=== PATIENT | male | born 1940 | race Caucasian/White ===

== ENCOUNTER 2020-08-02 15:22 | Emergency (ER) | payer MEDICARE, SELFPAY ==
--- NOTE | 2020-08-02 | CT_ITS ---
EXAMINATION: CT HEAD WITHOUT CONTRAST CLINICAL INFORMATION: Lower leg weakness. COMPARISON: CT head from 06/07/2018. Brain MRI from 06/07/2018. TECHNIQUE: Contiguous axial imaging was performed from the skull base to vertex without intravenous administration of contrast. DLP: 749 mGy-cm This CT examination was performed using dose optimization techniques as appropriate, variously including the following: *Automated exposure control. *Adjustment of mA and/or kV according to patient size (this includes techniques or standardized protocols for targeted exams where dose is matched to indication/reason for exam; i.e. extremities or head). *Use of iterative reconstruction technique. FINDINGS: There is no evidence of acute intracranial hemorrhage or edematous territorial infarction. Confluent hypoattenuation in the periventricular, deep white matter, and brainstem. 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 No demonstrated new loss of nicolas-white matter differentiation. Proportional prominence of the ventricles and sulcal spaces. No evidence for obstructive hydrocephalus. No abnormal mass effect or midline shift. No extra-axial fluid collections. 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 No hyperdense vessel sign. No acute soft tissue or osseous abnormalities. The mastoid air cells and paranasal sinuses are clear. Bilateral lens extractions. IMPRESSION: 1. No evidence of acute intracranial hemorrhage or edematous territorial infarction. 2. Moderate to extensive underlying microangiopathy. Moderate generalized cerebral volume loss.
--- NOTE | 2020-08-02 | ECG_ITS ---
Test Reason : FALL Blood Pressure : / mmHG Vent. 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 rate has decreased BY 24 BPM Referred By: Bobby Sharma Electronically Signed By:WESLEY GAINES
[2020-08-02 15:44] VITALS: BP 132/80; BP 175/77; PULSE 50; RESP 17; TEMP 36.8; O2SAT 98; BMI 37.4
[2020-08-02 15:55] VITALS: BP 175/77; PULSE 50; RESP 17; TEMP 36.8; O2SAT 98
--- NOTE | 2020-08-02 16:27 | MHC.CM.ED ---
Received case management consult from Dr Sharma. Patient came to ER due to weakness. Work up is still pending. Spoke with patient's daughter/HCP, Nancy via telephone at [phone]. Patient lives with his , ambulates with a walker and had no services prior to coming to the hospital. Patient has been to [facility] in the past. T/w explained in work up was negative, physical therapy eval would be completed. Referral made to [facility] via allscripts. Continue to monitor for d/c needs.
--- NOTE | 2020-08-02 17:05 | PC.NURSE ---
iv inserted, labs drawn, ekg performed, will continue to monitor.
[2020-08-02 17:08] LABS: MANUAL DIFF FLAG NO
[2020-08-02 17:09] LABS: Basophils Percent Auto 0.3 % (0-2); Eosinophils Absolute Auto 0.2 X10*3/uL (0.0-0.4); Eosinophils Percent Auto 2.5 % (0-4); Hematocrit 48.5 % (42-52); Hemoglobin 15.8 g/dl (14.0-18.0); Imm Gran Abs Auto 0.03 X10*3/uL (0.00-0.03); Imm Gran Pct Auto 0.3 % (0.0-0.4); Lymphocytes Absolute Auto 1.8 X10*3/uL (1.2-4.9); Lymphocytes Percent Auto 18.8 % (20-40); Mean Corpuscular HGB Conc 32.6 g/dl (31.0-36.0); Mean Corpuscular Hemoglobin 31.9 pg (27.0-33.0); Mean Corpuscular Volume 97.8 fL (80-98); Monocytes Percent Auto 10.2 % (2-11); Neutrophils Absolute Auto 6.5 X10*3/uL (2.0-8.3); Neutrophils Percent Auto 67.9 % (45-73); Platelet Count 196 X10*3/uL (160-400); Red Blood Count 4.96 X10*6/uL (4.60-5.80); Red Cell Distribution Width 14.7 % (11.0-16.0); White Blood Count 9.5 X10*3/uL (4.8-10.8)
[2020-08-02 17:43] LABS: Troponin-I High Sensitivity 10.4 ng/L (<3.5-35.0)
[2020-08-02 17:50] LABS: Alanine Aminotransferase 22 U/L (0-40); Alkaline Phosphatase 206 U/L (39-117); Anion Gap 15 (12-20); Aspartate Amino Transferase 20 U/L (5-37); Bilirubin Direct 0.5 mg/dL (0.0-0.5); Bilirubin Total 0.8 mg/dL (0.0-1.0); Blood Urea Nitrogen 41 mg/dL (9-16); Carbon Dioxide 26 mmol/L (22-29); Chloride 106 mmol/L (96-108); Creatinine Clr Calc Pharmacy 38.1; Estimated Glomerular Filt Rate 40; Glucose Random 69 mg/dL (60-115); Potassium 4.3 mmol/l (3.3-5.1); Sodium 143 mmol/L (135-145); Total Protein 6.6 g/dL (6.5-8.0)
[2020-08-02 18:00] VITALS: BP 172/76; PULSE 51; RESP 18; TEMP 36.8; O2SAT 98
--- NOTE | 2020-08-02 18:18 | PC.NURSE ---
PATIENT AGITATED AND WANTING TO DISCHARGE FROM ED, WILL NOTIFY PROVIDER
--- NOTE | 2020-08-02 18:44 | ED.GENADULT ---
HPI - General Adult General Chief complaint: Extremity Injury, Lower Stated complaint: fall unable to anbulate Time Seen by Provider: 08/02/20 16:04 Source: patient and family History of Present Illness HPI narrative: 80 year old male states of increasing lower extremity weakness weeks. States normally walks with a walker however recently has been more weak and unable to walk. Patient states he did feel the past couple days ago however no injury. No head injury. Patient states did not pass out no syncope or chest pain. Patient denies focal pain. Denies fevers or chills. Onset (ago): day(s) Severity: mild Pain Consistency: constant Related Data Previous Rx's Medication Instructions Recorded cefuroxime axetil 500 mg PO BID #14 tab 08/02/20 Allergies Allergy/AdvReac Type Severity Reaction Status Date / Time No Known Allergies Allergy Verified 08/02/20 15:53 Review of Systems Review of Systems: Constitutional : No Weight loss, No Fever, No Chills, No Night Sweats, No Fatigue, No Malaise ENT/Mouth : No Hearing loss, No Ear Pain, No Nasal Congestion, No Sinus Pain, No Hoarseness, No sore throat, No Rhinorrhea, No Swallowing Difficulty Eyes: No Eye Pain, No Swelling, No Redness, No Foreign Body, No Discharge, No Vision Changes Cardiovascular : No Chest Pain, No SOB, No Dyspnea on Exertion, No Orthopnea, No Edema, No Palpitations Respiratory : No Cough, No Sputum, No Wheezing, No Smoke Exposure, No Dyspnea Gastrointestinal : No Nausea, No Vomiting, No Diarrhea, No Constipation, No abdominal Pain, No Hematochezia, No Melena Genitourinary : no irregular bleeding, No Dysuria, No Urinary Frequency, No Hematuria, No Urinary Incontinence, No Urgency, No Flank Pain, No Urinary Flow Changes, No Hesitancy Musculoskeletal : No joint pain, No Myalgias, No Joint Swelling Skin : No Skin Lesions, No rash Neuro : No Weakness, No Numbness, No Paresthesias, No Loss of Consciousness, No Dizziness, No Headache Psych : No Anxiety/Panic, No Depression, No SI/HI/AH/VH, No Social Issues, Heme/Lymph: No Bruising, No Bleeding,No Lymphadenopathy Endocrine : No Polyuria, No Polydipsia, No Temperature Intolerance Yes all other systems are reviewed and are negative [facility] Past Medical History Attestation statement: The following information was validated with the patient. 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 Oriented X3. No acute distress. Eyes: Pupils equal, round and reactive to light. ENT: Pharynx normal. Neck: Normal inspection. Neck supple. CVS: Normal heart rate and rhythm. Pulses normal. Respiratory: No respiratory distress. Breath sounds normal. Abdomen: Soft and nontender. Skin: Skin warm and dry. Normal skin color. Normal skin turgor. Extremities: No lower extremity edema. No lower extremity edema. bilateral decreased strength intact sensation bilateral intact reflexes Neuro: Oriented X 3. No motor deficit. No sensory deficit. Course Course Course Narrative: 80-year-old male diagnosed with UTI general weakness. However the patient is not septic nor dizzy meet criteria for sepsis. Family able to take her med home. Wants to go home. Patient ambulatory with assistance. Reevaluation(s) Reevaluation #1: EKG reading. Sinus bradycardia 46. Right word axis. No ST-T changes Medical Decision Making Lab Data Result diagrams: 08/02/20 17:01 08/02/20 17:01 Labs: Lab Results 08/02/20 08/02/20 08/02/20 Range/Units 17:01 17:01 17:01 WBC 9.5 (4.8-10.8) X10*3/uL RBC 4.96 (4.60-5.80) X10*6/uL Hgb 15.8 (14.0-18.0) g/dl Hct 48.5 (42-52) % MCV 97.8 (80-98) fL MCH 31.9 (27.0-33.0) pg MCHC 32.6 (31.0-36.0) g/dl RDW 14.7 (11.0-16.0) % Plt Count 196 (160-400) X10*3/uL MPV 10.0 (9.4-12.4) fL Immature Gran % (Auto) 0.3 (0.0-0.4) % Neut % (Auto) 67.9 (45-73) % Lymph % (Auto) 18.8 L (20-40) % [place] % (Auto) 10.2 (2-11) % Eos % (Auto) 2.5 (0-4) % Baso % (Auto) 0.3 (0-2) % Neut # (Auto) 6.5 (2.0-8.3) X10*3/uL Lymph # (Auto) 1.8 (1.2-4.9) X10*3/uL [place] # (Auto) 1.0 (0.1-1.2) X10*3/uL Eos # (Auto) 0.2 (0.0-0.4) X10*3/uL Baso # (Auto) 0.0 (0.0-0.2) X10*3/uL Abs Immat Gran (auto) 0.03 (0.00-0.03) X10*3/uL Absolute Nucleated RBC 0.000 (0.0-0.012) X10*3/uL Nucleated RBC % (auto) 0.0 (0.0-0.2) /100WBC Sodium 143 (135-145) mmol/L Potassium 4.3 (3.3-5.1) mmol/l Chloride 106 (96-108) mmol/L Carbon Dioxide 26 (22-29) mmol/L Anion Gap 15 (12-20) BUN 41 H (9-16) mg/dL Creatinine 1.64 H (0.5-1.4) mg/dL Estim Creat Clear Calc 38.1 Estimated GFR 40 Random Glucose 69 (60-115) mg/dL Calcium 8.0 L (8.4-10.2) mg/dL Total Bilirubin 0.8 (0.0-1.0) mg/dL Direct Bilirubin 0.5 (0.0-0.5) mg/dL AST 20 (5-37) U/L ALT 22 (0-40) U/L Alkaline Phosphatase 206 H (39-117) U/L Troponin I High Sens 10.4 (<3.5-35.0) ng/L Total Protein 6.6 (6.5-8.0) g/dL Albumin 4.0 (3.5-5.0) g/dL Discharge Plan Discharge Clinical Impression: Generalized muscle weakness, Acute UTI Patient Disposition: Home, Self-Care Instructions: Urinary Tract Infection in Men (ED), Weakness (ED) Additional Instructions: Thank you for visiting the emergency department today. If your symptoms worsen or do not resolve completely please return to the emergency department immediately or call 911. if he have any questions please call your primary care physician Prescriptions: New cefuroxime axetil 500 mg tablet 500 mg PO BID Qty: 14 RF: 0 Referrals: Corinne Breaux [Emergency Nurse] - 2 days Interventions: ED Discharge Assessment Last Done: 08/02/20 20:00 Discharge Date/Time: 08/02/20 20:02
--- NOTE | 2020-08-02 18:48 | PC.NURSE ---
This rn spoke with pt and family, plan is to dc pt homewith oral abx and follow up with pcp, pt and family are aware of plan of care.
--- NOTE | 2020-08-02 19:35 | PC.NURSE ---
PT MEDICATED PER ORDER
== END 2020-08-02 20:02 | disposition home or self-care (01) ==
PROVIDERS: Emergency Provider Emergency Medicine; PCP Internal Medicine
DX: R53.1 Weakness (principal); R26.2 Difficulty in walking, not elsewhere classified; N39.0 Urinary tract infection, site not specified; Z79.899 Other long term (current) drug therapy
CPT/HCPCS: 36415; 70450; 80048; 80076; 84484; 85025; 93005; 93010; 99284

== ENCOUNTER 2020-08-10 13:42 | Outpatient (REF) | payer MEDICARE, SELFPAY ==
[2020-08-10 14:41] LABS: MANUAL DIFF FLAG NO
[2020-08-10 14:52] LABS: Basophils Percent Auto 0.3 % (0-2); Eosinophils Absolute Auto 0.2 X10*3/uL (0.0-0.4); Eosinophils Percent Auto 2.2 % (0-4); Hematocrit 47.4 % (42-52); Hemoglobin 15.4 g/dl (14.0-18.0); Imm Gran Abs Auto 0.03 X10*3/uL (0.00-0.03); Imm Gran Pct Auto 0.4 % (0.0-0.4); Lymphocytes Absolute Auto 1.5 X10*3/uL (1.2-4.9); Lymphocytes Percent Auto 19.1 % (20-40); Mean Corpuscular HGB Conc 32.5 g/dl (31.0-36.0); Mean Corpuscular Volume 98.5 fL (80-98); Mean Platelet Volume 10.6 fL (9.4-12.4); Monocytes Absolute Auto 0.6 X10*3/uL (0.1-1.2); Monocytes Percent Auto 7.7 % (2-11); Neutrophils Absolute Auto 5.6 X10*3/uL (2.0-8.3); Neutrophils Percent Auto 70.3 % (45-73); Platelet Count 193 X10*3/uL (160-400); Red Blood Count 4.81 X10*6/uL (4.60-5.80); Red Cell Distribution Width 14.6 % (11.0-16.0); White Blood Count 7.9 X10*3/uL (4.8-10.8)
[2020-08-10 15:17] LABS: Alanine Aminotransferase 22 U/L (0-40); Albumin Level 3.8 g/dL (3.5-5.0); Alkaline Phosphatase 177 U/L (39-117); Anion Gap 12 (12-20); Aspartate Amino Transferase 18 U/L (5-37); Bilirubin Total 0.7 mg/dL (0.0-1.0); Blood Urea Nitrogen 44 mg/dL (9-16); Calcium 7.9 mg/dL (8.4-10.2); Carbon Dioxide 28 mmol/L (22-29); Chloride 106 mmol/L (96-108); Cholesterol 129 mg/dL; Estimated Glomerular Filt Rate 39; Glucose Fasting 159 mg/dL (60-99); HDL Cholesterol 24 mg/dL; LDL Cholesterol Calculated 73 mg/dl; Potassium 4.7 mmol/l (3.3-5.1); Sodium 141 mmol/L (135-145); Triglycerides 164 mg/dL
[2020-08-10 16:06] LABS: Reflex LDLD? No
[2020-08-17 15:13] LABS: Glucose Urine UA NEG (NEG); Leukocyte Esterase Urine NEG (NEG); Nitrite Urine NEG (NEG); PH 5.5 (5.0-8.0); Specific Gravity - Urine 1.015 (1.005-1.025); Urine Blood NEG (NEG); Urine Ketones NEG (NEG); Urine Protein NEG (NEG-TRACE)
[2020-08-17 15:16] LABS: Appearance Urine CLEAR; Color Urine YELLOW
== END 2020-08-10 13:43 | disposition home or self-care (01) ==
LOC: HO.LAB 13:42
PROVIDERS: PCP Internal Medicine; Visit Provider Internal Medicine
DX: I10 Essential (primary) hypertension (principal); E78.6 Lipoprotein deficiency; Z87.448 Personal history of other diseases of urinary system
CPT/HCPCS: 36415; 80053; 80061; 81003; 84153; 85025

== ENCOUNTER 2021-01-31 10:22 | Outpatient (REF) | payer MEDICARE, SELFPAY ==
[2021-01-31 13:36] LABS: SARS COV2 PCR INHOUSE POSITIVE (Negative)
== END 2021-01-31 10:23 | disposition home or self-care (01) ==
LOC: HO.LAB 10:22
PROVIDERS: Visit Provider Internal Medicine
DX: Z20.822 Contact with and (suspected) exposure to COVID-19 (principal)
CPT/HCPCS: C9803; U0003

== ENCOUNTER 2021-05-12 16:14 | Outpatient (REF) | payer MEDICARE, SELFPAY ==
[2021-05-12 16:20] LABS: MANUAL DIFF FLAG NO
[2021-05-12 16:25] LABS: Basophils Percent Auto 0.3 % (0-2); Eosinophils Absolute Auto 0.2 X10*3/uL (0.0-0.4); Eosinophils Percent Auto 1.4 % (0-4); Hematocrit 39.4 % (42-52); Hemoglobin 12.7 g/dl (14.0-18.0); Imm Gran Abs Auto 0.05 X10*3/uL (0.00-0.03); Imm Gran Pct Auto 0.4 % (0.0-0.4); Lymphocytes Absolute Auto 2.3 X10*3/uL (1.2-4.9); Lymphocytes Percent Auto 19.5 % (20-40); Mean Corpuscular HGB Conc 32.2 g/dl (31.0-36.0); Mean Corpuscular Hemoglobin 31.3 pg (27.0-33.0); Mean Platelet Volume 10.4 fL (9.4-12.4); Monocytes Absolute Auto 1.2 X10*3/uL (0.1-1.2); Monocytes Percent Auto 10.4 % (2-11); Platelet Count 230 X10*3/uL (160-400); Red Blood Count 4.06 X10*6/uL (4.60-5.80); Red Cell Distribution Width 16.4 % (11.0-16.0); White Blood Count 11.8 X10*3/uL (4.8-10.8)
[2021-05-12 17:30] LABS: Alanine Aminotransferase 13 U/L (0-40); Albumin Level 3.6 g/dL (3.5-5.0); Alkaline Phosphatase 156 U/L (39-117); Anion Gap 15 (12-20); Aspartate Amino Transferase 17 U/L (5-37); Bilirubin Total 0.8 mg/dL (0.0-1.0); Blood Urea Nitrogen 29 mg/dL (9-16); Calcium 7.1 mg/dL (8.4-10.2); Carbon Dioxide 23 mmol/L (22-29); Chloride 107 mmol/L (96-108); Cholesterol 137 mg/dL; Estimated Glomerular Filt Rate 42; Glucose Fasting 77 mg/dL (60-99); HDL Cholesterol 27 mg/dL; LDL Cholesterol Calculated 76 mg/dl; Potassium 4.2 mmol/L (3.3-5.1); Sodium 141 mmol/L (135-145); Total Protein 6.1 g/dL (6.5-8.0); Triglycerides 172 mg/dL
[2021-05-12 17:45] LABS: PSA,Total (Free>4and<10) 0.96 ng/mL (0.00-4.00)
[2021-05-12 18:11] LABS: Reflex LDLD? No
== END 2021-05-12 16:15 | disposition home or self-care (01) ==
LOC: HO.LNP 16:14
PROVIDERS: Visit Provider Internal Medicine
DX: Z12.5 Encounter for screening for malignant neoplasm of prostate (principal); N19 Unspecified kidney failure; G30.0 Alzheimer's disease with early onset; G40.909 Epilepsy, unspecified, not intractable, without status epilepticus; I10 Essential (primary) hypertension
CPT/HCPCS: 80053; 80061; 84153; 85025

== ENCOUNTER 2021-07-25 12:19 | Emergency (ER) | payer MEDICARE, SELFPAY ==
--- NOTE | ~2021-07-25 | CT_ITS ---
EXAMINATION: CT HEAD WITHOUT CONTRAST (STROKE PROTOCOL) CLINICAL INFORMATION: Stroke protocol. Acute mental status change COMPARISON: Previous head CT most recent July 2020 TECHNIQUE: Contiguous axial imaging was performed from the skull base to vertex without intravenous administration of contrast. This CT examination was performed using dose optimization techniques as appropriate, variously including the following: *Automated exposure control *Adjustment of mA and/or kV according to patient size (this includes techniques or standardized protocols for targeted exams where dose is matched to indication/reason for exam; i.e. extremities or head) *Use of iterative reconstruction technique DLP: 782 mGy-cm FINDINGS: There is no evidence of an extra-axial collection. There is no evidence of intra or extra-axial hemorrhage. The ventricles and extra-axial CSF spaces are prominent suggestive of generalized atrophy. There is nonspecific periventricular white matter disease. There may be old basal ganglia lacunar infarcts. No mass, mass effect or acute infarct is seen. Review of bone windows is normal. No skull fracture is seen. Paranasal sinuses, mastoid air cells and middle ears are clear. CT/CT head for stroke IMPRESSION: Generalized atrophy and nonspecific periventricular white matter disease. No acute findings. This critical result was discussed with Dr. Miles at 1236 hours on 07/25/2021. It was ascertained that the content and urgency of the report was understood at the time of direct communication.
--- NOTE | ~2021-07-25 | XR_ITS ---
EXAMINATION: XR CHEST CLINICAL INFORMATION: AMS COMPARISON: Chest 06/16/2018 TECHNIQUE: Frontal view of the chest was obtained. FINDINGS: The lungs are hypoexpanded with patchy opacity left lung base. Rest of lungs are clear. Heart size and pulmonary vascularity is normal. There are median sternotomy sutures from previous intervention. No gross bony abnormality seen. XR/XR chest 1V IMPRESSION: Patchy opacity left lower lobe infiltrate versus atelectasis. Similar findings were seen on previous study 06/06/2018.
--- NOTE | 2021-07-25 12:23 | ECG_ITS ---
Test Reason : SEIZURE Blood Pressure : / mmHG Vent. 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
--- NOTE | 2021-07-25 12:25 | ED_ITS ---
HPI - Neuro Symptoms/Deficit General Chief Complaint: Stroke Stated Complaint: STROKE LIKE VS POST ICTAL NONREPONSIVE Time Seen by Provider: 07/25/21 12:22 Source: patient, family and EMS Mode of arrival: EMS Limitations: altered mental status History of Present Illness HPI Narrative: sitting with , R arm shot off stared off and became unresponsive - daughter who is RN here notes that this is a typical seizure for him, unsure if he is taking his dilantin Onset (ago): minute(s) (30) Timing confirmed by: family member Location: altered History of same: Yes Severity: moderate Quality: other Relieving factors: none Exacerbating factors: none Context: sudden onset On Anticoagulants: No Associated symptoms: other (confused, was staring off) Treatments Prior to Arrival: none Related Data Home Medications Medication Instructions Recorded Confirmed amlodipine 5 mg tablet 1 tab PO DAILY 07/25/21 07/25/21 atenolol 25 mg tablet 1 tab PO BID 07/25/21 07/25/21 atorvastatin 20 mg tablet 1 tab PO DAILY 07/25/21 07/25/21 finasteride 5 mg tablet 1 tab PO DAILY 07/25/21 07/25/21 omeprazole 20 mg capsule,delayed 1 cap PO DAILY 07/25/21 07/25/21 release phenytoin sodium extended 100 mg 3 cap PO BID 07/25/21 07/25/21 capsule tamsulosin 0.4 mg capsule 1 cap PO BEDTIME 07/25/21 07/25/21 valsartan 320 1 tab PO DAILY 07/25/21 07/25/21 mg-hydrochlorothiazide 12.5 mg tablet Previous Rx's Medication Instructions Recorded phenytoin sodium extended 100 mg 300 mg PO BID 30 Days #180 cap 07/25/21 capsule (Dilantin Extended) Allergies Allergy/AdvReac Type Severity Reaction Status Date / Time No Known Allergies Allergy Verified 08/02/20 15:53 Review of Systems Review of Systems: ROS unable to be obtained due to altered mental status [facility] Past Medical History Source: old records reviewed and obtained from family Medical History High cholesterol Hypertension Seizures Surgical History History of hip surgery 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 Oriented X1. No acute distress. Eyes: Pupils equal, round and reactive to light. ENT: Pharynx normal. Neck: Normal inspection. Neck supple. CVS: Normal heart rate and rhythm. Pulses normal. Respiratory: No respiratory distress. Breath sounds normal. Abdomen: Soft and non-tender. Skin: Skin warm and dry. Normal skin color. Normal skin turgor. Extremities: No lower extremity edema. No calf ttp Neuro: Oriented X 1. No motor deficit. No sensory deficit. CN2-12 intact Course Course Course Narrative: patient is starting to come around now recognizes daughter 1237pm negative for acute findings per Radiology dilantin low will load at baseline just cannot remember events, lactic acid due to seizure activity and no infectino or severe sepsis at baseline, now notes he does not have his dilantin and this was likely the cause of his seizure MDM - Neuro Symptoms/Deficit MDM Narrative Medical decision making narrative: 81 yo male with hxof seizures, HLD, here with episode of R arm shooting up then staring off and becoming altered, RN daughter notes that this is how his seizures present - he is likely postictal at this time no focal deficits. At this time will need labs, CT head, dilantin level, observation. Given his presentation is consistent with his prior seizure activity and has a low NIH score he is not a candidate for tPa Lab Data Result diagrams: 07/25/21 12:38 07/25/21 12:38 Labs: Lab Results 07/25/21 07/25/21 07/25/21 Range/Units 12:38 12:38 12:38 WBC 9.8 (4.8-10.8) X10*3/uL RBC 4.79 (4.60-5.80) X10*6/uL Hgb 15.0 (14.0-18.0) g/dl Hct 46.3 (42-52) % MCV 96.7 (80-98) fL MCH 31.3 (27.0-33.0) pg MCHC 32.4 (31.0-36.0) g/dl RDW 14.4 (11.0-16.0) % Plt Count 185 (160-400) X10*3/uL MPV 10.1 (9.4-12.4) fL Immature Gran % (Auto) 0.5 H (0.0-0.4) % Neut % (Auto) 60.6 (45-73) % Lymph % (Auto) 28.4 (20-40) % Carter % (Auto) 8.6 (2-11) % Eos % (Auto) 1.6 (0-4) % Baso % (Auto) 0.3 (0-2) % Lymph # (Auto) 2.8 (1.2-4.9) X10*3/uL Carter # (Auto) 0.8 (0.1-1.2) X10*3/uL Eos # (Auto) 0.2 (0.0-0.4) X10*3/uL Baso # (Auto) 0.0 (0.0-0.2) X10*3/uL Abs Immat Gran (auto) 0.05 H (0.00-0.03) X10*3/uL Absolute Neuts (auto) 5.9 (2.0-8.3) X10*3/uL Absolute Nucleated RBC 0.000 (0.0-0.012) X10*3/uL Nucleated RBC % (auto) 0.0 (0.0-0.2) /100WBC PT 11.6 (9.9-13.0) SEC INR 1.0 (0.9-1.1) APTT 32.9 (24.1-38.0) SEC Sodium 141 (135-145) mmol/L Potassium 4.6 (3.3-5.1) mmol/L Chloride 108 (96-108) mmol/L Carbon Dioxide 22 (22-29) mmol/L Anion Gap 16 (12-20) BUN 25 H (9-16) mg/dL Creatinine 1.51 H (0.5-1.4) mg/dL Estim Creat Clear Calc 43.3 Estimated GFR 44 Random Glucose 84 (60-115) mg/dL Lactic Acid (0.5-2.0) mmol/L Lactic Acid Fup @ 2Hr (0.5-2.0) mmol/L Calcium 7.6 L D (8.4-10.2) mg/dL Magnesium 1.5 L (1.6-2.6) mg/dL Total Bilirubin 0.5 (0.0-1.0) mg/dL Direct Bilirubin 0.2 (0.0-0.5) mg/dL AST 20 (5-37) U/L ALT 24 (0-40) U/L Alkaline Phosphatase 167 H (39-117) U/L Troponin I High Sens (<3.5-35.0) ng/L Total Protein 6.3 L (6.5-8.0) g/dL Albumin 3.8 (3.5-5.0) g/dL Lipase 27 (8-78) U/L Urine Color Urine Appearance Urine pH (5.0-8.0) Ur Specific [place] (1.005-1.025) Urine Protein (NEG-TRACE) MG/DL Urine Glucose (UA) (NEG) MG/DL Urine Ketones (NEG) MG/DL Urine Blood (NEG) Urine Nitrite (NEG) Ur Leukocyte Esterase (NEG) Phenytoin 1.1 L* (10.0-20.0) ug/mL COVID-19 ([facility]) (Negative) COVID-19 Clin Com 07/25/21 07/25/21 07/25/21 Range/Units 12:38 12:38 12:39 WBC (4.8-10.8) X10*3/uL RBC (4.60-5.80) X10*6/uL Hgb (14.0-18.0) g/dl Hct (42-52) % MCV (80-98) fL MCH (27.0-33.0) pg MCHC (31.0-36.0) g/dl RDW (11.0-16.0) % Plt Count (160-400) X10*3/uL MPV (9.4-12.4) fL Immature Gran % (Auto) (0.0-0.4) % Neut % (Auto) (45-73) % Lymph % (Auto) (20-40) % Carter % (Auto) (2-11) % Eos % (Auto) (0-4) % Baso % (Auto) (0-2) % Lymph # (Auto) (1.2-4.9) X10*3/uL [place] # (Auto) (0.1-1.2) X10*3/uL Eos # (Auto) (0.0-0.4) X10*3/uL Baso # (Auto) (0.0-0.2) X10*3/uL Abs Immat Gran (auto) (0.00-0.03) X10*3/uL Absolute Neuts (auto) (2.0-8.3) X10*3/uL Absolute Nucleated RBC (0.0-0.012) X10*3/uL Nucleated RBC % (auto) (0.0-0.2) /100WBC PT (9.9-13.0) SEC INR (0.9-1.1) APTT (24.1-38.0) SEC Sodium (135-145) mmol/L Potassium (3.3-5.1) mmol/L Chloride (96-108) mmol/L Carbon Dioxide (22-29) mmol/L Anion Gap (12-20) BUN (9-16) mg/dL Creatinine (0.5-1.4) mg/dL Estim Creat Clear Calc Estimated GFR Random Glucose (60-115) mg/dL Lactic Acid 2.6 H* (0.5-2.0) mmol/L Lactic Acid Fup @ 2Hr (0.5-2.0) mmol/L Calcium (8.4-10.2) mg/dL Magnesium (1.6-2.6) mg/dL Total Bilirubin (0.0-1.0) mg/dL Direct Bilirubin (0.0-0.5) mg/dL AST (5-37) U/L ALT (0-40) U/L Alkaline Phosphatase (39-117) U/L Troponin I High Sens 13.7 (<3.5-35.0) ng/L Total Protein (6.5-8.0) g/dL Albumin (3.5-5.0) g/dL Lipase (8-78) U/L Urine Color Urine Appearance Urine pH (5.0-8.0) Ur Specific [place] (1.005-1.025) Urine Protein (NEG-TRACE) MG/DL Urine Glucose (UA) (NEG) MG/DL Urine Ketones (NEG) MG/DL Urine Blood (NEG) Urine Nitrite (NEG) Ur Leukocyte Esterase (NEG) Phenytoin (10.0-20.0) ug/mL COVID-19 ([facility]) Negative (Negative) COVID-19 Clin Com See Note 07/25/21 07/25/21 Range/Units 14:50 14:50 WBC (4.8-10.8) X10*3/uL RBC (4.60-5.80) X10*6/uL Hgb (14.0-18.0) g/dl Hct (42-52) % MCV (80-98) fL MCH (27.0-33.0) pg MCHC (31.0-36.0) g/dl RDW (11.0-16.0) % Plt Count (160-400) X10*3/uL MPV (9.4-12.4) fL Immature Gran % (Auto) (0.0-0.4) % Neut % (Auto) (45-73) % Lymph % (Auto) (20-40) % Carter % (Auto) (2-11) % Eos % (Auto) (0-4) % Baso % (Auto) (0-2) % Lymph # (Auto) (1.2-4.9) X10*3/uL [place] # (Auto) (0.1-1.2) X10*3/uL Eos # (Auto) (0.0-0.4) X10*3/uL Baso # (Auto) (0.0-0.2) X10*3/uL Abs Immat Gran (auto) (0.00-0.03) X10*3/uL Absolute Neuts (auto) (2.0-8.3) X10*3/uL Absolute Nucleated RBC (0.0-0.012) X10*3/uL Nucleated RBC % (auto) (0.0-0.2) /100WBC PT (9.9-13.0) SEC INR (0.9-1.1) APTT (24.1-38.0) SEC Sodium (135-145) mmol/L Potassium (3.3-5.1) mmol/L Chloride (96-108) mmol/L Carbon Dioxide (22-29) mmol/L Anion Gap (12-20) BUN (9-16) mg/dL Creatinine (0.5-1.4) mg/dL Estim Creat Clear Calc Estimated GFR Random Glucose (60-115) mg/dL Lactic Acid (0.5-2.0) mmol/L Lactic Acid Fup @ 2Hr 1.3 (0.5-2.0) mmol/L Calcium (8.4-10.2) mg/dL Magnesium (1.6-2.6) mg/dL Total Bilirubin (0.0-1.0) mg/dL Direct Bilirubin (0.0-0.5) mg/dL AST (5-37) U/L ALT (0-40) U/L Alkaline Phosphatase (39-117) U/L Troponin I High Sens (<3.5-35.0) ng/L Total Protein (6.5-8.0) g/dL Albumin (3.5-5.0) g/dL Lipase (8-78) U/L Urine Color YELLOW Urine Appearance CLEAR Urine pH 6.0 (5.0-8.0) Ur Specific [place] <= 1.005 (1.005-1.025) Urine Protein TRACE (NEG-TRACE) MG/DL Urine Glucose (UA) NEG (NEG) MG/DL Urine Ketones NEG (NEG) MG/DL Urine Blood TRACE (NEG) Urine Nitrite NEG (NEG) Ur Leukocyte Esterase NEG (NEG) Phenytoin (10.0-20.0) ug/mL COVID-19 ([facility]) (Negative) COVID-19 Clin Com ECG Data Attestation: I personally reviewed and interpreted this ECG as follows: ECG interpretation date: 07/25/21 ECG interpretation time: 13:01 Interpretation: Rate: 63 Rhythm: NSR [place]: left, LVH Normal P waves. Normal SAURAV. Normal QRS complex. ST T wave : no KEYANA< nonspecific qTC: normal prior studies: no acute ischemia The study has been interpreted contemporaneously by me. . NIH Stroke Scale Internal: Initial- Upon Arrival Level of Consciousness: Alert Level of Consciousness Questions: Answers one question correctly Level of Consciousness Commands: Performs both tasks correctly Best Gaze: Normal Visual: No visual loss Facial Palsy: Normal Motor Arm (Right): No drift Motor Arm (Left): No drift Motor Leg (Right): No drift Motor Leg (Left): No drift Limb Ataxia: Absent Sensory: Normal Best Language: No aphasia Dysarthia: Normal Extinction and Inattention: No abnormality Score: 1 Critical Care Time Critical Care Time Critical Care Time: Yes Total Critical Care Time: 35 Attestation: stroke protocol, family discussions, repeat assessments I attest to this time spent taking care of the patient Discharge Plan Discharge Clinical Impression: Seizure Patient Disposition: Home, Self-Care Instructions: Recurrent Seizures in Adults (ED) Additional Instructions: return to ED for any worsening symptoms or concerns Prescriptions: New phenytoin sodium extended [Dilantin Extended] 100 mg capsule 300 mg PO BID 30 Days Qty: 180 RF: 1 No Action atorvastatin 20 mg tablet 1 tab PO DAILY RF: 0 phenytoin sodium extended 100 mg capsule 3 cap PO BID RF: 0 amlodipine 5 mg tablet 1 tab PO DAILY RF: 0 tamsulosin 0.4 mg capsule 1 cap PO BEDTIME RF: 0 omeprazole 20 mg capsule,delayed release(DR/EC) 1 cap PO DAILY RF: 0 finasteride 5 mg tablet 1 tab PO DAILY RF: 0 valsartan-hydrochlorothiazide 320-12.5 mg tablet 1 tab PO DAILY RF: 0 atenolol 25 mg tablet 1 tab PO BID RF: 0 Referrals: Manny Joshua MD [Primary Care Provider] - 2 days
[2021-07-25 12:32] VITALS: BP 188/100; BP 200/84; PULSE 60; PULSE 70; RESP 18; TEMP 37.2; O2SAT 94; O2SAT 96; BMI 34.9
[2021-07-25 12:46] LABS: MANUAL DIFF FLAG NO
[2021-07-25 12:57] LABS: Basophils Percent Auto 0.3 % (0-2); Eosinophils Absolute Auto 0.2 X10*3/uL (0.0-0.4); Eosinophils Percent Auto 1.6 % (0-4); Hematocrit 46.3 % (42-52); Imm Gran Abs Auto 0.05 X10*3/uL (0.00-0.03); Imm Gran Pct Auto 0.5 % (0.0-0.4); Lymphocytes Absolute Auto 2.8 X10*3/uL (1.2-4.9); Lymphocytes Percent Auto 28.4 % (20-40); Mean Corpuscular HGB Conc 32.4 g/dl (31.0-36.0); Mean Corpuscular Hemoglobin 31.3 pg (27.0-33.0); Mean Corpuscular Volume 96.7 fL (80-98); Mean Platelet Volume 10.1 fL (9.4-12.4); Monocytes Absolute Auto 0.8 X10*3/uL (0.1-1.2); Monocytes Percent Auto 8.6 % (2-11); Neutrophils Absolute Auto 5.9 X10*3/uL (2.0-8.3); Neutrophils Percent Auto 60.6 % (45-73); Platelet Count 185 X10*3/uL (160-400); Red Blood Count 4.79 X10*6/uL (4.60-5.80); Red Cell Distribution Width 14.4 % (11.0-16.0); White Blood Count 9.8 X10*3/uL (4.8-10.8)
--- NOTE | 2021-07-25 13:00 | PHA.MEDREC ---
Pharmacy Consult ? Medication Reconciliation Pharmacy has completed the medication reconciliation. Pt had a list in the chart with claim history to support it.
[2021-07-25 13:04] LABS: COVID-19 Test Negative (Negative)
[2021-07-25 13:11] LABS: Alanine Aminotransferase 24 U/L (0-40); Albumin Level 3.8 g/dL (3.5-5.0); Alkaline Phosphatase 167 U/L (39-117); Anion Gap 16 (12-20); Aspartate Amino Transferase 20 U/L (5-37); Bilirubin Direct 0.2 mg/dL (0.0-0.5); Bilirubin Total 0.5 mg/dL (0.0-1.0); Blood Urea Nitrogen 25 mg/dL (9-16); Calcium 7.6 mg/dL (8.4-10.2); Carbon Dioxide 22 mmol/L (22-29); Chloride 108 mmol/L (96-108); Creatinine Clr Calc Pharmacy 43.3; Estimated Glomerular Filt Rate 44; Glucose Random 84 mg/dL (60-115); Lipase 27 U/L (8-78); Magnesium 1.5 mg/dL (1.6-2.6); Potassium 4.6 mmol/L (3.3-5.1); Sodium 141 mmol/L (135-145); Total Protein 6.3 g/dL (6.5-8.0)
[2021-07-25 13:13] LABS: Troponin-I High Sensitivity 13.7 ng/L (<3.5-35.0)
[2021-07-25 13:16] LABS: Prothrombin Time 11.6 SEC (9.9-13.0)
[2021-07-25 13:19] LABS: Lactic Acid 2.6 mmol/L (0.5-2.0); Partial Thromboplastin Time 32.9 SEC (24.1-38.0)
[2021-07-25 13:33] VITALS: BP 181/95; PULSE 56; RESP 18; O2SAT 98
[2021-07-25] MEDS: 0.9 % Sodium Chloride 500 ML IV (13:35)
[2021-07-25 13:39] LABS: Phenytoin Dilantin 1.1 ug/mL (10.0-20.0)
[2021-07-25 14:44] LABS: Reflex Lactate? Lactic Acid Added
[2021-07-25 14:48] VITALS: BP 167/79; PULSE 56; RESP 22; O2SAT 98
[2021-07-25 14:58] LABS: Appearance Urine CLEAR; Color Urine YELLOW; Glucose Urine UA NEG (NEG); Leukocyte Esterase Urine NEG (NEG); Nitrite Urine NEG (NEG); Specific Gravity - Urine <= 1.005 (1.005-1.025); UACC Culture Trigger NO; Urine Blood TRACE (NEG); Urine Ketones NEG (NEG); Urine Protein TRACE MG/DL (NEG-TRACE)
[2021-07-25 15:21] LABS: ~Lactic Acid-LAB USE ONLY 1.3 mmol/L (0.5-2.0)
[2021-07-25 15:29] LABS: Squamous Epithelial Cell Urine TRACE /LPF
[2021-07-25 15:38] VITALS: BP 144/76; PULSE 57; RESP 18; O2SAT 95
== END 2021-07-25 16:01 | disposition home or self-care (01) ==
PROVIDERS: Emergency Provider Emergency Medicine; PCP Internal Medicine
DX: R56.9 Unspecified convulsions (principal); M79.601 Pain in right arm; R07.89 Other chest pain; R51.9 Headache, unspecified; Z20.822 Contact with and (suspected) exposure to COVID-19; Z79.899 Other long term (current) drug therapy
CPT/HCPCS: 36415; 70450; 71045; 80048; 80076; 80185; 81001; 83605; 83690; 83735; 84484; 85025; 85610; 85730; 87040; 87635; 93005; 96361; 96374; 99285; 99291

== ENCOUNTER 2021-07-29 13:56 | Outpatient (REF) | payer MEDICARE, SELFPAY ==
[2021-07-29 14:39] LABS: Phenytoin Dilantin 12.5 ug/mL (10.0-20.0)
== END 2021-07-29 13:57 | disposition home or self-care (01) ==
LOC: HO.LNP 13:56
PROVIDERS: Visit Provider Internal Medicine
DX: G40.909 Epilepsy, unspecified, not intractable, without status epilepticus (principal)
CPT/HCPCS: 80185

== ENCOUNTER 2021-09-27 10:51 | Outpatient (REF) | payer MEDICARE, SELFPAY ==
[2021-09-27 11:21] LABS: MANUAL DIFF FLAG NO
[2021-09-27 11:49] LABS: Basophils Percent Auto 0.2 % (0-2); Eosinophils Absolute Auto 0.1 X10*3/uL (0.0-0.4); Eosinophils Percent Auto 1.3 % (0-4); Hematocrit 43.5 % (42.0-52.0); Hemoglobin 14.1 g/dl (14.0-18.0); Imm Gran Abs Auto 0.04 X10*3/uL (0.00-0.03); Imm Gran Pct Auto 0.5 % (0.0-0.4); Lymphocytes Absolute Auto 1.6 X10*3/uL (1.2-4.9); Lymphocytes Percent Auto 19.8 % (20-40); Mean Corpuscular HGB Conc 32.4 g/dl (31.0-36.0); Mean Corpuscular Hemoglobin 31.6 pg (27.0-33.0); Mean Corpuscular Volume 97.5 fL (80.0-98.0); Mean Platelet Volume 10.5 fL (9.4-12.4); Monocytes Absolute Auto 0.7 X10*3/uL (0.1-1.2); Monocytes Percent Auto 8.2 % (2-11); Neutrophils Absolute Auto 5.8 x10*3/uL (2.0-8.3); Platelet Count 184 X10*3/uL (160-400); Red Blood Count 4.46 X10*6/uL (4.60-5.80); Red Cell Distribution Width 14.4 % (11.0-16.0); White Blood Count 8.3 X10*3/uL (4.8-10.8)
[2021-09-27 12:41] LABS: Vitamin D 25-OH Total 13.3 ng/mL (>30)
[2021-09-27 13:16] LABS: Albumin Level 3.6 g/dL (3.5-5.0); Anion Gap 16 (12-20); Blood Urea Nitrogen 45 mg/dL (9-16); Calcium 7.8 mg/dL (8.4-10.2); Carbon Dioxide 23 mmol/L (22-29); Chloride 109 mmol/L (96-108); Estimated Glomerular Filt Rate 36; Phosphorus 3.8 mg/dL (2.7-4.5); Potassium 4.8 mmol/L (3.3-5.1); Sodium 143 mmol/L (135-145)
[2021-09-27 13:23] LABS: Magnesium 1.4 mg/dL (1.6-2.6)
[2021-09-27 13:57] LABS: Appearance Urine CLEAR; Color Urine YELLOW; Glucose Urine UA NEG (NEG); Leukocyte Esterase Urine NEG (NEG); Nitrite Urine NEG (NEG); PH 5.5 (5.0-8.0); Specific Gravity - Urine 1.015 (1.005-1.025); Urine Blood NEG (NEG); Urine Ketones NEG (NEG); Urine Protein NEG (NEG-TRACE)
[2021-09-27 14:16] LABS: Creatinine Urine 29.91 mg/dL; Microalbum/Creatinine Ratio Ur 46.8 ug/mg cr; Total Protein Urine Random < 7 mg/dL (<12)
[2021-09-28 13:41] LABS: Calcium (PTHI) 7.6 mg/dL (8.6-10.3); PTHI 206 pg/mL (14-64)
== END 2021-09-27 10:52 | disposition home or self-care (01) ==
LOC: HO.LAB 10:51
PROVIDERS: PCP Internal Medicine; Visit Provider Internal Medicine Nephrology
DX: N18.32 Chronic kidney disease, stage 3b (principal)
CPT/HCPCS: 36415; 80051; 81003; 82040; 82043; 82306; 82310; 82565; 83735; 83970; 84100; 84156; 84520; 85025; 87086

== ENCOUNTER 2022-05-23 05:13 | Inpatient (IN) | payer MEDICARE, SELFPAY ==
[2022-05-23] VITALS (10 sets, daily range): BP systolic 103–151; BP diastolic 48–76; PULSE 65–74; RESP 12–20; TEMP 36–37; O2SAT 94–98; BMI 31.8
--- NOTE | ~2022-05-23 | CT_ITS ---
EXAMINATION: CT HEAD WITHOUT CONTRAST CT CERVICAL SPINE WITHOUT CONTRAST CLINICAL INFORMATION: Fall COMPARISON: 07/25/2021 TECHNIQUE: Multidetector CT imaging of the head and cervical spine was performed without the use of intravenous contrast. Multiplanar reformats are reviewed. This CT examination was performed using dose optimization techniques as appropriate, variously including the following: *Automated exposure control *Adjustment of mA and/or kV according to patient size (this includes techniques or standardized protocols for targeted exams where dose is matched to indication/reason for exam; i.e. extremities or head) *Use of iterative reconstruction technique DLP: 1233 mGy-cm. FINDINGS: There is no evidence of acute intracranial hemorrhage or territorial infarction. No abnormal mass effect or midline shift is seen. Irby to white matter differentiation is well preserved. No extra-axial fluid collections are identified. Generalized brain parenchymal volume loss. In addition motion. Cardiomegaly. Patchy subcortical and periventricular white matter low-attenuation changes related to chronic white matter small vessel ischemic disease. The osseous structures and soft tissues are normal. The mastoid air cells and visualized portions of the paranasal sinuses are well-aerated. Atlantooccipital alignment is maintained. The vertebral bodies and posterior elements align normally. No acute fracture or subluxation. Vertebral body heights are maintained. Endplate osteophytes present throughout the cervical spine, most notably at C5-C6 and C6-C7. Facet arthropathy throughout cervical spine. The paraspinal soft tissues are unremarkable. Imaged lung apices reveal emphysema. CT/CT cervical spine wo con IMPRESSION: No acute intracranial pathology. No cervical spine fracture or malalignment.
--- NOTE | ~2022-05-23 | CT_ITS ---
EXAMINATION: CT ABDOMEN AND PELVIS WITHOUT CONTRAST CLINICAL INFORMATION: Abdominal pain. Evaluate for renal obstruction. COMPARISON: Renal ultrasound from 08/04/2019. TECHNIQUE: Multidetector volumetric imaging was performed from the superior aspect of the liver through the pubic symphysis. Sagittal and coronal reformatted images were obtained on the technologist's workstation. This CT examination was performed using dose optimization techniques as appropriate, variously including the following: *Automated exposure control *Adjustment of mA and/or kV according to patient size (this includes techniques or standardized protocols for targeted exams where dose is matched to indication/reason for exam; i.e. extremities or head) *Use of iterative reconstruction technique DLP: 1292 mGy-cm FINDINGS: LUNG BASES: There is respiratory motion on images acquired through the lung bases. The left diaphragm is mildly elevated and there are platelike opacities of atelectasis of the overlying lingula and left lower lobe. Trace left pleural effusion. Atherosclerotic calcification of the partially visualized thoracic aorta and coronary arteries. LIVER: The liver has normal size, shape, and attenuation. No evidence of liver mass. GALLBLADDER AND BILIARY TREE: Gallbladder is physiologically distended and contains a calcified stone. The evaluation of the gallbladder is partially limited by patient motion. No dilated bile ducts. PANCREAS: Normal. No edema, pancreatic ductal dilatation or mass. SPLEEN: Normal. ADRENAL GLANDS: Mild enlargement of left adrenal gland but no discrete nodule. No suspicious adrenal lesion. KIDNEYS AND URETERS: Chronic [id number] atrophy of renal cortices. No nephrolithiasis or hydronephrosis. 1.4 cm simple cyst of the lower pole of the left kidney. 1.3 cm hyperdense focus of the upper pole of the left kidney corresponds to simple cyst observed on 08/04/2019. This is compatible with proteinaceous cyst. No renal imaging follow-up is recommended. No nephrolithiasis or hydronephrosis. The ureters are grossly unremarkable. BLADDER: Normal. No calculi or wall thickening. BOWEL AND PERITONEUM: Stomach is unremarkable. No dilated bowel loops. The appendix is normal. Multiple diverticula of the descending and sigmoid colon. There is subtle haziness of fat adjacent to diverticula of the distal descending/proximal sigmoid colon. Query if patient has any left-sided pain. This could reflect presence of mild diverticulitis. No free fluid or pneumoperitoneum. ABDOMINAL WALL: Unremarkable. VASCULATURE: Atherosclerotic calcification of the abdominal aorta and iliac arteries without aneurysm. LYMPH NODES: No pathologic sized lymph nodes in the abdomen or pelvis. No inguinal lymphadenopathy. PELVIC VISCERA: Large prostate gland measures approximately 4.9 x 3.8 x 4.4 cm. No pelvic free fluid. SKELETAL: No acute findings in the degenerated spine. Prior anterior and posterior spinal fusion at L3-L4. No loosening of the posterior fusion hardware. There are vacuum disc degenerative changes at L2-L3 and L4-L5. There is extensive enthesophyte formation of the thoracic and upper lumbar spine. Moderate osteoarthritis of the left hip. The visualized components of the right total hip arthroplasty are well-positioned. CT/CT abdomen pelvis wo con IMPRESSION: * No evidence of renal stone or hydronephrosis. No acute findings along the urinary tracts. * An area of mild haziness adjacent to diverticula of the distal descending colon is suspicious for mild diverticulitis. Query if patient has any left lower quadrant pain. * Cholelithiasis without evidence of cholecystitis. * Chronic mild elevation of left diaphragm and left basilar atelectasis. Trace left pleural effusion also noted in the partially visualized lung bases. * Atherosclerotic calcification of coronary arteries and thoracoabdominal aorta. No aortic aneurysm.
--- NOTE | ~2022-05-23 | CT_ITS ---
EXAMINATION: CT HEAD WITHOUT CONTRAST CT CERVICAL SPINE WITHOUT CONTRAST CLINICAL INFORMATION: Fall COMPARISON: 07/25/2021 TECHNIQUE: Multidetector CT imaging of the head and cervical spine was performed without the use of intravenous contrast. Multiplanar reformats are reviewed. This CT examination was performed using dose optimization techniques as appropriate, variously including the following: *Automated exposure control *Adjustment of mA and/or kV according to patient size (this includes techniques or standardized protocols for targeted exams where dose is matched to indication/reason for exam; i.e. extremities or head) *Use of iterative reconstruction technique DLP: 1233 mGy-cm. FINDINGS: There is no evidence of acute intracranial hemorrhage or territorial infarction. No abnormal mass effect or midline shift is seen. [place] to white matter differentiation is well preserved. No extra-axial fluid collections are identified. Generalized brain parenchymal volume loss. In addition motion. Cardiomegaly. Patchy subcortical and periventricular white matter low-attenuation changes related to chronic white matter small vessel ischemic disease. The osseous structures and soft tissues are normal. The mastoid air cells and visualized portions of the paranasal sinuses are well-aerated. Atlantooccipital alignment is maintained. The vertebral bodies and posterior elements align normally. No acute fracture or subluxation. Vertebral body heights are maintained. Endplate osteophytes present throughout the cervical spine, most notably at C5-C6 and C6-C7. Facet arthropathy throughout cervical spine. The paraspinal soft tissues are unremarkable. Imaged lung apices reveal emphysema. CT/CT head/brain wo con IMPRESSION: No acute intracranial pathology. No cervical spine fracture or malalignment.
--- NOTE | ~2022-05-23 | XR_ITS ---
EXAMINATION: XR HIP, LEFT CLINICAL INFORMATION: Fall. Pain. COMPARISON: 08/20/2015 TECHNIQUE: Two views of the left hip. FINDINGS: No acute fracture or dislocation. Right total hip arthroplasty. Components in expected positions. No periprosthetic lucency to suggest loosening, particle disease or infection. Moderate left hip joint space narrowing associated marginal osteophytes and subchondral sclerosis. Pelvic ring intact. Soft tissues unremarkable. XR/XR hip LT w PEL1V IMPRESSION: No acute fracture or dislocation.
--- NOTE | ~2022-05-23 | XR_ITS ---
EXAMINATION: XR CHEST CLINICAL INFORMATION: Leukocytosis. COMPARISON: 07/25/2021 chest radiograph. TECHNIQUE: Frontal view of the chest was obtained. FINDINGS: There is mild elevation of the left hemidiaphragm. Mild superjacent linear markings are seen. The lungs otherwise clear. The heart is mildly enlarged. The mediastinal structures are unremarkable. Multilevel sternotomy wires are intact. XR/XR chest 1V IMPRESSION: Mild elevation of the left hemidiaphragm without other significant abnormality.
--- NOTE | 2022-05-23 05:46 | ECG_ITS ---
Test Reason : FALL Blood Pressure : / mmHG Vent. 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
--- NOTE | 2022-05-23 06:19 | ED_ITS ---
HPI - Fall General Chief Complaint: Fall Stated Complaint: fall Time Seen by Provider: 05/23/22 05:46 Source: patient and family ( Daughter (Nancy)) Mode of arrival: EMS History of Present Illness HPI Narrative: 81-year-old male who is brought in by EMS after he fell out of bed and is not on any blood thinners and initially had no complaints, but then endorses that his left hip hurts. Related Data Home Medications Medication Instructions Recorded Confirmed amlodipine 5 mg tablet 1 tab PO DAILY 07/25/21 07/25/21 atenolol 25 mg tablet 1 tab PO BID 07/25/21 07/25/21 atorvastatin 20 mg tablet 1 tab PO DAILY 07/25/21 07/25/21 finasteride 5 mg tablet 1 tab PO DAILY 07/25/21 07/25/21 omeprazole 20 mg capsule,delayed 1 cap PO DAILY 07/25/21 07/25/21 release phenytoin sodium extended 100 mg 3 cap PO BID 07/25/21 07/25/21 capsule tamsulosin 0.4 mg capsule 1 cap PO BEDTIME 07/25/21 07/25/21 valsartan 320 1 tab PO DAILY 07/25/21 07/25/21 mg-hydrochlorothiazide 12.5 mg tablet Previous Rx's Medication Instructions Recorded phenytoin sodium extended 100 mg 300 mg PO BID 30 days #180 caps 07/25/21 capsule (Dilantin Extended) Allergies Allergy/AdvReac Type Severity Reaction Status Date / Time No Known Allergies Allergy Verified 08/02/20 15:53 Review of Systems Review of Systems: Pertinent positives and negatives as stated in the HPI 10 point review of systems is otherwise negative. 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 GENERAL: Well developed, well nourished, in no acute distress. HEAD: Normocephalic/atraumatic EYES: PERRLA, EOMI EARS: Ext canals without abnormality NOSE: Nares patent bilateral OROPHARYNX: no oral lesions noted, posterior pharynx clear NECK: C-collar in place without midline cervical spine tenderness LUNGS: good inspiratory effort with bibasilar rales. SpO2<98>; CHEST WALL: No pain on palpation, no deformity, no crepitus CARDIOVASCULAR: Regular rate and rhythm without noted murmurs, no JVD but bilateral lower 1+ pitting edema ABDOMEN: Soft, non-tender, non-distended with bowel sounds. PELVIS: stable, nontender MUSCULOSKELETAL: No tenderness, deformities, or effusions noted on gross inspec tion. EXTREMITIES: No cyanosis, clubbing or edema; bilateral lower extremities noted to have small areas of ulcerations, right greater than left. SKIN: Inspection of the skin reveals no rashes NEUROLOGIC: Alert and oriented x 2. Strength and sensation to light touch were grossly intact x 4. Course Course Course Narrative: 81-year-old male with history and clinical presentation consistent with accidental fall out of bed. On further discussion with the daughter, Nancy, she states that her mother struggles to take care of her father and that he has become increasingly confused at night and also his memory has continued to decline. MDM - Fall ECG Data Attestation: I personally reviewed and interpreted this ECG as follows: Prior ECG tracings: available for review Interpretation: NSR, HR - 69, no STEMI, OK/QRS / QTC is within normal limits. Discharge Plan Discharge Clinical Impression: Fall Patient Disposition: Still a Patient Prescriptions: No Action atorvastatin 20 mg tablet 1 tab PO DAILY phenytoin sodium extended 100 mg capsule 3 cap PO BID amlodipine 5 mg tablet 1 tab PO DAILY tamsulosin 0.4 mg capsule 1 cap PO BEDTIME omeprazole 20 mg capsule,delayed release(DR/EC) 1 cap PO DAILY finasteride 5 mg tablet 1 tab PO DAILY valsartan-hydrochlorothiazide 320-12.5 mg tablet 1 tab PO DAILY atenolol 25 mg tablet 1 tab PO BID phenytoin sodium extended [Dilantin Extended] 100 mg capsule 300 mg PO BID 30 Days Qty: 180 1RF
[2022-05-23 06:30] LABS: MANUAL DIFF FLAG NO
[2022-05-23 06:31] LABS: Basophils Percent Auto 0.1 % (0-2); Eosinophils Absolute Auto 0.1 X10*3/uL (0.0-0.4); Eosinophils Percent Auto 0.5 % (0-4); Hematocrit 33.9 % (42.0-52.0); Hemoglobin 11.1 g/dl (14.0-18.0); Imm Gran Abs Auto 0.06 X10*3/uL (0.00-0.03); Imm Gran Pct Auto 0.4 % (0.0-0.4); Lymphocytes Absolute Auto 1.1 X10*3/uL (1.2-4.9); Lymphocytes Percent Auto 7.7 % (20-40); Mean Corpuscular HGB Conc 32.7 g/dl (31.0-36.0); Mean Corpuscular Volume 94.7 fL (80.0-98.0); Mean Platelet Volume 10.6 fL (9.4-12.4); Monocytes Absolute Auto 1.1 X10*3/uL (0.1-1.2); Monocytes Percent Auto 8.1 % (2-11); Neutrophils Absolute Auto 11.6 x10*3/uL (2.0-8.3); Neutrophils Percent Auto 83.2 % (45-73); Platelet Count 187 X10*3/uL (160-400); Red Blood Count 3.58 X10*6/uL (4.60-5.80); Red Cell Distribution Width 13.2 % (11.0-16.0)
--- NOTE | 2022-05-23 06:41 | PC.NURSE ---
dialysis tech at bedside for labs and EKG. Pt reporting pain to neck/back/hips after CT. MD aware.
[2022-05-23 06:59] LABS: B Type Natriuretic Peptide 95 pg/mL (<100)
[2022-05-23 07:17] LABS: Alanine Aminotransferase 22 U/L (0-40); Albumin Level 3.7 g/dL (3.5-5.0); Alkaline Phosphatase 177 U/L (39-117); Aspartate Amino Transferase 19 U/L (5-37); Bilirubin Total 0.6 mg/dL (0.0-1.0); Creatinine Clr Calc Pharmacy 19.9; Estimated Glomerular Filt Rate 19; Glucose Random 124 mg/dL (60-115); Total Protein 6.2 g/dL (6.5-8.0)
[2022-05-23 07:31] LABS: Anion Gap 17 (12-20); Calcium 6.8 mg/dL (8.4-10.2); Carbon Dioxide 22 mmol/L (22-29); Chloride 109 mmol/L (96-108); Potassium 4.2 mmol/L (3.3-5.1); Sodium 144 mmol/L (135-145)
[2022-05-23 07:44] LABS: Blood Urea Nitrogen 146 mg/dL (9-16)
[2022-05-23 07:50] LABS: Troponin-I High Sensitivity 27.6 ng/L (<3.5-35.0)
[2022-05-23] MEDS: Morphine Sulfate 4 MG/ML CARTRIDGE IVPUSH ×3 (07:50→16:55)
[2022-05-23] MEDS: 0.9 % Sodium Chloride 1,000 ML 999 ML IVCONT ×2 (07:50→11:41)
[2022-05-23 08:24] LABS: COVID-19 Test Negative (Negative)
--- NOTE | 2022-05-23 11:20 | PM.IMHP ---
History of Present Illness Date of Service: 05/23/22 Chief Complaint: Diverticulitis 81-year-old male with presents after a fall out of bed being found on the floor by his family. They denies seizure activity at this time. Given his pain in his hip he was transported by EMS to [facility]. Initial evaluation demonstrated a mild diverticulitis of the descending colon. Otherwise bony workup is unremarkable. Per daughter, patient has been gradually declining at home requiring more care. Review of Systems Review of Systems: Per ; Denies chest pain Denies shortness of breath Denies nausea vomiting diarrhea Admits to abdominal pain. 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 Social History Alcohol intake: unknown Patient Tobacco Use Status: Tobacco use Unknown Advance Directives: Yes Advance Directives on File: Yes Advance Directives Date on File: 08/02/20 Meds Allergies Allergy/AdvReac Type Severity Reaction Status Date / Time No Known Allergies Allergy Verified 08/02/20 15:53 Active Medications: Current Medications Acetaminophen (Acetaminophen 325 Mg Tablet) 650 mg PO Q6H PRN PRN Reason: Pain, Mild (Pain Scale 1-3) Acetaminophen (Acetaminophen Supp 650 Mg Supp.Rect) 650 mg PA Q6H PRN PRN Reason: Pain, Mild (Pain Scale 1-3) Heparin Sodium (Porcine) (Heparin Sodium,Porcine 5,000 Unit/Ml Vial) 5,000 unit SUBCUT Q12H MOHIT Levofloxacin (Levaquin) 500 mg in 100 mls @ 100 mls/hr IV ONCE ONE Stop: 05/23/22 11:33 Metronidazole (Flagyl) 500 mg in 100 mls @ 100 mls/hr IV ONCE ONE Stop: 05/23/22 11:33 Sodium Chloride (Ns) 1,000 mls @ 999 mls/hr IVCONT .Q1H1M ONE Stop: 05/23/22 11:38 Sodium Chloride (Ns) 1,000 mls @ 100 mls/hr IVCONT .Q10H MOHIT Piperacillin Sod/Tazobactam (Sod 2.25 gm/ Sodium Chloride) 50 mls @ 100 mls/hr IV Q6H MOHIT Morphine Sulfate (Morphine Sulfate 4 Mg/Ml Cartridge) 4 mg IVPUSH Q4H PRN; Protocol PRN Reason: Pain, Severe (Pain Scale 7-10) Nystatin (Nystatin Powder 15 Gm Bottle) 1 appl TOPICAL QID MOHIT; Protocol Pharmacy Consult (Consult Rx Perform Med Rec) 1 each MISCELLANE ONCE PRN PRN Reason: Consult order Sodium Chloride (0.9 % Sodium Chloride Flush 3 Ml Syringe) 3 ml IVFLUSH QSHIFT [facility] Home Medications Medication Instructions Recorded Confirmed Last Taken Type amlodipine 5 mg tablet 1 tab PO DAILY 07/25/21 07/25/21 Unknown History atenolol 25 mg tablet 1 tab PO BID 07/25/21 07/25/21 Unknown History atorvastatin 20 mg tablet 1 tab PO DAILY 07/25/21 07/25/21 Unknown History finasteride 5 mg tablet 1 tab PO DAILY 07/25/21 07/25/21 Unknown History omeprazole 20 mg capsule,delayed 1 cap PO DAILY 07/25/21 07/25/21 Unknown History release tamsulosin 0.4 mg capsule 1 cap PO BEDTIME 07/25/21 07/25/21 Unknown History valsartan 320 1 tab PO DAILY 07/25/21 07/25/21 Unknown History mg-hydrochlorothiazide 12.5 mg tablet hydralazine 25 mg tablet 1 tab PO BID 05/23/22 Unknown History torsemide 20 mg tablet 2 tab PO ONCE 05/23/22 Unknown History triamcinolone acetonide 0.1 % 1 appl topical DAILY 05/23/22 Unknown History topical cream Physical Exam Vital Signs and Narrative: Vital Signs: Last Vital Signs Pulse 68 05/23/22 10:36 Resp 20 05/23/22 10:36 BP 131/61 05/23/22 10:36 Pulse Ox 96 05/23/22 10:36 O2 Del Method 05/23/22 10:36 BMI result Body Mass Index 31.8 Const: Other: Awake confused no acute distress Resp: Other: Clear to auscultation bilaterally no rales rhonchi or wheezes Cardio: Other: No S4; positive S1-S2; no S3 murmurs rubs or gallops GI: Other: Soft minimal tenderness left lower quadrant without rebound; bowel sounds quiet Skin: Other: Chronic cellulitic changes bilateral anterior tibialis region Extrem: Other: No edema bilaterally Results Labs CBC and Chem 7: 05/23/22 06:26 05/23/22 06:26 Labs: Laboratory Results - last 24 hr 05/23/22 05/23/22 05/23/22 06:26 06:26 06:26 MCV 94.7 MCH 31.0 MCHC 32.7 RDW 13.2 Plt Count 187 MPV 10.6 Immature Gran % (Auto) 0.4 Neut % (Auto) 83.2 H Lymph % (Auto) 7.7 L [place] % (Auto) 8.1 Eos % (Auto) 0.5 Baso % (Auto) 0.1 Lymph # (Auto) 1.1 L [place] # (Auto) 1.1 Eos # (Auto) 0.1 Baso # (Auto) 0.0 Abs Immat Gran (auto) 0.06 H Absolute Neuts (auto) 11.6 H Absolute Nucleated RBC 0.000 Nucleated RBC % (auto) 0.0 Anion Gap 17 Estim Creat Clear Calc 19.9 Estimated GFR 19 Random Glucose 124 H D Lactic Acid Calcium 6.8 L D Total Bilirubin 0.6 AST 19 ALT 22 Alkaline Phosphatase 177 H Total Creatine Kinase 450 H Troponin I High Sens 27.6 B-Natriuretic Peptide 95 Total Protein 6.2 L Albumin 3.7 COVID-19 ([facility]) COVID-19 Clin Com 05/23/22 05/23/22 06:45 07:42 MCV MCH MCHC RDW Plt Count MPV Immature Gran % (Auto) Neut % (Auto) Lymph % (Auto) [place] % (Auto) Eos % (Auto) Baso % (Auto) Lymph # (Auto) [place] # (Auto) Eos # (Auto) Baso # (Auto) Abs Immat Gran (auto) Absolute Neuts (auto) Absolute Nucleated RBC Nucleated RBC % (auto) Anion Gap Estim Creat Clear Calc Estimated GFR Random Glucose Lactic Acid 1.0 Calcium Total Bilirubin AST ALT Alkaline Phosphatase Total Creatine Kinase Troponin I High Sens B-Natriuretic Peptide Total Protein Albumin COVID-19 ([facility]LEEN) Negative COVID-19 Clin Com See Note Imaging Radiologist's Impressions: Impressions Cervical Spine CT 05/23/22 06:00 IMPRESSION: No acute intracranial pathology. No cervical spine fracture or malalignment. Head CT 05/23/22 06:00 IMPRESSION: No acute intracranial pathology. No cervical spine fracture or malalignment. Hip/Pelvis X-Ray 05/23/22 06:03 IMPRESSION: No acute fracture or dislocation. Chest X-Ray 05/23/22 09:04 IMPRESSION: Mild elevation of the left hemidiaphragm without other significant abnormality. Abdomen/Pelvis CT 05/23/22 09:12 IMPRESSION: * No evidence of renal stone or hydronephrosis. No acute findings along the urinary tracts. * An area of mild haziness adjacent to diverticula of the distal descending colon is suspicious for mild diverticulitis. Query if patient has any left lower quadrant pain. * Cholelithiasis without evidence of cholecystitis. * Chronic mild elevation of left diaphragm and left basilar atelectasis. Trace left pleural effusion also noted in the partially visualized lung bases. * Atherosclerotic calcification of coronary arteries and thoracoabdominal aorta. No aortic aneurysm. Assessment and Plan (1) Diverticulitis: Status: Acute (2) Acute kidney injury: Status: Acute (3) Seizures: Status: Acute (4) Hypertension: Status: Acute Plan 81-year-old male presents after a fall out of bed complaining of left hip pain. ER evaluation failed to demonstrate any bony abnormalities however CT of the abdomen demonstrated mild descending diverticulitis. He was also noted to have acute on chronic renal failure and will be admitted for treatment of same 1. Diverticulitis -Zosyn renally dosed -clear liquid diet -supplemental IV fluids 2. Acute kidney injury ( backdrop of CKD 3).. Per poor oral intake over the last several weeks. -volume repletion with normal saline -follow renals/divalents -avoid renal toxins -nephrology consult with Dr. Lo 3. Seizures -no recent seizure activity per and daughter -add on Dilantin level and dose as outpatient if appropriate -seizure precautions 4. Hypertension -acceptable control -will add outpatient therapies back as clinically indicated (will hold valsartan hydrochlorothiazide) DNR/DNI Heparin Will likely require 2 midnights moving forward for volume repletion to correct acute kidney injury and IV Zosyn to treat diverticulitis. This cannot be achieved in the left severe acute setting Quality Stroke Does the patient have a stroke diagnosis?: No VTE Prior VTE?: No VTE Risk Level:: Medical - moderate - high VTE Device Contraindication: Treatment Not Indicated VTE Drug Contraindication: N/A - Med Ordered
[2022-05-23 11:24] LABS: Appearance Urine HAZY; Color Urine YELLOW; Glucose Urine UA NEG (NEG); Leukocyte Esterase Urine 3+ (NEG); Nitrite Urine NEG (NEG); PH 5.5 (5.0-8.0); Specific Gravity - Urine 1.015 (1.005-1.025); UACC Culture Trigger YES; Urine Blood NEG (NEG); Urine Ketones NEG (NEG); Urine Protein NEG (NEG-TRACE)
[2022-05-23] MEDS: Heparin Sodium,Porcine 5,000 UNIT/ML VIAL 5000 UNIT SUBCUT ×2 (11:40→22:04)
[2022-05-23] MEDS: levoFLOXacin/D5W 500 MG/100 ML PIGGYBACK 100 MG IV (11:40)
[2022-05-23 12:02] LABS: Hematocrit 30.6 % (42.0-52.0); Hemoglobin 10.2 g/dl (14.0-18.0); Mean Corpuscular HGB Conc 33.3 g/dl (31.0-36.0); Mean Corpuscular Hemoglobin 31.9 pg (27.0-33.0); Mean Corpuscular Volume 95.6 fL (80.0-98.0); Mean Platelet Volume 10.9 fL (9.4-12.4); Platelet Count 174 X10*3/uL (160-400); Red Cell Distribution Width 13.1 % (11.0-16.0); White Blood Count 17.5 X10*3/uL (4.8-10.8)
--- NOTE | 2022-05-23 12:08 | PHA.MEDREC ---
Pharmacy Consult ? Medication Reconciliation Pharmacy has completed the medication reconciliation. Patient reported medication. Patient stated that patient is still taking medications that have not been recently filled. I called pharmacy to confirm last filled; amlodipine is currently inactive last filled 08/29/2021 x 3 months, Finasteride was never picked up, and tamsulosin last filled 07/23/2021 x 3 months. confirmed [facility] in [place] was their pharmacy. Tried to contact Dr. Ray's and Wally's office to confirm what medications patient should be but they were closed for lunch. Will try around afte 1300. Removed medications from home list until they can be confirmed by prescriber. Fariba Willoughby, KarlieD
[2022-05-23 12:19] LABS: Bacteria Urine 3+ /LPF; RBC Urine 0 /HPF (0); Squamous Epithelial Cell Urine 1+ /LPF
[2022-05-23] MEDS: metroNIDAZOLE/NS 500 MG/100 ML PIGGYBACK 100 MG IV (12:59)
[2022-05-23] MEDS: 0.9 % Sodium Chloride 1,000 ML 100 ML IVCONT (12:59)
--- NOTE | 2022-05-23 13:11 | PC.NURSE ---
Called pharmacy about nystatin. Awaiting pharmacy to bring
[2022-05-23 14:10] LABS: Phenytoin Dilantin 10.6 ug/mL (10.0-20.0)
--- NOTE | 2022-05-23 15:06 | MHC.CM.PN ---
IMM 05/23/22, PT ADMITTED W/DIVERTICULITIS, CM MET W/PT AND PT'S SUSU AT BEDSIDE, PT ALERT HOWEVER ORIENTED TO NAME AND PLACE ONLY, PT UNABLE TO VERBALIZE WHERE HE LIVES, PT'S SUSU ANSWERED AL QUESTIONS, SUSU REPORTS PT'S USES A WALKER, W/C, HAS UPPER RAILING ON BED, GRAB BARS BY STAIRS AND IN BOTH BATHROOMS, SUSU PROVIDES ALL CARE FOR PT AND PT HAS NO SERVICES AT HOME, SUSU AND DTR/HCP NIRANJAN REPORT SUSU HAS BEEN HAVING MORE DIFFICULTY CARING FOR PT HE HAS BECOME MORE DEPENDENT AND WOULD LIKE STR W/POSSIBLE TRANSITION TO LTC. PCP VERIFIED [facility] X3 AND MONOCLONAL ANTIBODY INFUSION, CARDS UPLOADED TO [facility] HCP ON FILE: ANNA UREÑA (DTR) [phone], , FLOOR NURSE ON S3 ALTERNATE: GAMALIEL (GORDY/SON) [phone] ANTIC PT EVAL AND ANTIC STR W/ACTION FOR BLS TRANSPORT
--- NOTE | 2022-05-23 16:01 | MHC.CM.PN ---
CM CONTACTED PT'S SON/ALT HCP AND PONicholas RODRIGUEZ TO DERTERMINE STATUS OF [facility] APPLICATION, GAMALIEL REPORTS HE HAS AN APPLICATION AND WOULD LIKE ASSISTANCE FROM FS APPLICATION IS VERY INVOLVED.
[2022-05-23] MEDS: Piperacillin Sodium/Tazobactam 2.25 GM in 0.9 % Sodium Chloride 50 ML IV ×2 (16:56→23:53)
[2022-05-23] MEDS: Nystatin Powder 15 GM BOTTLE 1 APPL TOPICAL ×2 (17:12→20:14)
[2022-05-23 19:37] LABS: Anion Gap 16 (12-20); Calcium 6.9 mg/dL (8.4-10.2); Carbon Dioxide 22 mmol/L (22-29); Chloride 111 mmol/L (96-108); Creatinine Clr Calc Pharmacy 21.1; Estimated Glomerular Filt Rate 20; Phosphorus 5.7 mg/dL (2.7-4.5); Sodium 145 mmol/L (135-145)
[2022-05-23 19:50] LABS: Blood Urea Nitrogen 135 mg/dL (9-16)
[2022-05-23] MEDS: 0.9 % Sodium Chloride Flush 3 ML SYRINGE IVFLUSH (20:14)
[2022-05-24 01:30] LABS: Creatinine Urine 38.38 mg/dL
[2022-05-24] MEDS: Morphine Sulfate 4 MG/ML CARTRIDGE IVPUSH (03:22)
[2022-05-24 03:41] VITALS: BP 143/70; PULSE 73; RESP 18; TEMP 36.2; O2SAT 96
[2022-05-24] MEDS: 0.9 % Sodium Chloride 1,000 ML 100 ML IVCONT ×2 (04:48→15:06)
[2022-05-24] MEDS: Piperacillin Sodium/Tazobactam 2.25 GM in 0.9 % Sodium Chloride 50 ML IV ×4 (05:09→23:13)
[2022-05-24 06:10] LABS: MANUAL DIFF FLAG NO
--- NOTE | 2022-05-24 06:11 | CONS_ITS ---
DATE OF SERVICE: REASON FOR CONSULTATION: I was asked to see patient to assist in evaluation and management of patient's acute kidney injury as reflected by creatinine of 3.1 today whereas his baseline creatinine is in the 1.5 to 2.0 range. HISTORY OF PRESENT ILLNESS: In summary, the patient is an 81-year-old gentleman, who had a falling episode at home, found by his family on the floor and was concerned that he may have fractured his hip. He was brought to the hospital and imaging study showed no fracture, but he was noted to have some evidence of diverticulitis. Records indicate that daughter stated patient has been overall doing poorly at home for some time now requiring increased care at home. Patient is a poor historian, so information was obtained from electronic medical record. PAST MEDICAL HISTORY: Records state that he has history of hyperlipidemia, hypertension, seizure disorder, and chronic kidney disease with a baseline creatinine of 1.5 to 2.0 range. He has also had coronary artery disease and a stent. MEDICATIONS: On admission are listed including Norvasc, atenolol, Lipitor, Proscar, omeprazole, Flomax, valsartan/HCTZ 320/12.5, hydralazine, torsemide are all listed. His current medications are noted in the MAR. ALLERGIES: HE HAS NO KNOWN DRUG ALLERGIES. REVIEW OF SYSTEMS: Essentially unobtainable. PHYSICAL EXAMINATION: VITAL SIGNS: Blood pressure 140/60 with a heart rate in the 60s. He is afebrile. HEENT: Mucous membranes are dry. There is no JVD. LUNGS: Decreased breath sounds at the bases. CARDIAC: Regular rate. ABDOMEN: Soft. EXTREMITIES: No edema. There are some excoriated areas noted. LABORATORY DATA: Hemoglobin 10.2, hematocrit 30.6, white blood cell count 17.5, platelet count 174. Sodium 144, potassium 4.2, chloride 109, bicarb 22, BUN 146, creatinine 3.1. Previous BUN from August 2021 was 45 and creatinine was 1.8. Lactate level is 1.0, calcium is 6.8. CPK of 450, albumin 3.7. Urinalysis showed specific gravity of 1.015. White blood cells noted on the UA along with leukocyte esterase positive. CT of the abdomen and pelvis without contrast, there is mention made of chronic [id number] atrophy of the renal cortices bilaterally. No kidney stones or hydronephrosis. IMPRESSION: 81-YEAR-OLD, DOING POORLY AT HOME WITH THE FALLING EPISODE AND ACUTE KIDNEY INJURY. 1. Acute kidney injury. The patient has elevated CFC-tl-pfovsgxpnx ratio. His clinical presentation suspect he is volume depleted as he is on multiple diuretics and probably has poor p.o. intake. Focus of care will be giving him IV fluids and checking urine studies to calculate fractional excretion of sodium and fractional excretion of urea. Tracking his urine output may need a Stahl catheter placed, so we can monitor this closely. Avoid nephrotoxins. Depending on his clinical course and response to IV fluids, further serologic studies may be needed for evaluation of his acute kidney injury. 2. Elevated WWV-yl-gslygecwcz ratio. Need to rule out upper gastrointestinal bleed, guaiac stools. 3. Hypocalcemia. We will check a phosphorus level along with an intact PTH and vitamin D levels. May need to be on vitamin D supplementation. We will check his phosphorus levels to avoid high calcium phosphorus product. 4. We will check his CPK, repeat level. The previous was 450 just to make sure we did not catch it early in the event that he is having significant rhabdomyolysis from his falling episode. 5. We will follow the patient closely with the team. MD MICHELLE Bowling/EASTON / [phone]
[2022-05-24 06:17] LABS: Basophils Percent Auto 0.2 % (0-2); Eosinophils Absolute Auto 0.1 X10*3/uL (0.0-0.4); Eosinophils Percent Auto 1.2 % (0-4); Hematocrit 31.9 % (42.0-52.0); Hemoglobin 10.2 g/dl (14.0-18.0); Imm Gran Abs Auto 0.06 X10*3/uL (0.00-0.03); Imm Gran Pct Auto 0.5 % (0.0-0.4); Lymphocytes Absolute Auto 1.2 X10*3/uL (1.2-4.9); Lymphocytes Percent Auto 10.4 % (20-40); Mean Corpuscular Hemoglobin 30.8 pg (27.0-33.0); Mean Corpuscular Volume 96.4 fL (80.0-98.0); Mean Platelet Volume 11.2 fL (9.4-12.4); Monocytes Absolute Auto 0.9 X10*3/uL (0.1-1.2); Monocytes Percent Auto 7.8 % (2-11); Neutrophils Absolute Auto 9.5 x10*3/uL (2.0-8.3); Neutrophils Percent Auto 79.9 % (45-73); Platelet Count 175 X10*3/uL (160-400); Red Blood Count 3.31 X10*6/uL (4.60-5.80); Red Cell Distribution Width 13.3 % (11.0-16.0); White Blood Count 11.9 X10*3/uL (4.8-10.8)
[2022-05-24 06:49] LABS: Alanine Aminotransferase 16 U/L (0-40); Albumin Level 3.2 g/dL (3.5-5.0); Alkaline Phosphatase 157 U/L (39-117); Anion Gap 16 (12-20); Aspartate Amino Transferase 24 U/L (5-37); Bilirubin Total 1.6 mg/dL (0.0-1.0); Calcium 6.8 mg/dL (8.4-10.2); Carbon Dioxide 21 mmol/L (22-29); Chloride 114 mmol/L (96-108); Creatinine Clr Calc Pharmacy 21.2; Estimated Glomerular Filt Rate 20; Glucose Fasting 100 mg/dL (60-99); Sodium 147 mmol/L (135-145); Total Protein 5.4 g/dL (6.5-8.0)
[2022-05-24 07:17] LABS: Blood Urea Nitrogen 119 mg/dL (9-16)
[2022-05-24 07:53] VITALS: BP 145/65; PULSE 71; RESP 16; TEMP 36.2; O2SAT 96
[2022-05-24] MEDS: Nystatin Powder 15 GM BOTTLE 1 APPL TOPICAL ×4 (07:58→20:39)
--- NOTE | 2022-05-24 08:52 | MHC.CM.PN ---
EMR REVIEWED, PER UROLOGY PT W/KENJI ON MULT DIURETICS WILL NEED CONT'D IV FLUIDS, PER DISCUSSION W/PT'S DTR/HCP ON 05/23/22 SHE IS AGREEABLE TO BLANKET REFERRAL FOR STR W/TRANS TO LTC, REFERRAL PLACED, CM WILL CONT TO FOLLOW REFERRAL AND DC NEEDS.
--- NOTE | 2022-05-24 11:25 | PM.PNNEP ---
Subjective Subjective Date of Service: 05/24/22 Interval history: Seen and examined, events noted Physical Exam Vital Signs: Vital Signs: Last Vital Signs Temp 97.2 F 05/24/22 07:53 Pulse 71 05/24/22 07:53 Resp 16 05/24/22 07:53 BP 145/65 H 05/24/22 07:53 Pulse Ox 96 05/24/22 07:53 O2 Del Method 05/24/22 07:53 BMI result Body Mass Index 31.8 Const: Other: Awake confused no acute distress Resp: Other: Clear to auscultation bilaterally no rales rhonchi or wheezes Cardio: Other: No S4; positive S1-S2; no S3 murmurs rubs or gallops GI: Other: Soft minimal tenderness left lower quadrant without rebound; bowel sounds quiet Skin: Other: Chronic cellulitic changes bilateral anterior tibialis region Extrem: Other: No edema bilaterally Objective Data Labs CBC & Chem 7: 05/24/22 05:16 05/24/22 05:16 Labs: Laboratory Results - last 24 hr 05/23/22 05/23/22 05/23/22 11:14 11:51 11:53 WBC 17.5 H RBC 3.20 L Hgb 10.2 L Hct 30.6 L MCV 95.6 MCH 31.9 MCHC 33.3 RDW 13.1 Plt Count 174 MPV 10.9 Immature Gran % (Auto) Neut % (Auto) Lymph % (Auto) [place] % (Auto) Eos % (Auto) Baso % (Auto) Lymph # (Auto) [place] # (Auto) Eos # (Auto) Baso # (Auto) Abs Immat Gran (auto) Absolute Neuts (auto) Absolute Nucleated RBC 0.000 Nucleated RBC % (auto) 0.0 Sodium Potassium Chloride Carbon Dioxide Anion Gap BUN Creatinine Estim Creat Clear Calc Estimated GFR Fasting Glucose Calcium Phosphorus Total Bilirubin AST ALT Alkaline Phosphatase Total Creatine Kinase Total Protein Albumin 25-OH Vitamin D Total Urine Color YELLOW Urine Appearance HAZY Urine pH 5.5 Ur Specific [place] 1.015 Urine Protein NEG Urine Glucose (UA) NEG Urine Ketones NEG Urine Blood NEG Urine Nitrite NEG Ur Leukocyte Esterase 3+ H Urine RBC 0 Urine WBC 15-29 H Ur Squamous Epith Cells 1+ Urine Bacteria 3+ Ur Random Sodium Urine Creatinine Phenytoin 10.6 05/23/22 05/24/22 05/24/22 19:05 00:45 05:16 WBC 11.9 H RBC 3.31 L Hgb 10.2 L Hct 31.9 L MCV 96.4 MCH 30.8 MCHC 32.0 RDW 13.3 Plt Count 175 MPV 11.2 Immature Gran % (Auto) 0.5 H Neut % (Auto) 79.9 H Lymph % (Auto) 10.[address] [place] % (Auto) 7.8 Eos % (Auto) 1.2 Baso % (Auto) 0.2 Lymph # (Auto) 1.2 [place] # (Auto) 0.9 Eos # (Auto) 0.1 Baso # (Auto) 0.0 Abs Immat Gran (auto) 0.06 H Absolute Neuts (auto) 9.5 H Absolute Nucleated RBC 0.000 Nucleated RBC % (auto) 0.0 Sodium 145 Potassium 4.0 Chloride 111 H Carbon Dioxide 22 Anion Gap 16 BUN 135 H Creatinine 2.96 H Estim Creat Clear Calc 21.1 Estimated GFR 20 Fasting Glucose Calcium 6.9 L Phosphorus 5.7 H Total Bilirubin AST ALT Alkaline Phosphatase Total Creatine Kinase 1040 H D Total Protein Albumin 25-OH Vitamin D Total 13.0 Urine Color Urine Appearance Urine pH Ur Specific [place] Urine Protein Urine Glucose (UA) Urine Ketones Urine Blood Urine Nitrite Ur Leukocyte Esterase Urine RBC Urine WBC Ur Squamous Epith Cells Urine Bacteria Ur Random Sodium 67.0 Urine Creatinine 38.38 Phenytoin 05/24/22 05:16 WBC RBC Hgb Hct MCV MCH MCHC RDW Plt Count MPV Immature Gran % (Auto) Neut % (Auto) Lymph % (Auto) [place] % (Auto) Eos % (Auto) Baso % (Auto) Lymph # (Auto) [place] # (Auto) Eos # (Auto) Baso # (Auto) Abs Immat Gran (auto) Absolute Neuts (auto) Absolute Nucleated RBC Nucleated RBC % (auto) Sodium 147 H Potassium 4.0 Chloride 114 H Carbon Dioxide 21 L Anion Gap 16 BUN 119 H Creatinine 2.95 H Estim Creat Clear Calc 21.2 Estimated GFR 20 Fasting Glucose 100 H Calcium 6.8 L Phosphorus Total Bilirubin 1.6 H AST 24 ALT 16 Alkaline Phosphatase 157 H Total Creatine Kinase Total Protein 5.4 L Albumin 3.2 L 25-OH Vitamin D Total Urine Color Urine Appearance Urine pH Ur Specific [place] Urine Protein Urine Glucose (UA) Urine Ketones Urine Blood Urine Nitrite Ur Leukocyte Esterase Urine RBC Urine WBC Ur Squamous Epith Cells Urine Bacteria Ur Random Sodium Urine Creatinine Phenytoin Microbiology Microbiology Results: Microbiology 05/23/22 07:53 Blood - Venous Blood Culture - Preliminary No growth after 24 hours. 05/23/22 07:42 Blood - Venous Blood Culture - Preliminary No growth after 24 hours. Procedures Date of Service Date of Service: 05/24/22 Assessment & Plan Assessment and plan (1) Diverticulitis: Status: Acute (2) Acute kidney injury: Status: Acute (3) Seizures: Status: Acute (4) Hypertension: Status: Acute Plan 1. Non-Oliguric KENJI: peak SCr 3.1 trending down; w/u c/w rhabdo with FENa > 3% and PK > 10,000 2. CKD 4: BSL Scr 2.0 range 3. HypoCa: d/t rhabdo 4. Falling epsiodes 5. HyperNa REC: cont IVF; repeat CPK ( I addedon to am labs); may need to switch to IV NaHCO3 if CPK incr further; track SNa and encourage PO fluid intake Time Spent With Patient Time: Total time spent is greater than 50% in coordination of care (as documented) at patient's floor/unit and/or counseling patient: Progress Note: Quality Stroke Does the patient have a stroke diagnosis?: No
[2022-05-24 11:33] VITALS: BP 157/71; PULSE 69; RESP 16; TEMP 36.2; O2SAT 95
--- NOTE | 2022-05-24 11:41 | HO.PM.IMPN ---
Subjective Subjective Date of Service: 05/24/22 Interval History: More alert today. Less confused Review of Systems Denies chest pain Denies shortness of breath Denies nausea vomiting diarrhea Denies abdominal pain Physical Exam Vital Signs: Vital Signs: Last Vital Signs Temp 97.2 F 05/24/22 11:33 Pulse 69 05/24/22 11:33 Resp 16 05/24/22 11:33 BP 157/71 H 05/24/22 11:33 Pulse Ox 95 05/24/22 11:33 O2 Del Method 05/24/22 11:33 BMI result Body Mass Index 31.8 Const: Other: Awake confused no acute distress Resp: Other: Clear to auscultation bilaterally no rales rhonchi or wheezes Cardio: Other: No S4; positive S1-S2; no S3 murmurs rubs or gallops GI: Other: Soft minimal tenderness left lower quadrant without rebound; bowel sounds quiet Skin: Other: Chronic cellulitic changes bilateral anterior tibialis region Extrem: Other: No edema bilaterally Objective Data Active Medications Acetaminophen (Acetaminophen 325 Mg Tablet) 650 mg PO Q6H PRN PRN Reason: Pain, Mild (Pain Scale 1-3) Acetaminophen (Acetaminophen Supp 650 Mg Supp.Rect) 650 mg NH Q6H PRN PRN Reason: Pain, Mild (Pain Scale 1-3) Heparin Sodium (Porcine) (Heparin Sodium,Porcine 5,000 Unit/Ml Vial) 5,000 unit SUBCUT Q12H [facility] Last Admin: 05/23/22 22:04 Dose: 5,000 unit Documented By: CORNEL Sodium Chloride (Ns) 1,000 mls @ 100 mls/hr IVCONT .Q10H [facility] Last Admin: 05/24/22 08:10 Dose: Not Given Documented By: AMINA Non-Admin Reason: IV Running Piperacillin Sod/Tazobactam (Sod 2.25 gm/ Sodium Chloride) 50 mls @ 100 mls/hr IV Q6H [facility] Last Infusion: 05/24/22 05:40 Dose: 0 mls/hr Documented By: CORNEL Morphine Sulfate (Morphine Sulfate 4 Mg/Ml Cartridge) 4 mg IVPUSH Q4H PRN; Protocol PRN Reason: Pain, Severe (Pain Scale 7-10) Last Admin: 05/24/22 03:22 Dose: 4 mg Documented By: CORNEL Nystatin (Nystatin Powder 15 Gm Bottle) 1 appl TOPICAL QID MOHIT; Protocol Last Admin: 05/24/22 07:58 Dose: 1 appl Documented By: FRANCINE Pharmacy Consult (Consult Rx Perform Med Rec) 1 each MISCELLANE ONCE PRN PRN Reason: Consult order Sodium Chloride (0.9 % Sodium Chloride Flush 3 Ml Syringe) 3 ml IVFLUSH QSHIFT [facility] Last Admin: 05/24/22 07:58 Dose: Not Given Documented By: FRANCINE Non-Admin Reason: IV Running Labs CBC & Chem 7: 05/24/22 05:16 05/24/22 05:16 Labs: Laboratory Results - last 24 hr 05/23/22 05/23/22 05/23/22 11:14 11:51 11:53 MCV 95.6 MCH 31.9 MCHC 33.3 RDW 13.1 Plt Count 174 MPV 10.9 Immature Gran % (Auto) Neut % (Auto) Lymph % (Auto) [place] % (Auto) Eos % (Auto) Baso % (Auto) Lymph # (Auto) [place] # (Auto) Eos # (Auto) Baso # (Auto) Abs Immat Gran (auto) Absolute Neuts (auto) Absolute Nucleated RBC 0.000 Nucleated RBC % (auto) 0.0 Anion Gap Estim Creat Clear Calc Estimated GFR Fasting Glucose Calcium Phosphorus Total Bilirubin AST ALT Alkaline Phosphatase Total Creatine Kinase Total Protein Albumin 25-OH Vitamin D Total Urine RBC 0 Urine WBC 15-29 H Ur Squamous Epith Cells 1+ Urine Bacteria 3+ Ur Random Sodium Urine Creatinine Phenytoin 10.6 05/23/22 05/24/22 05/24/22 19:05 00:45 05:16 MCV 96.4 MCH 30.8 MCHC 32.0 RDW 13.3 Plt Count 175 MPV 11.2 Immature Gran % (Auto) 0.5 H Neut % (Auto) 79.9 H Lymph % (Auto) 10.4 L [place] % (Auto) 7.8 Eos % (Auto) 1.2 Baso % (Auto) 0.2 Lymph # (Auto) 1.2 [place] # (Auto) 0.9 Eos # (Auto) 0.1 Baso # (Auto) 0.0 Abs Immat Gran (auto) 0.06 H Absolute Neuts (auto) 9.5 H Absolute Nucleated RBC 0.000 Nucleated RBC % (auto) 0.0 Anion Gap 16 Estim Creat Clear Calc 21.1 Estimated GFR 20 Fasting Glucose Calcium 6.9 L Phosphorus 5.7 H Total Bilirubin AST ALT Alkaline Phosphatase Total Creatine Kinase 1040 H D Total Protein Albumin 25-OH Vitamin D Total 13.0 Urine RBC Urine WBC Ur Squamous Epith Cells Urine Bacteria Ur Random Sodium 67.0 Urine Creatinine 38.38 Phenytoin 05/24/22 05:16 MCV MCH MCHC RDW Plt Count MPV Immature Gran % (Auto) Neut % (Auto) Lymph % (Auto) [place] % (Auto) Eos % (Auto) Baso % (Auto) Lymph # (Auto) [place] # (Auto) Eos # (Auto) Baso # (Auto) Abs Immat Gran (auto) Absolute Neuts (auto) Absolute Nucleated RBC Nucleated RBC % (auto) Anion Gap 16 Estim Creat Clear Calc 21.2 Estimated GFR 20 Fasting Glucose 100 H Calcium 6.8 L Phosphorus Total Bilirubin 1.6 H AST 24 ALT 16 Alkaline Phosphatase 157 H Total Creatine Kinase Total Protein 5.4 L Albumin 3.2 L 25-OH Vitamin D Total Urine RBC Urine WBC Ur Squamous Epith Cells Urine Bacteria Ur Random Sodium Urine Creatinine Phenytoin Microbiology Microbiology Results: Microbiology 05/23/22 07:53 Blood Culture - Preliminary Blood - Venous No growth after 24 hours. 05/23/22 07:42 Blood Culture - Preliminary Blood - Venous No growth after 24 hours. Assessment and Plan (1) Diverticulitis: Status: Acute (2) Acute kidney injury: Status: Acute (3) Hypertension: Status: Acute (4) Seizures: Status: Acute Plan 81-year-old male presents after a fall out of bed complaining of left hip pain. ER evaluation failed to demonstrate any bony abnormalities however CT of the abdomen demonstrated mild descending diverticulitis. He was also noted to have acute on chronic renal failure and will be admitted for treatment of same 1. Diverticulitis -Zosyn renally dosed (2) -advance diet as tolerated -supplemental IV fluids 2. Acute kidney injury ( backdrop of CKD 3).. Per poor oral intake over the last several weeks. -volume repletion with normal saline -follow renals/divalents -avoid renal toxins -as per Renal; will follow-up CKs this a.m. utilize bicarb drip as indicated 3. Seizures -no recent seizure activity per and daughter -add on Dilantin level and dose as outpatient if appropriate -seizure precautions 4. Hypertension -acceptable control -will add outpatient therapies back as clinically indicated (will hold valsartan hydrochlorothiazide) DNR/DNI Heparin Patient will require ongoing hospitalization for IV antibiotics to treat acute diverticulitis and volume repletion. Quality Stroke Does the patient have a stroke diagnosis?: No VTE Prior VTE?: No VTE Risk Level:: Medical - moderate - high VTE Device Contraindication: Treatment Not Indicated VTE Drug Contraindication: N/A - Med Ordered
[2022-05-24] MEDS: Heparin Sodium,Porcine 5,000 UNIT/ML VIAL 5000 UNIT SUBCUT ×2 (12:21→23:13)
[2022-05-24 14:22] LABS: Calcium (PTHI) 6.8 mg/dL (8.6-10.3); PTHI 345 pg/mL (16-77)
[2022-05-24 15:14] VITALS: BP 140/62; PULSE 72; RESP 17; TEMP 36.6; O2SAT 97
--- NOTE | 2022-05-24 15:43 | MHC.CM.PN ---
[facility] FROM [facility] WILL BE IN FOR BEDSIDE VISIT 05/25 AT 10:30AM, DTR/HCP NIRANJAN VERMA. TREY HCP WILL NEED TO BE INVOKED PRIOR TO D/C TO LTC.
[2022-05-24 19:20] VITALS: BP 150/68; PULSE 71; RESP 16; TEMP 36.4; O2SAT 94
[2022-05-24] MEDS: Acetaminophen 325 MG TABLET 650 MG PO (20:38)
[2022-05-24 23:29] VITALS: BP 139/64; PULSE 73; RESP 16; TEMP 36.5; O2SAT 95
[2022-05-25] MEDS: 0.9 % Sodium Chloride 1,000 ML 100 ML IVCONT (01:00)
[2022-05-25 03:34] VITALS: BP 167/74; PULSE 84; RESP 18; TEMP 36; O2SAT 96
[2022-05-25] MEDS: Acetaminophen 325 MG TABLET 650 MG PO (05:16)
[2022-05-25] MEDS: Piperacillin Sodium/Tazobactam 2.25 GM in 0.9 % Sodium Chloride 50 ML IV ×2 (05:17→12:56)
[2022-05-25 06:48] LABS: MANUAL DIFF FLAG NO
[2022-05-25 06:52] LABS: Basophils Percent Auto 0.1 % (0-2); Eosinophils Absolute Auto 0.3 X10*3/uL (0.0-0.4); Eosinophils Percent Auto 2.7 % (0-4); Hematocrit 29.4 % (42.0-52.0); Hemoglobin 9.6 g/dl (14.0-18.0); Imm Gran Abs Auto 0.06 X10*3/uL (0.00-0.03); Imm Gran Pct Auto 0.6 % (0.0-0.4); Lymphocytes Percent Auto 10.7 % (20-40); Mean Corpuscular HGB Conc 32.7 g/dl (31.0-36.0); Mean Corpuscular Hemoglobin 31.6 pg (27.0-33.0); Mean Corpuscular Volume 96.7 fL (80.0-98.0); Mean Platelet Volume 11.1 fL (9.4-12.4); Monocytes Absolute Auto 0.9 X10*3/uL (0.1-1.2); Monocytes Percent Auto 9.3 % (2-11); Neutrophils Absolute Auto 7.2 x10*3/uL (2.0-8.3); Neutrophils Percent Auto 76.6 % (45-73); Platelet Count 164 X10*3/uL (160-400); Red Blood Count 3.04 X10*6/uL (4.60-5.80); Red Cell Distribution Width 13.4 % (11.0-16.0); White Blood Count 9.4 X10*3/uL (4.8-10.8)
[2022-05-25] MEDS: 0.9 % Sodium Chloride Flush 3 ML SYRINGE IVFLUSH (07:31)
[2022-05-25] MEDS: Nystatin Powder 15 GM BOTTLE 1 APPL TOPICAL ×2 (07:31→12:57)
[2022-05-25 07:35] LABS: Alanine Aminotransferase 13 U/L (0-40); Albumin Level 2.9 g/dL (3.5-5.0); Alkaline Phosphatase 131 U/L (39-117); Anion Gap 16 (12-20); Aspartate Amino Transferase 20 U/L (5-37); Bilirubin Total 1.4 mg/dL (0.0-1.0); Blood Urea Nitrogen 103 mg/dL (9-16); Calcium 6.9 mg/dL (8.4-10.2); Carbon Dioxide 17 mmol/L (22-29); Chloride 119 mmol/L (96-108); Creatinine Clr Calc Pharmacy 23.3; Estimated Glomerular Filt Rate 23; Glucose Fasting 102 mg/dL (60-99); Potassium 4.1 mmol/L (3.3-5.1); Sodium 148 mmol/L (135-145); Total Protein 5.1 g/dL (6.5-8.0)
[2022-05-25 07:40] VITALS: BP 129/71; PULSE 74; RESP 16; TEMP 36.3; O2SAT 97
[2022-05-25] MEDS: QUEtiapine Fumarate 25 MG TABLET PO (09:27)
[2022-05-25 11:26] VITALS: BP 161/73; PULSE 84; RESP 15; TEMP 36.2; O2SAT 97
[2022-05-25] MEDS: Heparin Sodium,Porcine 5,000 UNIT/ML VIAL 5000 UNIT SUBCUT (12:56)
--- NOTE | 2022-05-25 13:21 | PC.NURSE ---
Pt henry removed at 1300. Pt due to 1900.
[2022-05-25 14:24] LABS: Influenza A PCR NEGATIVE (Negative); Influenza B PCR NEGATIVE (Negative); Resp Syncy Virus RNA Qual PCR NEGATIVE (Negative); SARS COV2 PCR INHOUSE NEGATIVE (Negative)
--- NOTE | 2022-05-25 15:02 | P.DS_ITS ---
DS: Providers Provider Date of Service: 05/25/22 Date of admission: 05/23/22 11:03 Date of discharge: 05/25/22 Primary care physician: Manny Joshua MD Consults: 05/23/22 11:18 Consult to Nephrology Routine Consulting Provider: Alfa Lo Reason for consultation: KENJI Has provider been notified: No DS: Diagnosis Discharge Diagnosis (1) Diverticulitis: Status: Acute (2) Acute kidney injury: Status: Acute (3) Hypertension: Status: Acute (4) Seizures: Status: Acute DS: Summary Hospital Course Hospital Course: 81-year-old male with presents after a fall out of bed being found on the floor by his family.? They denies seizure activity at this time.? Given his pain in his hip he was transported by EMS to [facility].? Initial evaluation demonstrated a mild diverticulitis of the descending colon.? Otherwise bony workup is unremarkable.? Per daughter, patient has been gradually declining at home requiring more care. Hospital Course Admitted to hospital and started on IV Zosyn for diverticulitis. Also was found to be in non oliguric KENJI I with peak serum creatinine of 3.1 which trended down over the hospital course. On the day of discharge he was still hypernatremic however this was discussed with Renal who felt comfortable with him being discharged with oral free water repletion. He will be discharged to receiving facility and further plans based on their assessment Time Spent with Patient Time attestation: Total time spent providing and/or coordinating discharge services: Discharge coordination time: Greater than 30 minutes Quality: Safe Use of Opioids Does Pt have an Active Cancer Diagnosis on the Problem List?: No Quality: Stroke Does the patient have a stroke diagnosis?: No Physical Exam Vital Signs: Vital Signs: Last Vital Signs Temp 97.1 F 05/25/22 11:26 Pulse 84 05/25/22 11:26 Resp 15 05/25/22 11:26 BP 161/73 H 05/25/22 11:26 Pulse Ox 97 05/25/22 11:26 O2 Del Method 05/25/22 11:26 BMI result Body Mass Index 31.8 Const: Other: Awake confused no acute distress Resp: Other: Clear to auscultation bilaterally no rales rhonchi or wheezes Cardio: Other: No S4; positive S1-S2; no S3 murmurs rubs or gallops GI: Other: Soft minimal tenderness left lower quadrant without rebound; bowel sounds quiet Skin: Other: Chronic cellulitic changes bilateral anterior tibialis region Extrem: Other: No edema bilaterally DS: Data Data Completed and Pending Labs on day of discharge: Laboratory Results - last 24 hr 05/25/22 05/25/22 05/25/22 05:52 05:52 13:40 WBC 9.4 RBC 3.04 L Hgb 9.6 L Hct 29.4 L MCV 96.7 MCH 31.6 MCHC 32.7 RDW 13.4 Plt Count 164 MPV 11.1 Immature Gran % (Auto) 0.6 H Neut % (Auto) 76.6 H Lymph % (Auto) 10.7 L [place] % (Auto) 9.3 Eos % (Auto) 2.7 Baso % (Auto) 0.1 Lymph # (Auto) 1.0 L [place] # (Auto) 0.9 Eos # (Auto) 0.3 Baso # (Auto) 0.0 Abs Immat Gran (auto) 0.06 H Absolute Neuts (auto) 7.2 Absolute Nucleated RBC 0.000 Nucleated RBC % (auto) 0.0 Sodium 148 H Potassium 4.1 Chloride 119 H Carbon Dioxide 17 L Anion Gap 16 BUN 103 H Creatinine 2.68 H Estim Creat Clear Calc 23.3 Estimated GFR 23 Fasting Glucose 102 H Calcium 6.9 L Total Bilirubin 1.4 H AST 20 ALT 13 Alkaline Phosphatase 131 H Total Protein 5.1 L Albumin 2.9 L Influenza Type A (PCR) NEGATIVE Influenza Type B (PCR) NEGATIVE RSV RNA Qual (PCR) NEGATIVE SARS-CoV-2 RNA (RT-PCR) NEGATIVE Preliminary micro results at discharge 05/23/22 Unknown Urine Culture - Preliminary Urine clean catch - Urine nicolas top Gram negative jaron 05/23/22 07:53 Blood Culture - Preliminary Blood - Venous No growth after 48 hours. 05/23/22 07:42 Blood Culture - Preliminary Blood - Venous No growth after 48 hours. Discharge Plan Discharge Patient Disposition: Xfer Inpatient Rehab Fac Discharge Diagnosis: Acute diverticulitis Referrals: [facility] [Outside] - 1 Week Manny Joshua MD [Primary Care Provider] - 1 Week Discharge Medications: New amoxicillin-pot clavulanate [Augmentin] 500-125 mg tablet 1 tab PO BID Qty: 10 0RF Continued torsemide 20 mg tablet 2 tab PO ONCE hydralazine 25 mg tablet 1 tab PO BID triamcinolone acetonide 0.1 % cream 1 appl topical DAILY magnesium 250 mg Tablet 250 mg PO DAILY melatonin 10 mg Tablet 10 mg PO BEDTIME atorvastatin 20 mg tablet 1 tab PO DAILY omeprazole 20 mg capsule,delayed release(DR/EC) 1 cap PO DAILY valsartan-hydrochlorothiazide 320-12.5 mg tablet 1 tab PO DAILY atenolol 25 mg tablet 1 tab PO BID phenytoin sodium extended [Dilantin Extended] 100 mg capsule 300 mg PO BID 30 Days Qty: 180 1RF Discharge Orders: Discharge Order (Routine); Ordered 05/25/22 Ordered By: Hamlet Lam Diet: Advance to usual diet Activity on Discharge: As tolerated Stand Alone Forms: Patient Portal Discharge page Care Plan Goals: Complete course of Augmentin as ordered Health Concerns: Plan of care as per receiving facility Plan of Treatment: Maintain highest level of care Assessment: See discharge summary
--- NOTE | 2022-05-25 15:13 | MHC.CM.PN ---
Addendum entered by Mayra Rouse 05/25/22 15:39: FOLLOW UP IMM REVIEWED WITH PTS DAUGHTER AT BEDSIDE. COPY PROVIDED Original Note: [facility] WAS AT BEDSIDE TO MEET PT AFTER MEETING, SHE WAS ABLE TO OFFER A BED FAMILY WENT TO [facility] AFTER TOURS, THEY REPORT WILLI IS PREFERENCE PT WILL DC TO [facility] TODAY VIA BLS HIS SON/HCP WILL MEET HIM AT SNF
[2022-05-27 13:11] LABS: Calcium, Ionized 3.9 mg/dL (4.8-5.6)
== END 2022-05-25 17:59 | DRG 392 ==
LOC: HO.ED 10:44 → HO.EDOVER 11:26 → HO.S3 13:27
PROVIDERS: Internal Medicine Nephrology; Student in an Organized Health Care Education/Training Program; Admitting Provider Hospitalist; Emergency Provider Emergency Medicine; PCP Internal Medicine; Visit Provider Hospitalist
DX: K57.32 Diverticulitis of large intestine without perforation or abscess without bleeding (principal); N18.4 Chronic kidney disease, stage 4 (severe); M62.82 Rhabdomyolysis; N17.9 Acute kidney failure, unspecified; Z66 Do not resuscitate; E83.51 Hypocalcemia; R29.6 Repeated falls; I10 Essential (primary) hypertension; B37.2 Candidiasis of skin and nail; I12.9 Hypertensive chronic kidney disease with stage 1 through stage 4 chronic kidney disease, or unspecified chronic kidney disease; Z87.898 Personal history of other specified conditions; Z79.899 Other long term (current) drug therapy
CPT/HCPCS: 0241U; 36415; 70450; 71045; 72125; 73502; 74176; 80051; 80053; 80185; 81001; 82306; 82310; 82330; 82550; 82565; 83605; 83880; 83970; 84100; 84300; 84484; 84520; 85025; 85027; 87040; 87086; 87088; 87186; 87635; 93005; 96361; 96365; 96375; 96376; 97162; 99285; C1758; J1956; J2270; J2543

== ENCOUNTER 2022-06-07 12:28 | Inpatient (IN) | payer MEDICARE, SELFPAY ==
--- NOTE | ~2022-06-07 | XR_ITS ---
EXAMINATION: XR CHEST CLINICAL INFORMATION: Difficulty breathing. Chest pain. COMPARISON: 05/23/2022 TECHNIQUE: Frontal view of the chest was obtained. FINDINGS: Cardiac leads overlie the chest. Median sternotomy wires appear intact. Lung volumes are low with elevated left hemidiaphragm. Central vascular prominence without overt edema. Likely small left pleural effusion. The cardiomediastinal silhouette is unchanged. XR/XR chest 1V IMPRESSION: Central vascular prominence without overt edema. Small left pleural effusion.
[2022-06-07 12:52] VITALS: BP 156/69; PULSE 50; RESP 16; TEMP 36.6; O2SAT 98
[2022-06-07 12:58] VITALS: BP 135/52; PULSE 58; O2SAT 96; BMI 34.9
--- NOTE | 2022-06-07 13:05 | ED.GENADULT ---
HPI - General Adult General Chief complaint: General Medical Stated complaint: INCREASED AGITATION Time Seen by Provider: 06/07/22 13:05 Source: family (Son-Eriberto, granddaughter - Benita) Mode of arrival: EMS Limitations: other (Dementia) History of Present Illness HPI narrative: 82-year-old male sent in from his short-term senior living facility for aggressive behavior. The patient was recently hospitalized from 05/23/2022 until 05/25/2022 for diverticulitis, acute kidney injury. Patient's workup was consistent with mild diverticulitis of the descending colon. Patient was hospitalized and received IV Zosyn. He was found to have acute kidney injury with a peak serum creatinine of 3.1. He was discharged on Augmentin 500/125 mg twice a day for 5 days and he should have completed his course of antibiotics on 05/30/2022 (8 days prior). According to his family, the patient does have memory deficits/dementia and is often unaware of his behavior. They believe that the patient became upset because he found out that his was hospitalized for bowel obstruction any wanted to leave the nursing facility. The family reports that the patient did become aggressive at the nursing facility and that the nursing facility does not want him to come back. They also state that the patient has skin lesions on his lower extremities and is supposed to be applying a cream. The family states that the patient picks at these lesions and they are concerned that the right lower extremity may be infected. Related Data Home Medications Medication Instructions Recorded Confirmed atenolol 25 mg tablet 1 tab PO BID 07/25/21 06/07/22 atorvastatin 20 mg tablet 1 tab PO BEDTIME 07/25/21 06/07/22 omeprazole 20 mg capsule,delayed 1 cap PO DAILY@0630 07/25/21 06/07/22 release valsartan 320 1 tab PO DAILY 07/25/21 06/07/22 mg-hydrochlorothiazide 12.5 mg tablet hydralazine 25 mg tablet 1 tab PO BID 05/23/22 06/07/22 magnesium 250 mg tablet 250 mg PO DAILY 05/23/22 06/07/22 triamcinolone acetonide 0.1 % 1 appl topical DAILY 05/23/22 06/07/22 topical cream acetaminophen 325 mg tablet 650 mg PO Q6H PRN Fever 06/07/22 06/07/22 (Tylenol) bisacodyl 10 mg rectal suppository 10 mg CA DAILY PRN Constipation 06/07/22 06/07/22 melatonin 3 mg capsule 9 mg PO BEDTIME 06/07/22 06/07/22 quetiapine 25 mg tablet (Seroquel) 25 mg PO BID PRN Agitation 06/07/22 06/07/22 triamcinolone acetonide 0.1 % 1 appl topical DAILY 06/07/22 06/07/22 topical cream Previous Rx's Medication Instructions Recorded phenytoin sodium extended 100 mg 300 mg PO BID 30 days #180 caps 07/25/21 capsule (Dilantin Extended) quetiapine 25 mg tablet (Seroquel) 25 mg PO BID #60 tabs 05/25/22 Allergies Allergy/AdvReac Type Severity Reaction Status Date / Time No Known Allergies Allergy Verified 08/02/20 15:53 Review of Systems Review of Systems: Yes Unobtainable due to mental status (Patient has dementia and memory deficits and lacks insight as to why he is ) [facility] Past Medical History Medical History (Updated 06/07/22 @ 15:48 by Matt Gomez MD) High cholesterol Hypertension Seizures Surgical History History of hip surgery 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 Social History Social History Household Members: Spouse Housing: [facility] Do you presently have visiting nurse or other home services: No Alcohol intake: never Patient Tobacco Use Status: Tobacco use Unknown Use of substances other than those prescribed or required for medical reasons: No Advance Directives: Yes Advance Directives on File: Yes Advance Directives Date on File: 08/02/20 service: No Current occupational status: retired Physical Exam ED Vital Signs: Vital Signs - 24 hr 06/07/22 12:52 06/07/22 14:59 06/07/22 15:29 Temperature 97.8 F 97.9 F 97.8 F Pulse Rate 50 51 58 Respiratory Rate 16 16 Blood Pressure 156/69 H 151/63 H 159/61 H Pulse Oximetry 98 97 Oxygen Delivery Method Room Air Room Air BMI result Body Mass Index 34.9 Const Other: Awake, alert, male patient, oriented to person and place, he lacks insight as to why he is here in the emergency department. His granddaughter was here at the bedside and the patient did not recognize her and was not aware that she was his granddaughter. HENMT Head: Yes normal to inspection, Yes normocephalic and Yes atraumatic Ears: external ears normal General nose exam: Normal external nose present Face and sinus: Yes normal facial exam Mouth: Normal oral and palatal mucosa present Throat: Yes posterior oropharynx normal Eyes General: appearance normal, both eyes and all related structures Pupils: Equal, round and reactive pupils present Neck Neck: Yes normal visual inspection, Yes no lymphadenopathy, Yes trachea midline and Yes supple Chest Chest palpation & inspection: normal inspection of the chest and normal palpation of entire chest wall Resp Effort & Inspection: normal respiratory effort and able to speak in complete sentences Auscultation: clear to auscultation bilaterally Cardio Rate: regular rate Rhythm: regular rhythm Heart sounds: S1 normal heart sound present, S2 normal heart sound present and no murmurs GI Inspection: Yes normal to inspection Palpation (GI): Soft to palpation, nontender and no guarding Auscultation: normal bowel sounds General: Yes no CVA tenderness Back/Spine/Pelvis Back: no CVA tenderness Skin General skin exam: no rashes or lesions noted Neuro Cranial nerves: Yes CN's II-XII intact bilaterally and Yes Equal, round and reactive pupils present Cognition (Neuro): normal cognition Motor exam (neuro): 5/5 motor strength present throughout Extrem Other: Patient does have chronic lesions on both his left and right lower extremity, the right lower extremity lesions are excoriated and there is surrounding erythema consistent with cellulitis. Psych Appearance: grossly normal Speech and movement: Normal speech and movement present Affect: normal affect Attitude: cooperative Thought process: Normal thought process present Thought content: Normal thought content present Course Course Course Narrative: 82-year-old male who was sent to the emergency department from [facility] senior living [facility] for evaluation of aggressive behavior toward staff. The patient was recently hospitalized here from 05/23/2022 until 05/25/2022 for diverticulitis, acute kidney injury his outpatient course of Augmentin approximately 8 days prior. Patient's vital signs did reveal an elevated blood pressure of 156/69 otherwise were unremarkable. Patient's examination is concerning for mild cellulitis of the right lower extremity related to chronic lesions. I did order a laboratory evaluation includes CBC, CMP, lipase, lactate, COVID-19, blood cultures x2. I will start the patient on Keflex 500 mg 4 times a day for 7 days for cellulitis. I will also discuss the patient's presentation with case management. 1545: Laboratory evaluation: Anemia with an H&H of 10 and 32.5-improved, elevated BUN creatinine 47 and 1.9-improved. Urinalysis negative. COVID-19 negative. At this time I believe that the patient is medically cleared for crisis evaluation. I did consult [facility] to evaluate the patient for his aggressive behavior. Case management is also aware of this patient will help determine if he can go back to his senior living. I will obtain a N in consult as well as a psychiatric consult to to see if medications may be appropriate to help with his aggressive behavior and also to determine the patient has capacity to see if we can not invoke the healthcare proxy to make decisions for the patient. 1936: Start physician observation. I did have a discussion with Case Management, the patient will be kept in the emergency department until he can have a psychiatric evaluation and an appropriate disposition to a senior living facility. Therefore, the patient will be placed in physician observation. I did order the patient's outpatient medications. Patient is awake, alert, in no distress, lungs were clear, heart regular rate rhythm, abdomen soft nontender, extremities unchanged (erythema and cellulitis the left lower extremity), neurologic exam nonfocal Medical Decision Making Lab Data Result diagrams: 06/07/22 14:35 06/07/22 14:34 Labs: Lab Results 06/07/22 06/07/22 06/07/22 Range/Units 14:09 14:09 14:34 WBC (4.8-10.8) X10*3/uL RBC (4.60-5.80) X10*6/uL Hgb (14.0-18.0) g/dl Hct (42.0-52.0) % MCV (80.0-98.0) fL MCH (27.0-33.0) pg MCHC (31.0-36.0) g/dl RDW (11.0-16.0) % Plt Count (160-400) X10*3/uL MPV (9.4-12.4) fL Immature Gran % (Auto) (0.0-0.4) % Neut % (Auto) (45-73) % Lymph % (Auto) (20-40) % Eaton % (Auto) (2-11) % Eos % (Auto) (0-4) % Baso % (Auto) (0-2) % Lymph # (Auto) (1.2-4.9) X10*3/uL Eaton # (Auto) (0.1-1.2) X10*3/uL Eos # (Auto) (0.0-0.4) X10*3/uL Baso # (Auto) (0.0-0.2) X10*3/uL Abs Immat Gran (auto) (0.00-0.03) X10*3/uL Absolute Neuts (auto) (2.0-8.3) x10*3/uL Absolute Nucleated RBC (0.0-0.012) X10*3/uL Nucleated RBC % (auto) (0.0-0.2) /100WBC Sodium 142 (135-145) mmol/L Potassium 5.3 H D (3.3-5.1) mmol/L Chloride 110 H (96-108) mmol/L Carbon Dioxide 22 (22-29) mmol/L Anion Gap 15 (12-20) BUN 47 H D (9-16) mg/dL Creatinine 1.91 H (0.5-1.4) mg/dL Estim Creat Clear Calc 30.5 Estimated GFR 34 Random Glucose 101 (60-115) mg/dL Lactic Acid (0.5-2.0) mmol/L Calcium 7.4 L D (8.4-10.2) mg/dL Total Bilirubin 0.4 (0.0-1.0) mg/dL AST 15 (5-37) U/L ALT 14 (0-40) U/L Alkaline Phosphatase 207 H D (39-117) U/L Total Protein 6.1 L (6.5-8.0) g/dL Albumin 3.6 D (3.5-5.0) g/dL Lipase 29 (8-78) U/L Urine Color YELLOW Urine Appearance CLEAR Urine pH 6.0 (5.0-8.0) Ur Specific Mansfield 1.010 (1.005-1.025) Urine Protein NEG (NEG-TRACE) MG/DL Urine Glucose (UA) NEG (NEG) MG/DL Urine Ketones NEG (NEG) MG/DL Urine Blood NEG (NEG) Urine Nitrite NEG (NEG) Ur Leukocyte Esterase TRACE H (NEG) Urine RBC 0 (0) /HPF Urine WBC 1-4 (0-4) /HPF Ur Squamous Epith Cells 1+ /LPF Urine Bacteria NONE /LPF COVID-19 ([facility]LEEN) Negative (Negative) COVID-19 Clin Com See Note 06/07/22 06/07/22 Range/Units 14:34 14:35 WBC 10.2 (4.8-10.8) X10*3/uL RBC 3.27 L (4.60-5.80) X10*6/uL Hgb 10.3 L (14.0-18.0) g/dl Hct 32.5 L (42.0-52.0) % MCV 99.4 H (80.0-98.0) fL MCH 31.5 (27.0-33.0) pg MCHC 31.7 (31.0-36.0) g/dl RDW 15.7 (11.0-16.0) % Plt Count 257 D (160-400) X10*3/uL MPV 10.6 (9.4-12.4) fL Immature Gran % (Auto) 0.4 (0.0-0.4) % Neut % (Auto) 74.0 H (45-73) % Lymph % (Auto) 13.9 L (20-40) % Eaton % (Auto) 9.7 (2-11) % Eos % (Auto) 1.8 (0-4) % Baso % (Auto) 0.2 (0-2) % Lymph # (Auto) 1.4 (1.2-4.9) X10*3/uL Eaton # (Auto) 1.0 (0.1-1.2) X10*3/uL Eos # (Auto) 0.2 (0.0-0.4) X10*3/uL Baso # (Auto) 0.0 (0.0-0.2) X10*3/uL Abs Immat Gran (auto) 0.04 H (0.00-0.03) X10*3/uL Absolute Neuts (auto) 7.5 (2.0-8.3) x10*3/uL Absolute Nucleated RBC 0.000 (0.0-0.012) X10*3/uL Nucleated RBC % (auto) 0.0 (0.0-0.2) /100WBC Sodium (135-145) mmol/L Potassium (3.3-5.1) mmol/L Chloride (96-108) mmol/L Carbon Dioxide (22-29) mmol/L Anion Gap (12-20) BUN (9-16) mg/dL Creatinine (0.5-1.4) mg/dL Estim Creat Clear Calc Estimated GFR Random Glucose (60-115) mg/dL Lactic Acid 0.8 (0.5-2.0) mmol/L Calcium (8.4-10.2) mg/dL Total Bilirubin (0.0-1.0) mg/dL AST (5-37) U/L ALT (0-40) U/L Alkaline Phosphatase (39-117) U/L Total Protein (6.5-8.0) g/dL Albumin (3.5-5.0) g/dL Lipase (8-78) U/L Urine Color Urine Appearance Urine pH (5.0-8.0) Ur Specific Mansfield (1.005-1.025) Urine Protein (NEG-TRACE) MG/DL Urine Glucose (UA) (NEG) MG/DL Urine Ketones (NEG) MG/DL Urine Blood (NEG) Urine Nitrite (NEG) Ur Leukocyte Esterase (NEG) Urine RBC (0) /HPF Urine WBC (0-4) /HPF Ur Squamous Epith Cells /LPF Urine Bacteria /LPF COVID-19 ([facility]ARLEEN) (Negative) COVID-19 Clin Com Discharge Plan Discharge Clinical Impression: Aggressive behavior, Cellulitis and abscess of right leg Patient Disposition: Still a Patient Additional Instructions: Cellulitis Discharge Instructions You have an infection of your skin of your right lower leg. This is called cellulitis. This is usually caused by bacteria on your skin that gets under your skin and then causes the infection Take Keflex 500 mg pills, 1 pill 4 times a day for 1 week. This is an antibiotic that should help your body fight off the infection. Keep the area of cellulitis elevated to help reduce swelling in the infected area and this helps with the healing process Also apply a heating pad on low or a warm compress for 15 minutes, 4-6 times a day. This will increase the blood flow to the area and will bring white blood cells to the area which will help your body fight off the infection. Take Tylenol( acetaminophen) 325 mg pills, 2 pills every 4 hours as needed for pain. Signs of worsening infection include fever, chills, weakness, increased pain, increased redness, increased swelling or red streaks going away from the area of infection. If you develop any of these symptoms or any other symptoms that are concerning to you, see your doctor immediately or return to the Emergency Department. Follow up with your doctor in 3 days for a recheck Please read the other printed instructions that we printed for you. Prescriptions: No Action hydralazine 25 mg tablet 1 tab PO BID triamcinolone acetonide 0.1 % cream 1 appl topical DAILY Rx Instructions: apply to all extremities every day shift for rash until healed magnesium 250 mg Tablet 250 mg PO DAILY quetiapine [Seroquel] 25 mg tablet 25 mg PO BID Qty: 60 0RF atorvastatin 20 mg tablet 1 tab PO BEDTIME omeprazole 20 mg capsule,delayed release(DR/EC) 1 cap PO DAILY@0630 valsartan-hydrochlorothiazide 320-12.5 mg tablet 1 tab PO DAILY atenolol 25 mg tablet 1 tab PO BID phenytoin sodium extended [Dilantin Extended] 100 mg capsule 300 mg PO BID 30 Days Qty: 180 1RF quetiapine [Seroquel] 25 mg Tablet 25 mg PO BID PRN (Reason: Agitation) acetaminophen [Tylenol] 325 mg Tablet 650 mg PO Q6H PRN (Reason: Fever) triamcinolone acetonide 0.1 % Cream 1 appl TOPICAL DAILY Rx Instructions: apply to groin topically daily for redness bisacodyl 10 mg Suppository 10 mg CA DAILY PRN (Reason: Constipation) melatonin 3 mg Capsule 9 mg PO BEDTIME
--- NOTE | 2022-06-07 14:11 | PHA.MEDREC ---
Pharmacy Consult ? Medication Reconciliation Pharmacy has completed the medication reconciliation. Patient's medications reviewed via SNF records.
[2022-06-07 14:20] LABS: Appearance Urine CLEAR; Color Urine YELLOW; Glucose Urine UA NEG (NEG); Leukocyte Esterase Urine TRACE (NEG); Nitrite Urine NEG (NEG); Urine Blood NEG (NEG); Urine Ketones NEG (NEG); Urine Protein NEG (NEG-TRACE)
[2022-06-07 14:29] LABS: Squamous Epithelial Cell Urine 1+ /LPF
[2022-06-07 14:30] LABS: RBC Urine 0 /HPF (0)
[2022-06-07 14:33] LABS: IDNOW Serial# 9DB6401D
[2022-06-07 14:34] LABS: COVID-19 Test Negative (Negative)
[2022-06-07 14:41] LABS: MANUAL DIFF FLAG NO
[2022-06-07 14:46] LABS: Basophils Percent Auto 0.2 % (0-2); Eosinophils Absolute Auto 0.2 X10*3/uL (0.0-0.4); Eosinophils Percent Auto 1.8 % (0-4); Hematocrit 32.5 % (42.0-52.0); Hemoglobin 10.3 g/dl (14.0-18.0); Imm Gran Abs Auto 0.04 X10*3/uL (0.00-0.03); Imm Gran Pct Auto 0.4 % (0.0-0.4); Lymphocytes Absolute Auto 1.4 X10*3/uL (1.2-4.9); Lymphocytes Percent Auto 13.9 % (20-40); Mean Corpuscular HGB Conc 31.7 g/dl (31.0-36.0); Mean Corpuscular Hemoglobin 31.5 pg (27.0-33.0); Mean Corpuscular Volume 99.4 fL (80.0-98.0); Mean Platelet Volume 10.6 fL (9.4-12.4); Monocytes Percent Auto 9.7 % (2-11); Neutrophils Absolute Auto 7.5 x10*3/uL (2.0-8.3); Platelet Count 257 X10*3/uL (160-400); Red Blood Count 3.27 X10*6/uL (4.60-5.80); Red Cell Distribution Width 15.7 % (11.0-16.0); White Blood Count 10.2 X10*3/uL (4.8-10.8)
[2022-06-07] MEDS: cephALEXin 500 MG CAPSULE PO ×2 (14:48→21:35)
[2022-06-07 14:55] LABS: Lactic Acid 0.8 mmol/L (0.5-2.0)
[2022-06-07 14:59] VITALS: BP 151/63; PULSE 51; RESP 16; TEMP 36.6
[2022-06-07 15:01] LABS: Alanine Aminotransferase 14 U/L (0-40); Albumin Level 3.6 g/dL (3.5-5.0); Alkaline Phosphatase 207 U/L (39-117); Anion Gap 15 (12-20); Aspartate Amino Transferase 15 U/L (5-37); Bilirubin Total 0.4 mg/dL (0.0-1.0); Blood Urea Nitrogen 47 mg/dL (9-16); Calcium 7.4 mg/dL (8.4-10.2); Carbon Dioxide 22 mmol/L (22-29); Chloride 110 mmol/L (96-108); Creatinine Clr Calc Pharmacy 30.5; Estimated Glomerular Filt Rate 34; Glucose Random 101 mg/dL (60-115); Lipase 29 U/L (8-78); Potassium 5.3 mmol/L (3.3-5.1); Sodium 142 mmol/L (135-145); Total Protein 6.1 g/dL (6.5-8.0)
[2022-06-07 15:29] VITALS: BP 159/61; PULSE 58; TEMP 36.6; O2SAT 97
--- NOTE | 2022-06-07 18:54 | PC.NURSE ---
CONCHA smart sheet complete [id number]
--- NOTE | 2022-06-07 18:54 | PC.NURSE ---
SARATH camera system in place
--- NOTE | 2022-06-07 19:29 | MHC.CM.ED ---
Addendum entered by Cher Manrique 06/07/22 21:42: Pt wants to see his . Spoke with , Sejal, who is an admitted patient with bed assignment pending. Sejal does not want to see her , as she feels he will only get upset and will not want to leave her. She does not want her to know that she does not want to see him. CM will honor her wishes. Family is in agreement. Pt has Tele-sitter. Sitting in chair at bedside. Pt does not know why he is here in the ED. Keeps telling he wants to see his . Explained to pt that his has been admitted and that she cannot have any visitors tonight. Explained that he is a patient in the ED. Again pt tells CM there is nothing wrong with him. Wants to know if he can see her tomorrow. Explained that CM is unsure if she will have any visitors tomorrow, but assured him that I did see her and she is doing okay, resting. CM asked patient what they were doing for him in the custodial, and pt said nothing! States he can walk and run. Explained that pt would have a PT assessment in the morning. Again, patient stressed that there was nothing wrong with him. Admits to falling out of bed in the past, but is fine now. Again asked about his . Pt can tell CM that his daughter is a nurse here and his son is a good pippa. CM will follow for d/c needs. Original Note: CM met with patient at the request of Dr. Gomez. Pt was recently at [facility] 05/23- 05/25 and discharged to [facility] for STR with hopeful transition to LTC. Pt has worsening dementia and of 64 years can no longer safely care for him. Pt was upset at SNF because he learned that his was admitted to the hospital and he wanted to leave and come to [facility]. Became aggressive. Return referral placed to [facility]. Pt medically cleared. Will have BHN consult, Psych consult for med management and capacity (need to invoke HCP). Family believes that the HCP was invoked on last admission, however CM cannot find any evidence of that in MD notes or Nurses/CM notes. Will also have PT consult. Willi aware of consults and asked to consider return after consults and possible medication management for behaviors. Pt was living with his . Had no home services and used a walker and wheel chair. was providing care with ADL's. Vax/boosted Moderna x3. HCP#1 Nancy Madden (RN on S3) [phone]) and HCP#2/POA/son Eriberto Quiñones ([phone]). Eriberto is in processing of working on the MH application. Had some assistance with [facility] financial services and was working with knockdown worker at facility. Encouraged Eriberto to complete that and submit ARI. Offered supports from financial services. Eriberto declines at this time. CM will follow for d/c planning.
--- NOTE | 2022-06-07 21:20 | PC.NURSE ---
pt resting in bed, with no complaints. Tele sitter on continual watch
[2022-06-07] MEDS: Phenytoin Sodium Extended 100 MG CAPSULE 300 MG PO (21:34)
[2022-06-07] MEDS: atenoloL 25 MG TABLET PO (21:35)
[2022-06-07] MEDS: QUEtiapine Fumarate 25 MG TABLET PO (21:35)
[2022-06-07] MEDS: Atorvastatin Calcium 20 MG TABLET PO (21:35)
[2022-06-07] MEDS: Melatonin 3 MG TABLET 9 MG PO (21:36)
[2022-06-07] MEDS: hydrALAZINE HCl 25 MG TABLET PO (21:37)
[2022-06-07 23:22] VITALS: BP 144/55; PULSE 58; RESP 18; TEMP 36.6; O2SAT 98
--- NOTE | 2022-06-07 23:30 | PC.NURSE ---
pt has been stating he has to go the BR, assisted to stand with urinal, unable to void. Assisted back to bed.
[2022-06-08] VITALS (8 sets, daily range): BP systolic 123–147; BP diastolic 45–61; PULSE 54–60; RESP 16–22; TEMP 36.5–36.6; O2SAT 94–139
--- NOTE | 2022-06-08 00:45 | PC.NURSE ---
pt asking for assistance to void, pt unable to void in urinal, pt getting aggressive toward staff. pt redirected/reassured with some effect. pt refusing to allow this RN to bladder scan him raising a fist. pt explained why this RN is trying to scan bladder with minimal effect.
--- NOTE | 2022-06-08 00:53 | PC.NURSE ---
PATIENT VERY RESTLESS,KEPT ON CLIMBING OUT OF BED .
[2022-06-08] MEDS: QUEtiapine Fumarate 25 MG TABLET PO ×3 (01:30→20:50)
--- NOTE | 2022-06-08 01:51 | PC.NURSE ---
BLADDER SCAN DONE BY THIS PCT ,AMOUNT OF BLADDER SCAN RESULT WAS 749 ML ,PROVIDER AND RN AWARE .
--- NOTE | 2022-06-08 02:23 | PC.NURSE ---
pt calling for help to go to the BR. states he has to void. bladder scan showed 749cc in bladder. straight cath order per MD baltazar, output 700 cc.
--- NOTE | 2022-06-08 02:59 | PC.NURSE ---
pt attempting to move down in the bed, pt repositioned with 2 assist. pt given water
--- NOTE | 2022-06-08 04:34 | PC.NURSE ---
pt asking to go the BR but needs to stand, pt assisted to commode, unable to void. pt more receptive and cooperative, slow unsteady gait requiring 2 assist, resting in bed. 1:1 at bedside
[2022-06-08] MEDS: Omeprazole 20 MG CAPSULE.DR PO (06:35)
--- NOTE | 2022-06-08 06:47 | PC.NURSE ---
pt assisted to commode to void, pt able to void, assisted back to bed, 1:1 sitter continues
--- NOTE | 2022-06-08 08:39 | PC.NURSE ---
Pt was assisted to recliner for breakfast. aSking repeatedly to see his . According to Stacy ATKINSON, does not want him to visit at this time. pt stool to urinate and couldn't. plan for bladder scan soon. has superficial lac to scrotum which is now cleansed. no bleeding from penis.
[2022-06-08] MEDS: hydrALAZINE HCl 25 MG TABLET PO ×2 (09:19→20:51)
[2022-06-08] MEDS: Magnesium Oxide 400 MG TABLET 200 MG PO (09:19)
[2022-06-08] MEDS: Phenytoin Sodium Extended 100 MG CAPSULE 300 MG PO ×2 (09:20→20:47)
[2022-06-08] MEDS: cephALEXin 500 MG CAPSULE PO ×3 (09:20→20:51)
[2022-06-08] MEDS: atenoloL 25 MG TABLET PO (09:21)
--- NOTE | 2022-06-08 11:14 | MHC.CM.PN ---
[facility] HAS RESPONDED AND THEY ARE NOT ABLE/WILLING TO TAKE PT BACK DUE TO WANDERING/AGGRESSIVE BEHAVIORS AND NO PAYER SOURCE. PER [facility], PTS MEDICARE STOPPED COVERING ON 06/05/22 AND FAMILY HAS NOT YET SUBMITTED A [facility]PLICATION REF[facility]AL SENT [place] [facility] REQUESTING THEY CHECK WITH FAMILY AND OFFER ASSISTANCE WITH [facility] PT WILL NOT BE ABLE TO DC TO A FACILITY UNTIL IT IS SUBMITTED AND AT IS CONSIDERED PENDING
[2022-06-08] MEDS: Lidocaine HCl 2 % Urojet 10 ML JEL.PF.APP TOPICAL (11:30)
--- NOTE | 2022-06-08 12:04 | PC.NURSE ---
patient repeatedly yelling out NURSE! Requested and given ice water.
--- NOTE | 2022-06-08 13:29 | PM.PSYCN ---
History of Present Illness Date of Service: 06/08/12 Chief Complaint: Elevated BNP chest tightness Reason for Consult: capacity evaluation Sources of Information: patient interviewed, chart reviewed and crisis/core team assessment reviewed HPI Narrative: Library Acquisitions Technician asked to assess patient's capacity for making medical decisions whether healthcare proxy needs to be invoked. Patient is an 82-year-old male with history of seizure disorder, CHF, HTN, CABG who presents to the emergency room from SNF for aggressive behavior, elopement and medication noncompliance at [facility]. Patient is a poor historian. Apparently patient had a fall and was admitted to rehab; there, he threatened to hit staff, refused to take medication and tried to elope, falling again, this time in the stairwell. Patient knows his name and date of ; he knows He is at [facility]. However he says he is here at the emergency room because of a fall and is not aware that he was being aggressive and not taking medications. He also does not seem aware that he is coming directly from the SNF saying that he lives at home with his and their house. He does not know that he has a seizure disorder; he does not know that he is prescribed medication for this disorder. When told that he does have a hx of a seizure disorder and is prescribed medications for it, he just shrugged His shoulders. He also does not know that he has been refusing medications; when told that he was refusing he also just shrugged his shoulders. Patient is irritable and does not like the questions and became difficult to engage further. At this time patient mortgage or loan underwriter concludes the patient does not have capacity to make medical decisions for himself. He does not have a factual understanding of his medical illness and does not understand the need for medication; attempts to clarify this for him did not produce understanding. Patient does not appreciate the risks of refusing medication. At this time is unable to make a factual, informed decision about taking or not taking medications. Past Psychiatric History: deferred at this time as pt is poor historian Medical Evaluation Reviewed: Yes [facility] Medical History (Updated 06/09/22 @ 17:03 by Romero Oliver MD) CAD (coronary artery disease) CKD (chronic kidney disease) Cognitive changes High cholesterol Hypertension Seizures Surgical History (Updated 06/09/22 @ 09:39 by Luis Oscar MD) History of hip surgery 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 Hx of CABG S/P total right hip arthroplasty Diagnostics Vital Signs (24Hr): Vital Signs - 24 hr 06/07/22 14:59 06/07/22 15:29 06/07/22 23:22 Temperature 97.9 F 97.8 F 97.9 F Pulse Rate 51 58 58 Respiratory Rate 16 18 Blood Pressure 151/63 H 159/61 H 144/55 H Pulse Oximetry 97 98 Oxygen Delivery Method Room Air Room Air 06/08/22 03:00 06/08/22 06:00 06/08/22 07:20 Temperature 97.9 F Pulse Rate 54 55 60 Respiratory Rate 22 H 16 16 Blood Pressure 144/55 H 123/45 L Pulse Oximetry 95 96 95 Oxygen Delivery Method Room Air Room Air Room Air BMI result Body Mass Index 34.9 Labs Results: 06/09/22 00:09 06/09/22 00:09 Labs: Laboratory Results - last 48 hr 06/07/22 06/07/22 06/07/22 14:09 14:09 14:34 WBC RBC Hgb Hct MCV MCH MCHC RDW Plt Count MPV Immature Gran % (Auto) Neut % (Auto) Lymph % (Auto) Delta % (Auto) Eos % (Auto) Baso % (Auto) Lymph # (Auto) Delta # (Auto) Eos # (Auto) Baso # (Auto) Abs Immat Gran (auto) Absolute Neuts (auto) Absolute Nucleated RBC Nucleated RBC % (auto) Sodium 142 Potassium 5.3 H D Chloride 110 H Carbon Dioxide 22 Anion Gap 15 BUN 47 H D Creatinine 1.91 H Estim Creat Clear Calc 30.5 Estimated GFR 34 Random Glucose 101 Lactic Acid Calcium 7.4 L D Total Bilirubin 0.4 AST 15 ALT 14 Alkaline Phosphatase 207 H D Total Protein 6.1 L Albumin 3.6 D Lipase 29 Urine Color YELLOW Urine Appearance CLEAR Urine pH 6.0 Ur Specific [place] 1.010 Urine Protein NEG Urine Glucose (UA) NEG Urine Ketones NEG Urine Blood NEG Urine Nitrite NEG Ur Leukocyte Esterase TRACE H Urine RBC 0 Urine WBC 1-4 Ur Squamous Epith Cells 1+ Urine Bacteria NONE COVID-19 ([facility]) Negative COVID-19 Clin Com See Note 06/07/22 06/07/22 14:34 14:35 WBC 10.2 RBC 3.27 L Hgb 10.3 L Hct 32.5 L MCV 99.4 H MCH 31.5 MCHC 31.7 RDW 15.7 Plt Count 257 D MPV 10.6 Immature Gran % (Auto) 0.4 Neut % (Auto) 74.0 H Lymph % (Auto) 13.9 L Delta % (Auto) 9.7 Eos % (Auto) 1.8 Baso % (Auto) 0.2 Lymph # (Auto) 1.4 Delta # (Auto) 1.0 Eos # (Auto) 0.2 Baso # (Auto) 0.0 Abs Immat Gran (auto) 0.04 H Absolute Neuts (auto) 7.5 Absolute Nucleated RBC 0.000 Nucleated RBC % (auto) 0.0 Sodium Potassium Chloride Carbon Dioxide Anion Gap BUN Creatinine Estim Creat Clear Calc Estimated GFR Random Glucose Lactic Acid 0.8 Calcium Total Bilirubin AST ALT Alkaline Phosphatase Total Protein Albumin Lipase Urine Color Urine Appearance Urine pH Ur Specific [place] Urine Protein Urine Glucose (UA) Urine Ketones Urine Blood Urine Nitrite Ur Leukocyte Esterase Urine RBC Urine WBC Ur Squamous Epith Cells Urine Bacteria COVID-19 ([facility]) COVID-19 Clin Com Medications Medications Current Medications Acetaminophen (Acetaminophen 325 Mg Tablet) 650 mg PO Q6H PRN PRN Reason: Fever Atenolol (Atenolol 25 Mg Tablet) 25 mg PO BID [facility]; Protocol Last Admin: 06/08/22 09:21 Dose: 25 mg Atorvastatin Calcium (Atorvastatin Calcium 20 Mg Tablet) 20 mg PO BEDTIME [facility] Last Admin: 06/07/22 21:35 Dose: 20 mg Bisacodyl (Bisacodyl 10 Mg Supp.Rect) 10 mg [place] DAILY PRN PRN Reason: Constipation Cephalexin HCl (Cephalexin 500 Mg Capsule) 500 mg PO TID [facility] Stop: 06/14/22 19:28 Last Admin: 06/08/22 09:20 Dose: 500 mg Valsartan 320 mg/ (Hydrochlorothiazide 12.5 mg) 0 mg PO DAILY [facility] Hydralazine HCl (Hydralazine Hcl 25 Mg Tablet) 25 mg PO BID [facility]; Protocol Last Admin: 06/08/22 09:19 Dose: 25 mg Magnesium Oxide (Magnesium Oxide 400 Mg Tablet) 200 mg PO DAILY [facility] Last Admin: 06/08/22 09:19 Dose: 200 mg Melatonin (Melatonin 3 Mg Tablet) 9 mg PO BEDTIME [facility] Last Admin: 06/07/22 21:36 Dose: 9 mg Omeprazole (Omeprazole 20 Mg Capsule.) 20 mg PO DAILY@0630 [facility] Last Admin: 06/08/22 06:35 Dose: 20 mg Pharmacy Consult (Consult Rx Perform Med Rec) 1 each MISCELLANE ONCE PRN PRN Reason: Consult order Phenytoin Sodium (Phenytoin Sodium Extended 100 Mg Capsule) 300 mg PO BID [facility] Last Admin: 06/08/22 09:20 Dose: 300 mg Quetiapine Fumarate (Quetiapine Fumarate 25 Mg Tablet) 25 mg PO BID PRN PRN Reason: Agitation Last Admin: 06/08/22 01:30 Dose: 25 mg Quetiapine Fumarate (Quetiapine Fumarate 25 Mg Tablet) 25 mg PO BID [facility] Last Admin: 06/08/22 09:20 Dose: 25 mg Tamsulosin HCl (Tamsulosin Hcl 0.4 Mg Capsule) 0.4 mg PO DAILY [facility] Triamcinolone Acetonide (Triamcinolone Acet 0.1 % Cream 15 Gm Tube) 1 appl TOPICAL DAILY [facility]; Protocol Allergies Allergies Allergy/AdvReac Type Severity Reaction Status Date / Time No Known Allergies Allergy Verified 08/02/20 15:53 Assessment & Plan Assessment & Plan (1) Cognitive changes: Status: Acute Code(s): R41.89 - Other symptoms and signs involving cognitive functions and awareness (2) Seizures: Status: Acute Code(s): R56.9 - Unspecified convulsions (3) Congestive heart failure: Status: Acute Code(s): I50.9 - Heart failure, unspecified (4) Hypertension: Status: Acute Code(s): I10 - Essential (primary) hypertension (5) Aggressive behavior: Status: Acute Code(s): R46.89 - Other symptoms and signs involving appearance and behavior Plan Library Acquisitions Technician asked to assess patient's capacity for making medical decisions whether healthcare proxy needs to be invoked. A/P At this time patient mortgage or loan underwriter concludes the patient does not have capacity to make medical decisions for himself. He does not have a factual understanding of his medical illness and does not understand the need for medication; attempts to clarify this for him did not produce understanding. Patient does not appreciate the risks of refusing medication. At this time is unable to make a factual, informed decision about taking or not taking medications. -Healthcare proxy is invoked Collateral will be helpful I spent minutes with the patient and/or on the patient floor today, greater than?50% of which was spent counseling/coordinating care. Patient educated on: diagnosis and medical condition Informed Consent: does not understand
--- NOTE | 2022-06-08 13:48 | PC.NURSE ---
late entry aprox 1130. bladder scanned for 999+, foleyinsterted (with diffictuly) and 800ml yellow urine out.
--- NOTE | 2022-06-08 13:49 | PC.NURSE ---
pt has been moved to recliner/bed mult times today. isatu for staff, is diffucult to redirect at times but eventually cooperates. c ontinues to ask to see his .
[2022-06-08] MEDS: HYDROCHLOROTHIAZIDE 12.5 MG PO (14:39)
[2022-06-08] MEDS: VALSARTAN 320 MG PO (14:39)
[2022-06-08] MEDS: Triamcinolone Acet 0.1 % Cream 15 GM TUBE 1 APPL TOPICAL (14:40)
--- NOTE | 2022-06-08 16:33 | PC.NURSE ---
update to kashmir at bedside. pt hsa been resting quietly in last hour or so (with visitor nearby). Stahl continues to drain.
--- NOTE | 2022-06-08 18:02 | PC.NURSE ---
update to songonzalo, at bedside.
[2022-06-08] MEDS: Tamsulosin HCL 0.4 MG CAPSULE PO (20:47)
[2022-06-08] MEDS: Melatonin 3 MG TABLET 9 MG PO (20:49)
[2022-06-08] MEDS: Atorvastatin Calcium 20 MG TABLET PO (20:50)
--- NOTE | 2022-06-08 20:59 | PC.NURSE ---
2100 Medications administered. 2100 dose Atenolol held d/t hold parameters if HR < 60 BPM. Pt.'s HR was 56
--- NOTE | 2022-06-08 21:42 | MHC.CM.ED ---
HCP is invoked by Dr. Oliver 06/08/2022. CM spoke with Eriberto (son, alternate HCP/POA). Eriberto is aware that [facility] will not take patient back to their facility after much discussion today. Eriberto is aware that it is imperative that he complete the MH application and submit it. He is being assisted by Cyndee from Financial Services. JORGE ALBERTO explained that we have no facilities offering a bed, as there is no payer. Explained that pt will remain in the ED until we can find LTC and that he needs to complete MH application ARI. Eriberto will keep CM informed of his progress and will meet with Cyndee in Finance soon. Referrals increased to 40 miles. CM to follow for d/c planning.
--- NOTE | 2022-06-08 23:42 | ECG_ITS ---
Test Reason : CHEST PAIN Blood Pressure : / mmHG Vent. Rate : 056 BPM Atrial Rate : 056 BPM P-R Int : 164 ms QRS Dur : 092 ms QT Int : 446 ms P-R-T Axes : 055 -10 004 degrees QTc Int : 430 ms Sinus bradycardia cannot exclude old Inferior infarct (cited on or before 07-AUG-2006) Abnormal ECG When compared with ECG of 23-MAY-2022 06:01, No significant change was found Referred By: Letty Oviedo Electronically Signed By:FAY [place]
--- NOTE | 2022-06-08 23:46 | PC.NURSE ---
At appx. 23:40, pt. woke up stating that he didn't feel well and reported seeing double to RN Marely. EVELIN Valdez to bedside to assess. Pt. on monitor and EKG being done. VSS. Labs being ordered at this time
[2022-06-08] MEDS: Aspirin 81 MG TAB.CHEW 324 MG PO (23:57)
--- NOTE | 2022-06-09 00:10 | PC.NURSE ---
IV access inserted, labs drawn and sent as ordered
[2022-06-09 00:14] LABS: MANUAL DIFF FLAG NO
[2022-06-09 00:16] LABS: Basophils Percent Auto 0.3 % (0-2); Eosinophils Absolute Auto 0.2 X10*3/uL (0.0-0.4); Eosinophils Percent Auto 1.9 % (0-4); Hematocrit 32.5 % (42.0-52.0); Hemoglobin 10.2 g/dl (14.0-18.0); Imm Gran Abs Auto 0.03 X10*3/uL (0.00-0.03); Imm Gran Pct Auto 0.3 % (0.0-0.4); Lymphocytes Absolute Auto 1.3 X10*3/uL (1.2-4.9); Lymphocytes Percent Auto 14.8 % (20-40); Mean Corpuscular HGB Conc 31.4 g/dl (31.0-36.0); Mean Corpuscular Hemoglobin 31.2 pg (27.0-33.0); Mean Corpuscular Volume 99.4 fL (80.0-98.0); Mean Platelet Volume 10.6 fL (9.4-12.4); Monocytes Percent Auto 10.8 % (2-11); Neutrophils Absolute Auto 6.3 x10*3/uL (2.0-8.3); Neutrophils Percent Auto 71.9 % (45-73); Platelet Count 247 X10*3/uL (160-400); Red Blood Count 3.27 X10*6/uL (4.60-5.80); Red Cell Distribution Width 15.9 % (11.0-16.0); White Blood Count 8.8 X10*3/uL (4.8-10.8)
[2022-06-09 00:43] LABS: Troponin-I High Sensitivity 14.9 ng/L (<3.5-35.0)
[2022-06-09 00:47] LABS: Alanine Aminotransferase 10 U/L (0-40); Albumin Level 3.4 g/dL (3.5-5.0); Alkaline Phosphatase 197 U/L (39-117); Anion Gap 17 (12-20); Aspartate Amino Transferase 14 U/L (5-37); Bilirubin Direct 0.2 mg/dL (0.0-0.5); Bilirubin Total 0.4 mg/dL (0.0-1.0); Blood Urea Nitrogen 44 mg/dL (9-16); Calcium 7.6 mg/dL (8.4-10.2); Carbon Dioxide 20 mmol/L (22-29); Chloride 112 mmol/L (96-108); Creatinine Clr Calc Pharmacy 31.7; Estimated Glomerular Filt Rate 35; Glucose Random 105 mg/dL (60-115); Magnesium 1.8 mg/dL (1.6-2.6); Potassium 5.5 mmol/L (3.3-5.1); Sodium 143 mmol/L (135-145); Total Protein 5.9 g/dL (6.5-8.0)
[2022-06-09 01:18] LABS: B Type Natriuretic Peptide 1353 pg/mL (<100)
--- NOTE | 2022-06-09 01:35 | PC.NURSE ---
PT complaining of testicle pain. Moved to chair and pt said it was much better. Pt currently sleeping in chair.
[2022-06-09 03:04] VITALS: BP 135/55; PULSE 51; RESP 26; O2SAT 95
[2022-06-09 03:30] LABS: Troponin-I High Sensitivity 14.5 ng/L (<3.5-35.0)
[2022-06-09 06:25] VITALS: BP 134/65; PULSE 57; RESP 23; O2SAT 95
--- NOTE | 2022-06-09 08:29 | PC.NURSE ---
Dr. Oscar at bedside with patient.
--- NOTE | 2022-06-09 09:13 | PM.IMHP ---
History of Present Illness Date of Service: 06/09/22 Chief Complaint: Shortness of breath This is an 82 yo M with a PMH as outlined below who presented to the ED on 06/07 after he was sent in from local SNF for aggressive behavior. The patient had been hospitalized at [facility] from 05/23/22 to 05/25/22 where he was treated for diverticulitis and KENJI with IV antibiotics and IVF. He was discharged to halfway facility. Upon arrival to the the ED, he was medically evaluated and cleared. However, the local SNF did not accept him back and hence, he has been awaiting placement in the ED. In the [employer] of 06/09, the patient complained of chest tightness and he was re-evaluated medically. A repeat CXR showed some ventral vascular congestion. BNP was elevated > 1300. He has no prior documented history of CHF, but per his daughter, he does have a history of CABG in his 70s. Given the CXR findings and elevated BNP, a diagnosis of possible CHF has been made and admission was requested. I saw the patient on 06/09, around 830-9AM. The patient is pleasantly confused. He knows his name but otherwise no oriented to place or time. He denies any respiratory symptoms and does not recall that he complained of respiratory distress overnight. He denies current sob, chest pain, cough. He denies any pain. Review of Systems Review of Systems: unreliable to patient's history of dementia [facility] Medical History (Updated 06/09/22 @ 09:39 by Luis Oscar MD) CAD (coronary artery disease) CKD (chronic kidney disease) High cholesterol Hypertension Seizures Pertinent family history: CVA in younger brother HTN/HLD in family Surgical History (Updated 06/09/22 @ 09:39 by Luis Oscar MD) History of hip surgery 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 Hx of CABG S/P total right hip arthroplasty Social History (Updated 06/09/22 @ 09:40 by Luis Oscar MD) Household Members: Spouse Housing: Condominium Do you presently have visiting nurse or other home services: No Unable to assess alcohol history related to: Unable to respond Patient Tobacco Use Status: Tobacco use Unknown Use of substances other than those prescribed or required for medical reasons: No Advance Directives: Yes Advance Directives on File: Yes Advance Directives Date on File: 08/02/20 service: No Current occupational status: retired Meds Allergies Allergy/AdvReac Type Severity Reaction Status Date / Time No Known Allergies Allergy Verified 08/02/20 15:53 Active Medications: Current Medications Acetaminophen (Acetaminophen 325 Mg Tablet) 650 mg PO Q6H PRN PRN Reason: Fever Atenolol (Atenolol 25 Mg Tablet) 25 mg PO BID [facility]; Protocol Last Admin: 06/08/22 20:52 Dose: Not Given Atorvastatin Calcium (Atorvastatin Calcium 20 Mg Tablet) 20 mg PO BEDTIME [facility] Last Admin: 06/08/22 20:50 Dose: 20 mg Bisacodyl (Bisacodyl 10 Mg Supp.Rect) 10 mg [place] DAILY PRN PRN Reason: Constipation Cephalexin HCl (Cephalexin 500 Mg Capsule) 500 mg PO TID [facility] Stop: 06/14/22 19:28 Last Admin: 06/08/22 20:51 Dose: 500 mg Valsartan 320 mg/ (Hydrochlorothiazide 12.5 mg) 0 mg PO DAILY [facility] Last Admin: 06/08/22 14:39 Dose: 320 tablet Hydralazine HCl (Hydralazine Hcl 25 Mg Tablet) 25 mg PO BID [facility]; Protocol Last Admin: 06/08/22 20:51 Dose: 25 mg Magnesium Oxide (Magnesium Oxide 400 Mg Tablet) 200 mg PO DAILY [facility] Last Admin: 06/08/22 09:19 Dose: 200 mg Melatonin (Melatonin 3 Mg Tablet) 9 mg PO BEDTIME [facility] Last Admin: 06/08/22 20:49 Dose: 9 mg Omeprazole (Omeprazole 20 Mg Capsule.Dr) 20 mg PO DAILY@0630 [facility] Last Admin: 06/09/22 06:35 Dose: Not Given Pharmacy Consult (Consult Rx Perform Med Rec) 1 each MISCELLANE ONCE PRN PRN Reason: Consult order Phenytoin Sodium (Phenytoin Sodium Extended 100 Mg Capsule) 300 mg PO BID [facility] Last Admin: 06/08/22 20:47 Dose: 300 mg Quetiapine Fumarate (Quetiapine Fumarate 25 Mg Tablet) 25 mg PO BID PRN PRN Reason: Agitation Last Admin: 06/08/22 01:30 Dose: 25 mg Quetiapine Fumarate (Quetiapine Fumarate 25 Mg Tablet) 25 mg PO BID [facility] Last Admin: 06/08/22 20:50 Dose: 25 mg Tamsulosin HCl (Tamsulosin Hcl 0.4 Mg Capsule) 0.4 mg PO DAILY [facility] Last Admin: 06/08/22 20:47 Dose: 0.4 mg Triamcinolone Acetonide (Triamcinolone Acet 0.1 % Cream 15 Gm Tube) 1 appl TOPICAL DAILY [facility]; Protocol Last Admin: 06/08/22 14:40 Dose: 1 appl Home Medications Medication Instructions Recorded Confirmed Last Taken Type atenolol 25 mg tablet 1 tab PO BID 07/25/21 06/07/22 Unknown History atorvastatin 20 mg tablet 1 tab PO BEDTIME 07/25/21 06/07/22 Unknown History omeprazole 20 mg capsule,delayed 1 cap PO DAILY@0630 07/25/21 06/07/22 Unknown History release valsartan 320 1 tab PO DAILY 07/25/21 06/07/22 Unknown History mg-hydrochlorothiazide 12.5 mg tablet hydralazine 25 mg tablet 1 tab PO BID 05/23/22 06/07/22 Unknown History magnesium 250 mg tablet 250 mg PO DAILY 05/23/22 06/07/22 Unknown History triamcinolone acetonide 0.1 % 1 appl topical DAILY 05/23/22 06/07/22 Unknown History topical cream acetaminophen 325 mg tablet 650 mg PO Q6H PRN Fever 06/07/22 06/07/22 Unknown History (Tylenol) bisacodyl 10 mg rectal suppository 10 mg [place] DAILY PRN Constipation 06/07/22 06/07/22 Unknown History melatonin 3 mg capsule 9 mg PO BEDTIME 06/07/22 06/07/22 Unknown History quetiapine 25 mg tablet (Seroquel) 25 mg PO BID PRN Agitation 06/07/22 06/07/22 Unknown History triamcinolone acetonide 0.1 % 1 appl topical DAILY 06/07/22 06/07/22 Unknown History topical cream Physical Exam Vital Signs and Narrative: Vital Signs: Last Vital Signs Temp 97.7 F 06/08/22 23:44 Pulse 57 06/09/22 06:25 Resp 23 H 06/09/22 06:25 BP 134/65 06/09/22 06:25 Pulse Ox 95 06/09/22 06:25 O2 Del Method 06/09/22 06:25 BMI result Body Mass Index 34.9 Const: Other: Constitutional - Awake and Alert, No apparent distress, calm and cooperative Eyes - PERRLA, EOMI Cardiovascular - S1S2, RRR, No major LE edema Respiratory - mild scattered rales; no respiratory distress; sats mid 90s on RA Gastrointestinal - NT / ND; +BS; No rebound or guarding - No CVA tenderness Extremities - no calf tenderness bilaterally, no edema Musculoskeletal - Normal inspection, normal ROM Skin - Warm/Dry Neurological - Oriented to self, otherwise disoriented Psychological - Appropriate affect, calm and cooperative Results Labs CBC and Chem 7: 06/09/22 00:09 06/09/22 00:09 Labs: Laboratory Results - last 24 hr 06/09/22 06/09/22 06/09/22 00:09 00:09 00:09 MCV 99.4 H MCH 31.2 MCHC 31.4 RDW 15.9 Plt Count 247 MPV 10.6 Immature Gran % (Auto) 0.3 Neut % (Auto) 71.9 Lymph % (Auto) 14.8 L [place] % (Auto) 10.8 Eos % (Auto) 1.9 Baso % (Auto) 0.3 Lymph # (Auto) 1.3 [place] # (Auto) 1.0 Eos # (Auto) 0.2 Baso # (Auto) 0.0 Abs Immat Gran (auto) 0.03 Absolute Neuts (auto) 6.3 Absolute Nucleated RBC 0.000 Nucleated RBC % (auto) 0.0 Anion Gap 17 Estim Creat Clear Calc 31.7 Estimated GFR 35 Random Glucose 105 Calcium 7.6 L Magnesium 1.8 Total Bilirubin 0.4 Direct Bilirubin 0.2 AST 14 ALT 10 Alkaline Phosphatase 197 H B-Natriuretic Peptide 1353 H Total Protein 5.9 L Albumin 3.4 L Imaging Radiologist's Impressions: Impressions Chest X-Ray 06/09/22 00:25 IMPRESSION: Central vascular prominence without overt edema. Small left pleural effusion. Assessment and Plan (1) Congestive heart failure: Status: Acute Plan This is an 82 year old male who was recently hospitalized for KENJI + diverticulitis from 05/23-05/25. He was discharged to [facility] and arrived back to [facility] ED on 06/07 after reported aggressive behavior at the SNF. Per ED notes -- he was not accepted back to facility and hence was awaiting placement in the ED. During the [employer] of 06/09 had respiratory distress and further testing revealed a CXR with congestion and an elevated BNP. Hence, he will be admitted for further work up. 1. Suspected acute/new onset CHF appears to be mild in nature No echo seen on EMR, will order Clinically does not seem to be in significant fluid overload. Previously on torsemide 20mg daily -- will recommence I/O 2. Urinary retention henry placed while awaiting placement in the ED continue henry for now, voiding trial in 1-2 days; UA without suggestion of UTI continue flomax 3. Dementia, unspecified aggressive behavior reported at the SNF -- but since ED arrival, has not required any PRN. He remains calm continue with non-pharmacological modifications as best we can psychiatric was following the patient in the ED, will re-consult 4. CKD stage 4 SCr improved from last admission monitor while in diuretics 5. History of seizures continue baseline meds DNR/DNI (confirmed with daughter, Nancy (HCP)) over the phone. DVT pptx -- high risk, will use subcut. heparin HCP is daughter Nancy and son Eriberto Bonilla Stroke Does the patient have a stroke diagnosis?: No VTE Prior VTE?: No VTE Risk Level:: Medical - moderate - high VTE Device Contraindication: Treatment Not Indicated VTE Drug Contraindication: N/A - Med Ordered
[2022-06-09 09:40] VITALS: BP 136/66; PULSE 55; RESP 21; O2SAT 94
--- NOTE | 2022-06-09 10:00 | CA_ITS ---
Transthoracic Echocardiogram Patient (Last, First, Middle): Gentry Quiñones J Gender: Male Date of : 1940 Age: 82 Procedure Date: 06/09/2022 Procedure Type: Transthoracic Echocardiogram Location: ER Height: 165.1 cm Weight: 95.26 kg BSA: 2.02 m2 Heart Rate: 54 bpm BP: 126 / 66 mmHg Deputy Head: SB Referring MD: Luis Oscar MD Symptoms: SOB + elevated BNP - eval for newonset CHF Study Quality: Adequate w Contrast ECG Rhythm: Bradycardia Conclusions: - The left ventricular systolic function is normal. The visually estimated ejection fraction is between 65-70%. - Evidence suggests grade II (moderate) diastolic dysfunction. - Moderate biatrial enlargement. - There is mild tricuspid valve regurgitation. - Mild pulmonary hypertension is present. Findings Procedure Information Contrast agent, definity, is being given per protocol without apparent complications. Left Ventricle Normal left ventricular cavity size. There is normal left ventricular wall thickness. The left ventricular systolic function is normal. The visually estimated ejection fraction is between 65-70%. E/E prime ratio is between 8 and 15 consistent with indeterminate filling pressures. Evidence suggests grade II (moderate) diastolic dysfunction. Right Ventricle Normal right ventricular cavity size and systolic function. Atria Moderate biatrial enlargement. Aortic Valve There is a normal trileaflet aortic valve. There is mild calcification of the aortic valve. There is no aortic valve stenosis. There is trace (trivial) aortic valve regurgitation. Mitral Valve The mitral valve appears normal. There is trace mitral valve regurgitation. There is no mitral valve stenosis. Pulmonic Valve The pulmonic valve is likely normal. Tricuspid Valve Normal tricuspid valve structure. There is mild tricuspid valve regurgitation. The right ventricular systolic pressure is 45 mmHg. Mild pulmonary hypertension is present. Great Vessels There is mild dilatation of the ascending aorta measuring 4.00 cm. Venous The inferior vena cava is normal in size and collapses greater than 50% with inspiration. Pericardium/Pleural There is no evidence of pericardial effusion. Prior Study Comparison No prior study available for comparison. Measurements 2D Linear Measurements IVSd: 1.01 0.6-0.9/0.6-1.0 cm LVIDd: 5.27 3.9-5.3/4.2-5.9 cm LVIDd Index: 2.61 2.4-3.2/2.2-3.1 cm/m2 LVIDs: 3.66 2.0-3.6 cm LVPWd: 0.82 0.7-1.1 cm LA Diam: 4.40 2.7-3.8/3.0-4.0 cm LAIDs Index: 2.18 1.5-2.3 cm/m2 LV Mass: 219.54 67-162/88-224 g LV Mass Index: 108.68 43-95/49-115 g/m2 LVOT Diam: 2.50 3.0+(-)1.3 cm 2D Systolic Function EF 4C: 70.40 >55% EF 2C: 77.50 >55% EF BiP: 72.80 >55% Mitral Valve MV Pk E: 0.94 MV PK A: 1.04 MV Decel Time: 234.00 E/A: 0.90 E'Lateral: 7.78 E'Medial: 6.97 E/E' Med: 13.50 E/E' Lat: 12.10 PHT: 69.00 MVA PHT: 3.19 Decel [place]: 4.02 Aortic Valve AoV Pk Gunner: 1.74 AoV Mn Gunner: 1.17 AoV VTI: 0.39 AoV Pk Grad: 12.00 Aov Mn Grad: 6.00 SARATH Cont.VTI: 3.19 LVOT LVOT Pk Gunner: 1.06 LVOT Mn Gunner: 0.66 LVOT VTI: 0.25 LVOT Pk Grad: 4.00 LVOT Mn Grad: 2.00 LVOT Diam: 2.50 LVOT Area: 4.91 Diastolic Function MV Pk E: 0.94 MV Pk A: 1.04 E/A: 0.90 E'Medial: 6.97 E/E' Med: 13.50 E' Laterial: 7.78 E/E' Lat: 12.10 Right Ventricle TAPSE (mm): 16.90 TVS' Gunner: 9.40 Tricuspid Valve TR Pk Gunner: 3.05 TR Pk Grad: 37.00 RA Press: 8.00 RVSP: 45.00 Great Vessels Aorta Sinus of Valsalva: 3.70 2.0-3.[address] [place]: 3.41 1.7-3.4 cm Ao Asc: 4.00 2.1-3.4 cm Pulmonary Veins Pulm Vein S/D 1.70 Pulmonary Valve PV Pk Gunner: 1.03 Peak PV Grad: 4.00 Updated in Other Vendor System with Status of Final Candelario Denise MD electronically signed on 06/09/2022 2:05:54 PM with status of Final
--- NOTE | 2022-06-09 10:33 | MHC.CARE ---
CARE Team [facility] that Pt is now a pending medical admission.
--- NOTE | 2022-06-09 10:34 | MHC.CARE ---
Please consult CARE Team when Pt is medically cleared for discharge
--- NOTE | 2022-06-09 10:50 | MHC.SL.SWA ---
Speech Pathologist Impression: Oral phase dysphagia Risk of Aspiration Due to: Neurological Condition Dysphasia Diet Status: No change Liquid Consistency and Strategies for Safe Swallow: Liquid Intake Recommendation: Thin Liquid Intake Strategies: Small Sips Solid Food Consistency: Dietary Recommendations: Grnd/Mech Altered (NDD2) Additional Modifications to Solid Foods: Bedside swallow evaluation was ordered after pt's family reported to MD pt having intermittent problems during meals d/t state of dentition. Pt presents with mild oral phase dysphagia, characterized by slow, prolonged mastication, delayed AP transport, mild oral residue. Strategies were effective in clearing residue- taking small bites, moistening food, follow bite of food with sip of liquid. Recommend continue w/ GROUND/MECH ALTERED (NDD2) solids as ordered by MD and THIN liquids, with pills WHOLE with LIQUID. Ensure aspiration precautions & total supervision during PO intake. No changes made to diet order at this time. Sent Lane Message to MD, RN, and RD w/ recommendations. MINERAL TECHNOLOGIST to f/u 1-2 times to ensure tolerance. Oral Medication Intake: Whole with Liquid Please contact the pharmacy regarding appropriate crushable or liquid drug formulations that are available whenever modified delivery is recommended. Compensatory Strategies and Precautions to be Taken for Safe Swallow: Sitting Upright (90 deg) Small Bites and Sips Alternate Liquids/Solids Rate of Ingestion Change Avoid Specific Foods Supervision While Eating and Drinking for Safe Swallow: Total Supervision (1:1) Foods to Avoid: Tough, difficult to chew solids Swallowing Recommended Treatments: Recommendation for Speech: Inpatient Speech Therapy Comment: 1-2 f/u visits Elementary Teacher Clinican/Clinical Fellow: Yes: Sulema Fleming MA [employer]-MINERAL TECHNOLOGIST Supervisory Statement: I have reviewed and agree with the student/clinical fellow's documentation: N/A Speech Language Pathologist: Bebe Ervin M.A., [facility]-MINERAL TECHNOLOGIST
[2022-06-09] MEDS: cephALEXin 500 MG CAPSULE PO ×3 (11:05→22:10)
[2022-06-09] MEDS: atenoloL 25 MG TABLET PO ×2 (11:05→22:11)
[2022-06-09] MEDS: Tamsulosin HCL 0.4 MG CAPSULE PO (11:05)
[2022-06-09] MEDS: hydrALAZINE HCl 25 MG TABLET PO ×2 (11:05→22:09)
[2022-06-09] MEDS: Torsemide 20 MG TABLET PO (11:05)
[2022-06-09] MEDS: Magnesium Oxide 400 MG TABLET 200 MG PO (11:05)
[2022-06-09] MEDS: Triamcinolone Acet 0.1 % Cream 15 GM TUBE 1 APPL TOPICAL (11:06)
[2022-06-09] MEDS: QUEtiapine Fumarate 25 MG TABLET PO ×2 (11:06→22:11)
[2022-06-09] MEDS: Heparin Sodium,Porcine 5,000 UNIT/ML VIAL 5000 UNIT SUBCUT ×2 (11:06→22:11)
[2022-06-09] MEDS: Phenytoin Sodium Extended 100 MG CAPSULE 300 MG PO ×2 (11:06→22:10)
--- NOTE | 2022-06-09 11:37 | PC.NURSE ---
Called pharmacy regarding compound Valsartan/Hydrochlorothiazide med that is not available in ED pyxis. Pharmacy to bring to ED and will administer upon arrival. Provider (Bebe Ervin) messaged this RN stating: ED8 Gentry Quiñones- Pt presents with mild oral phase dysphagia, characterized by slow, prolonged mastication, delayed AP transport, mild oral residue. Strategies were effective in clearing residue- taking small bites, moistening food, follow bite of food with sip of liquid. Recommend continue w/ GROUND/MECH ALTERED (NDD2) solids and THIN liquids, with pills WHOLE with LIQUID. Ensure aspiration precautions & total supervision. No changes made to diet order at this time.
--- NOTE | 2022-06-09 14:59 | MHC.CM.PN ---
CM CALLED PTS DAUGHTER/HCP, NIRANJAN STEIN [phone] TO DELIVER PTS OBSERVATION NOTICE NIRANJAN CONFIRMS HER BROTHER IS WORKING ON THE MH [employer] FOR LTC PLACEMENT POLI IS AWARE PT CANNOT BE PLACED UNTIL THE LENNOX IS COMPLETE NIRANJAN REITERATES THE IMPORTANCE OF KEEPING PT AND HIS (WHO IS ALSO ADMITTED) HE WILL BECOME AGITATED DCP: CM SEEKING LTC BED FOR PT ONCE PAY[facility] [employer] BLS TRANSPORT
[2022-06-09] MEDS: 0.9 % Sodium Chloride Flush 3 ML SYRINGE IVFLUSH (17:33)
[2022-06-09] MEDS: Melatonin 3 MG TABLET 9 MG PO (22:10)
[2022-06-09] MEDS: Atorvastatin Calcium 20 MG TABLET PO (22:10)
[2022-06-10] MEDS: 0.9 % Sodium Chloride Flush 3 ML SYRINGE IVFLUSH ×3 (01:14→18:54)
[2022-06-10] MEDS: Torsemide 20 MG TABLET PO (09:14)
[2022-06-10] MEDS: Magnesium Oxide 400 MG TABLET 200 MG PO (09:14)
[2022-06-10] MEDS: Phenytoin Sodium Extended 100 MG CAPSULE 300 MG PO ×2 (09:14→22:23)
[2022-06-10] MEDS: Omeprazole 20 MG CAPSULE.DR PO (09:15)
[2022-06-10] MEDS: QUEtiapine Fumarate 25 MG TABLET PO ×2 (09:16→22:23)
[2022-06-10] MEDS: Tamsulosin HCL 0.4 MG CAPSULE PO (09:16)
[2022-06-10] MEDS: atenoloL 25 MG TABLET PO ×2 (09:17→22:20)
[2022-06-10] MEDS: cephALEXin 500 MG CAPSULE PO ×3 (09:17→22:21)
[2022-06-10] MEDS: Heparin Sodium,Porcine 5,000 UNIT/ML VIAL 5000 UNIT SUBCUT ×2 (09:17→22:24)
[2022-06-10] MEDS: hydrALAZINE HCl 25 MG TABLET PO ×2 (09:17→22:21)
[2022-06-10 09:22] LABS: Anion Gap 15 (12-20); Blood Urea Nitrogen 38 mg/dL (9-16); Calcium 7.6 mg/dL (8.4-10.2); Carbon Dioxide 24 mmol/L (22-29); Chloride 109 mmol/L (96-108); Creatinine Clr Calc Pharmacy 31.5; Estimated Glomerular Filt Rate 35; Glucose Random 122 mg/dL (60-115); Potassium 4.9 mmol/L (3.3-5.1); Sodium 143 mmol/L (135-145)
[2022-06-10] MEDS: hydroCHLOROthiazide 12.5 MG TABLET PO (10:41)
[2022-06-10] MEDS: Valsartan 320 MG TABLET PO (10:41)
[2022-06-10] MEDS: Triamcinolone Acet 0.1 % Cream 15 GM TUBE 1 APPL TOPICAL (10:42)
--- NOTE | 2022-06-10 10:44 | PC.NURSE ---
pt medicated per order float nurse
--- NOTE | 2022-06-10 11:19 | P.PNIM_ITS ---
Subjective Subjective Date of Service: 06/10/22 Interval History: seen and examined this morning Follow-up for CHF the patient awake, alert, sitting in chair Denies shortness of breath, chest pain, palpitations. Review of Systems Review of Systems: Yes all other systems are reviewed and are negative Constitutional Constitutional: Denies chills and Denies fever(s) Cardiovascular Cardiovascular: Denies chest pain, Denies palpitations and Denies dyspnea Respiratory Respiratory: Denies cough and Denies dyspnea Gastrointestinal Gastrointestinal: Denies abdominal pain Endocrine Endocrine: Denies palpitations Physical Exam Vital Signs: Vital Signs: Last Vital Signs Temp 97.7 F 06/08/22 23:44 Pulse 55 06/09/22 09:40 Resp 21 H 06/09/22 09:40 BP 136/66 06/09/22 09:40 Pulse Ox 94 06/09/22 09:40 O2 Del Method 06/09/22 09:40 BMI result Body Mass Index 34.9 Const: General: cooperative, comfortable, no acute distress, alert and awake Nutritional Appearance: overweight Orientation/consciousness: oriented to person and oriented to place Resp: Effort & Inspection: normal respiratory effort and able to speak in complete sentences Auscultation: clear to auscultation bilaterally Cardio: Rate: regular rate Heart sounds: S1 normal heart sound present and S2 normal heart sound present GI: Inspection: No distended Palpation (GI): Soft to palpation and nontender Skin: Other: multiple scabs b/l lower legs; some chronic appearing skin changes especially right lower extremity; no warmth, no drainage Neuro: General: oriented to person, oriented to place and CN's II-XI intact bilaterally Extrem: General: Yes no pedal edema Objective Data Active Medications Acetaminophen (Acetaminophen 325 Mg Tablet) 650 mg PO Q6H PRN PRN Reason: Fever Atenolol (Atenolol 25 Mg Tablet) 25 mg PO BID [facility]; Protocol Last Admin: 06/10/22 09:17 Dose: 25 mg Documented By: ANTONIO Atorvastatin Calcium (Atorvastatin Calcium 20 Mg Tablet) 20 mg PO BEDTIME [facility] Last Admin: 06/09/22 22:10 Dose: 20 mg Documented By: MARION Bisacodyl (Bisacodyl 10 Mg Supp.Rect) 10 mg [place] DAILY PRN PRN Reason: Constipation Cephalexin HCl (Cephalexin 500 Mg Capsule) 500 mg PO TID [facility] Stop: 06/14/22 19:28 Last Admin: 06/10/22 09:17 Dose: 500 mg Documented By: ANTONIO Heparin Sodium (Porcine) (Heparin Sodium,Porcine 5,000 Unit/Ml Vial) 5,000 unit SUBCUT Q12H [facility] Last Admin: 06/10/22 09:17 Dose: 5,000 unit Documented By: ANTONIO Hydralazine HCl (Hydralazine Hcl 25 Mg Tablet) 25 mg PO BID [facility]; Protocol Last Admin: 06/10/22 09:17 Dose: 25 mg Documented By: ANTONIO Hydrochlorothiazide (Hydrochlorothiazide 12.5 Mg Tablet) 12.5 mg PO DAILY [facility]; Protocol Last Admin: 06/10/22 10:41 Dose: 12.5 mg Documented By: ROLANDO Magnesium Oxide (Magnesium Oxide 400 Mg Tablet) 200 mg PO DAILY [facility] Last Admin: 06/10/22 09:14 Dose: 200 mg Documented By: ANTONIO Melatonin (Melatonin 3 Mg Tablet) 9 mg PO BEDTIME [facility] Last Admin: 06/09/22 22:10 Dose: 9 mg Documented By: MARION Omeprazole (Omeprazole 20 Mg Capsule.) 20 mg PO DAILY@0630 [facility] Last Admin: 06/10/22 09:15 Dose: 20 mg Documented By: ANTONIO Pharmacy Consult (Consult Rx Perform Med Rec) 1 each MISCELLANE ONCE PRN PRN Reason: Consult order Phenytoin Sodium (Phenytoin Sodium Extended 100 Mg Capsule) 300 mg PO BID [facility] Last Admin: 06/10/22 09:14 Dose: 300 mg Documented By: ANTONIO Quetiapine Fumarate (Quetiapine Fumarate 25 Mg Tablet) 25 mg PO BID PRN PRN Reason: Agitation Last Admin: 06/08/22 01:30 Dose: 25 mg Documented By: DAVID Quetiapine Fumarate (Quetiapine Fumarate 25 Mg Tablet) 25 mg PO BID [facility] Last Admin: 06/10/22 09:16 Dose: 25 mg Documented By: ANTONIO Sodium Chloride (0.9 % Sodium Chloride Flush 3 Ml Syringe) 3 ml IVFLUSH QSHIFT [facility] Last Admin: 06/10/22 10:42 Dose: 3 ml Documented By: ROLANDO Tamsulosin HCl (Tamsulosin Hcl 0.4 Mg Capsule) 0.4 mg PO DAILY [facility] Last Admin: 06/10/22 09:16 Dose: 0.4 mg Documented By: ANTONIO Torsemide (Torsemide 20 Mg Tablet) 20 mg PO DAILY [facility]; Protocol Last Admin: 06/10/22 09:14 Dose: 20 mg Documented By: ANTONIO Triamcinolone Acetonide (Triamcinolone Acet 0.1 % Cream 15 Gm Tube) 1 appl TOPICAL DAILY [facility]; Protocol Last Admin: 06/10/22 10:42 Dose: 1 appl Documented By: ROLANDO Valsartan (Valsartan 320 Mg Tablet) 320 mg PO DAILY [facility]; Protocol Last Admin: 06/10/22 10:41 Dose: 320 mg Documented By: ROLANDO Labs CBC & Chem 7: 06/09/22 00:09 06/10/22 09:00 Labs: Laboratory Results - last 24 hr 06/10/22 09:00 Anion Gap 15 Estim Creat Clear Calc 31.5 Estimated GFR 35 Random Glucose 122 H Calcium 7.6 L Microbiology Microbiology Results: Microbiology 06/07/22 14:34 Blood Culture - Preliminary Blood - Venous No growth after 48 hours. 06/07/22 14:34 Blood Culture - Preliminary Blood - Venous No growth after 48 hours. Assessment and Plan (1) Congestive heart failure: Status: Acute Plan This is an 82 year old male who was recently hospitalized for KENJI + diverticulitis from 05/23-05/25. He was discharged to SNF and arrived back to [facility] ED on 06/07 after reported aggressive behavior at the SNF. Per ED notes -- he was not accepted back to facility and hence was awaiting placement in the ED. 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 Hence, he will be admitted for further work up. acute HFpEF echo shows grade 2 diastolic dysfunction, preserved ejection fraction Clinically does not seem to be in significant fluid overload. Previously on torsemide 20mg daily - continue no I/O documented Urinary retention henry placed while awaiting placement in the ED continue henry for now, voiding trial in 1-2 days; UA without suggestion of UTI continue flomax right lower extremity cellulitis started on Keflex in the ED hyperkalemia resolved Dementia, unspecified aggressive behavior reported at the SNF -- but since ED arrival, has not required any PRN. He remains calm continue with non-pharmacological modifications as best we can psychiatric was following the patient in the ED, will re-consult CKD stage 4 SCr improved from last admission monitor while on diuretics History of seizures continue baseline meds DNR/DNI (confirmed with daughter, Nancy (HCP)) over the phone. DVT pptx -- high risk, will use subcut. heparin HCP is daughter Nancy and son Eriberto seen by psych, deemed not to have capacity to make medical decisions seen by Physical therapy-recommended long-term care attending -Dr. Mady Bonilla Stroke Does the patient have a stroke diagnosis?: No VTE Prior VTE?: No VTE Risk Level:: Medical - moderate - high VTE Device Contraindication: Treatment Not Indicated VTE Drug Contraindication: N/A - Med Ordered
--- NOTE | 2022-06-10 11:36 | PC.NURSE ---
sb on monitor, skin wpd, denies pain or sob, pleasantly confused and needs reorientation frequently as he forgets why he's here, spoke w both son and dtr and they are aware of care plan
[2022-06-10 18:59] VITALS: BP 109/49; PULSE 62; RESP 16; O2SAT 95
[2022-06-10 20:00] VITALS: BP 133/61; PULSE 59; RESP 16; TEMP 36.7; O2SAT 97
[2022-06-10] MEDS: Atorvastatin Calcium 20 MG TABLET PO (22:20)
[2022-06-10] MEDS: Melatonin 3 MG TABLET 9 MG PO (22:22)
--- NOTE | 2022-06-10 22:24 | PC.NURSE ---
pt a&ox3, some slight baseline dementia/confusion, requiring redirection, vss, medicated per provider order. pt 2 assist to commode, henry cath patent and draining.
[2022-06-10 23:48] VITALS: BP 127/48; PULSE 56; RESP 18; TEMP 36.7; O2SAT 92
[2022-06-11 04:00] VITALS: BP 146/64; PULSE 56; RESP 16; TEMP 36.6; O2SAT 98
[2022-06-11] MEDS: Omeprazole 20 MG CAPSULE.DR PO (06:04)
[2022-06-11 08:14] VITALS: BP 132/55; PULSE 55; RESP 18; O2SAT 96
[2022-06-11] MEDS: Magnesium Oxide 400 MG TABLET 200 MG PO (09:27)
[2022-06-11] MEDS: cephALEXin 500 MG CAPSULE PO ×3 (09:27→21:01)
[2022-06-11] MEDS: Valsartan 320 MG TABLET PO (09:27)
[2022-06-11] MEDS: atenoloL 25 MG TABLET PO ×2 (09:28→21:01)
[2022-06-11] MEDS: Torsemide 20 MG TABLET PO (09:28)
[2022-06-11] MEDS: hydrALAZINE HCl 25 MG TABLET PO ×2 (09:28→21:01)
[2022-06-11] MEDS: Tamsulosin HCL 0.4 MG CAPSULE PO (09:28)
[2022-06-11] MEDS: hydroCHLOROthiazide 12.5 MG TABLET PO (09:29)
[2022-06-11] MEDS: Phenytoin Sodium Extended 100 MG CAPSULE 300 MG PO ×2 (09:29→21:00)
[2022-06-11] MEDS: QUEtiapine Fumarate 25 MG TABLET PO ×2 (09:30→21:00)
[2022-06-11] MEDS: Triamcinolone Acet 0.1 % Cream 15 GM TUBE 1 APPL TOPICAL (09:30)
[2022-06-11] MEDS: Heparin Sodium,Porcine 5,000 UNIT/ML VIAL 5000 UNIT SUBCUT ×2 (09:30→21:05)
--- NOTE | 2022-06-11 11:23 | P.PNIM_ITS ---
Subjective Subjective Date of Service: 06/11/22 Interval History: seen and examined this morning Follow-up for CHF Denies shortness of breath, chest pain, palpitations Has not been sleeping well lately otherwise no other specific complaints this morning Review of Systems Review of Systems: Yes all other systems are reviewed and are negative Constitutional Constitutional: Denies chills and Denies fever(s) Cardiovascular Cardiovascular: Denies chest pain, Denies palpitations and Denies dyspnea Respiratory Respiratory: Denies cough and Denies dyspnea Gastrointestinal Gastrointestinal: Denies abdominal pain, Denies nausea and Denies vomiting Endocrine Endocrine: Denies palpitations Physical Exam Vital Signs: Vital Signs: Last Vital Signs Temp 97.9 F 06/11/22 04:00 Pulse 55 06/11/22 08:14 Resp 18 06/11/22 08:14 BP 132/55 L 06/11/22 08:14 Pulse Ox 96 06/11/22 08:14 O2 Del Method 06/11/22 08:14 BMI result Body Mass Index 34.9 Const: General: cooperative, comfortable, no acute distress, alert and awake Nutritional Appearance: overweight Orientation/consciousness: oriented to person and oriented to place Resp: Effort & Inspection: normal respiratory effort and able to speak in complete sentences Auscultation: clear to auscultation bilaterally Cardio: Rate: regular rate Heart sounds: S1 normal heart sound present and S2 normal heart sound present GI: Inspection: No distended Palpation (GI): Soft to palpation and nontender Skin: Other: multiple scabs b/l lower legs; some chronic appearing skin changes especially right lower extremity; no warmth, no drainage Neuro: General: oriented to person, oriented to place and CN's II-XI intact bilaterally Extrem: Other: trace edema b/l legs Objective Data Active Medications Acetaminophen (Acetaminophen 325 Mg Tablet) 650 mg PO Q6H PRN PRN Reason: Fever Atenolol (Atenolol 25 Mg Tablet) 25 mg PO BID [facility]; Protocol Last Admin: 06/11/22 09:28 Dose: 25 mg Documented By: DORM Atorvastatin Calcium (Atorvastatin Calcium 20 Mg Tablet) 20 mg PO BEDTIME [facility] Last Admin: 06/10/22 22:20 Dose: 20 mg Documented By: MADDENL Bisacodyl (Bisacodyl 10 Mg Supp.Rect) 10 mg [place] DAILY PRN PRN Reason: Constipation Cephalexin HCl (Cephalexin 500 Mg Capsule) 500 mg PO TID [facility] Stop: 06/14/22 19:28 Last Admin: 06/11/22 09:27 Dose: 500 mg Documented By: STACIE Heparin Sodium (Porcine) (Heparin Sodium,Porcine 5,000 Unit/Ml Vial) 5,000 unit SUBCUT Q12H [facility] Last Admin: 06/11/22 09:30 Dose: 5,000 unit Documented By: STACIE Hydralazine HCl (Hydralazine Hcl 25 Mg Tablet) 25 mg PO BID [facility]; Protocol Last Admin: 06/11/22 09:28 Dose: 25 mg Documented By: STACIE Hydrochlorothiazide (Hydrochlorothiazide 12.5 Mg Tablet) 12.5 mg PO DAILY [facility]; Protocol Last Admin: 06/11/22 09:29 Dose: 12.5 mg Documented By: STACIE Magnesium Oxide (Magnesium Oxide 400 Mg Tablet) 200 mg PO DAILY [facility] Last Admin: 06/11/22 09:27 Dose: 200 mg Documented By: STACIE Melatonin (Melatonin 3 Mg Tablet) 9 mg PO BEDTIME [facility] Last Admin: 06/10/22 22:22 Dose: 9 mg Documented By: LALA Omeprazole (Omeprazole 20 Mg Capsule.Dr) 20 mg PO DAILY@0630 [facility] Last Admin: 06/11/22 06:04 Dose: 20 mg Documented By: SOPHIE Pharmacy Consult (Consult Rx Perform Med Rec) 1 each MISCELLANE ONCE PRN PRN Reason: Consult order Phenytoin Sodium (Phenytoin Sodium Extended 100 Mg Capsule) 300 mg PO BID [facility] Last Admin: 06/11/22 09:29 Dose: 300 mg Documented By: STACIE Quetiapine Fumarate (Quetiapine Fumarate 25 Mg Tablet) 25 mg PO BID PRN PRN Reason: Agitation Last Admin: 06/08/22 01:30 Dose: 25 mg Documented By: ADDISON-BHUPENDRA Quetiapine Fumarate (Quetiapine Fumarate 25 Mg Tablet) 25 mg PO BID [facility] Last Admin: 06/11/22 09:30 Dose: 25 mg Documented By: STACIE Sodium Chloride (0.9 % Sodium Chloride Flush 3 Ml Syringe) 3 ml IVFLUSH QSHIFT [facility] Last Admin: 06/11/22 09:45 Dose: Not Given Documented By: STACIE Non-Admin Reason: Med Not Available Tamsulosin HCl (Tamsulosin Hcl 0.4 Mg Capsule) 0.4 mg PO DAILY [facility] Last Admin: 06/11/22 09:28 Dose: 0.4 mg Documented By: STACIE Torsemide (Torsemide 20 Mg Tablet) 20 mg PO DAILY [facility]; Protocol Last Admin: 06/11/22 09:28 Dose: 20 mg Documented By: STACIE Triamcinolone Acetonide (Triamcinolone Acet 0.1 % Cream 15 Gm Tube) 1 appl TOPICAL DAILY [facility]; Protocol Last Admin: 06/11/22 09:30 Dose: 1 appl Documented By: STACIE Valsartan (Valsartan 320 Mg Tablet) 320 mg PO DAILY [facility]; Protocol Last Admin: 06/11/22 09:27 Dose: 320 mg Documented By: STACIE Labs CBC & Chem 7: 06/09/22 00:09 06/10/22 09:00 Assessment and Plan (1) Congestive heart failure: Status: Acute Plan This is an 82 year old male who was recently hospitalized for KENJI + diverticulitis from 05/23-05/25. He was discharged to SNF and arrived back to [facility] ED on 06/07 after reported aggressive behavior at the SNF. Per ED notes -- he was not accepted back to facility and hence was awaiting placement in the ED. 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 Hence, he will be admitted for further work up. acute HFpEF echo shows grade 2 diastolic dysfunction, preserved ejection fraction Clinically does not seem to be in significant fluid overload Previously on torsemide 20mg daily - resumed on admission low sodium diet Urinary retention henry placed while awaiting placement in the ED continue henry for now, voiding trial in am UA without suggestion of UTI continue flomax right lower extremity cellulitis started on Keflex in the ED hyperkalemia resolved Dementia, unspecified aggressive behavior reported at the SNF -- but since ED arrival, has not r equired any PRN. He remains calm continue with non-pharmacological modifications as best we can psychiatric was following the patient in the ED, will re-consult CKD stage 4 SCr improved from last admission monitor while on diuretics History of seizures continue baseline meds DNR/DNI (confirmed with daughter, Nancy (HCP) over the phone. DVT pptx -- high risk, will use subcut. heparin HCP is daughter Nancy and son Eriberto seen by psych, deemed not to have capacity to make medical decisions seen by Physical therapy-recommended long-term care attending -Dr. Mady Bonilla Stroke Does the patient have a stroke diagnosis?: No VTE Prior VTE?: No VTE Risk Level:: Medical - moderate - high VTE Device Contraindication: Treatment Not Indicated VTE Drug Contraindication: N/A - Med Ordered
--- NOTE | 2022-06-11 11:52 | PC.NURSE ---
Camera room called to say that patient keeps leaning forward. Pt is very difficult to redirect, doesn't want to recline in reclinder. Is confused and thinks he's not in a room, also asks to sit in chair when he's already in one. this rn to seek chair alarm in addition to camera.
--- NOTE | 2022-06-11 16:21 | PC.NURSE ---
Late entry. Pt was couging and trying to clear throat following lunch. sister had been present for meal. pt has ground diet and thin liquids as recommended by speech therapy. needs reminders to eat slowly.
[2022-06-11 16:37] VITALS: BP 117/57; PULSE 51; RESP 18; TEMP 36.6; O2SAT 95
[2022-06-11 20:59] VITALS: BP 136/60; PULSE 57; RESP 16; O2SAT 94
[2022-06-11] MEDS: Melatonin 3 MG TABLET 9 MG PO (21:00)
[2022-06-11] MEDS: Atorvastatin Calcium 20 MG TABLET PO (21:01)
[2022-06-12 04:47] LABS: B Type Natriuretic Peptide 428 pg/mL (<100)
[2022-06-12 04:50] LABS: Anion Gap 15 (12-20); Blood Urea Nitrogen 39 mg/dL (9-16); Calcium 7.1 mg/dL (8.4-10.2); Carbon Dioxide 24 mmol/L (22-29); Chloride 110 mmol/L (96-108); Creatinine Clr Calc Pharmacy 28.8; Estimated Glomerular Filt Rate 32; Glucose Random 95 mg/dL (60-115); Potassium 4.7 mmol/L (3.3-5.1); Sodium 144 mmol/L (135-145)
[2022-06-12 04:52] VITALS: BP 142/90; PULSE 56; RESP 16; TEMP 36.8; O2SAT 95
--- NOTE | 2022-06-12 07:20 | PC.NURSE ---
Pt needed assistance (3 persons) inorder to use the commode. Scant blood noted from straining while trying to move his bowels. Stool is hard in appearance and pt reports that when he moves his bowels it feels like he is pushing out bricks .
[2022-06-12 07:34] VITALS: BP 145/65; PULSE 52; RESP 16; O2SAT 95
--- NOTE | 2022-06-12 10:26 | P.PNIM_ITS ---
Subjective Subjective Date of Service: 06/12/22 Interval History: seen and examined this morning Follow-up for CHF Denies shortness of breath, chest pain, palpitations No other complaint, was not agresive Review of Systems no new issues, no sob Physical Exam Vital Signs: Vital Signs: Last Vital Signs Temp 98.2 F 06/12/22 04:52 Pulse 52 06/12/22 07:34 Resp 16 06/12/22 07:34 BP 145/65 H 06/12/22 07:34 Pulse Ox 95 06/12/22 07:34 O2 Del Method 06/12/22 07:34 BMI result Body Mass Index 34.9 Const: Other: Constitutional - Awake and Alert, No apparent distress, calm and cooperative Eyes - PERRLA, EOMI Cardiovascular - S1S2, RRR, No major LE edema Respiratory - mild scattered rales; no respiratory distress; sats mid 90s on RA Gastrointestinal - NT / ND; +BS; No rebound or guarding - No CVA tenderness Extremities - no calf tenderness bilaterally, no edema Musculoskeletal - Normal inspection, normal ROM Skin - Warm/Dry Neurological - Oriented to self, otherwise disoriented Psychological - Appropriate affect, calm and cooperative Objective Data Active Medications Acetaminophen (Acetaminophen 325 Mg Tablet) 650 mg PO Q6H PRN PRN Reason: Fever Atenolol (Atenolol 25 Mg Tablet) 25 mg PO BID [facility]; Protocol Last Admin: 06/11/22 21:01 Dose: 25 mg Documented By: ALBINA Atorvastatin Calcium (Atorvastatin Calcium 20 Mg Tablet) 20 mg PO BEDTIME [facility] Last Admin: 06/11/22 21:01 Dose: 20 mg Documented By: ALBINA Bisacodyl (Bisacodyl 10 Mg Supp.Rect) 10 mg [place] DAILY PRN PRN Reason: Constipation Cephalexin HCl (Cephalexin 500 Mg Capsule) 500 mg PO TID [facility] Stop: 06/14/22 19:28 Last Admin: 06/11/22 21:01 Dose: 500 mg Documented By: ALBINA Heparin Sodium (Porcine) (Heparin Sodium,Porcine 5,000 Unit/Ml Vial) 5,000 unit SUBCUT Q12H [facility] Last Admin: 06/11/22 21:05 Dose: 5,000 unit Documented By: ALBINA Hydralazine HCl (Hydralazine Hcl 25 Mg Tablet) 25 mg PO BID [facility]; Protocol Last Admin: 06/11/22 21:01 Dose: 25 mg Documented By: ALBINA Comments: bp 136/60 Hydrochlorothiazide (Hydrochlorothiazide 12.5 Mg Tablet) 12.5 mg PO DAILY [facility]; Protocol Last Admin: 06/11/22 09:29 Dose: 12.5 mg Documented By: STACIE Magnesium Oxide (Magnesium Oxide 400 Mg Tablet) 200 mg PO DAILY [facility] Last Admin: 06/11/22 09:27 Dose: 200 mg Documented By: STACIE Melatonin (Melatonin 3 Mg Tablet) 9 mg PO BEDTIME [facility] Last Admin: 06/11/22 21:00 Dose: 9 mg Documented By: ALBINA Omeprazole (Omeprazole 20 Mg Capsule.Dr) 20 mg PO DAILY@0630 [facility] Last Admin: 06/12/22 06:58 Dose: Not Given Documented By: ALBINA Non-Admin Reason: Patient Refused Pharmacy Consult (Consult Rx Perform Med Rec) 1 each MISCELLANE ONCE PRN PRN Reason: Consult order Phenytoin Sodium (Phenytoin Sodium Extended 100 Mg Capsule) 300 mg PO BID [facility] Last Admin: 06/11/22 21:00 Dose: 300 mg Documented By: ALBINA Quetiapine Fumarate (Quetiapine Fumarate 25 Mg Tablet) 25 mg PO BID PRN PRN Reason: Agitation Last Admin: 06/08/22 01:30 Dose: 25 mg Documented By: DAVID Quetiapine Fumarate (Quetiapine Fumarate 25 Mg Tablet) 25 mg PO BID [facility] Last Admin: 06/11/22 21:00 Dose: 25 mg Documented By: ALBINA Sodium Chloride (0.9 % Sodium Chloride Flush 3 Ml Syringe) 3 ml IVFLUSH QSHIFT [facility] Last Admin: 06/12/22 00:09 Dose: Not Given Documented By: ALBINA Non-Admin Reason: Patient Asleep Tamsulosin HCl (Tamsulosin Hcl 0.4 Mg Capsule) 0.4 mg PO DAILY [facility] Last Admin: 06/11/22 09:28 Dose: 0.4 mg Documented By: STACIE Torsemide (Torsemide 20 Mg Tablet) 20 mg PO DAILY [facility]; Protocol Last Admin: 06/11/22 09:28 Dose: 20 mg Documented By: STACIE Triamcinolone Acetonide (Triamcinolone Acet 0.1 % Cream 15 Gm Tube) 1 appl TOPICAL DAILY [facility]; Protocol Last Admin: 06/11/22 09:30 Dose: 1 appl Documented By: STACIE Valsartan (Valsartan 320 Mg Tablet) 320 mg PO DAILY [facility]; Protocol Last Admin: 06/11/22 09:27 Dose: 320 mg Documented By: STACIE Labs CBC & Chem 7: 06/09/22 00:09 06/12/22 04:23 Labs: Laboratory Results - last 24 hr 06/12/22 06/12/22 04:23 04:23 Anion Gap 15 Estim Creat Clear Calc 28.8 Estimated GFR 32 Random Glucose 95 Calcium 7.1 L D B-Natriuretic Peptide 428 H Assessment and Plan (1) Congestive heart failure: Status: Acute (2) Aggressive behavior: Status: Acute Plan 82 year old male who was recently hospitalized for KENJI + diverticulitis from 05/23-05/25. He was discharged to SNF and arrived back to [facility] on 06/07 after rep orted aggressive behavior at the SNF. Per ED notes -- he was not accepted back to facility and hence was awaiting placement in the ED. During the second time worker of 06/09 had respiratory distress and further testing revealed a CXR with congestion and an elevated BNP. Hence, he will be admitted for further work up. acute HFpEF echo shows grade 2 diastolic dysfunction, preserved ejection fraction Clinically does not seem to be in significant fluid overload Previously on torsemide 20mg daily - continue Urinary retention henry placed while awaiting placement in the ED continue henry for now, voiding trial in am UA without suggestion of UTI continue flomax right lower extremity cellulitis started on Keflex in the ED--> change to PO Doxy hyperkalemia resolved Dementia, unspecified aggressive behavior reported at the SNF -- but since ED arrival, has not required any PRN. He remains calm continue with non-pharmacological modifications as best we can psychiatric was following the patient in the ED, will re-consult CKD stage 4 SCr improved from last admission monitor while on diuretics History of seizures continue baseline meds DNR/DNI (confirmed with daughterNancy (HCP) over the phone. DVT pptx -- high risk, will use subcut. heparin HCP is daughter Nancy and son Eriberto seen by psych, deemed not to have capacity to make medical decisions seen by Physical therapy-recommended long-term care Not aggresive today Need for inpatient: awaiting placement Quality Stroke Does the patient have a stroke diagnosis?: No VTE Prior VTE?: No VTE Risk Level:: Medical - moderate - high VTE Device Contraindication: Treatment Not Indicated VTE Drug Contraindication: N/A - Med Ordered
[2022-06-12] MEDS: Valsartan 320 MG TABLET PO (11:43)
[2022-06-12] MEDS: hydroCHLOROthiazide 12.5 MG TABLET PO (11:43)
[2022-06-12] MEDS: cephALEXin 500 MG CAPSULE PO ×3 (11:44→20:28)
[2022-06-12] MEDS: QUEtiapine Fumarate 25 MG TABLET PO ×2 (11:44→20:28)
[2022-06-12] MEDS: Phenytoin Sodium Extended 100 MG CAPSULE 300 MG PO ×2 (11:44→20:28)
[2022-06-12] MEDS: Torsemide 20 MG TABLET PO (11:44)
[2022-06-12] MEDS: Tamsulosin HCL 0.4 MG CAPSULE PO (11:44)
[2022-06-12] MEDS: hydrALAZINE HCl 25 MG TABLET PO ×2 (11:46→20:28)
[2022-06-12] MEDS: Magnesium Oxide 400 MG TABLET 200 MG PO (11:49)
[2022-06-12] MEDS: Heparin Sodium,Porcine 5,000 UNIT/ML VIAL 5000 UNIT SUBCUT ×2 (11:50→20:28)
[2022-06-12] MEDS: atenoloL 25 MG TABLET PO (12:02)
[2022-06-12] MEDS: 0.9 % Sodium Chloride Flush 3 ML SYRINGE IVFLUSH ×2 (12:02→16:00)
[2022-06-12] MEDS: Triamcinolone Acet 0.1 % Cream 15 GM TUBE 1 APPL TOPICAL (12:03)
--- NOTE | 2022-06-12 12:07 | PC.NURSE ---
administered meds per DEC; bp assessed prior to bp meds administered 134/44; while applying topical cream to groin area noticed small (about 1 mm in diameter) stage 1 breakdown and redness underneath penis on L side
--- NOTE | 2022-06-12 12:27 | P.CDIC_ITS ---
CDI Concurrent Query Documentation Clarification: PHYSICIAN'S DOCUMENTATION REQUEST Date of Query: 06/12/22 1228 Patient Name: Gentry Quiñones Admit Date: 06/10/22 Dear Doctor, A review of the medical record indicates additional documentation may be needed. Please review below and update the documentation accordingly. Risk Factors/Clinical Indicators/Treatments Dx. Dementia Psych deemed patient not capable of making decisions. Has not required any PRN since arrival, remains calm. Unaware of his own behavior, aggressive at SNF. If possible, please further clarify type of Dementia and any associated manifestations: Specifics:: * Dementia, Vascular, Alzheimer's, Senile or other * Other ? please specify * Unable to determine Use of terms such as suspected, likely, concern for, or probable (associated with a specific diagnosis that is being evaluated, monitored, or treated as if it exists) are acceptable and can be coded in the inpatient setting, when documented at the time of discharge. Thank you, Raquel Jimenez [facility], CDIS Extension: [phone] Please use your independent medical judgment in providing your response. THIS QUERY IS PART OF THE PERMANENT MEDICAL RECORD Provider Response: Other Other Diagnosis: senile dementia
--- NOTE | 2022-06-12 14:36 | MHC.SL.SWA ---
Speech Pathologist Impression: Risk of Aspiration Due to: Neurological Condition Dysphasia Diet Status: Bedside swallow evaluation was ordered after pt's family reported to MD pt having intermittent problems during meals d/t state of dentition. Pt presents with mild oral phase dysphagia, characterized by slow, prolonged mastication, delayed AP transport, mild oral residue. Strategies were effective in clearing residue- taking small bites, moistening food, follow bite of food with sip of liquid. Ensure aspiration precautions & total supervision during PO intake. Liquid Consistency and Strategies for Safe Swallow: Liquid Intake Recommendation: Thin Liquid Intake Strategies: Small Sips Solid Food Consistency: Dietary Recommendations: Grnd/Mech Altered (NDD2) Additional Modifications to Solid Foods: Pt needs reminders to slow rate during meal, may be impulsive. Oral Medication Intake: Whole with Liquid Please contact the pharmacy regarding appropriate crushable or liquid drug formulations that are available whenever modified delivery is recommended. Compensatory Strategies and Precautions to be Taken for Safe Swallow: Sitting Upright (90 deg) Small Bites and Sips Alternate Liquids/Solids Rate of Ingestion Change Oral Check Avoid Specific Foods Supervision While Eating and Drinking for Safe Swallow: Total Supervision (1:1) Foods to Avoid: Tough, difficult to chew solids Swallowing Recommended Treatments: Compens. Strategy Educat. Recommendation for Speech: FUR BLOWING MACHINE ATTENDANT checked in with lead tech present at bedside who reported no concerns with breakfast. She reported pt drank with straw and ate nearly full breakfast with coffee cake. Pt reported no challenges with solids or liquids during breakfast. No PO trials were given. Recommend to continue with GROUND/MECH ALTERED (NDD2) solids and THIN liquids, pills whole with liquid. Full supervision recommended due to prolonged mastication, delayed AP transport, and mild oral residue. FUR BLOWING MACHINE ATTENDANT to continue to follow. Inpatient Speech Therapy Comment: 1-2 f/u visits Frequency/Duration: Date Range for Service Req: Timeline to reassess: Wastewater Superintendent Clinican/Clinical Fellow: Yes: Sulema Fleming MA CF-FUR BLOWING MACHINE ATTENDANT Supervisory Statement: I have reviewed and agree with the student/clinical fellow's documentation: Yes Speech Language Pathologist: Suzanne Bryan M.A., CCC-FUR BLOWING MACHINE ATTENDANT
--- NOTE | 2022-06-12 16:03 | PC.NURSE ---
assumed care of pt, pt oriented to person/place, vss, medicated per provider order, family at bedside.
[2022-06-12 16:04] VITALS: BP 136/54; PULSE 55; RESP 26; O2SAT 97
[2022-06-12 18:26] VITALS: BP 106/34; PULSE 54; RESP 20; TEMP 36.6; O2SAT 96
--- NOTE | 2022-06-12 18:32 | MHC.CM.ED ---
CM spoke with son PRAMOD Wei regarding status of MH application completion. Eriberto tells CM he met with Cyndee from [employer] on Sunday and obtained additional paperwork. He spoke with Cyndee today, as he completed more paperwork, but still does not have 5 years of bank statements from his bank. Eriberto tells CM that he requested the information on the accounts at the bank a week ago, but they told him it could take up to 2 weeks to get the band statements. He will reach out to his bank tomorrow. Eriberto informed CM that he did pick up driver his father's belongings at [facility] and they told him they could not provide the care his father needs secondary to staffing and his continued attempts to elope. Eriberto did share with CM that since his father's medicare benefits were completed, he did receive a bill from the facility for 1 day. Requested Eriberto let CM know when MH application is completed and submitted. Eriberto tells CM that his mother was released from [facility] on Sunday and is doing well. Eriberto aware that his father has been moved to ED over 3. CM will continue to reach out to family to determine status of [facility] application so bed requests for LTC can be updated.
[2022-06-12 20:26] VITALS: BP 115/58; PULSE 55; RESP 22; O2SAT 95
[2022-06-12] MEDS: Atorvastatin Calcium 20 MG TABLET PO (20:28)
[2022-06-12] MEDS: Melatonin 3 MG TABLET 9 MG PO (20:28)
[2022-06-13] VITALS: BP 115/58; PULSE 54; RESP 18; TEMP 35.8; O2SAT 96
[2022-06-13] MEDS: 0.9 % Sodium Chloride Flush 3 ML SYRINGE IVFLUSH ×3 (00:48→16:34)
[2022-06-13 04:10] VITALS: BP 124/61; PULSE 59; RESP 17; TEMP 36.1; O2SAT 93
[2022-06-13] MEDS: Omeprazole 20 MG CAPSULE.DR PO (06:18)
[2022-06-13 08:43] VITALS: BP 128/59; PULSE 54; RESP 21; TEMP 36.2; O2SAT 98
[2022-06-13] MEDS: Magnesium Oxide 400 MG TABLET 200 MG PO (10:41)
[2022-06-13] MEDS: Heparin Sodium,Porcine 5,000 UNIT/ML VIAL 5000 UNIT SUBCUT ×2 (10:41→21:18)
[2022-06-13] MEDS: hydroCHLOROthiazide 12.5 MG TABLET PO (10:41)
[2022-06-13] MEDS: cephALEXin 500 MG CAPSULE PO ×3 (10:41→21:21)
[2022-06-13] MEDS: Valsartan 320 MG TABLET PO (10:42)
[2022-06-13] MEDS: Torsemide 20 MG TABLET PO (10:42)
[2022-06-13] MEDS: Tamsulosin HCL 0.4 MG CAPSULE PO (10:42)
[2022-06-13] MEDS: hydrALAZINE HCl 25 MG TABLET PO ×2 (10:42→21:19)
[2022-06-13] MEDS: atenoloL 25 MG TABLET PO ×2 (10:42→21:20)
[2022-06-13] MEDS: Phenytoin Sodium Extended 100 MG CAPSULE 300 MG PO ×2 (10:42→21:20)
[2022-06-13] MEDS: QUEtiapine Fumarate 25 MG TABLET PO ×2 (10:43→21:20)
--- NOTE | 2022-06-13 11:04 | P.PNIM_ITS ---
Subjective Subjective Date of Service: 06/13/22 Interval History: seen and examined this morning Follow-up for CHF Denies shortness of breath, chest pain, palpitations periods of agitation, now with sitter but seemed calm Review of Systems no new issues, no sob Physical Exam Vital Signs: Vital Signs: Last Vital Signs Temp 97.1 F 06/13/22 08:43 Pulse 54 06/13/22 08:43 Resp 21 H 06/13/22 08:43 BP 128/59 L 06/13/22 08:43 Pulse Ox 98 06/13/22 08:43 O2 Del Method 06/13/22 08:43 BMI result Body Mass Index 34.9 Const: Other: Constitutional - Awake and Alert, No apparent distress, calm and cooperative Eyes - PERRLA, EOMI Cardiovascular - S1S2, RRR, No major LE edema Respiratory - mild scattered rales; no respiratory distress; sats mid 90s on RA Gastrointestinal - NT / ND; +BS; No rebound or guarding - No CVA tenderness Extremities - no calf tenderness bilaterally, no edema Musculoskeletal - Normal inspection, normal ROM Skin - Warm/Dry Neurological - Oriented to self, otherwise disoriented Psychological - Appropriate affect, calm and cooperative Objective Data Active Medications Acetaminophen (Acetaminophen 325 Mg Tablet) 650 mg PO Q6H PRN PRN Reason: Fever Atenolol (Atenolol 25 Mg Tablet) 25 mg PO BID [facility]; Protocol Last Admin: 06/13/22 10:42 Dose: 25 mg Documented By: ANGEL Atorvastatin Calcium (Atorvastatin Calcium 20 Mg Tablet) 20 mg PO BEDTIME [facility] Last Admin: 06/12/22 20:28 Dose: 20 mg Documented By: ALBINA Bisacodyl (Bisacodyl 10 Mg Supp.Rect) 10 mg [place] DAILY PRN PRN Reason: Constipation Cephalexin HCl (Cephalexin 500 Mg Capsule) 500 mg PO TID [facility] Stop: 06/14/22 19:28 Last Admin: 06/13/22 10:41 Dose: 500 mg Documented By: ANGEL Heparin Sodium (Porcine) (Heparin Sodium,Porcine 5,000 Unit/Ml Vial) 5,000 unit SUBCUT Q12H [facility] Last Admin: 06/13/22 10:41 Dose: 5,000 unit Documented By: ANGEL Hydralazine HCl (Hydralazine Hcl 25 Mg Tablet) 25 mg PO BID [facility]; Protocol Last Admin: 06/13/22 10:42 Dose: 25 mg Documented By: ANGEL Hydrochlorothiazide (Hydrochlorothiazide 12.5 Mg Tablet) 12.5 mg PO DAILY [facility]; Protocol Last Admin: 06/13/22 10:41 Dose: 12.5 mg Documented By: ANGEL Magnesium Oxide (Magnesium Oxide 400 Mg Tablet) 200 mg PO DAILY [facility] Last Admin: 06/13/22 10:41 Dose: 200 mg Documented By: ANGEL Melatonin (Melatonin 3 Mg Tablet) 9 mg PO BEDTIME [facility] Last Admin: 06/12/22 20:28 Dose: 9 mg Documented By: ALBINA Omeprazole (Omeprazole 20 Mg Capsule.) 20 mg PO DAILY@0630 [facility] Last Admin: 06/13/22 06:18 Dose: 20 mg Documented By: MARION Pharmacy Consult (Consult Rx Perform Med Rec) 1 each MISCELLANE ONCE PRN PRN Reason: Consult order Phenytoin Sodium (Phenytoin Sodium Extended 100 Mg Capsule) 300 mg PO BID [facility] Last Admin: 06/13/22 10:42 Dose: 300 mg Documented By: ANGEL Quetiapine Fumarate (Quetiapine Fumarate 25 Mg Tablet) 25 mg PO BID PRN PRN Reason: Agitation Last Admin: 06/08/22 01:30 Dose: 25 mg Documented By: DAVID Quetiapine Fumarate (Quetiapine Fumarate 25 Mg Tablet) 25 mg PO BID [facility] Last Admin: 06/13/22 10:43 Dose: 25 mg Documented By: ANGEL Sodium Chloride (0.9 % Sodium Chloride Flush 3 Ml Syringe) 3 ml IVFLUSH QSHIFT [facility] Last Admin: 06/13/22 10:43 Dose: 3 ml Documented By: ANGEL Tamsulosin HCl (Tamsulosin Hcl 0.4 Mg Capsule) 0.4 mg PO DAILY [facility] Last Admin: 06/13/22 10:42 Dose: 0.4 mg Documented By: ANGEL Torsemide (Torsemide 20 Mg Tablet) 20 mg PO DAILY [facility]; Protocol Last Admin: 06/13/22 10:42 Dose: 20 mg Documented By: ANGEL Triamcinolone Acetonide (Triamcinolone Acet 0.1 % Cream 15 Gm Tube) 1 appl TOPICAL DAILY [facility]; Protocol Last Admin: 06/13/22 10:53 Dose: Not Given Documented By: ANGEL Non-Admin Reason: Patient Refused Valsartan (Valsartan 320 Mg Tablet) 320 mg PO DAILY [facility]; Protocol Last Admin: 06/13/22 10:42 Dose: 320 mg Documented By: ANGEL Labs CBC & Chem 7: 06/09/22 00:09 06/12/22 04:23 Microbiology Microbiology Results: Microbiology 06/07/22 14:34 Blood Culture - Final Blood - Venous No growth after 5 days. 06/07/22 14:34 Blood Culture - Final Blood - Venous No growth after 5 days. Assessment and Plan (1) Aggressive behavior: Status: Acute (2) Cognitive changes: Status: Acute Plan 82 year old male who was recently hospitalized for KENJI + diverticulitis from 05/23-05/25. He was discharged to SNF and arrived back to [facility] on 06/07 after reported aggressive behavior at the SNF. Per ED notes -- he was not accepted back to facility and hence was awaiting placement in the ED. During the extracorporeal technician of 06/09 had respiratory distress and further testing revealed a CXR with congestion and an elevated BNP. Hence, he will be admitted for further work up. acute HFpEF echo shows grade 2 diastolic dysfunction, preserved ejection fraction Clinically does not seem to be in significant fluid overload anymore continue torsemide Urinary retention henry placed while awaiting placement in the ED continue henry for now, voiding trial in am UA without suggestion of UTI continue flomax right lower extremity cellulitis started on Keflex in the ED--> change to PO Doxy hyperkalemia resolved Dementia, unspecified aggressive behavior reported at the SNF -- but since ED arrival, has not required any PRN. He remains calm continue with non-pharmacological modifications as best we can psychiatric was following the patient in the ED, will re-consult CKD stage 4 SCr improved from last admission monitor while on diuretics History of seizures continue baseline meds DNR/DNI (confirmed with daughter, Nancy (HCP) over the phone. DVT pptx -- high risk, will use subcut. heparin HCP is daughter Nancy and son Eriberto seen by psych, deemed not to have capacity to make medical decisions seen by Physical therapy-recommended long-term care Not aggresive today Need for inpatient: awaiting placement Quality Stroke Does the patient have a stroke diagnosis?: No VTE Prior VTE?: No VTE Risk Level:: Medical - moderate - high VTE Device Contraindication: Treatment Not Indicated VTE Drug Contraindication: N/A - Med Ordered
[2022-06-13 15:35] VITALS: BP 118/47; PULSE 52; RESP 24; TEMP 37.1; O2SAT 94
[2022-06-13 16:00] VITALS: TEMP 36.3
--- NOTE | 2022-06-13 16:06 | P.CNPS_ITS ---
History of Present Illness Date of Service: 06/13/2022 Chief Complaint: Elevated BNP chest tightness Reason for Consult: intermittent agitation/combativeness in setting of dementia Requesting physician: Ryan James Discussed with referring provider: Yes Sources of Information: patient interviewed, chart reviewed and crisis/core team assessment reviewed HPI Narrative: HPI: Mr. Quiñones 82 yo M with hc of dementia, HTN, presented to the ED on 06/07 after he was sent in from local SNF for aggressive behavior. The patient had been hospitalized at [facility] from 05/23/22 to 05/25/22 where he was treated for diverticulitis and KENJI with IV antibiotics and IVF. [facility] facility. Upon arrival to the the ED, he was medically evaluated and cleared. However, the local SNF did not accept him back and hence, he has been awaiting placement in the ED. In the radiological technologist of 06/09, the patient complained of chest tightness and he was re-evaluated medically. A repeat CXR showed some ventral vascular congestion. BNP was elevated > 1300. He has no prior documented history of CHF, but per his daughter, he does have a history of CABG in his 70s. Given the CXR findings and elevated BNP, a diagnosis of possible CHF has been made and admission was requested. Per attending, Dr. Otero pt has had episodes of increase combativeness, in evening. He was started on seroquel 25mg po BID while in the ED with good effect. Per RN pt yelling most morning today, agitation secondary to confusion. Pt seen. He presents as pleasant. He is oriented only to place, person, not to situation, not to year or date. He denies any physical concerns. Unaware of any placement dispo. Pt reports feeling saddened by fact that he can't do things he used to do such as hunting or fishing. Pt expressed passive wish in setting of his medical conditions affecting his ability to do things that he used to enjoy, but denied any plan or intent to harm himself. Past Psychiatric History: None Medical Evaluation Reviewed: Yes [facility] Medical History (Updated 06/13/22 @ 16:18 by Hayley Mckeon) CAD (coronary artery disease) CKD (chronic kidney disease) Cognitive changes High cholesterol Hypertension Seizures Surgical History (Updated 06/09/22 @ 09:39 by Luis Oscar MD) History of hip surgery 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 Hx of CABG S/P total right hip arthroplasty Diagnostics Vital Signs (24Hr): Vital Signs - 24 hr 06/12/22 18:26 06/12/22 20:26 06/13/22 00:00 Temperature 97.8 F 96.5 F L Pulse Rate 54 55 54 Respiratory Rate 20 22 H 18 Blood Pressure 106/34 L 115/58 L 115/58 L Pulse Oximetry 96 95 96 Oxygen Delivery Method Room Air Room Air Room Air 06/13/22 04:10 06/13/22 08:43 06/13/22 15:35 Temperature 96.9 F 97.1 F 98.7 F Pulse Rate 59 54 52 Respiratory Rate 17 21 H 24 H Blood Pressure 124/61 128/59 L 118/47 L Pulse Oximetry 93 98 94 Oxygen Delivery Method Room Air Room Air Room Air BMI result Body Mass Index 34.9 Labs Results: 06/09/22 00:09 06/12/22 04:23 Labs: Laboratory Results - last 48 hr 06/12/22 06/12/22 04:23 04:23 Sodium 144 Potassium 4.7 Chloride 110 H Carbon Dioxide 24 Anion Gap 15 BUN 39 H Creatinine 2.02 H Estim Creat Clear Calc 28.8 Estimated GFR 32 Random Glucose 95 Calcium 7.1 L D B-Natriuretic Peptide 428 H Imaging Radiology Impressions: ITS Impressions Chest X-Ray 06/09/22 00:25 IMPRESSION: Central vascular prominence without overt edema. Small left pleural effusion. Mental Status Exam Mental Status Exam Narrative: Appearance: wearing hospital gown, appears stated age, in NAD Behavior: cooperative, pleasant Psychomotor: no agitation or retardation noted Speech: clear, no delayed responses, spontaneous Thought process: mostly linear, single word answers but appropriate- no derailment, or significant expressive aphasia noted Thought content: feeling rested, no physical concerns, no signs of psychosis Mood: okay' Affect: congruent, bright, non labile SI: none HI: none AH/VH: none delusions: none Insight/judgment: impaired x 2. Memory/cog: alert, oriented only person, place but not situation, date/month/year. Underlying neurocognitive disorder Medications Medications Current Medications Acetaminophen (Acetaminophen 325 Mg Tablet) 650 mg PO Q6H PRN PRN Reason: Fever Atenolol (Atenolol 25 Mg Tablet) 25 mg PO BID [facility]; Protocol Last Admin: 06/13/22 10:42 Dose: 25 mg Atorvastatin Calcium (Atorvastatin Calcium 20 Mg Tablet) 20 mg PO BEDTIME [facility] Last Admin: 06/12/22 20:28 Dose: 20 mg Bisacodyl (Bisacodyl 10 Mg Supp.Rect) 10 mg CA DAILY PRN PRN Reason: Constipation Cephalexin HCl (Cephalexin 500 Mg Capsule) 500 mg PO TID [facility]1983 Stop: 06/14/22 19:28 Last Admin: 06/13/22 10:41 Dose: 500 mg Heparin Sodium (Porcine) (Heparin Sodium,Porcine 5,000 Unit/Ml Vial) 5,000 unit SUBCUT Q12H [facility], [facility] Last Admin: 06/13/22 10:41 Dose: 5,000 unit Hydralazine HCl (Hydralazine Hcl 25 Mg Tablet) 25 mg PO BID [facility], [facility]; Protocol Last Admin: 06/13/22 10:42 Dose: 25 mg Hydrochlorothiazide (Hydrochlorothiazide 12.5 Mg Tablet) 12.5 mg PO DAILY [facility]; Protocol Last Admin: 06/13/22 10:41 Dose: 12.5 mg Magnesium Oxide (Magnesium Oxide 400 Mg Tablet) 200 mg PO DAILY [facility] Last Admin: 06/13/22 10:41 Dose: 200 mg Melatonin (Melatonin 3 Mg Tablet) 9 mg PO BEDTIME [facility] Last Admin: 06/12/22 20:28 Dose: 9 mg Omeprazole (Omeprazole 20 Mg Capsule.Dr) 20 mg PO DAILY@0630 [facility] Last Admin: 06/13/22 06:18 Dose: 20 mg Pharmacy Consult (Consult Rx Perform Med Rec) 1 each MISCELLANE ONCE PRN PRN Reason: Consult order Phenytoin Sodium (Phenytoin Sodium Extended 100 Mg Capsule) 300 mg PO BID [facility] Last Admin: 06/13/22 10:42 Dose: 300 mg Quetiapine Fumarate (Quetiapine Fumarate 25 Mg Tablet) 25 mg PO BID PRN PRN Reason: Agitation Last Admin: 06/08/22 01:30 Dose: 25 mg Quetiapine Fumarate (Quetiapine Fumarate 25 Mg Tablet) 25 mg PO BID [facility] Last Admin: 06/13/22 10:43 Dose: 25 mg Sodium Chloride (0.9 % Sodium Chloride Flush 3 Ml Syringe) 3 ml IVFLUSH QSHIFT [facility] Last Admin: 06/13/22 10:43 Dose: 3 ml Tamsulosin HCl (Tamsulosin Hcl 0.4 Mg Capsule) 0.4 mg PO DAILY [facility] Last Admin: 06/13/22 10:42 Dose: 0.4 mg Torsemide (Torsemide 20 Mg Tablet) 20 mg PO DAILY [facility]; Protocol Last Admin: 06/13/22 10:42 Dose: 20 mg Triamcinolone Acetonide (Triamcinolone Acet 0.1 % Cream 15 Gm Tube) 1 appl TOPICAL DAILY [facility]; Protocol Last Admin: 06/13/22 10:53 Dose: Not Given Valsartan (Valsartan 320 Mg Tablet) 320 mg PO DAILY [facility]; Protocol Last Admin: 06/13/22 10:42 Dose: 320 mg Allergies Allergies Allergy/AdvReac Type Severity Reaction Status Date / Time No Known Allergies Allergy Verified 08/02/20 15:53 Assessment & Plan Assessment & Plan (1) Major neurocognitive disorder due to another medical condition with behavioral disturbance: Status: Acute Code(s): F02.81 - Dementia in other diseases classified elsewhere with behavioral disturbance Plan Mr. Quiñones is a 82 year-old male with hx of dementia, currently not oriented to situation, date/month/year and this has been consistent throughout admission to [facility]. He has had periods of combativeness, which prevented him from being readmitted to SNF. He was started on seroquel 25mg po BId with fair effect. PLAN 1. Increase scheduled seroquel to 50mg po BID, monitor excessive sedation, EKG, maintain Qtc<500ms, maintain k>4, Mg >2. Can add Seroquel 50mg po q6h, prn agitation. Can use olanzapine 2.5-5mg IM q4h in event of severe agitation. 2. may consider adding antidepressant for depressed mood. will hold on for now as seroquel is titrated. 2. Psychiatry to continue to follow. This documentation writer spoke with Pt's Nancy junior who is HCP. Nancy in agreement with plan to increase seroquel for agitation. I spent ___25___ minutes with the patient and/or on the patient floor today, greater than?50% of which was spent counseling/coordinating care. Guardian/Caregiver educated on: diagnosis and medication risk/benefits Informed Consent: understands
[2022-06-13] MEDS: Melatonin 3 MG TABLET 9 MG PO (21:20)
[2022-06-13] MEDS: Atorvastatin Calcium 20 MG TABLET PO (21:31)
[2022-06-14] VITALS: BP 109/74; PULSE 57; RESP 17; TEMP 36.3; O2SAT 93
[2022-06-14 04:51] VITALS: BP 139/86; PULSE 83; RESP 18; TEMP 36.8; O2SAT 98
[2022-06-14] MEDS: hydroCHLOROthiazide 12.5 MG TABLET PO (08:23)
[2022-06-14] MEDS: cephALEXin 500 MG CAPSULE PO ×2 (08:23→15:48)
[2022-06-14] MEDS: Omeprazole 20 MG CAPSULE.DR PO (08:23)
[2022-06-14] MEDS: Valsartan 320 MG TABLET PO (08:23)
[2022-06-14] MEDS: hydrALAZINE HCl 25 MG TABLET PO ×2 (08:24→21:32)
[2022-06-14] MEDS: Magnesium Oxide 400 MG TABLET 200 MG PO (08:24)
[2022-06-14] MEDS: QUEtiapine Fumarate 25 MG TABLET PO ×2 (08:24→21:32)
[2022-06-14] MEDS: Torsemide 20 MG TABLET PO (08:24)
[2022-06-14] MEDS: Phenytoin Sodium Extended 100 MG CAPSULE 300 MG PO ×2 (08:24→21:33)
[2022-06-14] MEDS: Triamcinolone Acet 0.1 % Cream 15 GM TUBE 1 APPL TOPICAL (08:24)
[2022-06-14] MEDS: Tamsulosin HCL 0.4 MG CAPSULE PO (08:24)
[2022-06-14] MEDS: Heparin Sodium,Porcine 5,000 UNIT/ML VIAL 5000 UNIT SUBCUT ×2 (08:25→21:33)
[2022-06-14 08:29] VITALS: BP 124/53; PULSE 53; RESP 18; O2SAT 95
--- NOTE | 2022-06-14 09:55 | P.PNIM_ITS ---
Subjective Subjective Date of Service: 06/14/22 Interval History: seen and examined this morning Follow-up for CHF Denies shortness of breath, chest pain, palpitations no reports of agiation, calm and cooperative Review of Systems no new issues, no sob Physical Exam Vital Signs: Vital Signs: Last Vital Signs Temp 98.3 F 06/14/22 04:51 Pulse 53 06/14/22 08:29 Resp 18 06/14/22 08:29 BP 124/53 L 06/14/22 08:29 Pulse Ox 95 06/14/22 08:29 O2 Del Method 06/14/22 08:29 BMI result Body Mass Index 34.9 Const: Other: Constitutional - Awake and Alert, No apparent distress, calm and cooperative Eyes - PERRLA, EOMI Cardiovascular - S1S2, RRR, No major LE edema Respiratory - mild scattered rales; no respiratory distress; sats mid 90s on RA Gastrointestinal - NT / ND; +BS; No rebound or guarding - No CVA tenderness Extremities - no calf tenderness bilaterally, no edema Musculoskeletal - Normal inspection, normal ROM Skin - Warm/Dry Neurological - Oriented to self, otherwise disoriented Psychological - Appropriate affect, calm and cooperative Objective Data Active Medications Acetaminophen (Acetaminophen 325 Mg Tablet) 650 mg PO Q6H PRN PRN Reason: Fever Atenolol (Atenolol 25 Mg Tablet) 25 mg PO BID [facility]; Protocol Last Admin: 06/14/22 08:31 Dose: Not Given Documented By: MOLINA Non-Admin Reason: Decreased Heart Rate Atorvastatin Calcium (Atorvastatin Calcium 20 Mg Tablet) 20 mg PO BEDTIME [facility] Last Admin: 06/13/22 21:31 Dose: 20 mg Documented By: MARION Bisacodyl (Bisacodyl 10 Mg Supp.Rect) 10 mg HI DAILY PRN PRN Reason: Constipation Cephalexin HCl (Cephalexin 500 Mg Capsule) 500 mg PO TID [facility] Stop: 06/14/22 19:28 Last Admin: 06/14/22 08:23 Dose: 500 mg Documented By: MOLINA Heparin Sodium (Porcine) (Heparin Sodium,Porcine 5,000 Unit/Ml Vial) 5,000 unit SUBCUT Q12H [facility] Last Admin: 06/14/22 08:25 Dose: 5,000 unit Documented By: MOLINA Hydralazine HCl (Hydralazine Hcl 25 Mg Tablet) 25 mg PO BID [facility]; Protocol Last Admin: 06/14/22 08:24 Dose: 25 mg Documented By: MOLINA Hydrochlorothiazide (Hydrochlorothiazide 12.5 Mg Tablet) 12.5 mg PO DAILY [facility]; Protocol Last Admin: 06/14/22 08:23 Dose: 12.5 mg Documented By: MOLINA Magnesium Oxide (Magnesium Oxide 400 Mg Tablet) 200 mg PO DAILY [facility] Last Admin: 06/14/22 08:24 Dose: 200 mg Documented By: MOLINA Melatonin (Melatonin 3 Mg Tablet) 9 mg PO BEDTIME [facility] Last Admin: 06/13/22 21:20 Dose: 9 mg Documented By: MARION Omeprazole (Omeprazole 20 Mg Capsule.Dr) 20 mg PO DAILY@0630 [facility] Last Admin: 06/14/22 08:23 Dose: 20 mg Documented By: MOLINA Pharmacy Consult (Consult Rx Perform Med Rec) 1 each MISCELLANE ONCE PRN PRN Reason: Consult order Phenytoin Sodium (Phenytoin Sodium Extended 100 Mg Capsule) 300 mg PO BID [facility] Last Admin: 06/14/22 08:24 Dose: 300 mg Documented By: MOLINA Quetiapine Fumarate (Quetiapine Fumarate 25 Mg Tablet) 25 mg PO BID PRN PRN Reason: Agitation Last Admin: 06/08/22 01:30 Dose: 25 mg Documented By: DAVID Quetiapine Fumarate (Quetiapine Fumarate 25 Mg Tablet) 25 mg PO BID [facility] Last Admin: 06/14/22 08:24 Dose: 25 mg Documented By: MOLINA Sodium Chloride (0.9 % Sodium Chloride Flush 3 Ml Syringe) 3 ml IVFLUSH QSHIFT [facility] Last Admin: 06/14/22 08:21 Dose: Not Given Documented By: MOLINA Non-Admin Reason: No Access Tamsulosin HCl (Tamsulosin Hcl 0.4 Mg Capsule) 0.4 mg PO DAILY [facility] Last Admin: 06/14/22 08:24 Dose: 0.4 mg Documented By: MOLINA Torsemide (Torsemide 20 Mg Tablet) 20 mg PO DAILY [facility]; Protocol Last Admin: 06/14/22 08:24 Dose: 20 mg Documented By: MOLINA Triamcinolone Acetonide (Triamcinolone Acet 0.1 % Cream 15 Gm Tube) 1 appl TOPICAL DAILY [facility]; Protocol Last Admin: 06/14/22 08:24 Dose: 1 appl Documented By: MOLINA Valsartan (Valsartan 320 Mg Tablet) 320 mg PO DAILY [facility]; Protocol Last Admin: 06/14/22 08:23 Dose: 320 mg Documented By: MOLINA Labs CBC & Chem 7: 06/09/22 00:09 06/12/22 04:23 Assessment and Plan (1) Aggressive behavior: Status: Acute (2) Cognitive changes: Status: Acute Plan 82 year old male who was recently hospitalized for KENJI + diverticulitis from 05/23-05/25. He was discharged to SNF and arrived back to [facility] on 06/07 after reported aggressive behavior at the SNF. Per ED notes -- he was not accepted back to facility and hence was awaiting placement in the ED. During the bench worker helper of 06/09 had respiratory distress and further testing revealed a CXR with congestion and an elevated BNP. Hence, he will be admitted for further work up. Acute HFpEF--now compensated. continue oral Torsemide Urinary retention--has henry, leave in for now, continue flomax and uro eval inpatient vs outpatient right lower extremity cellulitis--cellulitis seems resolved and at this point dc Abx hyperkalemia resolved Dementia, unspecified aggressive behavior reported at the SNF -- but since ED arrival, has not required any meds. He remains calm continue with non-pharmacological modifications as best we can. Seen by Psych on 06/13 with the followin. Increase scheduled seroquel to 50mg po BID, monitor excessive sedation, EKG, maintain Qtc<500ms, maintain k>4, Mg >2. Can add Seroquel 50mg po q6h, prn agitation. Can use olanzapine 2.5-5mg IM q4h in event of severe agitation. 2. may consider adding antidepressant for depressed mood. will hold on for now as seroquel is titrated. 2. Psychiatry to continue to follow. CKD stage 4 SCr improved from last admission monitor while on diuretics History of seizures continue baseline meds DNR/DNI (confirmed with daughterNancy (HCP) over the phone. DVT pptx -- high risk, will use subcut. heparin HCP is daughter Nancy and son Eriberto seen by psych, deemed not to have capacity to make medical decisions seen by Physical therapy-recommended long-term care Need for inpatient: awaiting placement Quality Stroke Does the patient have a stroke diagnosis?: No VTE Prior VTE?: No VTE Risk Level:: Medical - moderate - high VTE Device Contraindication: Treatment Not Indicated VTE Drug Contraindication: N/A - Med Ordered
--- NOTE | 2022-06-14 10:22 | MHC.SL.SWA ---
Speech Pathologist Impression: Risk of Aspiration Due to: Neurological Condition Dysphasia Diet Status: Due to signs of aspiration on thin liquids, recommend DOWNGRADE liquids to NECTAR THICK consistency, with pills administered CRUSHED in PUREE Liquid Consistency and Strategies for Safe Swallow: Liquid Intake Recommendation: [place] Thick Liquid Intake Strategies: Small Sips Solid Food Consistency: Dietary Recommendations: Grnd/Mech Altered (NDD2) Additional Modifications to Solid Foods: Pt needs reminders to slow rate during meal, may be impulsive. Oral Medication Intake: Crushed with Puree Please contact the pharmacy regarding appropriate crushable or liquid drug formulations that are available whenever modified delivery is recommended. Compensatory Strategies and Precautions to be Taken for Safe Swallow: Sitting Upright (90 deg) Small Bites and Sips Alternate Liquids/Solids Rate of Ingestion Change Oral Check Avoid Specific Foods Supervision While Eating and Drinking for Safe Swallow: Total Supervision (1:1) Foods to Avoid: Tough, difficult to chew solids Swallowing Recommended Treatments: Compens. Strategy Educat. Recommendation for Speech: Inpatient Speech Therapy Comment: Patient seen in ED overflow this morning. Patient was initially dozing in Chair at bedside but woke easily. Pt had finished breakfast, reported that it was not pleasing, but that he had eaten oatmeal and had coffee and juices. Nursing reported that he was coughing on administration of medication this morning (Pills whole with liquid). Pt was observed taking straw sip of radha jerry, Pt was able to propel bolus with straw, took a reasonable sip, had timely swallow, but then began coughing and clearing throat after swallow. Pt given thin liquid by cup sip, was able to self feed, took manageable sip with timely oral and pharyngeal phase, but again evidenced coughing and throat clearing after sip. Due to signs of aspiration on thin liquids, recommend DOWNGRADE liquids to NECTAR THICK consistency, with pills administered CRUSHED in PUREE. MD and RD notified of liquid consistency change by secure text, nursing advised at bedside. Frequency/Duration: Date Range for Service Req: Timeline to reassess: Community Health Specialist Clinican/Clinical Fellow: No Supervisory Statement: I have reviewed and agree with the student/clinical fellow's documentation: N/A Speech Language Pathologist: Suzanne Bryan M.A., CCC-ASSEMBLER [employer]
--- NOTE | 2022-06-14 12:55 | MHC.CM.PN ---
Extensive SNF search is in progress and all referrals have been updated today. CM will follow.
--- NOTE | 2022-06-14 15:47 | PC.NURSE ---
Stahl removed at 1500, pt given urinal. Awaiting urination at this time. Call agudelo within reach, will continue to monitor.
[2022-06-14 16:44] VITALS: BP 130/61; PULSE 50; RESP 16; TEMP 36.6; O2SAT 98
--- NOTE | 2022-06-14 19:15 | PC.NURSE ---
Assumed care of the patient at this time.
[2022-06-14 19:47] VITALS: BP 121/51; PULSE 57; RESP 16; TEMP 37.1; O2SAT 98
--- NOTE | 2022-06-14 19:48 | PC.NURSE ---
PATIENT WAS UNABLE TO VOID ,BLADDER SCAN DONE AMOUNT WAS 487 ML ,RN TIA AWARE ,PATIENT DID NOT LIKS HIS SUPPER ,SON BROUGHT IN CHEESE BURGER AND COKE ,PATIENT ATE 100 % OF MEAL ,PATIENT BACK IN BED RESTING AND WATCHING TELEVISION .
--- NOTE | 2022-06-14 20:03 | PC.NURSE ---
patient was given a bed bath by this pct .
--- NOTE | 2022-06-14 20:53 | PC.NURSE ---
Patient unable to void. Stahl was removed at 1500 by previous RN. Provider made aware, bladder scan 487. Provider ordered straight cath.
--- NOTE | 2022-06-14 21:15 | PC.NURSE ---
Straight cath'd patient per providers order due to not voiding within 6 hours following catheter removal. Only 150mL output, patient has blood clots.
[2022-06-14] MEDS: Melatonin 3 MG TABLET 9 MG PO (21:31)
[2022-06-14] MEDS: atenoloL 25 MG TABLET PO (21:32)
[2022-06-14] MEDS: Atorvastatin Calcium 20 MG TABLET PO (21:32)
--- NOTE | 2022-06-14 22:30 | PC.NURSE ---
Patient became agitated during bladder scan, patient redirected and RN explained he needs to use his words if he doesn't like something and to wait for us to help him. Changed patients gown per is request. Now resting comfortably.
[2022-06-14 23:35] VITALS: BP 121/64; PULSE 74; RESP 16; TEMP 36.6; O2SAT 97
[2022-06-15] MEDS: Omeprazole 20 MG CAPSULE.DR PO (06:25)
[2022-06-15 06:29] VITALS: BP 149/61; PULSE 54; RESP 25
[2022-06-15] MEDS: Phenytoin Sodium Extended 100 MG CAPSULE 300 MG PO ×2 (08:38→21:59)
[2022-06-15] MEDS: Tamsulosin HCL 0.4 MG CAPSULE PO (08:39)
[2022-06-15] MEDS: QUEtiapine Fumarate 25 MG TABLET PO ×2 (08:39→22:02)
[2022-06-15] MEDS: Magnesium Oxide 400 MG TABLET 200 MG PO (08:39)
[2022-06-15] MEDS: hydrALAZINE HCl 25 MG TABLET PO ×2 (08:41→22:01)
[2022-06-15] MEDS: hydroCHLOROthiazide 12.5 MG TABLET PO (08:41)
[2022-06-15] MEDS: Valsartan 320 MG TABLET PO (08:41)
[2022-06-15] MEDS: Heparin Sodium,Porcine 5,000 UNIT/ML VIAL 5000 UNIT SUBCUT ×2 (08:41→22:02)
[2022-06-15] MEDS: atenoloL 25 MG TABLET PO ×2 (08:41→21:59)
[2022-06-15] MEDS: Triamcinolone Acet 0.1 % Cream 15 GM TUBE 1 APPL TOPICAL (08:43)
[2022-06-15 08:46] VITALS: BP 131/47; PULSE 59; RESP 19; O2SAT 97
--- NOTE | 2022-06-15 10:27 | P.PNIM_ITS ---
Subjective Subjective Date of Service: 06/15/22 Interval History: seen and examined this morning Follow-up for CHF Denies shortness of breath, chest pain, or palpitations no reports of agiation, calm and cooperative, actually very pleasant Review of Systems no new issues, no sob Physical Exam Vital Signs: Vital Signs: Last Vital Signs Temp 97.8 F 06/14/22 23:35 Pulse 59 06/15/22 08:46 Resp 19 06/15/22 08:46 BP 131/47 L 06/15/22 08:46 Pulse Ox 97 06/15/22 08:46 O2 Del Method 06/15/22 08:46 BMI result Body Mass Index 34.9 Const: Other: Constitutional - Awake and Alert, No apparent distress, calm and cooperative Eyes - PERRLA, EOMI Cardiovascular - S1S2, RRR, No major LE edema Respiratory - mild scattered rales; no respiratory distress; sats mid 90s on RA Gastrointestinal - NT / ND; +BS; No rebound or guarding - No CVA tenderness Extremities - no calf tenderness bilaterally, no edema Musculoskeletal - Normal inspection, normal ROM Skin - Warm/Dry Neurological - Oriented to self, otherwise disoriented Psychological - Appropriate affect, calm and cooperative Objective Data Active Medications Acetaminophen (Acetaminophen 325 Mg Tablet) 650 mg PO Q6H PRN PRN Reason: Fever Atenolol (Atenolol 25 Mg Tablet) 25 mg PO BID [facility]; Protocol Last Admin: 06/15/22 08:41 Dose: 25 mg Documented By: ANTONIO Atorvastatin Calcium (Atorvastatin Calcium 20 Mg Tablet) 20 mg PO BEDTIME [facility] Last Admin: 06/14/22 21:32 Dose: 20 mg Documented By: PROSPER Bisacodyl (Bisacodyl 10 Mg Supp.Rect) 10 mg [place] DAILY PRN PRN Reason: Constipation Heparin Sodium (Porcine) (Heparin Sodium,Porcine 5,000 Unit/Ml Vial) 5,000 unit SUBCUT Q12H [facility] Last Admin: 06/15/22 08:41 Dose: 5,000 unit Documented By: ANTONIO Hydralazine HCl (Hydralazine Hcl 25 Mg Tablet) 25 mg PO BID [facility]; Protocol Last Admin: 06/15/22 08:41 Dose: 25 mg Documented By: ANTONIO Hydrochlorothiazide (Hydrochlorothiazide 12.5 Mg Tablet) 12.5 mg PO DAILY [facility]; Protocol Last Admin: 06/15/22 08:41 Dose: 12.5 mg Documented By: ANTONIO Magnesium Oxide (Magnesium Oxide 400 Mg Tablet) 200 mg PO DAILY [facility] Last Admin: 06/15/22 08:39 Dose: 200 mg Documented By: ANTONIO Melatonin (Melatonin 3 Mg Tablet) 9 mg PO BEDTIME [facility] Last Admin: 06/14/22 21:31 Dose: 9 mg Documented By: PROSPER Omeprazole (Omeprazole 20 Mg Capsule.) 20 mg PO DAILY@0630 [facility] Last Admin: 06/15/22 06:25 Dose: 20 mg Documented By: EDMUND Pharmacy Consult (Consult Rx Perform Med Rec) 1 each MISCELLANE ONCE PRN PRN Reason: Consult order Phenytoin Sodium (Phenytoin Sodium Extended 100 Mg Capsule) 300 mg PO BID [facility] Last Admin: 06/15/22 08:38 Dose: 300 mg Documented By: ANTONIO Quetiapine Fumarate (Quetiapine Fumarate 25 Mg Tablet) 25 mg PO BID PRN PRN Reason: Agitation Last Admin: 06/08/22 01:30 Dose: 25 mg Documented By: DAVID Quetiapine Fumarate (Quetiapine Fumarate 25 Mg Tablet) 25 mg PO BID [facility] Last Admin: 06/15/22 08:39 Dose: 25 mg Documented By: ANTONIO Sodium Chloride (0.9 % Sodium Chloride Flush 3 Ml Syringe) 3 ml IVFLUSH QSHIFT [facility] Last Admin: 06/15/22 08:42 Dose: Not Given Documented By: ANTONIO Non-Admin Reason: See Note Tamsulosin HCl (Tamsulosin Hcl 0.4 Mg Capsule) 0.4 mg PO DAILY [facility] Last Admin: 06/15/22 08:39 Dose: 0.4 mg Documented By: ANTONIO Torsemide (Torsemide 20 Mg Tablet) 20 mg PO DAILY [facility]; Protocol Last Admin: 06/14/22 08:24 Dose: 20 mg Documented By: MOLINA Triamcinolone Acetonide (Triamcinolone Acet 0.1 % Cream 15 Gm Tube) 1 appl TOPICAL DAILY [facility]; Protocol Last Admin: 06/15/22 08:43 Dose: 1 appl Documented By: ANTONIO Valsartan (Valsartan 320 Mg Tablet) 320 mg PO DAILY [facility]; Protocol Last Admin: 06/15/22 08:41 Dose: 320 mg Documented By: ANTONIO Labs CBC & Chem 7: 06/09/22 00:09 06/12/22 04:23 Assessment and Plan (1) Aggressive behavior: Status: Acute (2) Cognitive changes: Status: Acute Plan 82 year old male who was recently hospitalized for KENJI + diverticulitis from 05/23-05/25. He was discharged to SNF and arrived back to [facility] on 06/07 after reported aggressive behavior at the SNF. Per ED notes -- he was not accepted back to facility and hence was awaiting placement in the ED. During the field reviewer of 06/09 had respiratory distress and further testing revealed a CXR with congestion and an elevated BNP. Hence, he will be admitted for further work up. Acute HFpEF--now compensated. continue oral Torsemide Urinary retention--resolved, henry removed continue flomax and uro eval if new issue right lower extremity cellulitis--cellulitis seems resolved and at this point dc Abx hyperkalemia resolved Dementia, unspecified aggressive behavior reported at the SNF -- but since ED arrival, has not required any meds. He remains calm continue with non-pharmacological modifications as best we can. Seen by Psych on 06/13 with the followin. Increase scheduled seroquel to 50mg po BID, monitor excessive sedation, EKG, maintain Qtc<500ms, maintain k>4, Mg >2. Can add Seroquel 50mg po q6h, prn agitation. Can use olanzapine 2.5-5mg IM q4h in event of severe agitation. 2. may consider adding antidepressant for depressed mood. will hold on for now as seroquel is titrated. 2. Psychiatry to continue to follow. CKD stage 4 SCr improved from last admission monitor while on diuretics History of seizures continue baseline meds DNR/DNI (confirmed with daughter, Nancy (HCP) over the phone. DVT pptx -- high risk, will use subcut. heparin HCP is daughter Nancy and son Eriberto seen by psych, deemed not to have capacity to make medical decisions seen by Physical therapy-recommended long-term care Need for inpatient: awaiting placement Quality Stroke Does the patient have a stroke diagnosis?: No VTE Prior VTE?: No VTE Risk Level:: Medical - moderate - high VTE Device Contraindication: Treatment Not Indicated VTE Drug Contraindication: N/A - Med Ordered
[2022-06-15] MEDS: Torsemide 20 MG TABLET PO (11:07)
--- NOTE | 2022-06-15 13:57 | MHC.SL.SWA ---
Speech Pathologist Impression: Risk of Aspiration Due to: Neurological Condition Dysphasia Diet Status: DRecommend UPGRADE diet to CHOPPED/ADVANCED (NDD3) with THIN liquids, Pills whole in puree or w/ liquid. Liquid Consistency and Strategies for Safe Swallow: Liquid Intake Recommendation: Thin Liquid Intake Strategies: Small Sips Solid Food Consistency: Dietary Recommendations: Chopped/Advanced (NDD3) Additional Modifications to Solid Foods: Pt needs reminders to slow rate during meal, may be impulsive. Oral Medication Intake: Whole with Puree Please contact the pharmacy regarding appropriate crushable or liquid drug formulations that are available whenever modified delivery is recommended. Compensatory Strategies and Precautions to be Taken for Safe Swallow: Sitting Upright (90 deg) Liquids from Straw Small Bites and Sips Alternate Liquids/Solids Rate of Ingestion Change Oral Check Avoid Specific Foods Supervision While Eating and Drinking for Safe Swallow: Total Supervision (1:1) Foods to Avoid: Tough, difficult to chew solids Swallowing Recommended Treatments: Compens. Strategy Educat. Recommendation for Speech: Inpatient Speech Therapy Comment: Pt now back in regular ED, awaiting LTR placement. Patients and son were present, and had brought him a burger from [employer] and a coke. Patient was eating burger without difficulty, with a timely oral phase, timely swallow, all WFL. Patient asked for some ice water and ice for his soda, which were retrieved. Patient's son stated he drinks better with a straw due to hand tremor. Patient was observed taking straw sips of water, with good oral containment and transit observed, timely swallow, no clinical signs of aspiration on multiple sips. Pt had been downgraded to [place] Thick liquids due to nurse c/o coughing on liquids, observed throat clearing and coughing when observed by DIRECTOR OF WOMEN'S SERVICES. Today patient presents as tolerating thin liquids well, and able to manage a more advanced food consistency. Recommend UPGRADE diet to CHOPPED/ADVANCED (NDD3) with THIN liquids, Pills whole in puree or w/ liquid. MARY POOLE advised by secure text. Recommend D/C Speech at this time, as this is likely patients baseline. Please re-consult if additional needs arise. Frequency/Duration: Date Range for Service Req: Timeline to reassess: Liquefaction Plant Operator Clinican/Clinical Fellow: No Supervisory Statement: I have reviewed and agree with the student/clinical fellow's documentation: N/A Speech Language Pathologist: Suzanne Bryan M.A., [facility]-DIRECTOR OF WOMEN'S SERVICES
[2022-06-15 21:55] VITALS: BP 127/53; PULSE 62; RESP 24; O2SAT 95
[2022-06-15] MEDS: Atorvastatin Calcium 20 MG TABLET PO (22:02)
[2022-06-15] MEDS: Melatonin 3 MG TABLET 9 MG PO (22:02)
[2022-06-15 23:30] VITALS: BP 113/58; PULSE 57; RESP 16; TEMP 36.5; O2SAT 97
[2022-06-16] VITALS (7 sets, daily range): BP systolic 111–133; BP diastolic 48–70; PULSE 47–74; RESP 16–24; TEMP 36.4–36.6; O2SAT 93–98
[2022-06-16] MEDS: 0.9 % Sodium Chloride Flush 3 ML SYRINGE IVFLUSH ×2 (02:07→09:47)
[2022-06-16] MEDS: Omeprazole 20 MG CAPSULE.DR PO (07:15)
--- NOTE | 2022-06-16 08:18 | MHC.CM.PN ---
PT REMAINS IN THE ED AWAITING SNF PLACEMENT. REFERRALS HAVE BEEN BROADCAST FOR 20+ MILES FOR LTC PLACEMENT, HOWEVER PT CURRENTLY DOES NOT HAVE A PAYER SOURCE. PRE RECORDS, PTS SON HAS BEEN WORKING ON A [employer] APPLICATION WITH THE ASSISTANCE OF [facility]. MESSAGE LEFT FOR [facility] REQUESTING AN UPDATE ON APPLICATION STATUS
--- NOTE | 2022-06-16 08:53 | PC.NURSE ---
Called pharmacy to bring Triamcinolone Cream 1% to ED Overflow. Med not available in Pyxis. Will administer upon receipt.
--- NOTE | 2022-06-16 09:22 | HO.PM.IMPN ---
Subjective Subjective Date of Service: 06/16/22 Interval History: seen and examined this morning Follow-up for CHF, cellulitis of leg and now awaiting placement He had a fall yesterday.. from commode and landed on knee per report no injury noted Review of Systems no complaint Physical Exam Vital Signs: Vital Signs: Last Vital Signs Temp 97.7 F 06/16/22 08:00 Pulse 47 L 06/16/22 08:00 Resp 21 H 06/16/22 08:00 BP 122/63 06/16/22 08:00 Pulse Ox 93 06/16/22 08:00 O2 Del Method 06/16/22 08:00 BMI result Body Mass Index 34.9 Const: Other: Constitutional - Awake and Alert, No apparent distress, calm and cooperative Eyes - PERRLA, EOMI Cardiovascular - S1S2, RRR, No major LE edema Respiratory - mild scattered rales; no respiratory distress; sats mid 90s on RA Gastrointestinal - NT / ND; +BS; No rebound or guarding - No CVA tenderness Extremities - no calf tenderness bilaterally, no edema Musculoskeletal - Normal inspection, normal ROM Skin - Warm/Dry Neurological - Oriented to self, otherwise disoriented Psychological - Appropriate affect, calm and cooperative Objective Data Active Medications Acetaminophen (Acetaminophen 325 Mg Tablet) 650 mg PO Q6H PRN PRN Reason: Fever Atenolol (Atenolol 25 Mg Tablet) 25 mg PO BID [facility]; Protocol Last Admin: 06/15/22 21:59 Dose: 25 mg Documented By: SOPHIE Atorvastatin Calcium (Atorvastatin Calcium 20 Mg Tablet) 20 mg PO BEDTIME [facility] Last Admin: 06/15/22 22:02 Dose: 20 mg Documented By: SOPHIE Bisacodyl (Bisacodyl 10 Mg Supp.Rect) 10 mg [place] DAILY PRN PRN Reason: Constipation Heparin Sodium (Porcine) (Heparin Sodium,Porcine 5,000 Unit/Ml Vial) 5,000 unit SUBCUT Q12H [facility] Last Admin: 06/15/22 22:02 Dose: 5,000 unit Documented By: SOPHIE Hydralazine HCl (Hydralazine Hcl 25 Mg Tablet) 25 mg PO BID [facility]; Protocol Last Admin: 06/15/22 22:01 Dose: 25 mg Documented By: SOPHIE Hydrochlorothiazide (Hydrochlorothiazide 12.5 Mg Tablet) 12.5 mg PO DAILY [facility]; Protocol Last Admin: 06/15/22 08:41 Dose: 12.5 mg Documented By: ANTONIO Magnesium Oxide (Magnesium Oxide 400 Mg Tablet) 200 mg PO DAILY [facility] Last Admin: 06/15/22 08:39 Dose: 200 mg Documented By: ANTONIO Melatonin (Melatonin 3 Mg Tablet) 9 mg PO BEDTIME [facility] Last Admin: 06/15/22 22:02 Dose: 9 mg Documented By: SOPHIE Omeprazole (Omeprazole 20 Mg Capsule.) 20 mg PO DAILY@0630 [facility] Last Admin: 06/16/22 07:15 Dose: 20 mg Documented By: GIO Pharmacy Consult (Consult Rx Perform Med Rec) 1 each MISCELLANE ONCE PRN PRN Reason: Consult order Phenytoin Sodium (Phenytoin Sodium Extended 100 Mg Capsule) 300 mg PO BID [facility] Last Admin: 06/15/22 21:59 Dose: 300 mg Documented By: SOPHIE Quetiapine Fumarate (Quetiapine Fumarate 25 Mg Tablet) 25 mg PO BID PRN PRN Reason: Agitation Last Admin: 06/08/22 01:30 Dose: 25 mg Documented By: DAVID Quetiapine Fumarate (Quetiapine Fumarate 25 Mg Tablet) 25 mg PO BID [facility] Last Admin: 06/15/22 22:02 Dose: 25 mg Documented By: SOPHIE Sodium Chloride (0.9 % Sodium Chloride Flush 3 Ml Syringe) 3 ml IVFLUSH QSHIFT [facility] Last Admin: 06/16/22 02:07 Dose: 3 ml Documented By: GIO Tamsulosin HCl (Tamsulosin Hcl 0.4 Mg Capsule) 0.4 mg PO DAILY [facility] Last Admin: 06/15/22 08:39 Dose: 0.4 mg Documented By: ANTONIO Torsemide (Torsemide 20 Mg Tablet) 20 mg PO DAILY [facility]; Protocol Last Admin: 06/15/22 11:07 Dose: 20 mg Documented By: ANTONIO Triamcinolone Acetonide (Triamcinolone Acet 0.1 % Cream 15 Gm Tube) 1 appl TOPICAL DAILY [facility]; Protocol Last Admin: 06/15/22 08:43 Dose: 1 appl Documented By: ANTONIO Valsartan (Valsartan 320 Mg Tablet) 320 mg PO DAILY [facility]; Protocol Last Admin: 06/15/22 08:41 Dose: 320 mg Documented By: ANTONIO Labs CBC & Chem 7: 06/09/22 00:09 06/12/22 04:23 Assessment and Plan (1) Aggressive behavior: Status: Acute (2) Cognitive changes: Status: Acute Plan 82 year old male who was recently hospitalized for KENJI + diverticulitis from 05/23-05/25. He was discharged to SNF and arrived back to [facility] on 06/07 after reported aggressive behavior at the SNF. Per ED notes -- he was not accepted back to facility and hence was awaiting placement in the ED. 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 Hence, he will be admitted for further work up. Acute HFpEF--now compensated. continue oral Torsemide Urinary retention--resolved, henry removed continue flomax and uro eval if new issue, straight cath PRN right lower extremity cellulitis--cellulitis seems resolved and at this point dc Abx hyperkalemia resolved Dementia, unspecified aggressive behavior reported at the SNF -- but since ED arrival, has not required any meds. He remains calm continue with non-pharmacological modifications as best we can. Seen by Psych on 06/13 with the followin. Increase scheduled seroquel to 50mg po BID, monitor excessive sedation, EKG, maintain Qtc<500ms, maintain k>4, Mg >2. Can add Seroquel 50mg po q6h, prn agitation. Can use olanzapine 2.5-5mg IM q4h in event of severe agitation. 2. may consider adding antidepressant for depressed mood. will hold on for now as seroquel is titrated. 2. Psychiatry to continue to follow. CKD stage 4 SCr improved from last admission monitor while on diuretics History of seizures continue baseline meds DNR/DNI (confirmed with daughter, Nancy (HCP) over the phone. DVT pptx -- high risk, will use subcut. heparin HCP is daughter Nancy and son Eriberto seen by psych, deemed not to have capacity to make medical decisions seen by Physical therapy-recommended long-term care Need for inpatient: awaiting placement Quality Stroke Does the patient have a stroke diagnosis?: No VTE Prior VTE?: No VTE Risk Level:: Medical - moderate - high VTE Device Contraindication: Treatment Not Indicated VTE Drug Contraindication: N/A - Med Ordered
[2022-06-16] MEDS: Magnesium Oxide 400 MG TABLET 200 MG PO (09:45)
[2022-06-16] MEDS: Heparin Sodium,Porcine 5,000 UNIT/ML VIAL 5000 UNIT SUBCUT ×2 (09:45→20:37)
[2022-06-16] MEDS: Phenytoin Sodium Extended 100 MG CAPSULE 300 MG PO ×2 (09:46→20:36)
[2022-06-16] MEDS: Valsartan 320 MG TABLET PO (09:47)
[2022-06-16] MEDS: QUEtiapine Fumarate 25 MG TABLET PO ×2 (09:47→20:37)
[2022-06-16] MEDS: atenoloL 25 MG TABLET PO (09:47)
[2022-06-16] MEDS: Tamsulosin HCL 0.4 MG CAPSULE PO (09:47)
[2022-06-16] MEDS: Torsemide 20 MG TABLET PO (09:48)
[2022-06-16] MEDS: hydrALAZINE HCl 25 MG TABLET PO ×2 (09:48→20:37)
[2022-06-16] MEDS: hydroCHLOROthiazide 12.5 MG TABLET PO (09:48)
[2022-06-16] MEDS: Triamcinolone Acet 0.1 % Cream 15 GM TUBE 1 APPL TOPICAL (09:48)
--- NOTE | 2022-06-16 10:15 | PC.NURSE ---
patient medicated per MD orders. Pt being placed on bedpan at this time. Repositioned with head of bed lowered, and pillows & blankets repositioned. Stahl catheter continues to drain urine into bag without occlusion/issue. Will continue to monitor.
--- NOTE | 2022-06-16 11:41 | PC.NURSE ---
Patient has two visitors at the bedside, as well as sitter/camera present. Visitors are his granddaughter, and his brother. Pt is calm/cooperative/pleasant at this time. Denies complaints at this time. Pt was assisted out of bed to commode earlier this shift.
--- NOTE | 2022-06-16 14:25 | MHC.CM.PN ---
Addendum entered by Mayra Rouse 06/16/22 16:27: CM CONTACTED PTS SON, GAMALIEL, REGARDING [facility] AND DC PLANNING HE REPORTS HE IS WAITING FOR THE BANK STATEMENTS THAT HAD TO BE MAILED FROM THE CORPORATE OFFICE CM INFORMED HIM HE WOULD LIKELY HAVE TO PRIVATELY PAY TO SPEND DOWN PRIOR TO MH COMING ON BOARD ANYWAY HE REPORTS HE SPOKE TO MH AND LOOKED IT UP, AND PT AND HIS SOUSE CAN HAVE UP TO 135K IN THE BANK AND THEY CANNOT TOUCH IT BECAUSE HIS IS STILL IN THE COMMUNITY CM INFORMED HIM MH WOULD MAKE THE DETERMINATION AND IT IS BASED ON THEIR GUIDELINES CM INFORMED HIM THERE ARE CURRENTLY ONLY TWO FACILITIES REVIEWING, [facility] [place] AND [facility] HE REPORTS HE WOULD NOT AGREE TO SEND HIM TO EITHER CM INFORMED HIM HE WOULD LIKELY BE GIVEN A NOTICE ON NON-COVERAGE THERE ARE NO OTHER BED OFFERS AND PT IS MEDICALLY CLEARED HE REPORTED THIS IS BULLSHIT WHY THE HELL WOULD I LET HIM GO THERE THEN STATED, I HAVE TO HANG UP RIGHT NOW BECAUSE I AM GETTING PISSED CALL ENDED Original Note: JORGE ALBERTO HAS CONTACTED [facility] WHO INDICATED THE PTS SON HAS NOT PROVIDED ALL THE DOCUMENTS NECESSARY FOR THE [place] APPLICATION TO BE SUBMITTED. PTS SNF REFERRAL WAS UPDATED AND BROADCAST WITHIN 200 MILES, CURRENTLY THERE ARE 146 REFERRALS OUT, NO BED OFFERS. ONCE A BED IS SECURED PTS FAMILY WILL NEED TO PRIVATELY PAY TO SPEND DOWN FOR [place] CM WILL CONTACT PTS SON/POA REGARDING NEEDED DOCUMENTS AND ENSURE HE UNDERSTANDS THE SPEND DOWN REQUIREMENTS
--- NOTE | 2022-06-16 14:32 | PC.NURSE ---
patient transferred to chair. family members at bedside.
--- NOTE | 2022-06-16 20:03 | PC.NURSE ---
Pt. very unsafe to ambulate. Assistance x3 to stand and pivot pt. from bedside commode to bed.
--- NOTE | 2022-06-16 20:18 | PC.NURSE ---
PATIENT REFUSED DINNER ,DID NOT LIKE IT ,BUT DRANK 480 ML FLUIDS ,PATIENT SAT ON BEDSIDE COMMODE 3 TIMES TO TRY TO MOVE HIS BOWELS ,NO SUCCESS ,PATIENT BACK IN BED ,BED BATH GIVEN ,PATIENT FELL ASLEEP ,TELE SITTER IN PLACE .
[2022-06-16] MEDS: Melatonin 3 MG TABLET 9 MG PO (20:36)
[2022-06-16] MEDS: Atorvastatin Calcium 20 MG TABLET PO (20:36)
[2022-06-17 00:47] VITALS: BP 123/54; PULSE 61; RESP 16; O2SAT 92
--- NOTE | 2022-06-17 00:57 | PC.NURSE ---
assumed care of pt, resting comfortably in bed, ate well from lunch box per 1:1, vss, henry patent and draining, camera at bedside.
[2022-06-17 06:21] VITALS: BP 138/55; PULSE 54; RESP 20; TEMP 36.6; O2SAT 96
[2022-06-17 07:50] VITALS: BP 131/53; PULSE 54; RESP 15; O2SAT 94
[2022-06-17] MEDS: Omeprazole 20 MG CAPSULE.DR PO (07:51)
[2022-06-17] MEDS: Tamsulosin HCL 0.4 MG CAPSULE PO (09:02)
[2022-06-17] MEDS: Valsartan 320 MG TABLET PO (09:03)
[2022-06-17] MEDS: Torsemide 20 MG TABLET PO (09:03)
[2022-06-17] MEDS: hydroCHLOROthiazide 12.5 MG TABLET PO (09:03)
[2022-06-17] MEDS: hydrALAZINE HCl 25 MG TABLET PO ×2 (09:03→23:35)
[2022-06-17] MEDS: QUEtiapine Fumarate 25 MG TABLET PO ×2 (09:04→23:35)
[2022-06-17] MEDS: Magnesium Oxide 400 MG TABLET 200 MG PO (09:04)
[2022-06-17] MEDS: Heparin Sodium,Porcine 5,000 UNIT/ML VIAL 5000 UNIT SUBCUT ×2 (09:05→23:36)
[2022-06-17] MEDS: Triamcinolone Acet 0.1 % Cream 15 GM TUBE 1 APPL TOPICAL (09:12)
--- NOTE | 2022-06-17 09:32 | PC.NURSE ---
call placed to pharmacy for Dilantin
--- NOTE | 2022-06-17 09:51 | HO.PM.IMPN ---
Subjective Subjective Date of Service: 06/18/22 Interval History: seen and examined this morning Follow-up for CHF, cellulitis of leg and now awaiting placement no new issues Review of Systems no complaint Physical Exam Vital Signs: Vital Signs: Last Vital Signs Temp 97.8 F 06/17/22 06:21 Pulse 54 06/17/22 07:50 Resp 15 06/17/22 07:50 BP 131/53 L 06/17/22 07:50 Pulse Ox 94 06/17/22 07:50 O2 Del Method 06/17/22 07:50 BMI result Body Mass Index 34.9 Constitutional - Awake and Alert, No apparent distress, calm and cooperative Eyes - PERRLA, EOMI Cardiovascular - S1S2, RRR, No major LE edema Respiratory - mild scattered rales; no respiratory distress; sats mid 90s on RA Gastrointestinal - NT / ND; +BS; No rebound or guarding - No CVA tenderness Extremities - no calf tenderness bilaterally, no edema Musculoskeletal - Normal inspection, normal ROM Skin - Warm/Dry Neurological - Oriented to self, otherwise disoriented Psychological - Appropriate affect, calm and cooperative Objective Data Active Medications Acetaminophen (Acetaminophen 325 Mg Tablet) 650 mg PO Q6H PRN PRN Reason: Fever Atenolol (Atenolol 25 Mg Tablet) 25 mg PO BID [facility]; Protocol Last Admin: 06/17/22 09:05 Dose: Not Given Documented By: ANGEL Non-Admin Reason: Decreased Heart Rate Atorvastatin Calcium (Atorvastatin Calcium 20 Mg Tablet) 20 mg PO BEDTIME [facility] Last Admin: 06/16/22 20:36 Dose: 20 mg Documented By: EVERARDO Bisacodyl (Bisacodyl 10 Mg Supp.Rect) 10 mg [place] DAILY PRN PRN Reason: Constipation Heparin Sodium (Porcine) (Heparin Sodium,Porcine 5,000 Unit/Ml Vial) 5,000 unit SUBCUT Q12H [facility] Last Admin: 06/17/22 09:05 Dose: 5,000 unit Documented By: ANGEL Hydralazine HCl (Hydralazine Hcl 25 Mg Tablet) 25 mg PO BID [facility]; Protocol Last Admin: 06/17/22 09:03 Dose: 25 mg Documented By: ANGEL Hydrochlorothiazide (Hydrochlorothiazide 12.5 Mg Tablet) 12.5 mg PO DAILY [facility]; Protocol Last Admin: 06/17/22 09:03 Dose: 12.5 mg Documented By: ANGEL Magnesium Oxide (Magnesium Oxide 400 Mg Tablet) 200 mg PO DAILY [facility] Last Admin: 06/17/22 09:04 Dose: 200 mg Documented By: ANGEL Melatonin (Melatonin 3 Mg Tablet) 9 mg PO BEDTIME [facility] Last Admin: 06/16/22 20:36 Dose: 9 mg Documented By: EVERARDO Omeprazole (Omeprazole 20 Mg Capsule.Dr) 20 mg PO DAILY@0630 [facility] Last Admin: 06/17/22 07:51 Dose: 20 mg Documented By: ANGEL Pharmacy Consult (Consult Rx Perform Med Rec) 1 each MISCELLANE ONCE PRN PRN Reason: Consult order Phenytoin Sodium (Phenytoin Sodium Extended 100 Mg Capsule) 300 mg PO BID [facility] Last Admin: 06/16/22 20:36 Dose: 300 mg Documented By: EVERARDO Quetiapine Fumarate (Quetiapine Fumarate 25 Mg Tablet) 25 mg PO BID PRN PRN Reason: Agitation Last Admin: 06/08/22 01:30 Dose: 25 mg Documented By: DAVID Quetiapine Fumarate (Quetiapine Fumarate 25 Mg Tablet) 25 mg PO BID [facility] Last Admin: 06/17/22 09:04 Dose: 25 mg Documented By: ANGEL Sodium Chloride (0.9 % Sodium Chloride Flush 3 Ml Syringe) 3 ml IVFLUSH QSHIFT [facility] Last Admin: 06/17/22 09:05 Dose: Not Given Documented By: ANGEL Non-Admin Reason: No Access Tamsulosin HCl (Tamsulosin Hcl 0.4 Mg Capsule) 0.4 mg PO DAILY [facility] Last Admin: 06/17/22 09:02 Dose: 0.4 mg Documented By: ANGEL Torsemide (Torsemide 20 Mg Tablet) 20 mg PO DAILY [facility]; Protocol Last Admin: 06/17/22 09:03 Dose: 20 mg Documented By: ANGEL Triamcinolone Acetonide (Triamcinolone Acet 0.1 % Cream 15 Gm Tube) 1 appl TOPICAL DAILY [facility]; Protocol Last Admin: 06/17/22 09:12 Dose: 1 appl Documented By: ANGEL Valsartan (Valsartan 320 Mg Tablet) 320 mg PO DAILY [facility]; Protocol Last Admin: 06/17/22 09:03 Dose: 320 mg Documented By: ANGEL Labs CBC & Chem 7: 06/09/22 00:09 06/12/22 04:23 Assessment and Plan (1) Aggressive behavior: Status: Acute (2) Cognitive changes: Status: Acute Plan 82 year old male who was recently hospitalized for KENJI + diverticulitis from 05/23-05/25. He was discharged to SNF and arrived back to [facility] ED on 06/07 after reported aggressive behavior at the SNF. Per ED notes -- he was not accepted back to facility and hence was awaiting placement in the ED. 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 Hence, he will be admitted for further work up. Acute HFpEF--now compensated. continue oral Torsemide Urinary retention--resolved, henry removed continue flomax and uro eval if new issue, straight cath PRN right lower extremity cellulitis--cellulitis seems resolved and at this point dc Abx hyperkalemia resolved Dementia, unspecified aggressive behavior reported at the SNF -- but since ED arrival, has not required any meds. He remains calm continue with non-pharmacological modifications as best we can. Seen by Psych on 06/13 with the followin. Increase scheduled seroquel to 50mg po BID, monitor excessive sedation, EKG, maintain Qtc<500ms, maintain k>4, Mg >2. Can add Seroquel 50mg po q6h, prn agitation. Can use olanzapine 2.5-5mg IM q4h in event of severe agitation. 2. may consider adding antidepressant for depressed mood. will hold on for now as seroquel is titrated. 2. Psychiatry to continue to follow. CKD stage 4 SCr improved from last admission monitor while on diuretics History of seizures continue baseline meds DNR/DNI (confirmed with daughter, Nancy (HCP) over the phone. DVT pptx -- high risk, will use subcut. heparin HCP is daughter Nancy and son Eriberto seen by psych, deemed not to have capacity to make medical decisions seen by Physical therapy-recommended long-term care Need for inpatient: awaiting placement Quality Stroke Does the patient have a stroke diagnosis?: No VTE Prior VTE?: No VTE Risk Level:: Medical - moderate - high VTE Device Contraindication: Treatment Not Indicated VTE Drug Contraindication: N/A - Med Ordered
--- NOTE | 2022-06-17 10:21 | PC.NURSE ---
pt yelling out - easily comforted with reassuring statements and repositioning. educated pt on use of his call agudelo. pt continues to yell out instead
--- NOTE | 2022-06-17 11:28 | PC.NURSE ---
repeat call placed to pharmacy for Dilantin
[2022-06-17] MEDS: Phenytoin Sodium Extended 100 MG CAPSULE 300 MG PO ×2 (11:55→23:36)
--- NOTE | 2022-06-17 16:45 | PC.NURSE ---
repositioned pt to a recliner chair. pt cooperative and pleasant, requesting a pudding. skin PWD. pt in NAD
[2022-06-17 17:01] VITALS: BP 127/46; PULSE 53; RESP 20; TEMP 36.5; O2SAT 95
--- NOTE | 2022-06-17 19:00 | PC.NURSE ---
RN assumed care of patient at this time.
--- NOTE | 2022-06-17 19:19 | PC.NURSE ---
Patient ready to get in to bed at this time, RN and tech assisted patient into bed and repositioned patient for comfort. No further needs at this time.
[2022-06-17] MEDS: atenoloL 25 MG TABLET PO (23:35)
[2022-06-17] MEDS: Melatonin 3 MG TABLET 9 MG PO (23:35)
[2022-06-17] MEDS: Atorvastatin Calcium 20 MG TABLET PO (23:36)
[2022-06-18 00:11] VITALS: BP 107/50; PULSE 61; RESP 20; TEMP 36.6; O2SAT 94
[2022-06-18 03:53] VITALS: PULSE 54; RESP 22; O2SAT 97
[2022-06-18 06:05] VITALS: BP 97/58; PULSE 52; RESP 13; O2SAT 97
[2022-06-18] MEDS: Omeprazole 20 MG CAPSULE.DR PO (08:02)
--- NOTE | 2022-06-18 09:14 | P.PNIM_ITS ---
Subjective Subjective Date of Service: 06/18/22 Interval History: seen and examined this morning Follow-up for CHF, cellulitis, dementia Review of Systems no complaint Physical Exam Vital Signs: Vital Signs: Last Vital Signs Temp 97.8 F 06/18/22 00:11 Pulse 52 06/18/22 06:05 Resp 13 06/18/22 06:05 BP 97/58 L 06/18/22 06:05 Pulse Ox 97 06/18/22 06:05 O2 Del Method 06/18/22 06:05 BMI result Body Mass Index 34.9 Const: Other: Constitutional - Awake and Alert, No apparent distress, calm and cooperative Eyes - PERRLA, EOMI Cardiovascular - S1S2, RRR, No major LE edema Respiratory - mild scattered rales; no respiratory distress; sats mid 90s on RA Gastrointestinal - NT / ND; +BS; No rebound or guarding - No CVA tenderness Extremities - no calf tenderness bilaterally, no edema Musculoskeletal - Normal inspection, normal ROM Skin - Warm/Dry Neurological - Oriented to self, otherwise disoriented Psychological - Appropriate affect, calm and cooperative Objective Data Active Medications Acetaminophen (Acetaminophen 325 Mg Tablet) 650 mg PO Q6H PRN PRN Reason: Fever Atenolol (Atenolol 25 Mg Tablet) 25 mg PO BID [facility]; Protocol Last Admin: 06/17/22 23:35 Dose: 25 mg Documented By: PROSPER Atorvastatin Calcium (Atorvastatin Calcium 20 Mg Tablet) 20 mg PO BEDTIME [facility] Last Admin: 06/17/22 23:36 Dose: 20 mg Documented By: PROSPER Bisacodyl (Bisacodyl 10 Mg Supp.Rect) 10 mg [place] DAILY PRN PRN Reason: Constipation Heparin Sodium (Porcine) (Heparin Sodium,Porcine 5,000 Unit/Ml Vial) 5,000 unit SUBCUT Q12H [facility] Last Admin: 06/17/22 23:36 Dose: 5,000 unit Documented By: PROSPER Hydralazine HCl (Hydralazine Hcl 25 Mg Tablet) 25 mg PO BID [facility]; Protocol Last Admin: 06/17/22 23:35 Dose: 25 mg Documented By: PROSPER Hydrochlorothiazide (Hydrochlorothiazide 12.5 Mg Tablet) 12.5 mg PO DAILY [facility]; Protocol Last Admin: 06/17/22 09:03 Dose: 12.5 mg Documented By: ANGEL Magnesium Oxide (Magnesium Oxide 400 Mg Tablet) 200 mg PO DAILY [facility] Last Admin: 06/17/22 09:04 Dose: 200 mg Documented By: ANGEL Melatonin (Melatonin 3 Mg Tablet) 9 mg PO BEDTIME [facility] Last Admin: 06/17/22 23:35 Dose: 9 mg Documented By: PROSPER Omeprazole (Omeprazole 20 Mg Capsule.) 20 mg PO DAILY@0630 [facility] Last Admin: 06/18/22 08:02 Dose: 20 mg Documented By: KALEB Pharmacy Consult (Consult Rx Perform Med Rec) 1 each MISCELLANE ONCE PRN PRN Reason: Consult order Phenytoin Sodium (Phenytoin Sodium Extended 100 Mg Capsule) 300 mg PO BID [facility] Last Admin: 06/17/22 23:36 Dose: 300 mg Documented By: PROSPER Quetiapine Fumarate (Quetiapine Fumarate 25 Mg Tablet) 25 mg PO BID PRN PRN Reason: Agitation Last Admin: 06/08/22 01:30 Dose: 25 mg Documented By: DAVID Quetiapine Fumarate (Quetiapine Fumarate 25 Mg Tablet) 25 mg PO BID [facility] Last Admin: 06/17/22 23:35 Dose: 25 mg Documented By: PROSPER Sodium Chloride (0.9 % Sodium Chloride Flush 3 Ml Syringe) 3 ml IVFLUSH QSHIFT [facility] Last Admin: 06/18/22 00:30 Dose: Not Given Documented By: PROSPER Non-Admin Reason: Patient Asleep Tamsulosin HCl (Tamsulosin Hcl 0.4 Mg Capsule) 0.4 mg PO DAILY [facility] Last Admin: 06/17/22 09:02 Dose: 0.4 mg Documented By: ANGEL Torsemide (Torsemide 20 Mg Tablet) 20 mg PO DAILY [facility]; Protocol Last Admin: 06/17/22 09:03 Dose: 20 mg Documented By: ANGEL Triamcinolone Acetonide (Triamcinolone Acet 0.1 % Cream 15 Gm Tube) 1 appl TOPICAL DAILY [facility]; Protocol Last Admin: 06/17/22 09:12 Dose: 1 appl Documented By: ANGEL Valsartan (Valsartan 320 Mg Tablet) 320 mg PO DAILY [facility]; Protocol Last Admin: 06/17/22 09:03 Dose: 320 mg Documented By: ANGEL Labs CBC & Chem 7: 06/09/22 00:09 06/12/22 04:23 Assessment and Plan (1) Aggressive behavior: Status: Acute (2) Cognitive changes: Status: Acute Plan 82 year old male who was recently hospitalized for KENJI + diverticulitis from 05/23-05/25. He was discharged to SNF and arrived back to [facility] ED on 06/07 after r eported aggressive behavior at the SNF. Per ED notes -- he was not accepted back to facility and hence was awaiting placement in the ED. During the wool scourer of 06/09 had respiratory distress and further testing revealed a CXR with congestion and an elevated BNP. Hence, he will be admitted for further work up. Acute HFpEF--now compensated. continue oral Torsemide Urinary retention-Failed voiding trial, continue henry right lower extremity cellulitis--treated with doxy hyperkalemia resolved Dementia, unspecified aggressive behavior reported at the SNF -- but since ED arrival, has not required any meds. He remains calm continue with non-pharmacological modifications as best we can. Seen by Psych on 06/13 with the followin. Increase scheduled seroquel to 50mg po BID, monitor excessive sedation, EKG, maintain Qtc<500ms, maintain k>4, Mg >2. Can add Seroquel 50mg po q6h, prn agit ation. Can use olanzapine 2.5-5mg IM q4h in event of severe agitation. 2. may consider adding antidepressant for depressed mood. will hold on for now as seroquel is titrated. 2. Psychiatry to continue to follow. CKD stage 4 SCr improved from last admission monitor while on diuretics History of seizures continue baseline meds DNR/DNI (confirmed with daughterNancy (HCP) over the phone. DVT pptx -- high risk, will use subcut. heparin HCP is daughter Nancy and son Eriberto seen by psych, deemed not to have capacity to make medical decisions seen by Physical therapy-recommended long-term care Need for inpatient: awaiting placement Quality Stroke Does the patient have a stroke diagnosis?: No VTE Prior VTE?: No VTE Risk Level:: Medical - moderate - high VTE Device Contraindication: Treatment Not Indicated VTE Drug Contraindication: N/A - Med Ordered
[2022-06-18] MEDS: Phenytoin Sodium Extended 100 MG CAPSULE 300 MG PO ×2 (11:12→22:11)
[2022-06-18] MEDS: hydroCHLOROthiazide 12.5 MG TABLET PO (11:12)
[2022-06-18] MEDS: hydrALAZINE HCl 25 MG TABLET PO ×2 (11:12→22:11)
[2022-06-18] MEDS: Torsemide 20 MG TABLET PO (11:13)
[2022-06-18] MEDS: Valsartan 320 MG TABLET PO (11:14)
[2022-06-18] MEDS: QUEtiapine Fumarate 25 MG TABLET PO ×2 (11:14→22:11)
[2022-06-18] MEDS: Tamsulosin HCL 0.4 MG CAPSULE PO (11:14)
[2022-06-18] MEDS: Triamcinolone Acet 0.1 % Cream 15 GM TUBE 1 APPL TOPICAL (11:15)
[2022-06-18] MEDS: Magnesium Oxide 400 MG TABLET 200 MG PO (11:19)
--- NOTE | 2022-06-18 11:40 | PC.NURSE ---
pt's is at bedside. pt is sitting up in chair.
--- NOTE | 2022-06-18 12:49 | PC.NURSE ---
patient alert to self . and son at bedside . encouraging fluids . given pudding , soda and water . BP. at 11:14 98/49 , and 1255 101/39 . patient calm and cooperative at this time . patient and family aware of plan of care
--- NOTE | 2022-06-18 13:35 | PC.NURSE ---
pt's shaved pt with an electric shaver. pt william well.
[2022-06-18] MEDS: Melatonin 3 MG TABLET 9 MG PO (22:10)
[2022-06-18] MEDS: atenoloL 25 MG TABLET PO (22:11)
[2022-06-18] MEDS: Atorvastatin Calcium 20 MG TABLET PO (22:11)
[2022-06-18] MEDS: Heparin Sodium,Porcine 5,000 UNIT/ML VIAL 5000 UNIT SUBCUT (22:11)
[2022-06-19 02:55] VITALS: BP 105/48; PULSE 53; RESP 20; O2SAT 96
[2022-06-19] MEDS: Heparin Sodium,Porcine 5,000 UNIT/ML VIAL 5000 UNIT SUBCUT ×2 (08:16→22:08)
[2022-06-19] MEDS: QUEtiapine Fumarate 25 MG TABLET PO ×2 (08:17→22:08)
[2022-06-19] MEDS: hydroCHLOROthiazide 12.5 MG TABLET PO (08:17)
[2022-06-19] MEDS: hydrALAZINE HCl 25 MG TABLET PO ×2 (08:18→22:08)
[2022-06-19] MEDS: Magnesium Oxide 400 MG TABLET 200 MG PO (08:18)
[2022-06-19] MEDS: Tamsulosin HCL 0.4 MG CAPSULE PO (08:18)
[2022-06-19] MEDS: Torsemide 20 MG TABLET PO (08:18)
[2022-06-19] MEDS: Valsartan 320 MG TABLET PO (08:18)
[2022-06-19] MEDS: Omeprazole 20 MG CAPSULE.DR PO (08:19)
[2022-06-19 08:27] VITALS: BP 113/41; PULSE 53; RESP 16; O2SAT 95
[2022-06-19] MEDS: Phenytoin Sodium Extended 100 MG CAPSULE 300 MG PO ×2 (08:33→22:07)
--- NOTE | 2022-06-19 09:57 | P.PNIM_ITS ---
Subjective Subjective Date of Service: 06/19/22 Interval History: seen and examined this morning Follow-up for CHF, cellulitis, dementia..no new issues, he's calm cooperative Review of Systems no complaint Physical Exam Vital Signs: Vital Signs: Last Vital Signs Temp 97.8 F 06/18/22 00:11 Pulse 53 06/19/22 08:27 Resp 16 06/19/22 08:27 BP 113/41 L 06/19/22 08:27 Pulse Ox 95 06/19/22 08:27 O2 Del Method 06/19/22 08:27 BMI result Body Mass Index 34.9 Const: Other: Constitutional - Awake and Alert, No apparent distress, calm and cooperative Eyes - PERRLA, EOMI Cardiovascular - S1S2, RRR, No major LE edema Respiratory - mild scattered rales; no respiratory distress; sats mid 90s on RA Gastrointestinal - NT / ND; +BS; No rebound or guarding - No CVA tenderness Extremities - no calf tenderness bilaterally, no edema Musculoskeletal - Normal inspection, normal ROM Skin - Warm/Dry Neurological - Oriented to self, otherwise disoriented Psychological - Appropriate affect, calm and cooperative Objective Data Active Medications Acetaminophen (Acetaminophen 325 Mg Tablet) 650 mg PO Q6H PRN PRN Reason: Fever Atenolol (Atenolol 25 Mg Tablet) 25 mg PO BID [facility]; Protocol Last Admin: 06/19/22 08:19 Dose: Not Given Documented By: DANE Non-Admin Reason: Decreased Heart Rate Atorvastatin Calcium (Atorvastatin Calcium 20 Mg Tablet) 20 mg PO BEDTIME [facility] Last Admin: 06/18/22 22:11 Dose: 20 mg Documented By: MARION Bisacodyl (Bisacodyl 10 Mg Supp.Rect) 10 mg [place] DAILY PRN PRN Reason: Constipation Heparin Sodium (Porcine) (Heparin Sodium,Porcine 5,000 Unit/Ml Vial) 5,000 unit SUBCUT Q12H [facility] Last Admin: 06/19/22 08:16 Dose: 5,000 unit Documented By: DANE Hydralazine HCl (Hydralazine Hcl 25 Mg Tablet) 25 mg PO BID [facility]; Protocol Last Admin: 06/19/22 08:18 Dose: 25 mg Documented By: DANE Hydrochlorothiazide (Hydrochlorothiazide 12.5 Mg Tablet) 12.5 mg PO DAILY [facility]; Protocol Last Admin: 06/19/22 08:17 Dose: 12.5 mg Documented By: DANE Magnesium Oxide (Magnesium Oxide 400 Mg Tablet) 200 mg PO DAILY [facility] Last Admin: 06/19/22 08:18 Dose: 200 mg Documented By: DANE Melatonin (Melatonin 3 Mg Tablet) 9 mg PO BEDTIME [facility] Last Admin: 06/18/22 22:10 Dose: 9 mg Documented By: MARION Omeprazole (Omeprazole 20 Mg Capsule.) 20 mg PO DAILY@0630 [facility] Last Admin: 06/19/22 08:19 Dose: 20 mg Documented By: DANE Pharmacy Consult (Consult Rx Perform Med Rec) 1 each MISCELLANE ONCE PRN PRN Reason: Consult order Phenytoin Sodium (Phenytoin Sodium Extended 100 Mg Capsule) 300 mg PO BID [facility] Last Admin: 06/19/22 08:33 Dose: 300 mg Documented By: DANE Quetiapine Fumarate (Quetiapine Fumarate 25 Mg Tablet) 25 mg PO BID PRN PRN Reason: Agitation Last Admin: 06/08/22 01:30 Dose: 25 mg Documented By: DAVID Quetiapine Fumarate (Quetiapine Fumarate 25 Mg Tablet) 25 mg PO BID [facility] Last Admin: 06/19/22 08:17 Dose: 25 mg Documented By: DANE Sodium Chloride (0.9 % Sodium Chloride Flush 3 Ml Syringe) 3 ml IVFLUSH QSHIFT [facility] Last Admin: 06/19/22 08:29 Dose: Not Given Documented By: DANE Non-Admin Reason: No Access Tamsulosin HCl (Tamsulosin Hcl 0.4 Mg Capsule) 0.4 mg PO DAILY [facility] Last Admin: 06/19/22 08:18 Dose: 0.4 mg Documented By: DANE Torsemide (Torsemide 20 Mg Tablet) 20 mg PO DAILY [facility]; Protocol Last Admin: 06/19/22 08:18 Dose: 20 mg Documented By: DANE Triamcinolone Acetonide (Triamcinolone Acet 0.1 % Cream 15 Gm Tube) 1 appl TOPICAL DAILY [facility]; Protocol Last Admin: 06/19/22 08:31 Dose: Not Given Documented By: DANE Non-Admin Reason: Patient Refused Valsartan (Valsartan 320 Mg Tablet) 320 mg PO DAILY [facility]; Protocol Last Admin: 06/19/22 08:18 Dose: 320 mg Documented By: DANE Labs CBC & Chem 7: 06/09/22 00:09 06/12/22 04:23 Assessment and Plan (1) Aggressive behavior: Status: Acute (2) Cognitive changes: Status: Acute Plan 82 year old male who was recently hospitalized for KENJI + diverticulitis from 05/23-05/25. He was discharged to SNF and arrived back [place] [facility] [place]07 after reported aggressive behavior at the SNF. Per ED notes -- he was not accepted back to facility and hence was awaiting placement in the ED. During the speech therapist early intervention of 06/09 had respiratory distress and further testing revealed a CXR with congestion and an elevated BNP. Hence, he will be admitted for further work up. Acute HFpEF--now compensated. continue oral Torsemide Urinary retention-Failed voiding trial, continue henry right lower extremity cellulitis--treated with doxy hyperkalemia resolved Dementia, unspecified aggressive behavior reported at the SNF -- but since ED arrival, has not required any meds. He remains calm continue with non-pharmacological modifications as best we can. Seen by Psych on 06/13 with the followin. Increase scheduled seroquel to 50mg po BID, monitor excessive sedation, EKG, maintain Qtc<500ms, maintain k>4, Mg >2. Can add Seroquel 50mg po q6h, prn agitation. Can use olanzapine 2.5-5mg IM q4h in event of severe agitation. 2. may consider adding antidepressant for depressed mood. will hold on for now as seroquel is titrated. 2. Psychiatry to continue to follow. CKD stage 4 SCr improved from last admission monitor while on diuretics History of seizures continue baseline meds DNR/DNI (confirmed with daughter, Nancy (HCP) over the phone. DVT pptx -- high risk, will use subcut. heparin HCP is daughter Nancy and son Eriberto seen by psych, deemed not to have capacity to make medical decisions seen by Physical therapy-recommended long-term care Need for inpatient: awaiting placement Quality Stroke Does the patient have a stroke diagnosis?: No VTE Prior VTE?: No VTE Risk Level:: Medical - moderate - high VTE Device Contraindication: Treatment Not Indicated VTE Drug Contraindication: N/A - Med Ordered
--- NOTE | 2022-06-19 13:29 | PC.NURSE ---
Pt is alert/confused needing reminders frequently. Repeating I want to go home constantly despite redirection. at bedside and pt appears more calm/asleep. Assisted to bedside commode for bowel movement.
--- NOTE | 2022-06-19 13:59 | MHC.CM.PN ---
Addendum entered by Caitlin Tolentino 06/19/22 14:12: Referral has been broadcasted to all facilities within the [facility] that have locked dementia units. 154 referraals have been made. Original Note: Patient remains under observation from hospitalist service. Currently looking for LTC placement. Patient's son, Eriberto, feels patient will qualify for [facility] and not need a spend down. [facility] is still reviewing. [facility] has asked to reach out to family for private pay info. Eriberto's name and telephone number provided. T/W spoke with Yaritza of [facility]. Referral send to [facility] and [facility] at her recommendation. Waiting to hear from facilities. Continue to monitor for d/c needs.
[2022-06-19 16:00] VITALS: BP 103/46; PULSE 57; RESP 16; TEMP 36.8; O2SAT 98
--- NOTE | 2022-06-19 19:00 | PC.NURSE ---
RN assumed care of patient at this time.
[2022-06-19] MEDS: atenoloL 25 MG TABLET PO (22:07)
[2022-06-19] MEDS: Melatonin 3 MG TABLET 9 MG PO (22:07)
[2022-06-19] MEDS: Atorvastatin Calcium 20 MG TABLET PO (22:08)
--- NOTE | 2022-06-19 22:17 | PC.NURSE ---
Patient became aggressive while taking nighttime meds crushed in pudding. Refused to finish medication. Unsure how much was administered due to most medication being in pudding.
[2022-06-19 22:19] VITALS: BP 106/71; PULSE 65; RESP 17; O2SAT 94
--- NOTE | 2022-06-19 22:24 | PC.NURSE ---
Report given to Corinne KAMARA in overflow.
--- NOTE | 2022-06-19 22:32 | PC.NURSE ---
pt brought over from ed bed 13, patient awake/alert to baseline, angry he was moved, henry cath intact/draining, compliance monitor applied- pt sinus kit 60s on monitor- as this nurse applied monitor leads pt stated why you doing that, I am just going to rip them off anyway this nurse explained the need for the cardiac monitoring. pt requested the light be shut off and is attempting to rest. pts cell phone was plugged in per his request, and camera placed for patient safety, bed in lowest position, bed alarm on as well. will continue to monitor
[2022-06-20] VITALS (8 sets, daily range): BP systolic 84–105; BP diastolic 39–54; PULSE 51–61; RESP 14–23; TEMP 36.2–36.8; O2SAT 92–99
[2022-06-20] MEDS: traZODone HCL 50 MG TABLET PO (00:19)
--- NOTE | 2022-06-20 06:25 | PC.NURSE ---
I assumed nursing care of Gentry at 2300. Gentry has been challenging throughout the night. He has been complaining of having to go back and forth between the main ED and the overflow unit and is asking why he can not go upstairs to a bed. i've informed him that although he is admitted as an inpatient they would like him to remain in the ED and the ED overflow area while a bed search continues for him. he expresses a lot of frustration over this - he expresses it continuously. Gentry is alert, has hardly slept tonight and frequently yells out about wanting to go home and wanting to get out of bed and how he can not believe that he has o be here. He has required very frequent redirection and encouraging to remain quiet for the other patients. We have boosted him and shifted his position in bed many times and attempted to make him comfortable and condusive to sleeping. he does not complain of pain, he has no shortness of breath, he takes PO fluids (nectar thick) without difficulty. No nausea or vomiting. He makes eye contact with staff and mostly talks to staff in a demanding tone. It is difficult to get him to lower his voice or to communicate in a more neutral manner. Bedside monitor has revealed SBRady/SR rate 50's-60's throughout the night. We libra continue to monitor Enrique.
[2022-06-20] MEDS: Omeprazole 20 MG CAPSULE.DR PO (06:45)
--- NOTE | 2022-06-20 09:47 | PC.NURSE ---
pt seen brittany (hosp, inpatient services rn) pt aware of plan of care.
--- NOTE | 2022-06-20 10:03 | HO.PM.IMPN ---
Subjective Subjective Date of Service: 06/20/22 Interval History: seen and examined this morning Follow-up for CHF, cellulitis, dementia..no new issues, he's calm cooperative Review of Systems no complaint Physical Exam Vital Signs: Vital Signs: Last Vital Signs Temp 97.5 F 06/20/22 09:45 Pulse 53 06/20/22 09:45 Resp 23 H 06/20/22 09:45 BP 97/54 L 06/20/22 09:45 Pulse Ox 99 06/20/22 09:45 O2 Del Method 06/20/22 09:45 BMI result Body Mass Index 34.9 Appearing in no acute distress lung sounds are clear to auscultation heart regular rate rhythm, clear S1, S2 positive bowel sounds, abdomen is soft, nontender neuro patient is alert Objective Data Active Medications Acetaminophen (Acetaminophen 325 Mg Tablet) 650 mg PO Q6H PRN PRN Reason: Fever Atenolol (Atenolol 25 Mg Tablet) 25 mg PO BID [facility]; Protocol Last Admin: 06/19/22 22:07 Dose: 25 mg Documented By: PROSPER Atorvastatin Calcium (Atorvastatin Calcium 20 Mg Tablet) 20 mg PO BEDTIME [facility] Last Admin: 06/19/22 22:08 Dose: 20 mg Documented By: PROSPER Bisacodyl (Bisacodyl 10 Mg Supp.Rect) 10 mg [place] DAILY PRN PRN Reason: Constipation Heparin Sodium (Porcine) (Heparin Sodium,Porcine 5,000 Unit/Ml Vial) 5,000 unit SUBCUT Q12H [facility] Last Admin: 06/19/22 22:08 Dose: 5,000 unit Documented By: PROSPER Hydralazine HCl (Hydralazine Hcl 25 Mg Tablet) 25 mg PO BID [facility]; Protocol Last Admin: 06/19/22 22:08 Dose: 25 mg Documented By: PROSPER Hydrochlorothiazide (Hydrochlorothiazide 12.5 Mg Tablet) 12.5 mg PO DAILY [facility]; Protocol Last Admin: 06/19/22 08:17 Dose: 12.5 mg Documented By: DANE Magnesium Oxide (Magnesium Oxide 400 Mg Tablet) 200 mg PO DAILY [facility] Last Admin: 06/19/22 08:18 Dose: 200 mg Documented By: DANE Melatonin (Melatonin 3 Mg Tablet) 9 mg PO BEDTIME [facility] Last Admin: 06/19/22 22:07 Dose: 9 mg Documented By: PROSPER Omeprazole (Omeprazole 20 Mg Capsule.) 20 mg PO DAILY@0630 [facility] Last Admin: 06/20/22 06:45 Dose: 20 mg Documented By: EDMUND Pharmacy Consult (Consult Rx Perform Med Rec) 1 each MISCELLANE ONCE PRN PRN Reason: Consult order Phenytoin Sodium (Phenytoin Sodium Extended 100 Mg Capsule) 300 mg PO BID [facility] Last Admin: 06/19/22 22:07 Dose: 300 mg Documented By: PROSPER Quetiapine Fumarate (Quetiapine Fumarate 25 Mg Tablet) 25 mg PO BID PRN PRN Reason: Agitation Last Admin: 06/08/22 01:30 Dose: 25 mg Documented By: BERNABECOLEJuan Ramon Quetiapine Fumarate (Quetiapine Fumarate 25 Mg Tablet) 25 mg PO BID [facility] Last Admin: 06/19/22 22:08 Dose: 25 mg Documented By: PROSPER Sodium Chloride (0.9 % Sodium Chloride Flush 3 Ml Syringe) 3 ml IVFLUSH QSHIFT [facility] Last Admin: 06/20/22 00:47 Dose: Not Given Documented By: EDMUND Non-Admin Reason: Previously Administered Tamsulosin HCl (Tamsulosin Hcl 0.4 Mg Capsule) 0.4 mg PO DAILY [facility] Last Admin: 06/19/22 08:18 Dose: 0.4 mg Documented By: DANE Torsemide (Torsemide 20 Mg Tablet) 20 mg PO DAILY [facility]; Protocol Last Admin: 06/19/22 08:18 Dose: 20 mg Documented By: DANE Triamcinolone Acetonide (Triamcinolone Acet 0.1 % Cream 15 Gm Tube) 1 appl TOPICAL DAILY [facility]; Protocol Last Admin: 06/19/22 08:31 Dose: Not Given Documented By: DANE Non-Admin Reason: Patient Refused Valsartan (Valsartan 320 Mg Tablet) 320 mg PO DAILY [facility]; Protocol Last Admin: 06/19/22 08:18 Dose: 320 mg Documented By: DANE Labs CBC & Chem 7: 06/09/22 00:09 06/12/22 04:23 Assessment and Plan (1) Aggressive behavior: Status: Acute (2) Cognitive changes: Status: Acute Plan 82 year old male who was recently hospitalized for KENJI + diverticulitis from 05/23-05/25. He was discharged to SNF and arrived back to [facility] on 06/07 after reported aggressive behavior at the SNF. Per ED notes -- he was not accepted back to facility and hence was awaiting placement in the ED. During the specimen accessioner of 06/09 had respiratory distress and further testing revealed a CXR with congestion and an elevated BNP. Hence, he will be admitted for further work up. Acute HFpEF--now compensated. continue oral Torsemide Urinary retention Failed voiding trial, continue henry right lower extremity cellulitis treated with doxy hyperkalemia resolved Dementia, unspecified aggressive behavior reported at the SNF -- but since ED arrival, has not required any meds. He remains calm continue with non-pharmacological modifications as best we can. Seen by Psych on 06/13 with the following: continue Seroquel 50 mg b.i.d., may add Seroquel 50 mg q.6 hours p.r.n. for agitation and olanzapine 2.5-5 mg IM q.4 hours for severe agitation psychiatry following and assisting with medication adjustment/management CKD stage 4 SCr improved from last admission monitor while on diuretics History of seizures No noted seizures continue baseline meds DNR/DNI (confirmed with daughterNancy (HCP) over the phone. DVT pptx -- high risk, will use subcut. heparin attending Dr. Oscar seen by psych, deemed not to have capacity to make medical decisions. Need for inpatient: awaiting safe placement Quality Stroke Does the patient have a stroke diagnosis?: No VTE Prior VTE?: No VTE Risk Level:: Medical - moderate - high VTE Device Contraindication: Treatment Not Indicated VTE Drug Contraindication: N/A - Med Ordered
[2022-06-20] MEDS: QUEtiapine Fumarate 25 MG TABLET PO ×2 (10:28→20:44)
[2022-06-20] MEDS: Phenytoin Sodium Extended 100 MG CAPSULE 300 MG PO ×2 (10:29→20:44)
[2022-06-20] MEDS: hydroCHLOROthiazide 12.5 MG TABLET PO (10:29)
[2022-06-20] MEDS: atenoloL 25 MG TABLET PO ×2 (10:31→20:44)
[2022-06-20] MEDS: Magnesium Oxide 400 MG TABLET 200 MG PO (10:32)
[2022-06-20] MEDS: Heparin Sodium,Porcine 5,000 UNIT/ML VIAL 5000 UNIT SUBCUT ×2 (10:33→20:44)
[2022-06-20] MEDS: Triamcinolone Acet 0.1 % Cream 15 GM TUBE 1 APPL TOPICAL (10:33)
[2022-06-20] MEDS: Tamsulosin HCL 0.4 MG CAPSULE PO (10:33)
[2022-06-20] MEDS: Torsemide 20 MG TABLET PO (10:34)
--- NOTE | 2022-06-20 11:03 | PC.NURSE ---
a/o to self . patient calm and cooperative . perrla . lungs clear . skin pink warm and dry .right leg below knee has severl scapped over dry areas / reddness . cream applied . patient tolerated well .left leg has dryness noted below knee to ankle cream also applied . two person transfer with walker to [facility] for medium bowel movement . patient has catheter patent with yellow urine being produced . patient aware of plan of care .
--- NOTE | 2022-06-20 12:34 | MHC.CM.PN ---
Per [facility] [employer]/Cyndee, Patient's Son/POA has an appointment with her today at 2 PM and Son has bank statements. CM will follow.
[2022-06-20 12:44] LABS: Hematocrit 33.8 % (42.0-52.0); Hemoglobin 10.6 g/dl (14.0-18.0); Mean Corpuscular HGB Conc 31.4 g/dl (31.0-36.0); Mean Corpuscular Hemoglobin 31.6 pg (27.0-33.0); Mean Corpuscular Volume 100.9 fL (80.0-98.0); Mean Platelet Volume 10.2 fL (9.4-12.4); Platelet Count 191 X10*3/uL (160-400); Red Blood Count 3.35 X10*6/uL (4.60-5.80); Red Cell Distribution Width 16.9 % (11.0-16.0); White Blood Count 8.8 X10*3/uL (4.8-10.8)
[2022-06-20 13:15] LABS: Anion Gap 18 (12-20); Blood Urea Nitrogen 65 mg/dL (9-16); Calcium 6.7 mg/dL (8.4-10.2); Carbon Dioxide 23 mmol/L (22-29); Chloride 104 mmol/L (96-108); Creatinine Clr Calc Pharmacy 19.7; Estimated Glomerular Filt Rate 20; Glucose Random 150 mg/dL (60-115); Potassium 4.4 mmol/L (3.3-5.1); Sodium 141 mmol/L (135-145)
--- NOTE | 2022-06-20 14:05 | PC.NURSE ---
patients blood pressure 86/42 MLP Nany contacted . patient encouraged to drink more fluids . patient aware of plan of care .
--- NOTE | 2022-06-20 15:07 | PC.NURSE ---
Iv placed in right hand patient tolerated . r/t bp and labs . MLP Lalito notified and order obtained for fluids . patient aware of plan of care .
[2022-06-20] MEDS: 0.9 % Sodium Chloride 1,000 ML 80 ML IVCONT (15:51)
[2022-06-20] MEDS: 0.9 % Sodium Chloride Flush 3 ML SYRINGE IVFLUSH (15:52)
--- NOTE | 2022-06-20 16:02 | PC.NURSE ---
patient calm, at bedside,denies pain,not in any distress,lower leg edema present,lungs diminished
--- NOTE | 2022-06-20 16:31 | PC.NURSE ---
BP low 87/40,patient asymptomatic,IV fluids started as ordered,will monitor
--- NOTE | 2022-06-20 17:51 | PC.NURSE ---
ASSISTED PT FROM CHAIR TO BEDSIDE COMMODE. PT IS A 2 ASSIST. PT HAD A LARGE BM X2. RN AWARE.
--- NOTE | 2022-06-20 19:37 | PC.NURSE ---
report received from yeyo KAMARA. pt assisted to and from [facility]. placed into bed and repositioned comfortably. on security monitor, iv fluids running. call agudelo within reach. will continue to monitor
[2022-06-20] MEDS: Atorvastatin Calcium 20 MG TABLET PO (20:44)
[2022-06-20] MEDS: Melatonin 3 MG TABLET 9 MG PO (20:44)
[2022-06-21] VITALS: BP 91/48; PULSE 54; RESP 18; TEMP 36.2; O2SAT 96
--- NOTE | 2022-06-21 | ECG_ITS ---
Test Reason : qt check Blood Pressure : / mmHG Vent. 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
[2022-06-21 04:00] VITALS: BP 103/61; PULSE 51; RESP 18; TEMP 36.2; O2SAT 97
[2022-06-21] MEDS: Omeprazole 20 MG CAPSULE.DR PO (06:31)
[2022-06-21 07:32] LABS: MANUAL DIFF FLAG NO
[2022-06-21 07:52] LABS: Basophils Percent Auto 0.3 % (0-2); Eosinophils Absolute Auto 0.3 X10*3/uL (0.0-0.4); Eosinophils Percent Auto 3.4 % (0-4); Hematocrit 32.4 % (42.0-52.0); Hemoglobin 10.1 g/dl (14.0-18.0); Imm Gran Abs Auto 0.04 X10*3/uL (0.00-0.03); Imm Gran Pct Auto 0.5 % (0.0-0.4); Lymphocytes Absolute Auto 1.6 X10*3/uL (1.2-4.9); Lymphocytes Percent Auto 20.4 % (20-40); Mean Corpuscular HGB Conc 31.2 g/dl (31.0-36.0); Mean Corpuscular Hemoglobin 31.4 pg (27.0-33.0); Mean Corpuscular Volume 100.6 fL (80.0-98.0); Mean Platelet Volume 10.2 fL (9.4-12.4); Monocytes Absolute Auto 0.9 X10*3/uL (0.1-1.2); Neutrophils Percent Auto 64.4 % (45-73); Platelet Count 183 X10*3/uL (160-400); Red Blood Count 3.22 X10*6/uL (4.60-5.80); Red Cell Distribution Width 16.7 % (11.0-16.0); White Blood Count 7.8 X10*3/uL (4.8-10.8)
[2022-06-21 07:58] LABS: Anion Gap 18 (12-20); Blood Urea Nitrogen 67 mg/dL (9-16); Calcium 6.4 mg/dL (8.4-10.2); Carbon Dioxide 22 mmol/L (22-29); Chloride 108 mmol/L (96-108); Creatinine Clr Calc Pharmacy 20.7; Estimated Glomerular Filt Rate 22; Glucose Random 90 mg/dL (60-115); Potassium 4.7 mmol/L (3.3-5.1); Sodium 143 mmol/L (135-145)
[2022-06-21] MEDS: Heparin Sodium,Porcine 5,000 UNIT/ML VIAL 5000 UNIT SUBCUT ×2 (08:53→22:29)
[2022-06-21] MEDS: Magnesium Oxide 400 MG TABLET 200 MG PO (08:53)
[2022-06-21] MEDS: QUEtiapine Fumarate 25 MG TABLET PO ×3 (08:53→22:29)
[2022-06-21] MEDS: Tamsulosin HCL 0.4 MG CAPSULE PO (08:53)
[2022-06-21] MEDS: Phenytoin Sodium Extended 100 MG CAPSULE 300 MG PO ×2 (08:53→22:29)
[2022-06-21] MEDS: 0.9 % Sodium Chloride Flush 3 ML SYRINGE IVFLUSH ×2 (08:54→23:55)
[2022-06-21 09:29] VITALS: BP 117/54; PULSE 55; RESP 20; O2SAT 96
[2022-06-21 10:16] LABS: Magnesium 1.6 mg/dL (1.6-2.6)
[2022-06-21] MEDS: 0.9 % Sodium Chloride 1,000 ML 50 ML IVCONT (11:32)
--- NOTE | 2022-06-21 12:24 | PC.NURSE ---
Pt Awake and sleeping throughout this morning, no complaints of pain, VS as charted, BP slightly low, HTN medications held in the AM. Pt is an assist x 2, OOB to chair, family at bedside. Call agudelo within reach, will continue to monitor.
--- NOTE | 2022-06-21 12:25 | MHC.CM.PN ---
Per C//LUDIN, Patient's Son has provided all requested information to complete the [facility] [employer] application, all of which is being sent/faxed to [employer] today. CM has left a detailed message for Patient's Daughter/Nancy, requesting a date & time that she and her family would be available for a family meeting. JORGE ALBERTO awaits a return call from Nancy and will continue to follow.
--- NOTE | 2022-06-21 15:59 | HO.PM.IMPN ---
Subjective Subjective Date of Service: 06/21/22 Interval History: denies any complaints no behavioral issues Review of Systems Review of Systems: Yes all other systems are reviewed and are negative Physical Exam Vital Signs: Vital Signs: Last Vital Signs Temp 97.1 F 06/21/22 04:00 Pulse 55 06/21/22 09:29 Resp 20 06/21/22 09:29 BP 117/54 L 06/21/22 09:29 Pulse Ox 96 06/21/22 09:29 O2 Del Method 06/21/22 09:29 BMI result Body Mass Index 34.9 Gen: in no acute distress HEENT: sclera anicteric, moist mucus membranes Neck: supple Lungs: clear to auscultation bilaterally Heart: regular rate and rhythm, no murmurs Abd: soft, non-tender, non-distended Ext: no edema Skin: warm/well-perfused Neuro: alert and oriented to self only Psych: impaired insight Objective Data Active Medications Acetaminophen (Acetaminophen 325 Mg Tablet) 650 mg PO Q6H PRN PRN Reason: Fever Atenolol (Atenolol 25 Mg Tablet) 25 mg PO BID [facility]; Protocol Last Admin: 06/21/22 09:30 Dose: Not Given Documented By: MOLINA Non-Admin Reason: Decreased Heart Rate Atorvastatin Calcium (Atorvastatin Calcium 20 Mg Tablet) 20 mg PO BEDTIME [facility] Last Admin: 06/20/22 20:44 Dose: 20 mg Documented By: CALIXTO Bisacodyl (Bisacodyl 10 Mg Supp.Rect) 10 mg [place] DAILY PRN PRN Reason: Constipation Heparin Sodium (Porcine) (Heparin Sodium,Porcine 5,000 Unit/Ml Vial) 5,000 unit SUBCUT Q12H [facility] Last Admin: 06/21/22 08:53 Dose: 5,000 unit Documented By: MOLINA Hydralazine HCl (Hydralazine Hcl 25 Mg Tablet) 25 mg PO BID [facility]; Protocol Last Admin: 06/19/22 22:08 Dose: 25 mg Documented By: PROSPER Hydrochlorothiazide (Hydrochlorothiazide 12.5 Mg Tablet) 12.5 mg PO DAILY [facility]; Protocol Last Admin: 06/21/22 09:30 Dose: Not Given Documented By: MOLINA Non-Admin Reason: Decreased Heart Rate Sodium Chloride (Ns) 1,000 mls @ 50 mls/hr IVCONT .Q20H [facility] Stop: 06/22/22 05:44 Last Admin: 06/21/22 11:32 Dose: 50 mls/hr Documented By: MOLINA Magnesium Oxide (Magnesium Oxide 400 Mg Tablet) 200 mg PO DAILY [facility] Last Admin: 06/21/22 08:53 Dose: 200 mg Documented By: MOLINA Melatonin (Melatonin 3 Mg Tablet) 9 mg PO BEDTIME [facility] Last Admin: 06/20/22 20:44 Dose: 9 mg Documented By: CALIXTO Omeprazole (Omeprazole 20 Mg Capsule.) 20 mg PO DAILY@0630 [facility] Last Admin: 06/21/22 06:31 Dose: 20 mg Documented By: CALIXTO Pharmacy Consult (Consult Rx Perform Med Rec) 1 each MISCELLANE ONCE PRN PRN Reason: Consult order Phenytoin Sodium (Phenytoin Sodium Extended 100 Mg Capsule) 300 mg PO BID [facility] Last Admin: 06/21/22 08:53 Dose: 300 mg Documented By: MOLINA Quetiapine Fumarate (Quetiapine Fumarate 25 Mg Tablet) 25 mg PO BID PRN PRN Reason: Agitation Last Admin: 06/21/22 15:23 Dose: 25 mg Documented By: MOLINA Quetiapine Fumarate (Quetiapine Fumarate 25 Mg Tablet) 25 mg PO BID [facility] Last Admin: 06/21/22 08:53 Dose: 25 mg Documented By: MOLINA Sodium Chloride (0.9 % Sodium Chloride Flush 3 Ml Syringe) 3 ml IVFLUSH QSHIFT [facility] Last Admin: 06/21/22 08:54 Dose: 3 ml Documented By: MOLINA Tamsulosin HCl (Tamsulosin Hcl 0.4 Mg Capsule) 0.4 mg PO DAILY [facility] Last Admin: 06/21/22 08:53 Dose: 0.4 mg Documented By: MOLINA Torsemide (Torsemide 20 Mg Tablet) 20 mg PO DAILY [facility]; Protocol Last Admin: 06/20/22 10:34 Dose: 20 mg Documented By: KALEB Triamcinolone Acetonide (Triamcinolone Acet 0.1 % Cream 15 Gm Tube) 1 appl TOPICAL DAILY [facility]; Protocol Last Admin: 06/21/22 09:22 Dose: Not Given Documented By: MOLINA Non-Admin Reason: Med Not Available Valsartan (Valsartan 320 Mg Tablet) 320 mg PO DAILY [facility]; Protocol Last Admin: 06/19/22 08:18 Dose: 320 mg Documented By: DANE Labs CBC & Chem 7: 06/21/22 07:21 06/21/22 07:21 Labs: Laboratory Results - last 24 hr 06/21/22 06/21/22 07:21 07:21 MCV 100.6 H MCH 31.4 MCHC 31.2 RDW 16.7 H Plt Count 183 MPV 10.2 Immature Gran % (Auto) 0.5 H Neut % (Auto) 64.4 Lymph % (Auto) 20.4 [place] % (Auto) 11.0 Eos % (Auto) 3.4 Baso % (Auto) 0.3 Lymph # (Auto) 1.6 [place] # (Auto) 0.9 Eos # (Auto) 0.3 Baso # (Auto) 0.0 Abs Immat Gran (auto) 0.04 H Absolute Neuts (auto) 5.0 Absolute Nucleated RBC 0.000 Nucleated RBC % (auto) 0.0 Anion Gap 18 Estim Creat Clear Calc 20.7 Estimated GFR 22 Random Glucose 90 D Calcium 6.4 L Magnesium 1.6 Assessment and Plan (1) Aggressive behavior: Status: Acute (2) Cognitive changes: Status: Acute Plan hospital d#12 82yo M with dementia recently hospitalized for KENJI + diverticulitis 05/23-05/25/22, discharged to SNF and returned to ED 06/07/22 due to aggressive behavior at SNF. Was awaiting alternative placement in ED but then admitted 06/09/22 due to respiratory distress due to CHF exacerbation # acute HFpEF - resolved, on oral torsemide- will hold for renal insufficiency # KENJI/CKD4 # hypotension - holding torsemide, HCTZ, hydralazine, and valsartan - giving gentle fluid hydration - recheck BMP in AM - BP has improved # urinary retention - failed voiding trial, continue Stahl # RLE cellulitis - resolved s/p course of doxycycline # hyperK - resolved # dementia - had behavioral issues at SNF but not since arrival - Psych consulted on 06/13/22; may increase quetiapine to 50 mg bid + 50 mg q6h prn [olanzapine 2.5-5 mg IM q4h prn severe agitation] but has not needed; QTc 426 ms today # sz disorder - continue phenytoin # VTE ppx: UFH # code: DNR/DNI In my clinical judgment, the patient requires continued hospitalization for the following reasons: awaiting safe placement, HCP invoked Quality Stroke Does the patient have a stroke diagnosis?: No VTE Prior VTE?: No VTE Risk Level:: Medical - moderate - high VTE Device Contraindication: Treatment Not Indicated VTE Drug Contraindication: N/A - Med Ordered
--- NOTE | 2022-06-21 16:07 | MHC.CM.PN ---
Family meeting scheduled for 06/27/22 at 9:30 AM. CM will follow.
--- NOTE | 2022-06-21 19:34 | PC.NURSE ---
report received from Alexandra KAMARA. pt sitting up comfortably in chair. no apparent distress. agitation increasing, patient continuously ripping pvc monitor leads off self despite constant redirection. pt in front of nurses station, will continue to monitor closely.
[2022-06-21] MEDS: Atorvastatin Calcium 20 MG TABLET PO (22:29)
[2022-06-21] MEDS: Melatonin 3 MG TABLET 9 MG PO (22:29)
[2022-06-21 22:48] VITALS: BP 109/40; PULSE 57
[2022-06-22] MEDS: Omeprazole 20 MG CAPSULE.DR PO (05:51)
[2022-06-22 07:24] LABS: Anion Gap 17 (12-20); Blood Urea Nitrogen 67 mg/dL (9-16); Calcium 6.6 mg/dL (8.4-10.2); Carbon Dioxide 22 mmol/L (22-29); Chloride 108 mmol/L (96-108); Creatinine Clr Calc Pharmacy 22.7; Estimated Glomerular Filt Rate 24; Glucose Random 139 mg/dL (60-115); Potassium 4.1 mmol/L (3.3-5.1); Sodium 143 mmol/L (135-145)
[2022-06-22 08:16] VITALS: BP 97/41; PULSE 60; RESP 16; O2SAT 100
[2022-06-22] MEDS: Heparin Sodium,Porcine 5,000 UNIT/ML VIAL 5000 UNIT SUBCUT ×2 (09:18→19:59)
[2022-06-22] MEDS: Magnesium Oxide 400 MG TABLET 200 MG PO (09:19)
[2022-06-22] MEDS: QUEtiapine Fumarate 25 MG TABLET PO (09:20)
[2022-06-22] MEDS: Tamsulosin HCL 0.4 MG CAPSULE PO (09:20)
[2022-06-22] MEDS: Phenytoin Sodium Extended 100 MG CAPSULE 300 MG PO ×2 (09:20→19:59)
[2022-06-22] MEDS: Acetaminophen 325 MG TABLET 650 MG PO (09:20)
[2022-06-22] MEDS: 0.9 % Sodium Chloride 1,000 ML 50 ML IVCONT (10:45)
[2022-06-22] MEDS: 0.9 % Sodium Chloride Flush 3 ML SYRINGE IVFLUSH (10:45)
--- NOTE | 2022-06-22 11:30 | HO.PM.IMPN ---
Subjective Subjective Date of Service: 06/22/22 Interval History: BP low this AM; atenolol held No lightheadedness, chest pain, or respiratory symptoms Review of Systems Review of Systems: Yes all other systems are reviewed and are negative Physical Exam Vital Signs: Vital Signs: Last Vital Signs Temp 97.1 F 06/21/22 04:00 Pulse 60 06/22/22 08:16 Resp 16 06/22/22 08:16 BP 97/41 L 06/22/22 08:16 Pulse Ox 100 06/22/22 08:16 O2 Del Method 06/22/22 08:16 BMI result Body Mass Index 34.9 Gen: in no acute distress HEENT: sclera anicteric, moist mucus membranes Neck: supple Lungs: clear to auscultation bilaterally Heart: regular rate and rhythm, no murmurs Abd: soft, non-tender, non-distended Ext: no edema Skin: warm/well-perfused Neuro: alert and oriented to self only Psych: impaired insight Objective Data Active Medications Acetaminophen (Acetaminophen 325 Mg Tablet) 650 mg PO Q6H PRN PRN Reason: Fever Last Admin: 06/22/22 09:20 Dose: 650 mg Documented By: VIVI Atenolol (Atenolol 25 Mg Tablet) 25 mg PO BID [facility]; Protocol Last Admin: 06/22/22 09:21 Dose: Not Given Documented By: VIVI Non-Admin Reason: Decreased Blood Pressure Atorvastatin Calcium (Atorvastatin Calcium 20 Mg Tablet) 20 mg PO BEDTIME [facility] Last Admin: 06/21/22 22:29 Dose: 20 mg Documented By: CALIXTO Bisacodyl (Bisacodyl 10 Mg Supp.Rect) 10 mg [place] DAILY PRN PRN Reason: Constipation Heparin Sodium (Porcine) (Heparin Sodium,Porcine 5,000 Unit/Ml Vial) 5,000 unit SUBCUT Q12H [facility] Last Admin: 06/22/22 09:18 Dose: 5,000 unit Documented By: VIVI Hydralazine HCl (Hydralazine Hcl 25 Mg Tablet) 25 mg PO BID [facility]; Protocol Last Admin: 06/19/22 22:08 Dose: 25 mg Documented By: PROSPER Hydrochlorothiazide (Hydrochlorothiazide 12.5 Mg Tablet) 12.5 mg PO DAILY [facility]; Protocol Last Admin: 06/21/22 09:30 Dose: Not Given Documented By: MOLINA Non-Admin Reason: Decreased Heart Rate Sodium Chloride (Ns) 1,000 mls @ 50 mls/hr IVCONT .Q20H [facility] Stop: 06/23/22 04:29 Last Admin: 06/22/22 10:45 Dose: 50 mls/hr Documented By: VIVI Magnesium Oxide (Magnesium Oxide 400 Mg Tablet) 200 mg PO DAILY [facility] Last Admin: 06/22/22 09:19 Dose: 200 mg Documented By: VIVI Melatonin (Melatonin 3 Mg Tablet) 9 mg PO BEDTIME [facility] Last Admin: 06/21/22 22:29 Dose: 9 mg Documented By: CALIXTO Omeprazole (Omeprazole 20 Mg Capsule.) 20 mg PO DAILY@0630 [facility] Last Admin: 06/22/22 05:51 Dose: 20 mg Documented By: GIO Pharmacy Consult (Consult Rx Perform Med Rec) 1 each MISCELLANE ONCE PRN PRN Reason: Consult order Phenytoin Sodium (Phenytoin Sodium Extended 100 Mg Capsule) 300 mg PO BID [facility] Last Admin: 06/22/22 09:20 Dose: 300 mg Documented By: VIVI Quetiapine Fumarate (Quetiapine Fumarate 25 Mg Tablet) 25 mg PO BID PRN PRN Reason: Agitation Last Admin: 06/21/22 15:23 Dose: 25 mg Documented By: MOLINA Quetiapine Fumarate (Quetiapine Fumarate 25 Mg Tablet) 25 mg PO BID [facility] Last Admin: 06/22/22 09:20 Dose: 25 mg Documented By: VIVI Sodium Chloride (0.9 % Sodium Chloride Flush 3 Ml Syringe) 3 ml IVFLUSH QSHIFT [facility] Last Admin: 06/22/22 10:45 Dose: 3 ml Documented By: IVVI Tamsulosin HCl (Tamsulosin Hcl 0.4 Mg Capsule) 0.4 mg PO DAILY [facility] Last Admin: 06/22/22 09:20 Dose: 0.4 mg Documented By: VIVI Torsemide (Torsemide 20 Mg Tablet) 20 mg PO DAILY [facility]; Protocol Last Admin: 06/20/22 10:34 Dose: 20 mg Documented By: KALEB Triamcinolone Acetonide (Triamcinolone Acet 0.1 % Cream 15 Gm Tube) 1 appl TOPICAL DAILY [facility]; Protocol Last Admin: 06/22/22 10:45 Dose: Not Given Documented By: VIVI Non-Admin Reason: Patient Refused Valsartan (Valsartan 320 Mg Tablet) 320 mg PO DAILY [facility]; Protocol Last Admin: 06/19/22 08:18 Dose: 320 mg Documented By: DANE Labs CBC & Chem 7: 06/21/22 07:21 06/22/22 06:45 Labs: Laboratory Results - last 24 hr 06/22/22 06:45 Anion Gap 17 Estim Creat Clear Calc 22.7 Estimated GFR 24 Random Glucose 139 H D Calcium 6.6 L Assessment and Plan (1) Aggressive behavior: Status: Acute (2) Cognitive changes: Status: Acute Plan hospital d#13 82yo M with dementia recently hospitalized for KENJI + diverticulitis 05/23-05/25/22, discharged to SNF and returned to ED 06/07/22 due to aggressive behavior at SNF. Was awaiting alternative placement in ED but then admitted 06/09/22 due to respiratory distress due to CHF exacerbation # acute HFpEF - resolved, on oral torsemide- holding for renal insufficiency # KENJI/CKD4 # hypotension - holding torsemide, HCTZ, hydralazine, valsartan, and atenolol - give further gentle fluid hydration - recheck BMP in AM # urinary retention - failed voiding trial, continue Stahl # RLE cellulitis - resolved s/p course of doxycycline # hyperK - resolved # dementia - had behavioral issues at SNF but not since arrival - Psych consulted on 06/13/22; may increase quetiapine to 50 mg bid + 50 mg q6h prn [olanzapine 2.5-5 mg IM q4h prn severe agitation] but has not needed; QTc 426 ms today # sz disorder - continue phenytoin # VTE ppx: UFH # code: DNR/DNI In my clinical judgment, the patient requires continued hospitalization for the following reasons: awaiting safe placement, HCP invoked Quality Stroke Does the patient have a stroke diagnosis?: No VTE Prior VTE?: No VTE Risk Level:: Medical - moderate - high VTE Device Contraindication: Treatment Not Indicated VTE Drug Contraindication: N/A - Med Ordered
[2022-06-22 12:23] VITALS: BP 117/54; PULSE 58; RESP 16; O2SAT 97
--- NOTE | 2022-06-22 15:59 | PC.NURSE ---
Patient sleeping most of shift. Occasionally trying to get out of chair. Easily redirectable. at bedside. 2 max assist oob.
[2022-06-22 19:17] VITALS: BP 154/65; PULSE 61; RESP 17; TEMP 36; O2SAT 97
[2022-06-22 19:53] VITALS: BP 154/65; RESP 17; TEMP 36; O2SAT 97
[2022-06-22] MEDS: Melatonin 3 MG TABLET 9 MG PO (19:58)
[2022-06-22] MEDS: QUEtiapine Fumarate 50 MG TABLET PO (19:58)
[2022-06-22] MEDS: Atorvastatin Calcium 20 MG TABLET PO (19:59)
[2022-06-22 23:20] VITALS: BP 130/59; PULSE 68; RESP 16; TEMP 36.1; O2SAT 96
[2022-06-23 02:53] VITALS: BP 144/67; PULSE 61; RESP 16; TEMP 36.2; O2SAT 96
[2022-06-23] MEDS: Omeprazole 20 MG CAPSULE.DR PO (05:21)
[2022-06-23 06:41] LABS: Anion Gap 16 (12-20); Blood Urea Nitrogen 61 mg/dL (9-16); Calcium 6.7 mg/dL (8.4-10.2); Carbon Dioxide 23 mmol/L (22-29); Chloride 110 mmol/L (96-108); Creatinine Clr Calc Pharmacy 25.1; Estimated Glomerular Filt Rate 27; Glucose Random 124 mg/dL (60-115); Potassium 4.1 mmol/L (3.3-5.1); Sodium 145 mmol/L (135-145)
--- NOTE | 2022-06-23 07:21 | MHC.CM.PN ---
LATE ENTRY for 06/22/22: This content writer spoke with Cyndee Cordova re: status of financial application for [employer]. All documents were submitted by patient's son. Application is about 300 pages and needs to be hand faxed to [employer], which needs to be done in batches. Cyndee reports this will be completed by 06/22. The application was marked expedited. There should be a response by early next week. Regarding the family meeting. Room availability was for 10AM. Communication will be made with family to confirm the time.
[2022-06-23 07:56] VITALS: BP 137/65; PULSE 57; RESP 18; TEMP 36.5; O2SAT 97
[2022-06-23] MEDS: Tamsulosin HCL 0.4 MG CAPSULE PO (08:28)
[2022-06-23] MEDS: Heparin Sodium,Porcine 5,000 UNIT/ML VIAL 5000 UNIT SUBCUT ×2 (08:28→20:19)
[2022-06-23] MEDS: atenoloL 25 MG TABLET PO ×2 (08:28→20:20)
[2022-06-23] MEDS: Phenytoin Sodium Extended 100 MG CAPSULE 300 MG PO ×2 (08:28→20:20)
[2022-06-23] MEDS: Magnesium Oxide 400 MG TABLET 200 MG PO (08:28)
[2022-06-23] MEDS: QUEtiapine Fumarate 50 MG TABLET PO ×2 (08:28→20:20)
[2022-06-23] MEDS: 0.9 % Sodium Chloride Flush 3 ML SYRINGE IVFLUSH ×3 (08:39→20:24)
--- NOTE | 2022-06-23 10:18 | MHC.CM.PN ---
[facility] REVIEWED, PT CONT'S TO HAVE NO BEHAVIORAL ISSUES ON UNIT, CM AWAITING CONFIRMATION [facility] FAXED, [facility] HAS BEEN MARKED EXPEDITIED AND ANTIC ANSWER EARLY NEXT WEEK, FAMILY MEETING SCHEDULED FOR 06/27 PER PREVIOUS NOTE ROOM AVAILABLE AT 10AM AWAITING FAMILY CALL BACK TO CONFIRM. SNF REFERRAL UPDATED THERE ARE NO BED OFFERS AT TIME OF THIS NOTE. EUGENIA IN [facility] REVIEWING. PRANAV AT [facility] [place] HAS NO AVAILABLE BEDS ON SECURE UNIT HOWEVER WILL FOLLOW. [facility] [place] AND [facility] REQUESTING FINANCIAL DISCLOSURE. LIT IN [place] MAY REVIEW CM WILL CONT TO FOLLOW REFERRALS AND DC/ NEEDS
--- NOTE | 2022-06-23 11:43 | P.PNIM_ITS ---
Subjective Subjective Date of Service: 06/23/22 Interval History: no complaints- no chest pain, lightheadedness, or shortness of breath Review of Systems Review of Systems: Yes all other systems are reviewed and are negative Physical Exam Vital Signs: Vital Signs: Last Vital Signs Temp 97.7 F 06/23/22 07:56 Pulse 57 06/23/22 07:56 Resp 18 06/23/22 07:56 BP 137/65 06/23/22 07:56 Pulse Ox 97 06/23/22 07:56 O2 Del Method 06/23/22 07:56 BMI result Body Mass Index 34.9 Gen: in no acute distress HEENT: sclera anicteric, moist mucus membranes Neck: supple Lungs: clear to auscultation bilaterally Heart: regular rate and rhythm, no murmurs Abd: soft, non-tender, non-distended Ext: no edema Skin: warm/well-perfused Neuro: alert and oriented to self only Psych: impaired insight Objective Data Active Medications Acetaminophen (Acetaminophen 325 Mg Tablet) 650 mg PO Q6H PRN PRN Reason: Fever Last Admin: 06/22/22 09:20 Dose: 650 mg Documented By: VIVI Atenolol (Atenolol 25 Mg Tablet) 25 mg PO BID [facility]; Protocol Last Admin: 06/23/22 08:28 Dose: 25 mg Documented By: EMILY Atorvastatin Calcium (Atorvastatin Calcium 20 Mg Tablet) 20 mg PO BEDTIME [facility] Last Admin: 06/22/22 19:59 Dose: 20 mg Documented By: CYDNEY Bisacodyl (Bisacodyl 10 Mg Supp.Rect) 10 mg [place] DAILY PRN PRN Reason: Constipation Heparin Sodium (Porcine) (Heparin Sodium,Porcine 5,000 Unit/Ml Vial) 5,000 unit SUBCUT Q12H [facility] Last Admin: 06/23/22 08:28 Dose: 5,000 unit Documented By: EMILY Hydralazine HCl (Hydralazine Hcl 25 Mg Tablet) 25 mg PO BID [facility]; Protocol Last Admin: 06/19/22 22:08 Dose: 25 mg Documented By: PROSPER Hydrochlorothiazide (Hydrochlorothiazide 12.5 Mg Tablet) 12.5 mg PO DAILY [facility]; Protocol Last Admin: 06/21/22 09:30 Dose: Not Given Documented By: MOLINA Non-Admin Reason: Decreased Heart Rate Magnesium Oxide (Magnesium Oxide 400 Mg Tablet) 200 mg PO DAILY [facility] Last Admin: 06/23/22 08:28 Dose: 200 mg Documented By: EMILY Melatonin (Melatonin 3 Mg Tablet) 9 mg PO BEDTIME [facility] Last Admin: 06/22/22 19:58 Dose: 9 mg Documented By: CYDNEY Omeprazole (Omeprazole 20 Mg Capsule.Dr) 20 mg PO DAILY@0630 [facility] Last Admin: 06/23/22 05:21 Dose: 20 mg Documented By: CYDNEY Pharmacy Consult (Consult Rx Perform Med Rec) 1 each MISCELLANE ONCE PRN PRN Reason: Consult order Phenytoin Sodium (Phenytoin Sodium Extended 100 Mg Capsule) 300 mg PO BID [facility] Last Admin: 06/23/22 08:28 Dose: 300 mg Documented By: EMILY Quetiapine Fumarate (Quetiapine Fumarate 50 Mg Tablet) 50 mg PO BID [facility] Last Admin: 06/23/22 08:28 Dose: 50 mg Documented By: EMILY Quetiapine Fumarate (Quetiapine Fumarate 50 Mg Tablet) 50 mg PO BID PRN PRN Reason: Agitation Sodium Chloride (0.9 % Sodium Chloride Flush 3 Ml Syringe) 3 ml IVFLUSH QSHIFT [facility] Last Admin: 06/23/22 08:39 Dose: 3 ml Documented By: EMILY Tamsulosin HCl (Tamsulosin Hcl 0.4 Mg Capsule) 0.4 mg PO DAILY [facility] Last Admin: 06/23/22 08:28 Dose: 0.4 mg Documented By: EMILY Torsemide (Torsemide 20 Mg Tablet) 20 mg PO DAILY [facility]; Protocol Last Admin: 06/20/22 10:34 Dose: 20 mg Documented By: KALEB Triamcinolone Acetonide (Triamcinolone Acet 0.1 % Cream 15 Gm Tube) 1 appl TOPICAL DAILY [facility]; Protocol Last Admin: 06/23/22 08:24 Dose: Not Given Documented By: EMILY Non-Admin Reason: Med Not Available Valsartan (Valsartan 320 Mg Tablet) 320 mg PO DAILY [facility]; Protocol Last Admin: 06/19/22 08:18 Dose: 320 mg Documented By: DANE Labs CBC & Chem 7: 06/21/22 07:21 06/23/22 05:30 Labs: Laboratory Results - last 24 hr 08/26/22 05:30 Anion Gap 16 Estim Creat Clear Calc 25.1 Estimated GFR 27 Random Glucose 124 H Calcium 6.7 L Assessment and Plan (1) Aggressive behavior: Status: Acute (2) Cognitive changes: Status: Acute Plan hospital d#14 82yo M with dementia recently hospitalized for KENJI + diverticulitis 05/23- 05/25/22, discharged to SNF and returned to ED 06/07/22 due to aggressive behavior at SNF. Was awaiting alternative placement in ED but then admitted 06/09/22 due to respiratory distress due to CHF exacerbation # acute HFpEF - resolved, on oral torsemide- held for renal insufficiency # KENJI/CKD4 # hypotension, resolved # essential HTN - now hypertensive; restart atenolol - holding torsemide, HCTZ, hydralazine, and valsartan - SCr improving # urinary retention - failed voiding trial, continue Stahl # RLE cellulitis - resolved s/p course of doxycycline # hyperK - resolved # dementia - had behavioral issues at SNF but not since arrival - Psych consulted on 06/13/22; increased quetiapine to 50 mg bid + 50 mg q6h prn [olanzapine 2.5-5 mg IM q4h prn severe agitation]; QTc 426 ms 06/21/22 # sz disorder - continue phenytoin # VTE ppx: UFH # code: DNR/DNI In my clinical judgment, the patient requires continued hospitalization for the following reasons: awaiting safe placement, HCP invoked Quality Stroke Does the patient have a stroke diagnosis?: No VTE Prior VTE?: No VTE Risk Level:: Medical - moderate - high VTE Device Contraindication: Treatment Not Indicated VTE Drug Contraindication: N/A - Med Ordered
[2022-06-23 12:00] VITALS: BP 123/55; PULSE 52; RESP 18; TEMP 36.5; O2SAT 97
[2022-06-23 16:00] VITALS: BP 102/54; PULSE 53; RESP 15; TEMP 36.1; O2SAT 96
[2022-06-23] MEDS: Triamcinolone Acet 0.1 % Cream 15 GM TUBE 1 APPL TOPICAL (17:32)
[2022-06-23] MEDS: Atorvastatin Calcium 20 MG TABLET PO (20:20)
[2022-06-23] MEDS: Melatonin 3 MG TABLET 9 MG PO (20:22)
[2022-06-23 23:26] VITALS: BP 110/56; PULSE 64; RESP 16; TEMP 36.1; O2SAT 94
[2022-06-23] MEDS: Acetaminophen 325 MG TABLET 650 MG PO (23:41)
[2022-06-24 03:29] VITALS: BP 105/52; PULSE 54; RESP 16; TEMP 36.6; O2SAT 94
[2022-06-24] MEDS: Omeprazole 20 MG CAPSULE.DR PO (04:43)
[2022-06-24 07:59] VITALS: BP 142/65; PULSE 60; RESP 14; TEMP 35.5; O2SAT 94
[2022-06-24] MEDS: atenoloL 25 MG TABLET PO ×2 (08:10→19:45)
[2022-06-24] MEDS: Phenytoin Sodium Extended 100 MG CAPSULE 300 MG PO ×2 (08:10→19:46)
[2022-06-24] MEDS: Magnesium Oxide 400 MG TABLET 200 MG PO (08:11)
[2022-06-24] MEDS: Heparin Sodium,Porcine 5,000 UNIT/ML VIAL 5000 UNIT SUBCUT ×2 (08:12→19:45)
[2022-06-24] MEDS: Tamsulosin HCL 0.4 MG CAPSULE PO (08:12)
[2022-06-24] MEDS: QUEtiapine Fumarate 50 MG TABLET PO ×2 (08:12→19:46)
[2022-06-24] MEDS: 0.9 % Sodium Chloride Flush 3 ML SYRINGE IVFLUSH ×2 (08:21→19:45)
--- NOTE | 2022-06-24 10:27 | HO.PM.IMPN ---
Subjective Subjective Date of Service: 06/24/22 Interval History: No complaints Review of Systems Review of Systems: Yes all other systems are reviewed and are negative Physical Exam Vital Signs: Vital Signs: Last Vital Signs Temp 95.9 F L 06/24/22 07:59 Pulse 60 06/24/22 07:59 Resp 14 06/24/22 07:59 BP 142/65 H 06/24/22 07:59 Pulse Ox 94 06/24/22 07:59 O2 Del Method 06/24/22 07:59 BMI result Body Mass Index 34.9 Gen: in no acute distress HEENT: sclera anicteric, moist mucus membranes Neck: supple Lungs: clear to auscultation bilaterally Heart: regular rate and rhythm, no murmurs Abd: soft, non-tender, non-distended Ext: no edema Skin: warm/well-perfused Neuro: alert and oriented to self only Psych: impaired insight Objective Data Active Medications Acetaminophen (Acetaminophen 325 Mg Tablet) 650 mg PO Q6H PRN PRN Reason: Fever Last Admin: 06/23/22 23:41 Dose: 650 mg Documented By: STEVO Atenolol (Atenolol 25 Mg Tablet) 25 mg PO BID [facility]; Protocol Last Admin: 06/24/22 08:10 Dose: 25 mg Documented By: PANKAJ Atorvastatin Calcium (Atorvastatin Calcium 20 Mg Tablet) 20 mg PO BEDTIME [facility] Last Admin: 06/23/22 20:20 Dose: 20 mg Documented By: MARGAUX Bisacodyl (Bisacodyl 10 Mg Supp.Rect) 10 mg [place] DAILY PRN PRN Reason: Constipation Heparin Sodium (Porcine) (Heparin Sodium,Porcine 5,000 Unit/Ml Vial) 5,000 unit SUBCUT Q12H [facility] Last Admin: 06/24/22 08:12 Dose: 5,000 unit Documented By: PANKAJ Hydralazine HCl (Hydralazine Hcl 25 Mg Tablet) 25 mg PO BID [facility]; Protocol Last Admin: 06/19/22 22:08 Dose: 25 mg Documented By: PROSPER Hydrochlorothiazide (Hydrochlorothiazide 12.5 Mg Tablet) 12.5 mg PO DAILY [facility]; Protocol Last Admin: 06/21/22 09:30 Dose: Not Given Documented By: MOLINA Non-Admin Reason: Decreased Heart Rate Magnesium Oxide (Magnesium Oxide 400 Mg Tablet) 200 mg PO DAILY [facility] Last Admin: 06/24/22 08:11 Dose: 200 mg Documented By: PANKAJ Comments: Melatonin (Melatonin 3 Mg Tablet) 9 mg PO BEDTIME [facility] Last Admin: 06/23/22 20:22 Dose: 9 mg Documented By: MARGAUX Omeprazole (Omeprazole 20 Mg Capsule.Dr) 20 mg PO DAILY@0630 [facility] Last Admin: 06/24/22 04:43 Dose: 20 mg Documented By: STEVO Pharmacy Consult (Consult Rx Perform Med Rec) 1 each MISCELLANE ONCE PRN PRN Reason: Consult order Phenytoin Sodium (Phenytoin Sodium Extended 100 Mg Capsule) 300 mg PO BID [facility] Last Admin: 06/24/22 08:10 Dose: 300 mg Documented By: PANKAJ Quetiapine Fumarate (Quetiapine Fumarate 50 Mg Tablet) 50 mg PO BID [facility] Last Admin: 06/24/22 08:12 Dose: 50 mg Documented By: PANKAJ Quetiapine Fumarate (Quetiapine Fumarate 50 Mg Tablet) 50 mg PO BID PRN PRN Reason: Agitation Sodium Chloride (0.9 % Sodium Chloride Flush 3 Ml Syringe) 3 ml IVFLUSH QSHIFT [facility] Last Admin: 06/24/22 08:21 Dose: 3 ml Documented By: PANKAJ Tamsulosin HCl (Tamsulosin Hcl 0.4 Mg Capsule) 0.4 mg PO DAILY [facility] Last Admin: 06/24/22 08:12 Dose: 0.4 mg Documented By: PANKAJ Torsemide (Torsemide 20 Mg Tablet) 20 mg PO DAILY [facility]; Protocol Last Admin: 06/20/22 10:34 Dose: 20 mg Documented By: KALEB Triamcinolone Acetonide (Triamcinolone Acet 0.1 % Cream 15 Gm Tube) 1 appl TOPICAL DAILY [facility]; Protocol Last Admin: 06/24/22 09:19 Dose: Not Given Documented By: PANKAJ Non-Admin Reason: Patient Refused Valsartan (Valsartan 320 Mg Tablet) 320 mg PO DAILY [facility]; Protocol Last Admin: 06/19/22 08:18 Dose: 320 mg Documented By: DANE Labs CBC & Chem 7: 06/21/22 07:21 06/23/22 05:30 Assessment and Plan (1) Aggressive behavior: Status: Acute (2) Cognitive changes: Status: Acute Plan hospital d#15 82yo M with dementia recently hospitalized for KENJI + diverticulitis 05/23-05/25/22, discharged to SNF and returned to ED 06/07/22 due to aggressive behavior at SNF. Was awaiting alternative placement in ED but then was admitted 06/09/22 due to respiratory distress due to CHF exacerbation # acute HFpEF - resolved, on oral torsemide- held for renal insufficiency # KENJI/CKD4 # hypotension, resolved # essential HTN - restarted atenolol 06/23/22, BP controlled - holding torsemide, HCTZ, hydralazine, and valsartan - SCr improving; recheck in AM # urinary retention - failed voiding trial, continue Stahl # RLE cellulitis - resolved s/p course of doxycycline # hyperK - resolved # dementia - had behavioral issues at SNF but not since arrival - Psych consulted on 06/13/22; increased quetiapine to 50 mg bid + 50 mg q6h prn [olanzapine 2.5-5 mg IM q4h prn severe agitation]; QTc 426 ms 06/21/22 # sz disorder - continue phenytoin # VTE ppx: UFH # code: DNR/DNI In my clinical judgment, the patient requires continued hospitalization for the following reasons: awaiting safe placement, HCP invoked Quality Stroke Does the patient have a stroke diagnosis?: No VTE Prior VTE?: No VTE Risk Level:: Medical - moderate - high VTE Device Contraindication: Treatment Not Indicated VTE Drug Contraindication: N/A - Med Ordered
[2022-06-24 11:35] VITALS: BP 131/63; PULSE 52; RESP 17; TEMP 35.7; O2SAT 97
[2022-06-24 15:51] VITALS: BP 155/70; PULSE 51; RESP 19; TEMP 36.7; O2SAT 96
[2022-06-24 19:24] VITALS: BP 148/65; PULSE 53; RESP 16; TEMP 36.8; O2SAT 95
[2022-06-24] MEDS: Atorvastatin Calcium 20 MG TABLET PO (19:45)
[2022-06-24] MEDS: Melatonin 3 MG TABLET 9 MG PO (19:45)
[2022-06-24 23:28] VITALS: BP 143/62; PULSE 53; RESP 16; TEMP 36.1; O2SAT 96
[2022-06-25 03:45] VITALS: BP 162/70; PULSE 57; RESP 16; TEMP 36.1; O2SAT 96
--- NOTE | 2022-06-25 06:08 | PC.NURSE ---
pt slept mostly from 7p-1a. from 1a on, pt yelling for help and when asked how he needed help, pt asking for sip of water. pt did this all through the night some time yelling for help (for no reason or water) or trying to get out of bed numerous times
[2022-06-25 06:37] LABS: B Type Natriuretic Peptide 823 pg/mL (<100)
[2022-06-25 06:57] LABS: Anion Gap 14 (12-20); Blood Urea Nitrogen 50 mg/dL (9-16); Calcium 7.5 mg/dL (8.4-10.2); Carbon Dioxide 24 mmol/L (22-29); Chloride 111 mmol/L (96-108); Creatinine Clr Calc Pharmacy 30.3; Estimated Glomerular Filt Rate 34; Glucose Random 94 mg/dL (60-115); Potassium 4.7 mmol/L (3.3-5.1); Sodium 144 mmol/L (135-145)
[2022-06-25 07:21] VITALS: BP 142/67; PULSE 50; RESP 19; TEMP 36.7; O2SAT 99
[2022-06-25] MEDS: Magnesium Oxide 400 MG TABLET 200 MG PO (07:32)
[2022-06-25] MEDS: Phenytoin Sodium Extended 100 MG CAPSULE 300 MG PO ×2 (07:32→19:43)
[2022-06-25] MEDS: QUEtiapine Fumarate 50 MG TABLET PO ×2 (07:32→19:44)
[2022-06-25] MEDS: atenoloL 25 MG TABLET PO ×2 (07:32→19:44)
[2022-06-25] MEDS: Tamsulosin HCL 0.4 MG CAPSULE PO (07:32)
[2022-06-25] MEDS: Heparin Sodium,Porcine 5,000 UNIT/ML VIAL 5000 UNIT SUBCUT ×2 (07:32→19:44)
[2022-06-25] MEDS: bisacodyL 10 MG SUPP.RECT PR (07:33)
[2022-06-25] MEDS: hydrALAZINE HCl 25 MG TABLET PO ×2 (07:34→19:43)
[2022-06-25] MEDS: 0.9 % Sodium Chloride Flush 3 ML SYRINGE IVFLUSH ×2 (07:41→20:00)
--- NOTE | 2022-06-25 09:38 | HO.PM.IMPN ---
Subjective Subjective Date of Service: 06/25/22 Interval History: Forgetful, disoriented at times Constipated No complaints Review of Systems Review of Systems: Yes all other systems are reviewed and are negative Physical Exam Vital Signs: Vital Signs: Last Vital Signs Temp 98.1 F 06/25/22 07:21 Pulse 50 06/25/22 07:21 Resp 19 06/25/22 07:21 BP 142/67 H 06/25/22 07:21 Pulse Ox 99 06/25/22 07:21 O2 Del Method 06/25/22 07:21 BMI result Body Mass Index 34.9 Gen: in no acute distress HEENT: sclera anicteric, moist mucus membranes Neck: supple Lungs: clear to auscultation bilaterally Heart: regular rate and rhythm, no murmurs Abd: soft, non-tender, non-distended Ext: 1+ LE edema, dry scabs on legs bilaterally with postinflammatory hyperpigmentation Skin: warm/well-perfused Neuro: alert and oriented to self only Psych: impaired insight Objective Data Active Medications Acetaminophen (Acetaminophen 325 Mg Tablet) 650 mg PO Q6H PRN PRN Reason: Fever Last Admin: 06/23/22 23:41 Dose: 650 mg Documented By: STEVO Atenolol (Atenolol 25 Mg Tablet) 25 mg PO BID [facility]; Protocol Last Admin: 06/25/22 07:32 Dose: 25 mg Documented By: DAYNE Atorvastatin Calcium (Atorvastatin Calcium 20 Mg Tablet) 20 mg PO BEDTIME [facility] Last Admin: 06/24/22 19:45 Dose: 20 mg Documented By: NGA Bisacodyl (Bisacodyl 10 Mg Supp.Rect) 10 mg [place] DAILY PRN PRN Reason: Constipation Last Admin: 06/25/22 07:33 Dose: 10 mg Documented By: DAYNE Heparin Sodium (Porcine) (Heparin Sodium,Porcine 5,000 Unit/Ml Vial) 5,000 unit SUBCUT Q12H [facility] Last Admin: 06/25/22 07:32 Dose: 5,000 unit Documented By: DAYNE Hydralazine HCl (Hydralazine Hcl 25 Mg Tablet) 25 mg PO BID [facility]; Protocol Last Admin: 06/25/22 07:34 Dose: 25 mg Documented By: DAYNE Hydrochlorothiazide (Hydrochlorothiazide 12.5 Mg Tablet) 12.5 mg PO DAILY [facility]; Protocol Last Admin: 06/21/22 09:30 Dose: Not Given Documented By: MOLINA Non-Admin Reason: Decreased Heart Rate Magnesium Oxide (Magnesium Oxide 400 Mg Tablet) 200 mg PO DAILY [facility] Last Admin: 06/25/22 07:32 Dose: 200 mg Documented By: DAYNE Melatonin (Melatonin 3 Mg Tablet) 9 mg PO BEDTIME [facility] Last Admin: 06/24/22 19:45 Dose: 9 mg Documented By: NGA Omeprazole (Omeprazole 20 Mg Capsule.) 20 mg PO DAILY@0630 [facility] Last Admin: 06/25/22 06:01 Dose: Not Given Documented By: NGA Non-Admin Reason: Patient Refused Pharmacy Consult (Consult Rx Perform Med Rec) 1 each MISCELLANE ONCE PRN PRN Reason: Consult order Phenytoin Sodium (Phenytoin Sodium Extended 100 Mg Capsule) 300 mg PO BID [facility] Last Admin: 06/25/22 07:32 Dose: 300 mg Documented By: DAYNE Polyethylene Glycol (Polyethylene Glycol 3350 17 Gm Powd.Pack) 17 gm PO DAILY [facility] Quetiapine Fumarate (Quetiapine Fumarate 50 Mg Tablet) 50 mg PO BID [facility] Last Admin: 06/25/22 07:32 Dose: 50 mg Documented By: DAYNE Quetiapine Fumarate (Quetiapine Fumarate 50 Mg Tablet) 50 mg PO BID PRN PRN Reason: Agitation Senna/Docusate Sodium (Sennosides/Docusate Sodium Tablet) 2 tab PO BID [facility] Sodium Chloride (0.9 % Sodium Chloride Flush 3 Ml Syringe) 3 ml IVFLUSH QSHIFT [facility] Last Admin: 06/25/22 07:41 Dose: 3 ml Documented By: DAYNE Tamsulosin HCl (Tamsulosin Hcl 0.4 Mg Capsule) 0.4 mg PO DAILY [facility] Last Admin: 06/25/22 07:32 Dose: 0.4 mg Documented By: DAYNE Torsemide (Torsemide 20 Mg Tablet) 20 mg PO DAILY [facility]; Protocol Last Admin: 06/20/22 10:34 Dose: 20 mg Documented By: KALEB Triamcinolone Acetonide (Triamcinolone Acet 0.1 % Cream 15 Gm Tube) 1 appl TOPICAL DAILY [facility]; Protocol Last Admin: 06/25/22 07:42 Dose: Not Given Documented By: DAYNE Non-Admin Reason: Patient Refused Valsartan (Valsartan 320 Mg Tablet) 320 mg PO DAILY [facility]; Protocol Last Admin: 06/19/22 08:18 Dose: 320 mg Documented By: DANE Labs CBC & Chem 7: 06/21/22 07:21 06/25/22 05:33 Labs: Laboratory Results - last 24 hr 06/25/22 06/25/22 05:33 05:33 Anion Gap 14 Estim Creat Clear Calc 30.3 Estimated GFR 34 Random Glucose 94 Calcium 7.5 L D B-Natriuretic Peptide 823 H Assessment and Plan (1) Aggressive behavior: Status: Acute (2) Cognitive changes: Status: Acute Plan hospital d#16 82yo M with dementia recently hospitalized for KEJNI + diverticulitis 05/23-05/25/22, discharged to SNF and returned to ED 06/07/22 due to aggressive behavior at SNF was awaiting alternative placement in ED but then admitted 06/09/22 due to respiratory distress due to CHF exacerbation # acute HFpEF - resolved, on oral torsemide- held for renal insufficiency, will resume today # KENJI/CKD4 # hypotension, resolved, now hypertensive # essential HTN - restarted atenolol 06/23/22 and now hypertensive; will restart torsemide and hydralazine - holding HCTZ + valsartan - SCr improving; recheck in AM # urinary retention - failed voiding trial, continue Stahl # RLE cellulitis - resolved s/p course of doxycycline # hyperK - resolved # dementia - had behavioral issues at SNF but not since arrival - Psych consulted on 06/13/22; increased quetiapine to 50 mg bid + 50 mg q6h prn [olanzapine 2.5-5 mg IM q4h prn severe agitation]; QTc 426 ms 06/21/22 # sz disorder - continue phenytoin # constipation - bowel regimen # VTE ppx: UFH # code: DNR/DNI In my clinical judgment, the patient requires continued hospitalization for the following reasons: awaiting safe placement, HCP invoked. Family meeting re dispo on 06/27/22 Quality Stroke Does the patient have a stroke diagnosis?: No VTE Prior VTE?: No VTE Risk Level:: Medical - moderate - high VTE Device Contraindication: Treatment Not Indicated VTE Drug Contraindication: N/A - Med Ordered
[2022-06-25] MEDS: polyethylene glycoL 3350 17 GM POWD.PACK PO (10:03)
[2022-06-25] MEDS: Sennosides/Docusate Sodium TABLET 2 TAB PO ×2 (10:03→19:45)
[2022-06-25 11:16] VITALS: BP 132/63; PULSE 52; RESP 17; TEMP 36.2; O2SAT 96
[2022-06-25 15:55] VITALS: BP 139/62; PULSE 50; RESP 18; TEMP 36.1; O2SAT 99
[2022-06-25] MEDS: Melatonin 3 MG TABLET 9 MG PO (19:43)
[2022-06-25] MEDS: Atorvastatin Calcium 20 MG TABLET PO (19:44)
[2022-06-25] MEDS: Nystatin Powder 15 GM BOTTLE 1 APPL TOPICAL (19:56)
[2022-06-25 20:00] VITALS: BP 129/61; PULSE 52; RESP 17; TEMP 36.6; O2SAT 94
[2022-06-25 23:27] VITALS: BP 148/66; PULSE 52; RESP 18; TEMP 36; O2SAT 97
[2022-06-26 03:55] VITALS: BP 179/74; PULSE 59; RESP 18; TEMP 36; O2SAT 99
[2022-06-26] MEDS: Omeprazole 20 MG CAPSULE.DR PO (05:48)
[2022-06-26 06:21] LABS: Anion Gap 15 (12-20); Blood Urea Nitrogen 47 mg/dL (9-16); Calcium 7.7 mg/dL (8.4-10.2); Carbon Dioxide 24 mmol/L (22-29); Chloride 112 mmol/L (96-108); Creatinine Clr Calc Pharmacy 31.8; Estimated Glomerular Filt Rate 35; Glucose Random 133 mg/dL (60-115); Potassium 4.5 mmol/L (3.3-5.1); Sodium 146 mmol/L (135-145)
[2022-06-26 06:27] LABS: B Type Natriuretic Peptide 891 pg/mL (<100)
[2022-06-26 07:48] VITALS: BP 134/62; PULSE 50; RESP 17; TEMP 36.1; O2SAT 98
[2022-06-26] MEDS: Magnesium Oxide 400 MG TABLET 200 MG PO (09:27)
[2022-06-26] MEDS: Phenytoin Sodium Extended 100 MG CAPSULE 300 MG PO ×2 (09:27→20:18)
[2022-06-26] MEDS: QUEtiapine Fumarate 50 MG TABLET PO ×2 (09:27→20:17)
[2022-06-26] MEDS: Tamsulosin HCL 0.4 MG CAPSULE PO (09:28)
[2022-06-26] MEDS: Torsemide 20 MG TABLET PO (09:28)
[2022-06-26] MEDS: hydrALAZINE HCl 25 MG TABLET PO ×2 (09:28→20:18)
[2022-06-26] MEDS: Triamcinolone Acet 0.1 % Cream 15 GM TUBE 1 APPL TOPICAL (09:29)
[2022-06-26] MEDS: polyethylene glycoL 3350 17 GM POWD.PACK PO (09:29)
[2022-06-26] MEDS: Heparin Sodium,Porcine 5,000 UNIT/ML VIAL 5000 UNIT SUBCUT ×2 (09:29→20:16)
[2022-06-26] MEDS: 0.9 % Sodium Chloride Flush 3 ML SYRINGE IVFLUSH ×3 (09:30→20:19)
[2022-06-26] MEDS: Nystatin Powder 15 GM BOTTLE 1 APPL TOPICAL ×3 (09:30→20:19)
[2022-06-26] MEDS: Sennosides/Docusate Sodium TABLET 2 TAB PO ×2 (09:43→20:19)
--- NOTE | 2022-06-26 10:47 | MHC.CLN ---
NUTRITION CONSULT FOR SKIN. REDNESS NOTED SKIN FUNGUS TO GROIN. NO PRESSURE AREAS. INTAKE VARIABLE, 25-100%, WITH MOST MEALS >50%. NO ADDITIONAL NUTRITION INTERVENTIONS AT THIS TIME.
[2022-06-26 11:37] VITALS: BP 131/59; PULSE 53; RESP 19; TEMP 36.3; O2SAT 97
--- NOTE | 2022-06-26 12:09 | HO.PM.IMPN ---
Subjective Subjective Date of Service: 06/26/22 Interval History: wants to go home, offers no other acute complaints, no acute issues overnight. Review of Systems Review of Systems: Yes all other systems are reviewed and are negative Physical Exam Vital Signs: Vital Signs: Last Vital Signs Temp 97.3 F 06/26/22 11:37 Pulse 53 06/26/22 11:37 Resp 19 06/26/22 11:37 BP 131/59 L 06/26/22 11:37 Pulse Ox 97 06/26/22 11:37 O2 Del Method 06/26/22 11:37 BMI result Body Mass Index 34.9 Const: Other: Gen: awake alert,in no acute distress Neck: supple Lungs: clear to auscultation bilaterally Heart: regular rate and rhythm, no murmurs Abd: soft, non-tender, non-distended Ext: LE edema Unchanged, dry scabs on legs bilaterally with post inflammatory hyperpigmentation Skin: warm/well-perfused Neuro: alert and oriented to self only Psych: impaired insight Objective Data Active Medications Acetaminophen (Acetaminophen 325 Mg Tablet) 650 mg PO Q6H PRN PRN Reason: Fever Last Admin: 06/23/22 23:41 Dose: 650 mg Documented By: STEVO Atenolol (Atenolol 25 Mg Tablet) 25 mg PO BID [facility]; Protocol Last Admin: 06/26/22 09:41 Dose: Not Given Documented By: ANURAG Non-Admin Reason: Decreased Heart Rate Atorvastatin Calcium (Atorvastatin Calcium 20 Mg Tablet) 20 mg PO BEDTIME [facility] Last Admin: 06/25/22 19:44 Dose: 20 mg Documented By: NGA Bisacodyl (Bisacodyl 10 Mg Supp.Rect) 10 mg [place] DAILY PRN PRN Reason: Constipation Last Admin: 06/25/22 07:33 Dose: 10 mg Documented By: DAYNE Heparin Sodium (Porcine) (Heparin Sodium,Porcine 5,000 Unit/Ml Vial) 5,000 unit SUBCUT Q12H [facility] Last Admin: 06/26/22 09:29 Dose: 5,000 unit Documented By: ANURAG Hydralazine HCl (Hydralazine Hcl 25 Mg Tablet) 25 mg PO BID [facility]; Protocol Last Admin: 06/26/22 09:28 Dose: 25 mg Documented By: ANURAG Hydrochlorothiazide (Hydrochlorothiazide 12.5 Mg Tablet) 12.5 mg PO DAILY [facility]; Protocol Last Admin: 06/21/22 09:30 Dose: Not Given Documented By: MOLINA Non-Admin Reason: Decreased Heart Rate Magnesium Oxide (Magnesium Oxide 400 Mg Tablet) 200 mg PO DAILY [facility] Last Admin: 06/26/22 09:27 Dose: 200 mg Documented By: ANURAG Melatonin (Melatonin 3 Mg Tablet) 9 mg PO BEDTIME [facility] Last Admin: 06/25/22 19:43 Dose: 9 mg Documented By: NGA Nystatin (Nystatin Powder 15 Gm Bottle) 1 appl TOPICAL TID [facility]; Protocol Last Admin: 06/26/22 09:30 Dose: 1 appl Documented By: ANURAG Omeprazole (Omeprazole 20 Mg Capsule.Dr) 20 mg PO DAILY@0630 [facility] Last Admin: 06/26/22 05:48 Dose: 20 mg Documented By: NGA Pharmacy Consult (Consult Rx Perform Med Rec) 1 each MISCELLANE ONCE PRN PRN Reason: Consult order Phenytoin Sodium (Phenytoin Sodium Extended 100 Mg Capsule) 300 mg PO BID [facility] Last Admin: 06/26/22 09:27 Dose: 300 mg Documented By: ANURAG Polyethylene Glycol (Polyethylene Glycol 3350 17 Gm Powd.Pack) 17 gm PO DAILY [facility] Last Admin: 06/26/22 09:29 Dose: 17 gm Documented By: ANURAG Quetiapine Fumarate (Quetiapine Fumarate 50 Mg Tablet) 50 mg PO BID [facility] Last Admin: 06/26/22 09:27 Dose: 50 mg Documented By: ANURAG Quetiapine Fumarate (Quetiapine Fumarate 50 Mg Tablet) 50 mg PO BID PRN PRN Reason: Agitation Senna/Docusate Sodium (Sennosides/Docusate Sodium Tablet) 2 tab PO BID [facility] Last Admin: 06/26/22 09:43 Dose: 2 tab Documented By: ANURAG Sodium Chloride (0.9 % Sodium Chloride Flush 3 Ml Syringe) 3 ml IVFLUSH QSHIFT [facility] Last Admin: 06/26/22 09:30 Dose: 3 ml Documented By: ANURAG Tamsulosin HCl (Tamsulosin Hcl 0.4 Mg Capsule) 0.4 mg PO DAILY [facility] Last Admin: 06/26/22 09:28 Dose: 0.4 mg Documented By: ANURAG Torsemide (Torsemide 20 Mg Tablet) 20 mg PO DAILY [facility]; Protocol Last Admin: 06/26/22 09:28 Dose: 20 mg Documented By: ANURAG Triamcinolone Acetonide (Triamcinolone Acet 0.1 % Cream 15 Gm Tube) 1 appl TOPICAL DAILY [facility]; Protocol Last Admin: 06/26/22 09:29 Dose: 1 appl Documented By: ANURAG Valsartan (Valsartan 320 Mg Tablet) 320 mg PO DAILY [facility]; Protocol Last Admin: 06/19/22 08:18 Dose: 320 mg Documented By: DANE Labs CBC & Chem 7: 06/21/22 07:21 06/26/22 05:46 Labs: Laboratory Results - last 24 hr 06/26/22 06/26/22 05:46 05:46 Anion Gap 15 Estim Creat Clear Calc 31.8 Estimated GFR 35 Random Glucose 133 H D Calcium 7.7 L B-Natriuretic Peptide 891 H Assessment and Plan (1) Aggressive behavior: Status: Acute (2) Cognitive changes: Status: Acute Plan 82yo M with dementia recently hospitalized for KENJI + diverticulitis 05/23-05/25/22, discharged to SNF and returned to ED 06/07/22 due to aggressive behavior at SNF was awaiting alternative placement in ED but then admitted 06/09/22 due to respiratory distress due to CHF exacerbation # acute HFpEF - resolved, continue torsemide by mouth, renal function close to baseline , change diet to regular patient refusing to follow low-salt diet # KENJI/CKD4 renal function returned to baseline, hydrochlorothiazide and will start on on hold # hypotension, history of essential hypertension, hypotension resolved, continue atenolol ,torsemide and hydralazine, holding HCTZ + valsartan, resume medication if BP allows . # urinary retention - failed voiding trial, continue Stahl # RLE cellulitis - resolved s/p course of doxycycline # hyperK - resolved # dementia - had behavioral issues at SNF but not since arrival , Psych consulted on 06/13/22; increased quetiapine to 50 mg bid + 50 mg q6h prn [olanzapine 2.5-5 mg IM q4h prn severe agitation]; QTc 426 ms 06/21/22 # sz disorder - continue phenytoin # constipation, continues Senokot and MiraLax # VTE ppx: UFH # code: DNR/DNI In my clinical judgment, the patient requires continued hospitalization for the following reasons: awaiting safe placement, HCP invoked. Family meeting re dispo on 06/27/22 Quality Stroke Does the patient have a stroke diagnosis?: No VTE Prior VTE?: No VTE Risk Level:: Medical - moderate - high VTE Device Contraindication: Treatment Not Indicated VTE Drug Contraindication: N/A - Med Ordered
[2022-06-26 15:06] VITALS: BP 119/54; PULSE 53; RESP 18; TEMP 36.1; O2SAT 96
--- NOTE | 2022-06-26 15:53 | MHC.CM.PN ---
Addendum entered by Suzanne Vicente RN 06/26/22 16:09: Cm contacted pt's Sejal at 4:01pm and son Eriberto at 4:06pm at numbers on file to confirm time and location of family meeting, georgie was able to speak with both Eriberto and Sejal who will present at meeting tomorrow. Original Note: Cm spoke w/pt's dtr Nancy on unit, Nancy asking where family mtg will be held and cm verified w/management family mtg will be at 10am on S4.
[2022-06-26 20:00] VITALS: BP 132/56; PULSE 53; RESP 14; TEMP 36.9; O2SAT 96
[2022-06-26] MEDS: Atorvastatin Calcium 20 MG TABLET PO (20:17)
[2022-06-26] MEDS: Melatonin 3 MG TABLET 9 MG PO (20:18)
[2022-06-26 23:57] VITALS: BP 146/67; PULSE 60; RESP 17; TEMP 36.8; O2SAT 96
[2022-06-27 03:41] VITALS: BP 131/60; PULSE 56; RESP 17; TEMP 36.8; O2SAT 98
[2022-06-27] MEDS: Omeprazole 20 MG CAPSULE.DR PO (05:35)
[2022-06-27 08:00] VITALS: BP 144/65; PULSE 53; RESP 18; TEMP 36.7; O2SAT 97
[2022-06-27] MEDS: Magnesium Oxide 400 MG TABLET 200 MG PO (08:34)
[2022-06-27] MEDS: Heparin Sodium,Porcine 5,000 UNIT/ML VIAL 5000 UNIT SUBCUT ×2 (08:34→22:06)
[2022-06-27] MEDS: polyethylene glycoL 3350 17 GM POWD.PACK PO (08:34)
[2022-06-27] MEDS: Tamsulosin HCL 0.4 MG CAPSULE PO (08:35)
[2022-06-27] MEDS: Torsemide 20 MG TABLET PO (08:36)
[2022-06-27] MEDS: hydrALAZINE HCl 25 MG TABLET PO ×2 (08:36→22:05)
[2022-06-27] MEDS: Phenytoin Sodium Extended 100 MG CAPSULE 300 MG PO ×2 (08:36→22:05)
[2022-06-27] MEDS: QUEtiapine Fumarate 50 MG TABLET PO ×2 (08:36→22:06)
[2022-06-27] MEDS: atenoloL 25 MG TABLET PO (08:37)
[2022-06-27] MEDS: Triamcinolone Acet 0.1 % Cream 15 GM TUBE 1 APPL TOPICAL (08:39)
[2022-06-27] MEDS: Sennosides/Docusate Sodium TABLET 2 TAB PO ×2 (08:39→22:05)
[2022-06-27] MEDS: Nystatin Powder 15 GM BOTTLE 1 APPL TOPICAL ×3 (08:39→22:21)
[2022-06-27] MEDS: 0.9 % Sodium Chloride Flush 3 ML SYRINGE IVFLUSH ×3 (08:41→23:36)
--- NOTE | 2022-06-27 09:32 | MHC.CM.PN ---
Addendum entered by Suzanne Vicente RN 06/27/22 09:40: CM RECEIVED MESSAGE FROM [facility] AND THEY ARE UNABLE TO TAKE PT PRIVATE PAY, PT'S MH LENNOX WOULD HAVE TO BE APPROVED EXCEPT FOR SCI FROM ACCPETING SNF. Original Note: SNF REFERRAL UPDATE: MH LENNOX AND FINANCIALS BEING UPLOADED TO TO [facility] TO [facility] TO [facility] AND [facility] FOR REVIEW. [facility] NOT ABLE TO TAKE MH PENDING AND ALSO REQUESTING FINANCIALS TO DETERMINE IF THEY CAN TAKE PT PRIVATE PAY UNTIL MH LENNOX IS APPROVED OR CLOSE TO BEING APPROVED. CM ATTEMPTED TO CONTACT LIAISON AT [facility] HOWEVER SHE IS NO LONGER THERE AND MESSAGE LEFT W/NEW DON/ADMISSIONS LIAISON JORDAN CORRALES AT 8:45AM [phone] TO DETERMINE IF THEY HAVE AN APPROPRIATE BED FOR PT, NO ANSWER AND MESSAGE LEFT W/CM CONTACT INFO. SNF REFERRAL UPDATED AND RESENT STATEWIDE.
--- NOTE | 2022-06-27 11:35 | MHC.CM.PN ---
PER CONVERSATION WITH FAMILY AND HOSPITAL ADMINISTRATORS, PLAN IS PATIENT TO RETURN HOME ON Sunday07/03/22. REFERRAL TO BE PLACED TO [facility] AND [facility]. VOIDING TRIAL ATTEMPT TO BE MADE WHILE PATIENT IS HERE. CASE MANAGEMENT TO REACH OUT TO LOCAL AGENCIES TO SECURE HOSPITAL BED INFORMATION FOR FAMILY. WHILE PATIENT IS STILL HERE, PLAN IS FOR CASE MANAGEMENT TO ATTEMPT TO SECURE A BED AT [facility] AND/OR [facility]. FAMILY IS NOT WILLING TO SEND PATIENT OUT [facility], BUT THEY ARE NOW AWARE THAT IF THAT DID BECOME ONLY OPTION, THAT FAMILY COULD WORK WITH THAT FACILITY ON N TO A MORE LOCAL FACILITY. [facility] REFERRAL PLACED WITH SON, GAMALIEL ([phone]) CONTACT (PER FAMILY AGREEMENT). CURRENTLY, [facility] FOLLOWING AWAITING [employer] APPLICATION DETERMINATION. CASE MANAGEMENT IS AWAITING CALL FROM [facility] ABOUT A BED.
--- NOTE | 2022-06-27 11:52 | P.PNIM_ITS ---
Subjective Subjective Date of Service: 06/27/22 Interval History: Patient awake alert this morning, offers no acute complaints, no bowel movement documented since 06/22, is on Senokot 2 tablets b.i.d. and MiraLax, patient denies abdominal pain, no nausea, no vomiting tolerating diet. Review of Systems Review of Systems: Yes all other systems are reviewed and are negative Physical Exam Vital Signs: Vital Signs: Last Vital Signs Temp 98.0 F 06/27/22 08:00 Pulse 53 06/27/22 08:00 Resp 18 06/27/22 08:00 BP 144/65 H 06/27/22 08:00 Pulse Ox 97 06/27/22 08:00 O2 Del Method 06/27/22 08:00 BMI result Body Mass Index 34.9 Const: Other: Gen:? awake alert,in no acute distress Neck: supple, no JVD Lungs: clear to auscultation , no crackles, no wheeze Heart: regular rate and rhythm, no murmurs Abd: soft, non-tender, non-distended Ext: Mild LE edema? Unchanged, dry scabs on legs bilaterally with post inflammatory hyperpigmentation Skin: warm/well-perfused Neuro: alert and oriented to self only Psych: impaired insight Objective Data Active Medications Acetaminophen (Acetaminophen 325 Mg Tablet) 650 mg PO Q6H PRN PRN Reason: Fever Last Admin: 06/23/22 23:41 Dose: 650 mg Documented By: STEVO Atenolol (Atenolol 25 Mg Tablet) 25 mg PO BID [facility]; Protocol Last Admin: 06/27/22 08:37 Dose: 25 mg Documented By: FRANCINE Atorvastatin Calcium (Atorvastatin Calcium 20 Mg Tablet) 20 mg PO BEDTIME [facility] Last Admin: 06/26/22 20:17 Dose: 20 mg Documented By: FLORENCIO Bisacodyl (Bisacodyl 10 Mg Supp.Rect) 10 mg [place] DAILY PRN PRN Reason: Constipation Last Admin: 06/25/22 07:33 Dose: 10 mg Documented By: DAYNE Heparin Sodium (Porcine) (Heparin Sodium,Porcine 5,000 Unit/Ml Vial) 5,000 unit SUBCUT Q12H [facility] Last Admin: 06/27/22 08:34 Dose: 5,000 unit Documented By: FRANCINE Hydralazine HCl (Hydralazine Hcl 25 Mg Tablet) 25 mg PO BID [facility]; Protocol Last Admin: 06/27/22 08:36 Dose: 25 mg Documented By: FRANCINE Magnesium Oxide (Magnesium Oxide 400 Mg Tablet) 200 mg PO DAILY [facility] Last Admin: 06/27/22 08:34 Dose: 200 mg Documented By: FRANCINE Melatonin (Melatonin 3 Mg Tablet) 9 mg PO BEDTIME [facility] Last Admin: 06/26/22 20:18 Dose: 9 mg Documented By: FLORENCIO Nystatin (Nystatin Powder 15 Gm Bottle) 1 appl TOPICAL TID [facility]; Protocol Last Admin: 06/27/22 08:39 Dose: 1 appl Documented By: FRANCINE Omeprazole (Omeprazole 20 Mg Capsule.) 20 mg PO DAILY@0630 [facility] Last Admin: 06/27/22 05:35 Dose: 20 mg Documented By: FLORENCIO Pharmacy Consult (Consult Rx Perform Med Rec) 1 each MISCELLANE ONCE PRN PRN Reason: Consult order Phenytoin Sodium (Phenytoin Sodium Extended 100 Mg Capsule) 300 mg PO BID [facility] Last Admin: 06/27/22 08:36 Dose: 300 mg Documented By: FRANCINE Polyethylene Glycol (Polyethylene Glycol 3350 17 Gm Powd.Pack) 17 gm PO DAILY [facility] Last Admin: 06/27/22 08:34 Dose: 17 gm Documented By: FRANCINE Quetiapine Fumarate (Quetiapine Fumarate 50 Mg Tablet) 50 mg PO BID [facility] Last Admin: 06/27/22 08:36 Dose: 50 mg Documented By: FRANCINE Quetiapine Fumarate (Quetiapine Fumarate 50 Mg Tablet) 50 mg PO BID PRN PRN Reason: Agitation Senna/Docusate Sodium (Sennosides/Docusate Sodium Tablet) 2 tab PO BID [facility] Last Admin: 06/27/22 08:39 Dose: 2 tab Documented By: FRANCINE Sodium Chloride (0.9 % Sodium Chloride Flush 3 Ml Syringe) 3 ml IVFLUSH QSHIFT [facility] Last Admin: 06/27/22 08:41 Dose: 3 ml Documented By: FRANCINE Tamsulosin HCl (Tamsulosin Hcl 0.4 Mg Capsule) 0.4 mg PO DAILY [facility] Last Admin: 06/27/22 08:35 Dose: 0.4 mg Documented By: FRANCINE Torsemide (Torsemide 20 Mg Tablet) 20 mg PO DAILY [facility]; Protocol Last Admin: 06/27/22 08:36 Dose: 20 mg Documented By: FRANCINE Triamcinolone Acetonide (Triamcinolone Acet 0.1 % Cream 15 Gm Tube) 1 appl TOPICAL DAILY [facility]; Protocol Last Admin: 06/27/22 08:39 Dose: 1 appl Documented By: FRANCINE Labs CBC & Chem 7: 06/21/22 07:21 06/26/22 05:46 Assessment and Plan (1) Aggressive behavior: Status: Acute (2) Cognitive changes: Status: Acute Plan 82yo M with dementia recently hospitalized for KENJI + diverticulitis 05/23- 05/25/22, discharged to SNF and returned to ED 06/07/22 due to aggressive behavior at SNF was awaiting alternative placement in ED but then admitted 06/09/22 due to respiratory distress due to CHF exacerbation # acute HFpEF - resolved, continue torsemide by mouth, renal function close to baseline , change diet to regular patient refusing to follow low-salt diet # KENJI/CKD4 renal function returned to baseline, will DC hydrochlorothiazide and valsartan follow BMP # hypotension, history of essential hypertension, hypotension resolved, contin ue atenolol ,torsemide and hydralazine, follow BP closely if noted to have high blood pressure will increase dose of hydralazine. . # urinary retention - family wishes to give voiding trial, patient failed voiding trial in the past, dc Stahl and will re-attempt voiding trial # RLE cellulitis - resolved s/p course of doxycycline # hyperK - resolved # dementia - had behavioral issues at SNF but not since arrival , Psych consulted on 06/13/22; increased quetiapine to 50 mg bid + 50 mg q6h prn , QTc 426 ms 06/21/22 # sz disorder - continue phenytoin # constipation, continues Senokot and MiraLax # VTE ppx: UFH # code: DNR/DNI Disposition had a family meeting with casey saw operator and administration plan is for patient to be discharged home on July 03, casey saw operator [facility] Family requested for voiding trial and follow-up on antipsychotic dose. In my clinical judgment, the patient requires continued hospitalization for safe placement, HCP invoked. Quality Stroke Does the patient have a stroke diagnosis?: No VTE Prior VTE?: No VTE Risk Level:: Medical - moderate - high VTE Device Contraindication: Treatment Not Indicated VTE Drug Contraindication: N/A - Med Ordered
--- NOTE | 2022-06-27 14:37 | PC.NURSE ---
henry cath removed at 1414 pt dtv at 2014
[2022-06-27 16:00] VITALS: BP 142/63; PULSE 55; RESP 18; TEMP 36.6; O2SAT 94
--- NOTE | 2022-06-27 16:08 | MHC.CM.PN ---
MH LENNOX FAXED TO [facility] AND [facility] TODAY, CM CONT'S TO WAIT FOR BED OFFER.
[2022-06-27 19:08] VITALS: BP 154/66; PULSE 58; RESP 18; TEMP 36.4; O2SAT 95
[2022-06-27 21:52] VITALS: BP 157/70; PULSE 54
[2022-06-27] MEDS: Melatonin 3 MG TABLET 9 MG PO (22:05)
[2022-06-27] MEDS: Atorvastatin Calcium 20 MG TABLET PO (22:06)
--- NOTE | 2022-06-27 22:23 | PC.NURSE ---
MD contacted due to patient inability to void. Due to void at 2200. Notified patient had urge to void and multiple attempts. bladder scan was 458mL at 8:30pm. At 2207 MD instructed to ask pt to pee and recheck in an hr PVR. Will pass on to oncoming nurse at 2300.
[2022-06-27 23:04] VITALS: BP 158/69; PULSE 58; RESP 18; TEMP 36.4; O2SAT 98
--- NOTE | 2022-06-28 01:49 | PC.NURSE ---
Addendum entered by Nina Lara RN 06/28/22 01:57: YA INSERTION ASSISTANCE BY RN COWORKER PT VERY APPREHENSIVE. Original Note: PATIENT UNABLE TO VOID SINCE YA CATHETER REMOVED AT 1415, REPORTED VOISED EXTRA SMALL AMOUNT EARLEIR, BUT THEN UNABLE TO PASS URINE DESPITE NUMEROUS ATTEMPTS BY STANDING, TO BR, URINAL....PT STATED FELT PRESSURE AND FRUSTRATED. BLADDER SCAN AT 0049 REVEALED 646ML. HOSPITALIST WAS NOTIFIED AND VIA TIGER TEXT AND VERBAL ORDER; INSERT YA CATHETER FOR URINARY RETENTION AT THIS TIME. #16 FR INSERTED , TOLERATED OKAY, IMMEDIATE YELLOW URINE RETURNED, CATHETER SECURED AND PT MUCH RELIEVED TO GET SOME SLEEP AT THIS TIME OF 0135.
[2022-06-28 03:42] VITALS: BP 150/71; PULSE 59; RESP 18; TEMP 36.6; O2SAT 94
[2022-06-28 06:57] VITALS: BP 113/58; PULSE 84; RESP 18; TEMP 36.6; O2SAT 96
[2022-06-28] MEDS: Magnesium Oxide 400 MG TABLET 200 MG PO (09:04)
[2022-06-28] MEDS: Sennosides/Docusate Sodium TABLET 2 TAB PO ×2 (09:04→19:40)
[2022-06-28] MEDS: atenoloL 25 MG TABLET PO ×2 (09:05→19:40)
[2022-06-28] MEDS: Torsemide 20 MG TABLET PO (09:05)
[2022-06-28] MEDS: Phenytoin Sodium Extended 100 MG CAPSULE 300 MG PO ×2 (09:06→19:40)
[2022-06-28] MEDS: QUEtiapine Fumarate 50 MG TABLET PO (09:06)
[2022-06-28] MEDS: Nystatin Powder 15 GM BOTTLE 1 APPL TOPICAL ×3 (09:06→19:48)
[2022-06-28] MEDS: 0.9 % Sodium Chloride Flush 3 ML SYRINGE IVFLUSH ×3 (09:06→19:41)
[2022-06-28] MEDS: Tamsulosin HCL 0.4 MG CAPSULE PO (09:06)
[2022-06-28] MEDS: polyethylene glycoL 3350 17 GM POWD.PACK PO (09:06)
[2022-06-28] MEDS: Heparin Sodium,Porcine 5,000 UNIT/ML VIAL 5000 UNIT SUBCUT ×2 (09:07→19:41)
[2022-06-28] MEDS: Triamcinolone Acet 0.1 % Cream 15 GM TUBE 1 APPL TOPICAL (09:07)
[2022-06-28 11:18] VITALS: BP 152/72; PULSE 56; RESP 18; TEMP 36; O2SAT 96
--- NOTE | 2022-06-28 11:42 | HO.PM.IMPN ---
Subjective Subjective Date of Service: 06/28/22 Interval History: Patient awake alert this morning, admits that he slept well, although nurse notified the patient was restless being out of bed to chair, has been receiving Seroquel 50 mg at bedtime, no behavioral issues this morning, patient denies nausea vomiting, no abdominal pain, no diarrhea. 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 awake alert,in no acute distress Neck: supple, no JVD Lungs: clear to auscultation , no crackles, no wheeze Heart: regular rate and rhythm, no murmurs Abd: soft, obese, bowel sounds audible, non-tender, non-distended Ext:? Mild LE edema? Unchanged, dry scabs on legs bilaterally with post inflammatory hyperpigmentation Skin: warm/well-perfused Neuro: alert and oriented to self only Psych: impaired insight Objective Data Active Medications Acetaminophen (Acetaminophen 325 Mg Tablet) 650 mg PO Q6H PRN PRN Reason: Fever Last Admin: 06/23/22 23:41 Dose: 650 mg Documented By: STEVO Atenolol (Atenolol 25 Mg Tablet) 25 mg PO BID [facility]; Protocol Last Admin: 06/28/22 09:05 Dose: 25 mg Documented By: KHALIDA Atorvastatin Calcium (Atorvastatin Calcium 20 Mg Tablet) 20 mg PO BEDTIME [facility] Last Admin: 06/27/22 22:06 Dose: 20 mg Documented By: ERNESTINE Bisacodyl (Bisacodyl 10 Mg Supp.Rect) 10 mg RI DAILY PRN PRN Reason: Constipation Last Admin: 06/25/22 07:33 Dose: 10 mg Documented By: DAYNE Heparin Sodium (Porcine) (Heparin Sodium,Porcine 5,000 Unit/Ml Vial) 5,000 unit SUBCUT Q12H [facility] Last Admin: 06/28/22 09:07 Dose: 5,000 unit Documented By: KHALIDA Hydralazine HCl (Hydralazine Hcl 25 Mg Tablet) 25 mg PO BID [facility]; Protocol Last Admin: 06/28/22 09:06 Dose: Not Given Documented By: KHALIDA Non-Admin Reason: Decreased Blood Pressure Magnesium Oxide (Magnesium Oxide 400 Mg Tablet) 200 mg PO DAILY [facility] Last Admin: 06/28/22 09:04 Dose: 200 mg Documented By: KHALIDA Melatonin (Melatonin 3 Mg Tablet) 9 mg PO BEDTIME [facility] Last Admin: 06/27/22 22:05 Dose: 9 mg Documented By: ERNESTINE Nystatin (Nystatin Powder 15 Gm Bottle) 1 appl TOPICAL TID [facility]; Protocol Last Admin: 06/28/22 09:06 Dose: 1 appl Documented By: KHALIDA Omeprazole (Omeprazole 20 Mg Capsule.Dr) 20 mg PO DAILY@0630 [facility] Last Admin: 06/28/22 06:23 Dose: Not Given Documented By: MAYITO Non-Admin Reason: pt finely asleep Pharmacy Consult (Consult Rx Perform Med Rec) 1 each MISCELLANE ONCE PRN PRN Reason: Consult order Phenytoin Sodium (Phenytoin Sodium Extended 100 Mg Capsule) 300 mg PO BID [facility] Last Admin: 06/28/22 09:06 Dose: 300 mg Documented By: KHALIDA Polyethylene Glycol (Polyethylene Glycol 3350 17 Gm Powd.Pack) 17 gm PO DAILY [facility] Last Admin: 06/28/22 09:06 Dose: 17 gm Documented By: KHALIDA Quetiapine Fumarate (Quetiapine Fumarate 50 Mg Tablet) 50 mg PO BID [facility] Last Admin: 06/28/22 09:06 Dose: 50 mg Documented By: KHALIDA Quetiapine Fumarate (Quetiapine Fumarate 50 Mg Tablet) 50 mg PO BID PRN PRN Reason: Agitation Senna/Docusate Sodium (Sennosides/Docusate Sodium Tablet) 2 tab PO BID [facility] Last Admin: 06/28/22 09:04 Dose: 2 tab Documented By: KHALIDA Sodium Chloride (0.9 % Sodium Chloride Flush 3 Ml Syringe) 3 ml IVFLUSH QSHIFT [facility] Last Admin: 06/28/22 09:06 Dose: 3 ml Documented By: KHALIDA Tamsulosin HCl (Tamsulosin Hcl 0.4 Mg Capsule) 0.4 mg PO DAILY [facility] Last Admin: 06/28/22 09:06 Dose: 0.4 mg Documented By: KHALIDA Torsemide (Torsemide 20 Mg Tablet) 20 mg PO DAILY [facility]; Protocol Last Admin: 06/28/22 09:05 Dose: 20 mg Documented By: KHALIDA Triamcinolone Acetonide (Triamcinolone Acet 0.1 % Cream 15 Gm Tube) 1 appl TOPICAL DAILY [facility]; Protocol Last Admin: 06/28/22 09:07 Dose: 1 appl Documented By: KHALIDA Labs CBC & Chem 7: 06/21/22 07:21 06/26/22 05:46 Assessment and Plan (1) Aggressive behavior: Status: Acute (2) Cognitive changes: Status: Acute Plan 82yo M with dementia recently hospitalized for KENJI + diverticulitis 05/23-05/25/22, discharged to SNF and returned to ED 06/07/22 due to aggressive behavior at SNF was awaiting alternative placement in ED but then admitted 06/09/22 due to respiratory distress due to CHF exacerbation # acute HFpEF - resolved, appears euvolemic, continue torsemide by mouth, renal function close to baseline , on regular diet declined low-salt diet # KENJI/CKD4 renal function returned to baseline, repeat BMP at a.m.,hydrochlorothiazide and valsartan discontinued # hypotension, history of essential hypertension, hypotension resolved, continue atenolol ,torsemide and hydralazine, follow BP closely if noted to have high blood pressure will increase dose of hydralazine. . # urinary retention - repeat voiding trial given on 06/27 as per family request however patient failed voiding trial Stahl catheter reinserted overnight , continue Stahl and Flomax # RLE cellulitis - resolved s/p course of doxycycline # hyperK - resolved # dementia - had behavioral issues at SNF but not since arrival , Psych consulted on 06/13/22; increased quetiapine to 50 mg bid + 50 mg q12h prn , QTc 426 ms 06/21/22, patient noted to remain restless at night being out of bed to chair multiple times, therefore will obtain psych eval to adjust medications # sz disorder - continue phenytoin # constipation, continues Senokot and MiraLax # VTE ppx: UFH # code: DNR/DNI Disposition had a family meeting with onsite case manager and administration on 06/27 plan is for patient to be discharged home on July 03, onsite case manager placed referral to [facility] and [facility] In my clinical judgment, the patient requires continued hospitalization for safe placement, HCP invoked. Quality Stroke Does the patient have a stroke diagnosis?: No VTE Prior VTE?: No VTE Risk Level:: Medical - moderate - high VTE Device Contraindication: Treatment Not Indicated VTE Drug Contraindication: N/A - Med Ordered
--- NOTE | 2022-06-28 13:36 | MHC.CM.PN ---
EM[facility] REVIEWED, PER HOSPITALIST PT FAILED VOIDING TRIAL ON 06/27 AND YA REINSERTED, PSYCH CONSULT PENDING FOR MED MANAGEMENT PT HAS BEEN AWAKE ALL NIGHT GETTING IN AND OUT OF BED. SNF REFERRAL REVIEWED AND CM HAS NOT RECE[facility], MESSAGE SENT OVER [employer] AND CM AWAITING RESPONSE. PLAN CONT'S TO BE HOME NEXT WEDNESDAY 07/04 W/NEW [facility] AND FAMILY SUPPORT.
[2022-06-28 15:31] VITALS: BP 144/64; PULSE 61; RESP 18; TEMP 36.4; O2SAT 93
--- NOTE | 2022-06-28 17:18 | P.CNPS_ITS ---
History of Present Illness Date of Service: 06/28/2022 Chief Complaint: Elevated BNP chest tightness Reason for Consult: medication Requesting physician: Dani Qiu Discussed with referring provider: Yes Sources of Information: patient interviewed, chart reviewed and crisis/core team assessment reviewed HPI Narrative: Gentry is an 82 yo M with PMH of CKD stage 4, epilepsy. He presented to the ED on 06/07/22 after he was sent in from local SNF for aggressive behavior. He was not accepted back to the facility and hence was awaiting placement in the ED. He was seen for psych consult and was started on seroquel 50 mg BID with good effect, calm. On 06/09/22, pt complained of chest tightness and he was re- evaluated medically. A repeat CXR showed some ventral vascular congestion. BNP was elevated >1300. He was admitted for further work up of acute/new onset CHF. His torsemide 20mg daily was restarted. Pt is on henry. HCP is daughter Nancy and son Eriberto Psych consult placed for medication, as pt has insomnia, i.e. wakes up throughout the night, family is concerned. No behavioral or mood concerns.? I evaluated the pt this evening and upon inquiry he reports ?as far as I know, i've been sleeping,? says he only gets up to use the bathroom. Says his daytime energy is good. Says he is ?waiting to go home,? ?Im sitting here like a lump on a log.? Mood is ?pretty good.? Says he is only anxious about going home. Pt has dementia at baseline, not an accurate guide winder.? Past Psychiatric History: None Medical Evaluation Reviewed: Yes [facility] Medical History (Updated 06/13/22 @ 16:18 by Hayley Mckeon) CAD (coronary artery disease) CKD (chronic kidney disease) Cognitive changes High cholesterol Hypertension Seizures Surgical History (Updated 06/09/22 @ 09:39 by Luis Oscar MD) History of hip surgery 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 Hx of CABG S/P total right hip arthroplasty Diagnostics Vital Signs (24Hr): Vital Signs - 24 hr 06/27/22 19:08 06/27/22 23:04 06/27/22 21:52 Temperature 97.6 F 97.6 F Pulse Rate 58 58 54 Respiratory Rate 18 18 Blood Pressure 154/66 H 158/69 H 157/70 H Pulse Oximetry 95 98 Oxygen Delivery Method Room Air 06/28/22 03:42 06/28/22 06:57 06/28/22 11:18 Temperature 97.8 F 98 F 96.8 F Pulse Rate 59 84 56 Respiratory Rate 18 18 18 Blood Pressure 150/71 H 113/58 L 152/72 H Pulse Oximetry 94 96 96 Oxygen Delivery Method Room Air Room Air Room Air 06/28/22 15:31 Temperature 97.5 F Pulse Rate 61 Respiratory Rate 18 Blood Pressure 144/64 H Pulse Oximetry 93 Oxygen Delivery Method Room Air BMI result Body Mass Index 34.9 Labs Results: 06/21/22 07:21 06/29/22 07:39 Imaging Radiology Impressions: ITS Impressions Chest X-Ray 06/09/22 00:25 IMPRESSION: Central vascular prominence without overt edema. Small left pleural effusion. Mental Status Exam Mental Status Exam Narrative: Appearance: wearing hospital gown, appears stated age, in NAD Behavior: cooperative, pleasant Psychomotor: no agitation or retardation noted Speech: clear, no delayed responses, spontaneous Thought process: mostly linear, single word answers but appropriate- no derailment, or significant expressive aphasia noted Thought content: feeling rested, no physical concerns, no signs of psychosis Mood: pretty good' Affect: congruent, bright, non labile SI: none HI: none AH/VH: none delusions: none Insight/judgment: impaired x 2. Memory/cog: alert, oriented only person, place but not situation, date/month/year. Underlying neurocognitive disorder Medications Medications Current Medications Acetaminophen (Acetaminophen 325 Mg Tablet) 650 mg PO Q6H PRN PRN Reason: Fever Last Admin: 06/23/22 23:41 Dose: 650 mg Atenolol (Atenolol 25 Mg Tablet) 25 mg PO BID [facility]; Protocol Last Admin: 06/28/22 09:05 Dose: 25 mg Atorvastatin Calcium (Atorvastatin Calcium 20 Mg Tablet) 20 mg PO BEDTIME [facility] Last Admin: 06/27/22 22:06 Dose: 20 mg Bisacodyl (Bisacodyl 10 Mg Supp.Rect) 10 mg IN DAILY PRN PRN Reason: Constipation Last Admin: 06/25/22 07:33 Dose: 10 mg Heparin Sodium (Porcine) (Heparin Sodium,Porcine 5,000 Unit/Ml Vial) 5,000 unit SUBCUT Q12H [facility] Last Admin: 06/28/22 09:07 Dose: 5,000 unit Hydralazine HCl (Hydralazine Hcl 25 Mg Tablet) 25 mg PO BID [facility]; Protocol Last Admin: 06/28/22 09:06 Dose: Not Given Magnesium Oxide (Magnesium Oxide 400 Mg Tablet) 200 mg PO DAILY [facility] Last Admin: 06/28/22 09:04 Dose: 200 mg Melatonin (Melatonin 3 Mg Tablet) 9 mg PO BEDTIME [facility] Last Admin: 06/27/22 22:05 Dose: 9 mg Nystatin (Nystatin Powder 15 Gm Bottle) 1 appl TOPICAL TID [facility]; Protocol Last Admin: 06/28/22 14:39 Dose: 1 appl Omeprazole (Omeprazole 20 Mg Capsule.Dr) 20 mg PO DAILY@0630 [facility] Last Admin: 06/28/22 06:23 Dose: Not Given Pharmacy Consult (Consult Rx Perform Med Rec) 1 each MISCELLANE ONCE PRN PRN Reason: Consult order Phenytoin Sodium (Phenytoin Sodium Extended 100 Mg Capsule) 300 mg PO BID [facility] Last Admin: 06/28/22 09:06 Dose: 300 mg Polyethylene Glycol (Polyethylene Glycol 3350 17 Gm Powd.Pack) 17 gm PO DAILY [facility] Last Admin: 06/28/22 09:06 Dose: 17 gm Quetiapine Fumarate (Quetiapine Fumarate 50 Mg Tablet) 50 mg PO BID PRN PRN Reason: Agitation Quetiapine Fumarate (Quetiapine Fumarate 50 Mg Tablet) 50 mg PO DAILY [facility] Quetiapine Fumarate (Quetiapine Fumarate 100 Mg Tablet) 100 mg PO BEDTIME [facility] Senna/Docusate Sodium (Sennosides/Docusate Sodium Tablet) 2 tab PO BID [facility] Last Admin: 06/28/22 09:04 Dose: 2 tab Sodium Chloride (0.9 % Sodium Chloride Flush 3 Ml Syringe) 3 ml IVFLUSH QSHIFT [facility] Last Admin: 06/28/22 14:39 Dose: 3 ml Tamsulosin HCl (Tamsulosin Hcl 0.4 Mg Capsule) 0.4 mg PO DAILY [facility] Last Admin: 06/28/22 09:06 Dose: 0.4 mg Torsemide (Torsemide 20 Mg Tablet) 20 mg PO DAILY [facility]; Protocol Last Admin: 06/28/22 09:05 Dose: 20 mg Triamcinolone Acetonide (Triamcinolone Acet 0.1 % Cream 15 Gm Tube) 1 appl TOPICAL DAILY [facility]; Protocol Last Admin: 06/28/22 09:07 Dose: 1 appl Allergies Allergies Allergy/AdvReac Type Severity Reaction Status Date / Time No Known Allergies Allergy Verified 08/02/20 15:53 Assessment & Plan Assessment & Plan (1) Major neurocognitive disorder due to another medical condition with behavioral disturbance: Status: Acute Code(s): F02.81 - Dementia in other diseases classified elsewhere with behavioral disturbance (2) Congestive heart failure: Status: Acute Code(s): I50.9 - Heart failure, unspecified (3) Acute kidney injury: Status: Acute Code(s): N17.9 - Acute kidney failure, unspecified Plan Plan: will increase seroquel to 100 mg QHS for insomnia and continue seroquel 50 mg daily for agitation, will d/c PRN seroquel as pt has been in behavioral control and does not appear to need it, has not been utilizing it per MAR.? I have shared this with Dr. Qiu Thank you for this consultation. If you have any questions or concerns, please do not hesitate to contact psychiatry service. I spent minutes with the patient and/or on the patient floor today, greater than?50% of which was spent counseling/coordinating care. Patient educated on: diagnosis, medication risk/benefits and therapeutic stra tegies
[2022-06-28 19:16] VITALS: BP 146/66; PULSE 60; RESP 18; TEMP 36.1; O2SAT 96
[2022-06-28] MEDS: hydrALAZINE HCl 25 MG TABLET PO (19:40)
[2022-06-28] MEDS: Melatonin 3 MG TABLET 9 MG PO (19:40)
[2022-06-28] MEDS: QUEtiapine Fumarate 100 MG TABLET PO (19:41)
[2022-06-28] MEDS: Atorvastatin Calcium 20 MG TABLET PO (19:41)
[2022-06-28 23:38] VITALS: BP 109/55; PULSE 61; RESP 17; TEMP 36.5; O2SAT 94
[2022-06-29 04:00] VITALS: BP 130/62; PULSE 57; RESP 17; TEMP 36.1; O2SAT 93
[2022-06-29] MEDS: Omeprazole 20 MG CAPSULE.DR PO (06:09)
[2022-06-29 07:34] VITALS: BP 136/58; PULSE 54; RESP 22; TEMP 36.1; O2SAT 94
[2022-06-29] MEDS: Phenytoin Sodium Extended 100 MG CAPSULE 300 MG PO ×2 (08:11→20:25)
[2022-06-29] MEDS: 0.9 % Sodium Chloride Flush 3 ML SYRINGE IVFLUSH ×2 (08:11→20:25)
[2022-06-29] MEDS: polyethylene glycoL 3350 17 GM POWD.PACK PO (08:11)
[2022-06-29] MEDS: atenoloL 25 MG TABLET PO ×2 (08:12→20:25)
[2022-06-29] MEDS: Heparin Sodium,Porcine 5,000 UNIT/ML VIAL 5000 UNIT SUBCUT ×2 (08:12→20:26)
[2022-06-29] MEDS: QUEtiapine Fumarate 50 MG TABLET PO (08:12)
[2022-06-29] MEDS: Sennosides/Docusate Sodium TABLET 2 TAB PO ×2 (08:12→20:24)
[2022-06-29] MEDS: Tamsulosin HCL 0.4 MG CAPSULE PO (08:13)
[2022-06-29] MEDS: Torsemide 20 MG TABLET PO (08:13)
[2022-06-29] MEDS: hydrALAZINE HCl 25 MG TABLET PO ×2 (08:14→20:24)
[2022-06-29] MEDS: Magnesium Oxide 400 MG TABLET 200 MG PO (08:14)
[2022-06-29 08:38] LABS: Anion Gap 16 (12-20); Blood Urea Nitrogen 46 mg/dL (9-16); Calcium 7.6 mg/dL (8.4-10.2); Carbon Dioxide 24 mmol/L (22-29); Chloride 112 mmol/L (96-108); Creatinine Clr Calc Pharmacy 27.5; Estimated Glomerular Filt Rate 30; Glucose Random 98 mg/dL (60-115); Potassium 5.2 mmol/L (3.3-5.1); Sodium 147 mmol/L (135-145)
[2022-06-29] MEDS: Triamcinolone Acet 0.1 % Cream 15 GM TUBE 1 APPL TOPICAL (10:31)
[2022-06-29] MEDS: Nystatin Powder 15 GM BOTTLE 1 APPL TOPICAL ×3 (10:31→20:29)
[2022-06-29 11:40] VITALS: BP 146/69; PULSE 57; RESP 20; TEMP 36.1; O2SAT 96
--- NOTE | 2022-06-29 11:55 | HO.PM.IMPN ---
Subjective Subjective Date of Service: 06/29/22 Interval History: Wants to go home otherwise offers no other acute complaints, denies headache, dizziness no fevers no chills, no events overnight Physical Exam Vital Signs: Vital Signs: Last Vital Signs Temp 97.0 F 06/29/22 11:40 Pulse 57 06/29/22 11:40 Resp 20 06/29/22 11:40 BP 146/69 H 06/29/22 11:40 Pulse Ox 96 06/29/22 11:40 O2 Del Method 06/29/22 11:40 BMI result Body Mass Index 34.9 Const: Other: Gen:? awake alert, in no acute distre ss Neck: supple, n o JVD Lungs: clear to auscultation , no crackles, no w heeze Heart: regul ar rate and rhythm , no murmurs Abd: soft, obese, bowel sounds audible, n on-tender, non-dis tended Ext:? Mild LE edema? Unchange d, dry scabs on le gs bilaterally wit h post inflammator y hyperpigmentatio n No new lesion Sk in: warm/well-perf used Neuro: alert and oriented to se lf only Psych: imp aired insight Objective Data Active Medications Acetaminophen (Acetaminophen 325 Mg Tablet) 650 mg PO Q6H PRN PRN Reason: Fever Last Admin: 06/23/22 23:41 Dose: 650 mg Documented By: STEVO Atenolol (Atenolol 25 Mg Tablet) 25 mg PO BID [facility]; Protocol Last Admin: 06/29/22 08:12 Dose: 25 mg Documented By: FRANCINE Atorvastatin Calcium (Atorvastatin Calcium 20 Mg Tablet) 20 mg PO BEDTIME [facility] Last Admin: 06/28/22 19:41 Dose: 20 mg Documented By: MELISA Bisacodyl (Bisacodyl 10 Mg Supp.Rect) 10 mg KS DAILY PRN PRN Reason: Constipation Last Admin: 06/25/22 07:33 Dose: 10 mg Documented By: DAYNE Heparin Sodium (Porcine) (Heparin Sodium,Porcine 5,000 Unit/Ml Vial) 5,000 unit SUBCUT Q12H [facility] Last Admin: 06/29/22 08:12 Dose: 5,000 unit Documented By: FRANCINE Hydralazine HCl (Hydralazine Hcl 25 Mg Tablet) 25 mg PO BID [facility]; Protocol Last Admin: 06/29/22 08:14 Dose: 25 mg Documented By: FRANCINE Magnesium Oxide (Magnesium Oxide 400 Mg Tablet) 200 mg PO DAILY [facility] Last Admin: 06/29/22 08:14 Dose: 200 mg Documented By: FRANCINE Melatonin (Melatonin 3 Mg Tablet) 9 mg PO BEDTIME [facility] Last Admin: 06/28/22 19:40 Dose: 9 mg Documented By: MELISA Nystatin (Nystatin Powder 15 Gm Bottle) 1 appl TOPICAL TID [facility]; Protocol Last Admin: 06/29/22 10:31 Dose: 1 appl Documented By: FRANCINE Omeprazole (Omeprazole 20 Mg Capsule.) 20 mg PO DAILY@0630 [facility] Last Admin: 06/29/22 06:09 Dose: 20 mg Documented By: MELISA Pharmacy Consult (Consult Rx Perform Med Rec) 1 each MISCELLANE ONCE PRN PRN Reason: Consult order Phenytoin Sodium (Phenytoin Sodium Extended 100 Mg Capsule) 300 mg PO BID [facility] Last Admin: 06/29/22 08:11 Dose: 300 mg Documented By: FRANCINE Polyethylene Glycol (Polyethylene Glycol 3350 17 Gm Powd.Pack) 17 gm PO DAILY [facility] Last Admin: 06/29/22 08:11 Dose: 17 gm Documented By: FRANCINE Quetiapine Fumarate (Quetiapine Fumarate 50 Mg Tablet) 50 mg PO DAILY [facility] Last Admin: 06/29/22 08:12 Dose: 50 mg Documented By: FRANCINE Quetiapine Fumarate (Quetiapine Fumarate 100 Mg Tablet) 100 mg PO BEDTIME [facility] Last Admin: 06/28/22 19:41 Dose: 100 mg Documented By: MELISA Senna/Docusate Sodium (Sennosides/Docusate Sodium Tablet) 2 tab PO BID [facility] Last Admin: 06/29/22 08:12 Dose: 2 tab Documented By: FRANCINE Sodium Chloride (0.9 % Sodium Chloride Flush 3 Ml Syringe) [facility] Last Admin: 06/29/22 08:11 Dose: 3 ml Documented By: FRANCINE Tamsulosin HCl (Tamsulosin Hcl 0.4 Mg Capsule) 0.4 mg PO DAILY [facility] Last Admin: 06/29/22 08:13 Dose: 0.4 mg Documented By: FRANCINE Torsemide (Torsemide 20 Mg Tablet) 20 mg PO DAILY [facility]; Protocol Last Admin: 06/29/22 08:13 Dose: 20 mg Documented By: FRANCINE Triamcinolone Acetonide (Triamcinolone Acet 0.1 % Cream 15 Gm Tube) 1 appl TOPICAL DAILY [facility]; Protocol Last Admin: 06/29/22 10:31 Dose: 1 appl Documented By: FRANCINE Labs CBC & Chem 7: 06/21/22 07:21 06/29/22 07:39 Labs: Laboratory Results - last 24 hr 06/29/22 07:39 Anion Gap 16 Estim Creat Clear Calc 27.5 Estimated GFR 30 Random Glucose 98 Calcium 7.6 L Assessment and Plan (1) Aggressive behavior: Status: Acute (2) Cognitive changes: Status: Acute Plan 82yo M with dementia recently hospitalized for KENJI + diverticulitis 05/23-05/25/22, discharged to SNF and returned to ED 06/07/22 due to aggressive behavior at SNF was awaiting alternative placement in ED but then admitted 06/09/22 due to respiratory distress due to CHF exacerbation # acute HFpEF - resolved, appears euvolemic, will DC torsemide since noted to have hypernatremia, and creatinine trending up ,on regular diet declined low-salt diet # KENJI/CKD4 renal function close to baseline however creatinine bumped to 2.12 along with mild hypernatremia and hyperkalemia, will hold Demadex, give gentle IV fluid Home medication hydrochlorothiazide and valsartan discontinued # hypotension, history of essential hypertension, hypotension resolved, continue atenolol ,and hydralazine, follow BP closely increase dose of hydralazine if needed. . # urinary retention - repeat voiding trial given on 06/27 as per family request however patient failed voiding trial Stahl catheter reinserted overnight , continue Stahl and Flomax # RLE cellulitis - resolved s/p course of doxycycline # hyperK - noted elevated potassium, will give Lokelma follow labs # mild hypernatremia likely decreased by mouth intake hold torsemide give IV fluid follow labs. # dementia - had behavioral issues at SNF but not since arrival , Psych consulted on 06/13/22; now on quetiapine to 50 mg bid + 50 mg q12h prn , QTc 426 ms 06/21/22, patient noted to remain restless at night being out of bed to chair multiple times, follow-up on psych eval # sz disorder - continue phenytoin # constipation, continues Senokot and MiraLax # VTE ppx: UFH # code: DNR/DNI Disposition had a family meeting with geriatric case manager and administration on 06/27 plan is for patient to be discharged home on July 03, geriatric case manager placed referral to [facility] and [facility], project manager industrial also looking for rehab bed In my clinical judgment, the patient requires continued hospitalization for safe placement, HCP invoked. Quality Stroke Does the patient have a stroke diagnosis?: No VTE Prior VTE?: No VTE Risk Level:: Medical - moderate - high VTE Device Contraindication: Treatment Not Indicated VTE Drug Contraindication: N/A - Med Ordered
--- NOTE | 2022-06-29 11:56 | P.CDIC_ITS ---
CDI Concurrent Query Documentation Clarification: PHYSICIAN'S DOCUMENTATION REQUEST Date of Query: 06/29/22 1156 Patient Name: Gentry Quiñones Admit Date: 06/10/22 Dear Doctor, A review of the medical record indicates additional documentation may be needed. Please review below and update the documentation accordingly. Clinical Indicators: Is there a diagnosis that correlates to these lab findings: Risk Factors/Clinical Indicators/Treatments LABS: sodium - 06/26 146 06/29 147 IV fluids Based on the above, could you clarify in the Progress Notes the appropriate diagnosis, if significant, that supports the above abnormalities and additional evaluation, monitoring, and/or treatment rendered: * Hypernatremia or other etiology of lab findings * Labs indicate a diagnosis of (please specify) * Other (please specify) * Unable to determine Use of terms such as suspected, likely, concern for, or probable (associated with a specific diagnosis that is being evaluated, monitored, or treated as if it exists) are acceptable and can be coded in the inpatient setting, when documented at the time of discharge. Thank you, Raquel Jimenez [facility], CDIS Extension: [phone] Please use your independent medical judgment in providing your response. THIS QUERY IS PART OF THE PERMANENT MEDICAL RECORD Provider Response: Other Other Diagnosis: see note
[2022-06-29] MEDS: Sodium Zirconium Cyclosilicate 5 GM POWD.PACK PO (12:47)
[2022-06-29] MEDS: Dextrose 5 % 1,000 ML 80 ML IVCONT (12:48)
--- NOTE | 2022-06-29 13:59 | MHC.CM.PN ---
EMR REVIEWED, CM ATTEMPTED TO CONTACT PT'S SUSU AT 11:45AM AT NUMBER ON FILE, NO ANSWER AND MESSAGE LEFT W/CM CONTACT INFO. CM CONTACTED PT'S DTR/HCP NIRANJAN WHO WAS AT WORK AND UNABLE TO TALK HOWEVER CALLED CM BACK AND REPORTS SHE HAS BEEN WORKING ON CLEANING ROOM AND SETTING THINGS UP FOR PT TO COME HOME. NIRANJAN REPORTS THEY HAVE MULTIPLE WALKERS,, A W/C AND TRANSPORT W/C, A SHOWER CHAIR AND BEDSIDE COMMODE. NIRANJAN REPORTS THE ONLY OTHER EQUIPMENT THEY NEED IS A HOSPITAL BED. NIRANJAN REPORTS HER BROTHER IS THE ONE ARRANGING HOME HEALTH AND FOR HOSPITAL BED. CM CONTACTED PT'S SON/POA GAMALIEL AT 12:59PM AT NUMBER ON FILE, GAMALIEL REPORTS HE HAS NOT MADE ANY CALLS FOR A HOSPITAL BED OR HOME HEALTH SERVICES, GAMALIEL ALSO REPORTS HE DOES NOT HAVE THE LIST OF HOME HEALTH COMPANIES GIVEN TO HIS SISTER. 1) [facility] [phone]: FULL ELECTRIC: $250 MONTHLY RENTAL OR $1995 TO BUY, SEMI ELECTRIC BED: $200 MONTHLY OR $1650 TO BUY. 2) [facility] [phone]: SCRIPT AND ORDER WILL NEED TO BE SENT BY PCP W/DIAGNOSIS, CLINICAL INFO, THIS CAN TAKE WEEKS SO IF HOSPITAL BED IS NEEDED THEY CAN RENT: FULL ELECTRIC $225 MONTHLY AND SEMI ELECTRIC IS $185 MONTHLY AND WILL TAKE OVER A WEEK TO COME IN. CM HAS EMAILED PT'S SON/PONicholas ALSTON THE ABOVE INFO W/LIST OF HOME HEALTH AGENCIES THAT PROVIDE SERVICE TO [facility] W/DIRECTIONS TO START CONTACTING AGENCIES WELL PLAN FOR [facility] REFERRAL TO NOTIFY OF D/C
[2022-06-29 15:42] VITALS: BP 97/52; PULSE 52; RESP 18; TEMP 36.4; O2SAT 97
[2022-06-29 19:34] VITALS: BP 128/60; PULSE 52; RESP 15; TEMP 36.6; O2SAT 97
[2022-06-29] MEDS: Atorvastatin Calcium 20 MG TABLET PO (20:25)
[2022-06-29] MEDS: QUEtiapine Fumarate 100 MG TABLET PO (20:25)
[2022-06-29] MEDS: Melatonin 3 MG TABLET 9 MG PO (20:25)
[2022-06-29 23:37] VITALS: BP 102/50; PULSE 53; RESP 18; TEMP 36.6; O2SAT 96
[2022-06-30 04:00] VITALS: BP 123/56; PULSE 54; RESP 18; TEMP 36.6; O2SAT 95
[2022-06-30] MEDS: Omeprazole 20 MG CAPSULE.DR PO (05:55)
[2022-06-30 07:11] LABS: Anion Gap 17 (12-20); Blood Urea Nitrogen 48 mg/dL (9-16); Carbon Dioxide 21 mmol/L (22-29); Chloride 110 mmol/L (96-108); Creatinine Clr Calc Pharmacy 27.5; Estimated Glomerular Filt Rate 30; Glucose Random 93 mg/dL (60-115); Potassium 4.7 mmol/L (3.3-5.1); Sodium 143 mmol/L (135-145)
[2022-06-30 07:26] VITALS: BP 130/67; PULSE 79; RESP 16; TEMP 36.6; O2SAT 93
[2022-06-30] MEDS: Tamsulosin HCL 0.4 MG CAPSULE PO (09:59)
[2022-06-30] MEDS: hydrALAZINE HCl 25 MG TABLET PO ×2 (09:59→21:03)
[2022-06-30] MEDS: polyethylene glycoL 3350 17 GM POWD.PACK PO (09:59)
[2022-06-30] MEDS: 0.9 % Sodium Chloride Flush 3 ML SYRINGE IVFLUSH ×3 (09:59→21:16)
[2022-06-30] MEDS: Magnesium Oxide 400 MG TABLET 200 MG PO (10:01)
[2022-06-30] MEDS: Nystatin Powder 15 GM BOTTLE 1 APPL TOPICAL ×3 (10:02→21:07)
[2022-06-30] MEDS: QUEtiapine Fumarate 50 MG TABLET PO (10:02)
[2022-06-30] MEDS: Phenytoin Sodium Extended 100 MG CAPSULE 300 MG PO ×2 (10:02→21:03)
[2022-06-30] MEDS: atenoloL 25 MG TABLET PO ×2 (10:02→21:02)
[2022-06-30] MEDS: Triamcinolone Acet 0.1 % Cream 15 GM TUBE 1 APPL TOPICAL (10:03)
[2022-06-30] MEDS: Sennosides/Docusate Sodium TABLET 2 TAB PO ×2 (10:03→21:03)
[2022-06-30] MEDS: Heparin Sodium,Porcine 5,000 UNIT/ML VIAL 5000 UNIT SUBCUT ×2 (10:03→21:10)
[2022-06-30 11:49] VITALS: BP 116/46; PULSE 55; RESP 17; TEMP 36.2; O2SAT 97
--- NOTE | 2022-06-30 12:49 | P.PNIM_ITS ---
Subjective Subjective Date of Service: 06/30/22 Interval History: Sitting comfortably offers no acute complaints, of fevers, no chills, denies pain, denies headache, no dizziness, wants to go home Review of Systems CVS no chest pain or palpitation Respiratory no cough, no shortness of breath Stahl in place Review of Systems: Yes all other systems are reviewed and are negative Physical Exam Vital Signs: Vital Signs: Last Vital Signs Temp 97.2 F 06/30/22 11:49 Pulse 55 06/30/22 11:49 Resp 17 06/30/22 11:49 BP 116/46 L 06/30/22 11:49 Pulse Ox 97 06/30/22 11:49 O2 Del Method 06/30/22 11:49 BMI result Body Mass Index 34.9 Const: Other: Gen:? awake alert, in no acute distre ss Neck: supple, n o JVD Lungs: clear to auscultation , no crackles, no w heeze Heart: regul ar rate and rhythm , no murmurs Abd: soft, obese, bowel sounds audible, n on-tender, non-dis tended Ext:? Lower extremity edema r esolved, dry scabs on legs bilateral ly R>L with post i nflammatory hyperp igmentation Non te nder Skin: warm/we ll-perfused Neuro: alert and oriente d to self only Psy ch: impaired insig ht Objective Data Active Medications Acetaminophen (Acetaminophen 325 Mg Tablet) 650 mg PO Q6H PRN PRN Reason: Fever Last Admin: 06/23/22 23:41 Dose: 650 mg Documented By: STEVO Atenolol (Atenolol 25 Mg Tablet) 25 mg PO BID [facility]; Protocol Last Admin: 06/30/22 10:02 Dose: 25 mg Documented By: SRINI Atorvastatin Calcium (Atorvastatin Calcium 20 Mg Tablet) 20 mg PO BEDTIME [facility] Last Admin: 06/29/22 20:25 Dose: 20 mg Documented By: MELISA Bisacodyl (Bisacodyl 10 Mg Supp.Rect) 10 mg KS DAILY PRN PRN Reason: Constipation Last Admin: 06/25/22 07:33 Dose: 10 mg Documented By: DAYNE Heparin Sodium (Porcine) (Heparin Sodium,Porcine 5,000 Unit/Ml Vial) 5,000 unit SUBCUT Q12H [facility] Last Admin: 06/30/22 10:03 Dose: 5,000 unit Documented By: SRINI Hydralazine HCl (Hydralazine Hcl 25 Mg Tablet) 25 mg PO BID [facility]; Protocol Last Admin: 06/30/22 09:59 Dose: 25 mg Documented By: SRINI Magnesium Oxide (Magnesium Oxide 400 Mg Tablet) 200 mg PO DAILY [facility] Last Admin: 06/30/22 10:01 Dose: 200 mg Documented By: SRINI Melatonin (Melatonin 3 Mg Tablet) 9 mg PO BEDTIME [facility] Last Admin: 06/29/22 20:25 Dose: 9 mg Documented By: MELISA Nystatin (Nystatin Powder 15 Gm Bottle) 1 appl TOPICAL TID [facility]; Protocol Last Admin: 06/30/22 10:02 Dose: 1 appl Documented By: SRINI Omeprazole (Omeprazole 20 Mg Capsule.Dr) 20 mg PO DAILY@0630 [facility] Last Admin: 06/30/22 05:55 Dose: 20 mg Documented By: MELISA Pharmacy Consult (Consult Rx Perform Med Rec) 1 each MISCELLANE ONCE PRN PRN Reason: Consult order Phenytoin Sodium (Phenytoin Sodium Extended 100 Mg Capsule) 300 mg PO BID [facility] Last Admin: 06/30/22 10:02 Dose: 300 mg Documented By: SRINI Polyethylene Glycol (Polyethylene Glycol 3350 17 Gm Powd.Pack) 17 gm PO DAILY [facility] Last Admin: 06/30/22 09:59 Dose: 17 gm Documented By: SRINI Quetiapine Fumarate (Quetiapine Fumarate 50 Mg Tablet) 50 mg PO DAILY [facility] Last Admin: 06/30/22 10:02 Dose: 50 mg Documented By: SRINI Quetiapine Fumarate (Quetiapine Fumarate 100 Mg Tablet) 100 mg PO BEDTIME [facility] Last Admin: 06/29/22 20:25 Dose: 100 mg Documented By: MELISA Senna/Docusate Sodium (Sennosides/Docusate Sodium Tablet) 2 tab PO BID [facility] Last Admin: 06/30/22 10:03 Dose: 2 tab Documented By: SRINI Sodium Chloride (0.9 % Sodium Chloride Flush 3 Ml Syringe) 3 ml IVFLUSH QSHIFT [facility] Last Admin: 06/30/22 09:59 Dose: 3 ml Documented By: SRINI Tamsulosin HCl (Tamsulosin Hcl 0.4 Mg Capsule) 0.4 mg PO DAILY [facility] Last Admin: 06/30/22 09:59 Dose: 0.4 mg Documented By: SRINI Triamcinolone Acetonide (Triamcinolone Acet 0.1 % Cream 15 Gm Tube) 1 appl TOPICAL DAILY [facility]; Protocol Last Admin: 06/30/22 10:03 Dose: 1 appl Documented By: SRINI Labs CBC & Chem 7: 06/21/22 07:21 06/30/22 05:30 Labs: Laboratory Results - last 24 hr 06/30/22 05:30 Anion Gap 17 Estim Creat Clear Calc 27.5 Estimated GFR 30 Random Glucose 93 Calcium 7.0 L D Assessment and Plan (1) Aggressive behavior: Status: Acute (2) Cognitive changes: Status: Acute Plan 82yo M with dementia recently hospitalized for KENJI + diverticulitis 05/23- 05/25/22, discharged to SNF and returned to ED 06/07/22 due to aggressive behavior at SNF was awaiting alternative placement in ED but then admitted 06/09/22 due to respiratory distress due to CHF exacerbation # acute HFpEF - resolved, appears euvolemic, creatinine is stable, diuretics discontinued on 06/29 ,on regular diet declined low-salt diet # KENJI/CKD4 renal function close to baseline however creatinine bumped to 2.12 along with mild hypernatremia and hyperkalemia,on 06/29 patient treated with IV fluids, sodium and potassium improved Home medication hydrochlorothiazide, diuretic and valsartan discontinued # hypotension, history of essential hypertension, hypotension resolved, continue atenolol ,and hydralazine, follow BP closely increase dose of hydralazine if needed. . # urinary retention - repeat voiding trial given on 06/27 as per family request however patient failed voiding trial Stahl catheter reinserted overnight , continue Stahl and Flomax # RLE cellulitis - resolved s/p course of doxycycline # hyperK - status post Lokelma potassium improved # mild hypernatremia likely decreased by mouth intake status post IV fluid sodium improved, torsemide discontinued on 06/29 # dementia - had behavioral issues at SNF but not since arrival , Psych consulted on 06/13/22; placed on quetiapine 50 mg bid + 50 mg q12h prn , due to lack of sleep at night restlessness patient was re-evaluated by psych and dose of Seroquel increased to 100 mg at bedtime and continued on 50 mg at a.m. as needed Seroquel discontinued # sz disorder - continue phenytoin # constipation, continues Senokot and MiraLax # VTE ppx: UFH # code: DNR/DNI Disposition had a family meeting with porter sample case and administration on 06/27 plan is for patient to be discharged home on July 03, porter sample case [facility], quality assurance manager also looking for rehab bed In my clinical judgment, the patient requires continued hospitalization for safe placement, HCP invoked. Quality Stroke Does the patient have a stroke diagnosis?: No VTE Prior VTE?: No VTE Risk Level:: Medical - moderate - high VTE Device Contraindication: Treatment Not Indicated VTE Drug Contraindication: N/A - Med Ordered
--- NOTE | 2022-06-30 12:53 | MHC.CLN ---
F/U INTAKE X 4 DAYS USUALLY 25%, SOME MEALS HIGHER. GRANDDAUGHTER PRESENT AT TIME OF VISIT. STATED THAT TYPICALLY EATS SMALLER AMOUNTS AND THAT HE WOULD NOT TAKE SUPPLEMENT. NO ADDITIONAL NUTRITION INTERVENTIONS AT THIS TIME. CONTINUE TO ENCOURAGE INTAKE AT MEALS.
[2022-06-30 15:28] VITALS: BP 109/53; PULSE 52; RESP 15; TEMP 36.2; O2SAT 97
[2022-06-30 19:50] VITALS: BP 143/65; PULSE 58; RESP 18; TEMP 36.5; O2SAT 95
[2022-06-30] MEDS: Melatonin 3 MG TABLET 9 MG PO (21:02)
[2022-06-30] MEDS: QUEtiapine Fumarate 100 MG TABLET PO (21:03)
[2022-06-30] MEDS: Atorvastatin Calcium 20 MG TABLET PO (21:03)
[2022-06-30] MEDS: Acetaminophen 325 MG TABLET 650 MG PO (23:19)
[2022-07-01] VITALS (7 sets, daily range): BP systolic 107–149; BP diastolic 49–69; PULSE 52–62; RESP 18–20; TEMP 36–36.6; O2SAT 94–96
[2022-07-01] MEDS: Omeprazole 20 MG CAPSULE.DR PO (05:47)
[2022-07-01] MEDS: Magnesium Oxide 400 MG TABLET 200 MG PO (09:09)
[2022-07-01] MEDS: Sennosides/Docusate Sodium TABLET 2 TAB PO ×2 (09:09→21:04)
[2022-07-01] MEDS: Tamsulosin HCL 0.4 MG CAPSULE PO (09:10)
[2022-07-01] MEDS: Heparin Sodium,Porcine 5,000 UNIT/ML VIAL 5000 UNIT SUBCUT ×2 (09:10→21:44)
[2022-07-01] MEDS: QUEtiapine Fumarate 50 MG TABLET PO (09:10)
[2022-07-01] MEDS: Phenytoin Sodium Extended 100 MG CAPSULE 300 MG PO ×2 (09:10→21:04)
[2022-07-01] MEDS: hydrALAZINE HCl 25 MG TABLET PO ×2 (09:10→21:04)
[2022-07-01] MEDS: Triamcinolone Acet 0.1 % Cream 15 GM TUBE 1 APPL TOPICAL (09:11)
[2022-07-01] MEDS: 0.9 % Sodium Chloride Flush 3 ML SYRINGE IVFLUSH ×3 (09:11→21:11)
[2022-07-01] MEDS: Nystatin Powder 15 GM BOTTLE 1 APPL TOPICAL ×3 (09:11→21:43)
[2022-07-01] MEDS: polyethylene glycoL 3350 17 GM POWD.PACK PO (11:45)
--- NOTE | 2022-07-01 11:49 | P.PNIM_ITS ---
Subjective Subjective Date of Service: 07/01/22 Interval History: Patient slept well last night, offers no acute issues, denies pain, no shortness of breath, no fevers, no chills wants to go home, no events overnight. Physical Exam Vital Signs: Vital Signs: Last Vital Signs Temp 97.6 F 07/01/22 08:00 Pulse 54 07/01/22 10:48 Resp 18 07/01/22 08:00 BP 126/57 L 07/01/22 10:48 Pulse Ox 94 07/01/22 10:48 O2 Del Method 07/01/22 08:00 BMI result Body Mass Index 34.9 Const: Other: Gen:? awake alert,in no acute distress Neck: supple, no JVD Lungs: clear to auscultation , no crackles, no wheeze Heart: regular rate and rhythm, no murmurs Abd: soft, obese, bowel sounds audible, non-tender, non-distended Ext:? no edema? , dry scabs on legs bilaterally with post inflammatory hyperpigmentation, no open sores Skin: warm/well-perfused Neuro: alert and oriented to self only Psych: impaired insight Objective Data Active Medications Acetaminophen (Acetaminophen 325 Mg Tablet) 650 mg PO Q6H PRN PRN Reason: Fever Last Admin: 06/30/22 23:19 Dose: 650 mg Documented By: GIO Atenolol (Atenolol 25 Mg Tablet) 25 mg PO BID [facility]; Protocol Last Admin: 07/01/22 08:55 Dose: Not Given Documented By: SRINI Non-Admin Reason: pulse was 54 Atorvastatin Calcium (Atorvastatin Calcium 20 Mg Tablet) 20 mg PO BEDTIME [facility] Last Admin: 06/30/22 21:03 Dose: 20 mg Documented By: GIO Bisacodyl (Bisacodyl 10 Mg Supp.Rect) 10 mg [place] DAILY PRN PRN Reason: Constipation Last Admin: 06/25/22 07:33 Dose: 10 mg Documented By: DAYNE Heparin Sodium (Porcine) (Heparin Sodium,Porcine 5,000 Unit/Ml Vial) 5,000 unit SUBCUT Q12H [facility] Last Admin: 07/01/22 09:10 Dose: 5,000 unit Documented By: SRINI Hydralazine HCl (Hydralazine Hcl 25 Mg Tablet) 25 mg PO BID [facility]; Protocol Last Admin: 07/01/22 09:10 Dose: 25 mg Documented By: SRINI Magnesium Oxide (Magnesium Oxide 400 Mg Tablet) 200 mg PO DAILY [facility] Last Admin: 07/01/22 09:09 Dose: 200 mg Documented By: SRINI Melatonin (Melatonin 3 Mg Tablet) 9 mg PO BEDTIME [facility] Last Admin: 06/30/22 21:02 Dose: 9 mg Documented By: GIO Nystatin (Nystatin Powder 15 Gm Bottle) 1 appl TOPICAL TID [facility]; Protocol Last Admin: 07/01/22 09:11 Dose: 1 appl Documented By: SRINI Omeprazole (Omeprazole 20 Mg Capsule.Dr) 20 mg PO DAILY@0630 [facility] Last Admin: 07/01/22 05:47 Dose: 20 mg Documented By: GIO Pharmacy Consult (Consult Rx Perform Med Rec) 1 each MISCELLANE ONCE PRN PRN Reason: Consult order Phenytoin Sodium (Phenytoin Sodium Extended 100 Mg Capsule) 300 mg PO BID [facility] Last Admin: 07/01/22 09:10 Dose: 300 mg Documented By: SRINI Polyethylene Glycol (Polyethylene Glycol 3350 17 Gm Powd.Pack) 17 gm PO DAILY S Last Admin: 07/01/22 11:45 Dose: 17 gm Documented By: SRINI Quetiapine Fumarate (Quetiapine Fumarate 50 Mg Tablet) 50 mg PO DAILY [facility] Last Admin: 07/01/22 09:10 Dose: 50 mg Documented By: SRINI Quetiapine Fumarate (Quetiapine Fumarate 100 Mg Tablet) 100 mg PO BEDTIME [facility] Last Admin: 06/30/22 21:03 Dose: 100 mg Documented By: GIO Senna/Docusate Sodium (Sennosides/Docusate Sodium Tablet) 2 tab PO BID [facility] Last Admin: 07/01/22 09:09 Dose: 2 tab Documented By: SRINI Sodium Chloride (0.9 % Sodium Chloride Flush 3 Ml Syringe) 3 ml IVFLUSH QSHIFT [facility] Last Admin: 07/01/22 09:11 Dose: 3 ml Documented By: SRINI Tamsulosin HCl (Tamsulosin Hcl 0.4 Mg Capsule) 0.4 mg PO DAILY [facility] Last Admin: 07/01/22 09:10 Dose: 0.4 mg Documented By: SRINI Triamcinolone Acetonide (Triamcinolone Acet 0.1 % Cream 15 Gm Tube) 1 appl TOPICAL DAILY [facility]; Protocol Last Admin: 07/01/22 09:11 Dose: 1 appl Documented By: SRINI Labs CBC & Chem 7: 06/21/22 07:21 06/30/22 05:30 Assessment and Plan (1) Aggressive behavior: Status: Acute (2) Cognitive changes: Status: Acute Plan 82yo M with dementia recently hospitalized for KENJI + diverticulitis 05/23- 05/25/22, discharged to SNF and returned to ED 06/07/22 due to aggressive behavior at SNF was awaiting alternative placement in ED but then admitted 06/09/22 due to respiratory distress due to CHF exacerbation # acute HFpEF - resolved, appears euvolemic, creatinine is stable, diuretics discontinued on 06/29 ,on regular diet declined low-salt diet echo showed EF 65-70% with grade 2 diastolic dysfunction Recommend close outpatient follow-up and resumption of diuretics if noted to have shortness of breath or weight gain 2-3 lb in 1 week # KENJI/CKD4 renal function close to baseline however creatinine bumped to 2.12 along with mild hypernatremia and hyperkalemia,on 06/29 patient treated with IV fluids, sodium and potassium improved Home medication hydrochlorothiazide, diuretic and valsartan discontinued # hypotension, history of essential hypertension, hypotension resolved, co ntinue atenolol ,and hydralazine, follow BP closely # urinary retention - repeat voiding trial given on 06/27 as per family request however patient failed voiding trial Stahl catheter reinserted overnight , continue Stahl and Flomax # RLE cellulitis - resolved s/p course of doxycycline # hyperK - status post Lokelma potassium improved # mild hypernatremia likely decreased by mouth intake status post IV fluid sodium improved, torsemide discontinued on 06/29, will check labs on 07/03 # dementia - had behavioral issues at SNF but not since arrival , Psych consulted on 06/13/22; placed on quetiapine 50 mg bid + 50 mg q12h prn , due to lack of sleep at night restlessness patient was re-evaluated by psych and dose of Seroquel increased to 100 mg at bedtime and continued on 50 mg at a.m. as needed Seroquel discontinued # sz disorder - continue phenytoin # constipation, continues Senokot and MiraLax # VTE ppx: UFH # code: DNR/DNI Disposition had a family meeting with casework specialist and administration on 06/27 plan is for patient to be discharged home on July 04, casework specialist placed referral to [facility], executive sales manager also looking for rehab bed Patient seen by Physical therapy on 07/01 they recommend short-term rehab versus home with 24 hours supervision and assistance for transfers and physical therapy to optimize functions, patient is scheduled to be discharged to home will arrange for home PT In my clinical judgment, the patient requires continued hospitalization for safe placement, HCP invoked. Quality Stroke Does the patient have a stroke diagnosis?: No VTE Prior VTE?: No VTE Risk Level:: Medical - moderate - high VTE Device Contraindication: Treatment Not Indicated VTE Drug Contraindication: N/A - Med Ordered
[2022-07-01] MEDS: atenoloL 25 MG TABLET PO (21:04)
[2022-07-01] MEDS: Atorvastatin Calcium 20 MG TABLET PO (21:04)
[2022-07-01] MEDS: Melatonin 3 MG TABLET 9 MG PO (21:04)
[2022-07-01] MEDS: QUEtiapine Fumarate 100 MG TABLET PO (21:04)
[2022-07-02] VITALS: BP 104/50; PULSE 54; RESP 17; TEMP 36.1; O2SAT 94
[2022-07-02 04:00] VITALS: BP 146/55; PULSE 58; RESP 17; TEMP 36.4; O2SAT 94
[2022-07-02] MEDS: Omeprazole 20 MG CAPSULE.DR PO (05:59)
[2022-07-02 08:00] VITALS: BP 140/63; PULSE 54; RESP 16; TEMP 36; O2SAT 96
[2022-07-02] MEDS: polyethylene glycoL 3350 17 GM POWD.PACK PO (09:00)
[2022-07-02] MEDS: Phenytoin Sodium Extended 100 MG CAPSULE 300 MG PO ×2 (09:01→19:45)
[2022-07-02] MEDS: QUEtiapine Fumarate 50 MG TABLET PO (09:04)
[2022-07-02] MEDS: Magnesium Oxide 400 MG TABLET 200 MG PO (09:04)
[2022-07-02] MEDS: hydrALAZINE HCl 25 MG TABLET PO ×2 (09:05→19:46)
[2022-07-02] MEDS: Sennosides/Docusate Sodium TABLET 2 TAB PO ×2 (09:05→19:46)
[2022-07-02] MEDS: atenoloL 25 MG TABLET PO ×2 (09:06→19:46)
[2022-07-02] MEDS: Tamsulosin HCL 0.4 MG CAPSULE PO (09:06)
[2022-07-02] MEDS: 0.9 % Sodium Chloride Flush 3 ML SYRINGE IVFLUSH ×2 (09:09→19:47)
[2022-07-02] MEDS: Heparin Sodium,Porcine 5,000 UNIT/ML VIAL 5000 UNIT SUBCUT ×2 (09:09→19:47)
[2022-07-02] MEDS: Triamcinolone Acet 0.1 % Cream 15 GM TUBE 1 APPL TOPICAL (09:10)
[2022-07-02] MEDS: Nystatin Powder 15 GM BOTTLE 1 APPL TOPICAL ×2 (09:10→19:52)
--- NOTE | 2022-07-02 11:20 | P.PNIM_ITS ---
Subjective Subjective Date of Service: 07/02/22 Interval History: no acute issues overnight Review of Systems denies chest pain Denies shortness of breath Denies nausea vomiting diarrhea Physical Exam Vital Signs: Vital Signs: Last Vital Signs Temp 96.8 F 07/02/22 08:00 Pulse 54 07/02/22 08:00 Resp 16 07/02/22 08:00 BP 140/63 H 07/02/22 08:00 Pulse Ox 96 07/02/22 08:00 O2 Del Method 07/02/22 08:00 BMI result Body Mass Index 34.9 Const: Other: Awake cooperative no acute distress Resp: Other: clear to auscultation bilaterally no rales rhonchi or wheezes Cardio: Other: no S4; positive S1-S2; no S3 murmurs rubs gallops GI: Other: soft nontender nondistended with normoactive bowel sounds Extrem: Other: no edema bilaterally Objective Data Active Medications Acetaminophen (Acetaminophen 325 Mg Tablet) 650 mg PO Q6H PRN PRN Reason: Fever Last Admin: 06/30/22 23:19 Dose: 650 mg Documented By: GOI Atenolol (Atenolol 25 Mg Tablet) 25 mg PO BID [facility]; Protocol Last Admin: 07/02/22 09:06 Dose: 25 mg Documented By: PANKAJ Atorvastatin Calcium (Atorvastatin Calcium 20 Mg Tablet) 20 mg PO BEDTIME [facility] Last Admin: 07/01/22 21:04 Dose: 20 mg Documented By: GIO Bisacodyl (Bisacodyl 10 Mg Supp.Rect) 10 mg [place] DAILY PRN PRN Reason: Constipation Last Admin: 06/25/22 07:33 Dose: 10 mg Documented By: DAYNE Heparin Sodium (Porcine) (Heparin Sodium,Porcine 5,000 Unit/Ml Vial) 5,000 unit SUBCUT Q12H [facility] Last Admin: 07/02/22 09:09 Dose: 5,000 unit Documented By: PANKAJ Hydralazine HCl (Hydralazine Hcl 25 Mg Tablet) 25 mg PO BID [facility]; Protocol Last Admin: 07/02/22 09:05 Dose: 25 mg Documented By: PANKAJ Magnesium Oxide (Magnesium Oxide 400 Mg Tablet) 200 mg PO DAILY [facility] Last Admin: 07/02/22 09:04 Dose: 200 mg Documented By: PANKAJ Melatonin (Melatonin 3 Mg Tablet) 9 mg PO BEDTIME [facility] Last Admin: 07/01/22 21:04 Dose: 9 mg Documented By: GIO Nystatin (Nystatin Powder 15 Gm Bottle) 1 appl TOPICAL TID [facility]; Protocol Last Admin: 07/02/22 09:10 Dose: 1 appl Documented By: PANKAJ Omeprazole (Omeprazole 20 Mg Capsule.) 20 mg PO DAILY@0630 [facility] Last Admin: 07/02/22 05:59 Dose: 20 mg Documented By: GIO Pharmacy Consult (Consult Rx Perform Med Rec) 1 each MISCELLANE ONCE PRN PRN Reason: Consult order Phenytoin Sodium (Phenytoin Sodium Extended 100 Mg Capsule) 300 mg PO BID [facility] Last Admin: 07/02/22 09:01 Dose: 300 mg Documented By: PANKAJ Polyethylene Glycol (Polyethylene Glycol 3350 17 Gm Powd.Pack) 17 gm PO DAILY [facility] Last Admin: 07/02/22 09:00 Dose: 17 gm Documented By: PANKAJ Quetiapine Fumarate (Quetiapine Fumarate 50 Mg Tablet) 50 mg PO DAILY [facility] Last Admin: 07/02/22 09:04 Dose: 50 mg Documented By: PANKAJ Quetiapine Fumarate (Quetiapine Fumarate 100 Mg Tablet) 100 mg PO BEDTIME [facility] Last Admin: 07/01/22 21:04 Dose: 100 mg Documented By: GIO Senna/Docusate Sodium (Sennosides/Docusate Sodium Tablet) 2 tab PO BID [facility] Last Admin: 07/02/22 09:05 Dose: 2 tab Documented By: PANKAJ Sodium Chloride (0.9 % Sodium Chloride Flush 3 Ml Syringe) 3 ml IVFLUSH QSHIFT [facility] Last Admin: 07/02/22 09:09 Dose: 3 ml Documented By: PANKAJ Tamsulosin HCl (Tamsulosin Hcl 0.4 Mg Capsule) 0.4 mg PO DAILY [facility] Last Admin: 07/02/22 09:06 Dose: 0.4 mg Documented By: PANKAJ Triamcinolone Acetonide (Triamcinolone Acet 0.1 % Cream 15 Gm Tube) 1 appl TO PICAL DAILY [facility]; Protocol Last Admin: 07/02/22 09:10 Dose: 1 appl Documented By: PANKAJ Labs CBC & Chem 7: 06/21/22 07:21 06/30/22 05:30 Assessment and Plan (1) Aggressive behavior: Status: Acute (2) Cognitive changes: Status: Acute Plan 82yo M with dementia recently hospitalized for KENJI + diverticulitis 05/23- 05/25/22, discharged to SNF and returned to ED 06/07/22 due to aggressive behavior at SNF was awaiting alternative placement in ED but then admitted 06/09/22 due to respiratory distress due to CHF exacerbation 1.Acute HFpEF - resolved - follow weights; add back diuretics when indicated 2. KENJI/CKD4 -resolved -Periodically follow renals/divalents 3.Dementia - Seroquel with good response - adjust therapies as clinically indicated 4.Seizure disorder - none recent - continue phenytoin . UFH DNR/DNI In my clinical judgment, the patient requires continued hospitalization for safe placement, HCP invoked. Quality Stroke Does the patient have a stroke diagnosis?: No VTE Prior VTE?: No VTE Risk Level:: Medical - moderate - high VTE Device Contraindication: Treatment Not Indicated VTE Drug Contraindication: N/A - Med Ordered
[2022-07-02 15:23] VITALS: BP 133/60; PULSE 52; RESP 16; TEMP 36.3; O2SAT 100
[2022-07-02 19:29] VITALS: BP 110/57; PULSE 62; RESP 17; TEMP 36.3; O2SAT 97
[2022-07-02] MEDS: Atorvastatin Calcium 20 MG TABLET PO (19:45)
[2022-07-02] MEDS: Melatonin 3 MG TABLET 9 MG PO (19:45)
[2022-07-02] MEDS: QUEtiapine Fumarate 100 MG TABLET PO (19:45)
[2022-07-02 23:28] VITALS: BP 148/63; PULSE 62; RESP 16; TEMP 36.3; O2SAT 95
[2022-07-03] MEDS: Omeprazole 20 MG CAPSULE.DR PO (05:03)
[2022-07-03 07:09] LABS: Anion Gap 16 (12-20); Blood Urea Nitrogen 49 mg/dL (9-16); Calcium 7.3 mg/dL (8.4-10.2); Carbon Dioxide 20 mmol/L (22-29); Chloride 111 mmol/L (96-108); Creatinine Clr Calc Pharmacy 27.7; Estimated Glomerular Filt Rate 30; Glucose Random 93 mg/dL (60-115); Potassium 4.4 mmol/L (3.3-5.1); Sodium 143 mmol/L (135-145)
[2022-07-03 07:44] VITALS: BP 137/67; PULSE 52; RESP 14; TEMP 36.6; O2SAT 96
[2022-07-03] MEDS: Heparin Sodium,Porcine 5,000 UNIT/ML VIAL 5000 UNIT SUBCUT ×2 (09:17→19:51)
[2022-07-03] MEDS: 0.9 % Sodium Chloride Flush 3 ML SYRINGE IVFLUSH ×3 (09:18→19:51)
[2022-07-03] MEDS: Nystatin Powder 15 GM BOTTLE 1 APPL TOPICAL (10:09)
[2022-07-03] MEDS: Triamcinolone Acet 0.1 % Cream 15 GM TUBE 1 APPL TOPICAL (10:09)
[2022-07-03 11:29] VITALS: BP 119/58; PULSE 52; RESP 13; TEMP 36.7; O2SAT 97
--- NOTE | 2022-07-03 11:34 | P.PNIM_ITS ---
Subjective Subjective Date of Service: 07/03/22 Interval History: no acute issues overnight Review of Systems denies chest pain Denies shortness of breath Denies nausea vomiting diarrhea Physical Exam Vital Signs: Vital Signs: Last Vital Signs Temp 98.0 F 07/03/22 11:29 Pulse 52 07/03/22 11:29 Resp 13 07/03/22 11:29 BP 119/58 L 07/03/22 11:29 Pulse Ox 97 07/03/22 11:29 O2 Del Method 07/03/22 11:29 BMI result Body Mass Index 34.9 Const: Other: Awake cooperative no acute distress Resp: Other: clear to auscultation bilaterally no rales rhonchi or wheezes Cardio: Other: no S4; positive S1-S2; no S3 murmurs rubs gallops GI: Other: soft nontender nondistended with normoactive bowel sounds Extrem: Other: no edema bilaterally Objective Data Active Medications Acetaminophen (Acetaminophen 325 Mg Tablet) 650 mg PO Q6H PRN PRN Reason: Fever Last Admin: 06/30/22 23:19 Dose: 650 mg Documented By: GIO Atenolol (Atenolol 25 Mg Tablet) 25 mg PO BID [facility]; Protocol Last Admin: 07/03/22 09:31 Dose: Not Given Documented By: FLORENTINO Non-Admin Reason: Patient Refused Atorvastatin Calcium (Atorvastatin Calcium 20 Mg Tablet) 20 mg PO BEDTIME [facility] Last Admin: 07/02/22 19:45 Dose: 20 mg Documented By: JESSE Bisacodyl (Bisacodyl 10 Mg Supp.Rect) 10 mg [place] DAILY PRN PRN Reason: Constipation Last Admin: 06/25/22 07:33 Dose: 10 mg Documented By: DAYNE Heparin Sodium (Porcine) (Heparin Sodium,Porcine 5,000 Unit/Ml Vial) 5,000 unit SUBCUT Q12H [facility] Last Admin: 07/03/22 09:17 Dose: 5,000 unit Documented By: FLORENTINO Hydralazine HCl (Hydralazine Hcl 25 Mg Tablet) 25 mg PO BID [facility]; Protocol Last Admin: 07/03/22 09:31 Dose: Not Given Documented By: FLORENTINO Non-Admin Reason: Patient Refused Magnesium Oxide (Magnesium Oxide 400 Mg Tablet) 200 mg PO DAILY [facility] Last Admin: 07/03/22 09:31 Dose: Not Given Documented By: FLORENTINO Non-Admin Reason: Patient Refused Melatonin (Melatonin 3 Mg Tablet) 9 mg PO BEDTIME [facility] Last Admin: 07/02/22 19:45 Dose: 9 mg Documented By: JESSE Nystatin (Nystatin Powder 15 Gm Bottle) 1 appl TOPICAL TID [facility]; Protocol Last Admin: 07/03/22 10:09 Dose: 1 appl Documented By: FLORENTINO Omeprazole (Omeprazole 20 Mg Capsule.) 20 mg PO DAILY@0630 [facility] Last Admin: 07/03/22 05:03 Dose: 20 mg Documented By: JESSE Pharmacy Consult (Consult Rx Perform Med Rec) 1 each MISCELLANE ONCE PRN PRN Reason: Consult order Phenytoin Sodium (Phenytoin Sodium Extended 100 Mg Capsule) 300 mg PO BID [facility] Last Admin: 07/03/22 09:32 Dose: Not Given Documented By: FLORENTINO Non-Admin Reason: Patient Refused Polyethylene Glycol (Polyethylene Glycol 3350 17 Gm Powd.Pack) 17 gm PO DAILY [facility] Last Admin: 07/03/22 09:32 Dose: Not Given Documented By: FLORENTINO Non-Admin Reason: Patient Refused Quetiapine Fumarate (Quetiapine Fumarate 50 Mg Tablet) 50 mg PO DAILY [facility] Last Admin: 07/03/22 09:32 Dose: Not Given Documented By: FLORENTINO Non-Admin Reason: Patient Refused Quetiapine Fumarate (Quetiapine Fumarate 100 Mg Tablet) 100 mg PO BEDTIME [facility] Last Admin: 07/02/22 19:45 Dose: 100 mg Documented By: JESSE Senna/Docusate Sodium (Sennosides/Docusate Sodium Tablet) 2 tab PO BID [facility] Last Admin: 07/03/22 09:33 Dose: Not Given Documented By: FLORENTINO Non-Admin Reason: Patient Refused Sodium Chloride (0.9 % Sodium Chloride Flush 3 Ml Syringe) 3 ml IVFLUSH QSHIFT [facility] Last Admin: 07/03/22 09:18 Dose: 3 ml Documented By: FLORENTINO Tamsulosin HCl (Tamsulosin Hcl 0.4 Mg Capsule) 0.4 mg PO DAILY [facility] Last Admin: 07/03/22 09:34 Dose: Not Given Documented By: HO.KODOSOB Non-Admin Reason: Patient Refused Triamcinolone Acetonide (Triamcinolone Acet 0.1 % Cream 15 Gm Tube) 1 appl TOPICAL DAILY [facility]; Protocol Last Admin: 07/03/22 10:09 Dose: 1 appl Documented By: FLORENTINO Labs CBC & Chem 7: 06/21/22 07:21 07/03/22 06:05 Labs: Laboratory Results - last 24 hr 07/03/22 06:05 Anion Gap 16 Estim Creat Clear Calc 27.7 Estimated GFR 30 Random Glucose 93 Calcium 7.3 L Assessment and Plan (1) Aggressive behavior: Status: Acute (2) Cognitive changes: Status: Acute Plan 82yo M with dementia recently hospitalized for KENJI + diverticulitis 05/23- 05/25/22, discharged to SNF and returned to ED 06/07/22 due to aggressive behavior at SNF was awaiting alternative placement in ED but then admitted 06/09/22 due to respiratory distress due to CHF exacerbation 1.Acute HFpEF - resolved - follow weights; add back diuretics when indicated 2. KENJI/CKD4 -resolved -Periodically follow renals/divalents 3.Dementia - Seroquel with good response - adjust therapies as clinically indicated 4.Seizure disorder - none recent - continue phenytoin . UFH DNR/DNI In my clinical judgment, the patient requires continued hospitalization for safe placement, HCP invoked. Quality Stroke Does the patient have a stroke diagnosis?: No VTE Prior VTE?: No VTE Risk Level:: Medical - moderate - high VTE Device Contraindication: Treatment Not Indicated VTE Drug Contraindication: N/A - Med Ordered
[2022-07-03 15:22] VITALS: BP 133/63; PULSE 53; RESP 16; TEMP 36.6; O2SAT 97
[2022-07-03 19:48] VITALS: BP 145/65; PULSE 56; RESP 17; TEMP 36.4; O2SAT 97
[2022-07-03] MEDS: Atorvastatin Calcium 20 MG TABLET PO (20:11)
[2022-07-03] MEDS: hydrALAZINE HCl 25 MG TABLET PO (20:11)
[2022-07-03] MEDS: Phenytoin Sodium Extended 100 MG CAPSULE 300 MG PO (20:12)
[2022-07-03] MEDS: Melatonin 3 MG TABLET 9 MG PO (20:12)
[2022-07-03] MEDS: QUEtiapine Fumarate 100 MG TABLET PO (20:12)
[2022-07-03] MEDS: atenoloL 25 MG TABLET PO (20:12)
[2022-07-03] MEDS: Sennosides/Docusate Sodium TABLET 2 TAB PO (20:12)
[2022-07-03] MEDS: Acetaminophen 325 MG TABLET 650 MG PO (23:31)
[2022-07-03 23:49] VITALS: RESP 18
[2022-07-04 02:55] VITALS: BP 140/66; PULSE 57; RESP 16; TEMP 36.6; O2SAT 98
[2022-07-04] MEDS: Omeprazole 20 MG CAPSULE.DR PO (06:07)
[2022-07-04 08:00] VITALS: BP 112/52; PULSE 53; RESP 12; TEMP 36.7; O2SAT 92
[2022-07-04] MEDS: 0.9 % Sodium Chloride Flush 3 ML SYRINGE IVFLUSH (08:44)
[2022-07-04] MEDS: polyethylene glycoL 3350 17 GM POWD.PACK PO (08:44)
[2022-07-04] MEDS: hydrALAZINE HCl 25 MG TABLET PO (08:45)
[2022-07-04] MEDS: Sennosides/Docusate Sodium TABLET 2 TAB PO (08:45)
[2022-07-04] MEDS: Magnesium Oxide 400 MG TABLET 200 MG PO (08:45)
[2022-07-04] MEDS: Phenytoin Sodium Extended 100 MG CAPSULE 300 MG PO (08:45)
[2022-07-04] MEDS: Tamsulosin HCL 0.4 MG CAPSULE PO (08:45)
[2022-07-04] MEDS: QUEtiapine Fumarate 50 MG TABLET PO (08:46)
[2022-07-04] MEDS: atenoloL 25 MG TABLET PO (08:46)
[2022-07-04] MEDS: Triamcinolone Acet 0.1 % Cream 15 GM TUBE 1 APPL TOPICAL (08:55)
[2022-07-04] MEDS: Heparin Sodium,Porcine 5,000 UNIT/ML VIAL 5000 UNIT SUBCUT (08:55)
[2022-07-04] MEDS: Nystatin Powder 15 GM BOTTLE 1 APPL TOPICAL (08:58)
--- NOTE | 2022-07-04 10:32 | PM.DS ---
DS: Providers Provider Date of Service: 07/04/22 Date of admission: 06/10/22 10:34 Date of discharge: 07/04/22 Primary care physician: Manny Joshua MD Consults: 06/07/22 15:43 BHN [Consult to Crisis] Stat Reason for consultation: Dementia, aggressive at short-term rehab facility Has provider been notified: No 06/07/22 19:35 Consult to Psychiatry Stat Consulting Provider: Psych Covering Reason for consultation: 82-year-old male with dementia, aggressive behavior at SNF Has provider been notified: No 06/07/22 19:40 Consult to Psychiatry Stat Consulting Provider: Psych Covering Reason for consultation: Patient also needs evaluation for capacity to invoke healthcare proxy Has provider been notified: No 06/13/22 11:18 Consult to Psychiatry Routine Consulting Provider: Psych Covering Reason for consultation: dementia with behavior issues, help with med management 06/28/22 11:14 Consult to Psychiatry Routine Consulting Provider: Hayley Mckeon Reason for consultation: insomnia on seroquel Has provider been notified: No DS: Diagnosis Discharge Diagnosis (1) Aggressive behavior: Status: Acute (2) Cognitive changes: Status: Acute DS: Summary Hospital Course Hospital Course: 82 yo M with a PMH as outlined below who presented to the ED on 06/07 after he was sent in from local SNF for aggressive behavior. The patient had [place] [facility] [place]25[place]22 where he was treated for diverticulitis and KENJI with IV antibiotics and IVF. He was discharged to half-way facility. ?Upon arrival to the the ED, he was medically evaluated and cleared. However, the local SNF did not accept him back and hence, he has been awaiting placement in the ED. In the precision assembler of 06/09, the patient complained of chest tightness and he was re-evaluated medically. A repeat CXR showed some ventral vascular congestion. BNP was elevated > 1300. He has no prior documented history of CHF, but per his daughter, he does have a history of CABG in his 70s. Given the CXR findings and elevated BNP, a diagnosis of possible CHF has been made and admission was requested. I saw the patient on 06/09, around 830-9AM. The patient is pleasantly confused. He knows his name but otherwise no oriented to place or time. He denies any respiratory symptoms and does not recall that he complained of respiratory distress overnight. He denies current sob, chest pain, cough. He denies any pain. patient was seen in consultation by Psychiatry for his agitated/ aggressive behavior and was placed on Seroquel 100 mg at HS and 50 mg in the a.m.. Due to urinary retention, Stahl was placed and this is likely to be chronic. He can be followed up with Dr. Gilman as needed. He will be discharged home with family with services to follow-up with Dr. Joshua in 2-3 weeks Time Spent with Patient Time attestation: Total time spent providing and/or coordinating discharge services: Discharge coordination time: Greater than 30 minutes Quality: Safe Use of Opioids Does Pt have an Active Cancer Diagnosis on the Problem List?: No Quality: Stroke Does the patient have a stroke diagnosis?: No Physical Exam Vital Signs: Vital Signs: Last Vital Signs Temp 98.1 F 07/04/22 08:00 Pulse 53 07/04/22 08:00 Resp 12 07/04/22 08:00 BP 112/52 L 07/04/22 08:00 Pulse Ox 92 07/04/22 08:00 O2 Del Method 07/04/22 08:00 BMI result Body Mass Index 34.9 Const: Other: Awake cooperative no acute distress Resp: Other: clear to auscultation bilaterally no rales rhonchi or wheezes Cardio: Other: no S4; positive S1-S2; no S3 murmurs rubs gallops GI: Other: soft nontender nondistended with normoactive bowel sounds Extrem: Other: no edema bilaterally Discharge Plan Discharge Patient Disposition: Home Health Service Discharge Diagnosis: cognitive disorder Referrals: [facility] [Other] - 1 Week [facility] [Outside] - 1 Day ([facility] PLANS TO START CARE WITHIN 48 HOURS OF DISCHARGE.) Manny Joshua MD [Primary Care Provider] - 1 Week Discharge Medications: New tamsulosin 0.4 mg Capsule 0.4 mg PO DAILY Qty: 30 0RF Continued hydralazine 25 mg tablet 1 tab PO BID triamcinolone acetonide 0.1 % cream 1 appl topical DAILY Rx Instructions: apply to all extremities every day shift for rash until healed magnesium 250 mg Tablet 250 mg PO DAILY quetiapine [Seroquel] 25 mg tablet 25 mg PO BID Qty: 60 0RF atorvastatin 20 mg tablet 1 tab PO BEDTIME omeprazole 20 mg capsule,delayed release(DR/EC) 1 cap PO DAILY@0630 valsartan-hydrochlorothiazide 320-12.5 mg tablet 1 tab PO DAILY atenolol 25 mg tablet 1 tab PO BID phenytoin sodium extended [Dilantin Extended] 100 mg capsule 300 mg PO BID 30 Days Qty: 180 1RF quetiapine [Seroquel] 25 mg Tablet 25 mg PO BID PRN (Reason: Agitation) acetaminophen [Tylenol] 325 mg Tablet 650 mg PO Q6H PRN (Reason: Fever) triamcinolone acetonide 0.1 % Cream 1 appl TOPICAL DAILY Rx Instructions: apply to groin topically daily for redness bisacodyl 10 mg Suppository 10 mg NH DAILY PRN (Reason: Constipation) melatonin 3 mg Capsule 9 mg PO BEDTIME Discharge Orders: Discharge Order (Routine); Ordered 07/04/22 Ordered By: Hamlet Lam Diet: Advance to usual diet Activity on Discharge: As tolerated Stand Alone Forms: Patient Portal Discharge page Activity Restrictions/Additional Instructions: Cellulitis Discharge Instructions You have an infection of your skin of your right lower leg. This is called cellulitis. This is usually caused by bacteria on your skin that gets under your skin and then causes the infection Take Keflex 500 mg pills, 1 pill 4 times a day for 1 week. This is an antibiotic that should help your body fight off the infection. Keep the area of cellulitis elevated to help reduce swelling in the infected area and this helps with the healing process Also apply a heating pad on low or a warm compress for 15 minutes, 4-6 times a day. This will increase the blood flow to the area and will bring white blood cells to the area which will help your body fight off the infection. Take Tylenol( acetaminophen) 325 mg pills, 2 pills every 4 hours as needed for pain. Signs of worsening infection include fever, chills, weakness, increased pain, increased redness, increased swelling or red streaks going away from the area of infection. If you develop any of these symptoms or any other symptoms that are concerning to you, see your doctor immediately or return to the Emergency Department. Follow up with your doctor in 3 days for a recheck Please read the other printed instructions that we printed for you. Care Plan Goals: Meds as ordered on discharge Health Concerns: call Dr. Figueroa office he likely will arrange a telehealth visit Plan of Treatment: continue Stahl Assessment: see discharge summary
[2022-07-04 11:27] VITALS: BP 152/60; PULSE 50; RESP 17; TEMP 36.6; O2SAT 94
--- NOTE | 2022-07-04 13:47 | W.MHC.F2F ---
Service Date Service Date: 07/04/22 Encounter Date of encounter: 07/04/22 Encounter: acute hospitalization Reasons for Services Signs and symptoms assessed: cognitive changes and inability to ambulate Reason for residential: medication management, teach disease management and other ( Stahl care) Homebound: Leaving the home is medically contraindicated at this time without the asist of a device and/or another person due th the listed conditions above and below. Reason homebound: unsteady gait / fall risk, leg weakness, cognitively impaired / unsafe and unable to drive Certification: Based on the above findings, I certify that this patient is confined to the home and needs intermittent residential care, physical therapy and/or speech therapy, or continues to need occupational therapy. The patient is under my care, and I have initiated the establishment of the plan of care. The patient will be followed by a physician who will periodically review the plan of care.
--- NOTE | 2022-07-04 14:53 | MHC.CM.PN ---
PATIENT IS RETURNING HOME TODAY WITH NEW NA SERVICES. [facility] INFORMED OF DISCHARGE WITH A REQUEST TO CONTACT THE SON FOR INTAKE PURPOSES. IMM 07/03 IN CHART. IS AWARE OF PATIENT'S RETURN HOME AND WILL BE THERE BY 16:00
--- NOTE | 2022-07-04 16:25 | MHC.CM.PN ---
NOTIFICATION FROM [facility]. NO TRUCKS AVAILABLE. LIAISON IS TRYING TO PASS TO ANOTHER COMPANY. IF UNABLE TO SECURE TRANSPORT, PATIENT WILL NOT HAVE TRANSPORT VIA BLS UNTIL TOMORROW. RN, UNIT, AND FAMILY MADE AWARE (DAUGHTER NIRANJAN IN ROOM WITH PATIENT) WHILE WRITING THIS NOTE, T/W NOTIFIED THAT [facility] WILL TAKE THE CALL AND EXPECTED TO ARRIVE FOR 1829. RN, UNIT, AND DAUGHTER NIRANJAN AWARE
== END 2022-07-04 19:08 | disposition home health service (06) | DRG 291 ==
LOC: HO.ED 15:48 → HO.EDOVER 06-09 09:18 → HO.S3 06-22 17:40
PROVIDERS: Family Medicine; Hospitalist; Nurse Practitioner Acute Care; Nurse Practitioner Family; Physician Assistant Medical; Admitting Provider Family Medicine; Emergency Provider Emergency Medicine Emergency Medical Services; PCP Internal Medicine; Visit Provider Hospitalist
DX: I13.0 Hypertensive heart and chronic kidney disease with heart failure and stage 1 through stage 4 chronic kidney disease, or unspecified chronic kidney disease (principal); I50.31 Acute diastolic (congestive) heart failure; F03.91 Unspecified dementia, unspecified severity, with behavioral disturbance; N18.4 Chronic kidney disease, stage 4 (severe); L03.115 Cellulitis of right lower limb; N17.9 Acute kidney failure, unspecified; E87.0 Hyperosmolality and hypernatremia; Z66 Do not resuscitate; G40.909 Epilepsy, unspecified, not intractable, without status epilepticus; I95.9 Hypotension, unspecified; R33.9 Retention of urine, unspecified; E87.5 Hyperkalemia; E66.9 Obesity, unspecified; Z68.34 Body mass index [BMI] 34.0-34.9, adult; K59.00 Constipation, unspecified; Z71.3 Dietary counseling and surveillance; G47.00 Insomnia, unspecified; I25.10 Atherosclerotic heart disease of native coronary artery without angina pectoris; Z95.1 Presence of aortocoronary bypass graft; Z75.1 Person awaiting admission to adequate facility elsewhere; Z91.14 Patient's other noncompliance with medication regimen; Z96.641 Presence of right artificial hip joint; Z20.822 Contact with and (suspected) exposure to COVID-19; Z79.899 Other long term (current) drug therapy
CPT/HCPCS: 36415; 71045; 80048; 80053; 80076; 81001; 83605; 83690; 83735; 83880; 84484; 85025; 85027; 87040; 87635; 92610; 93005; 93306; 97140; 97162; 97530; 99219; 99285; C1758; Q9957

== ENCOUNTER 2022-07-10 16:23 | Inpatient (IN) | payer MEDICARE, SELFPAY ==
--- NOTE | ~2022-07-10 | XR_ITS ---
EXAMINATION: XR CHEST CLINICAL INFORMATION: CHF COMPARISON: 06/09/2022 TECHNIQUE: Frontal view of the chest was obtained. FINDINGS: Again seen is cardiomegaly and median sternotomy. Left lower lobe atelectasis/infiltrate remains present and unchanged small left pleural effusion. Compared to the prior study, there may have been some mild pulmonary vascular congestion present at that time but this appears improved on the current study. XR/XR chest 1V IMPRESSION: Improved pulmonary vascular congestion and interstitial edema. Left pleural effusion and left basilar atelectasis/infiltrate remains.
--- NOTE | ~2022-07-10 | US_ITS ---
EXAMINATION: UPPER EXTREMITY ARTERIAL DUPLEX CLINICAL INFORMATION: Left hand cyanosis COMPARISON: None TECHNIQUE: Left upper extremity duplex ultrasound was performed with velocity measurements and waveform analysis in the subclavian, axillary, brachial, radial and ulnar arteries. FINDINGS: Minimal plaque is present. Biphasic flow is noted throughout with normal velocities(in cm/sec) as listed below: Subclavian proximal: 177 Subclavian mid: 107 Subclavian distal: 122 Axillary artery: 104 Brachial artery proximal: 119 Brachial artery mid: 117 Brachial artery distal: 118 Radial artery: 108 Ulnar artery: 83 US/US arterial duplex UE LT IMPRESSION: No evidence of hemodynamically significant left upper extremity arterial vascular disease.
--- NOTE | ~2022-07-10 | US_ITS ---
EXAMINATION: US VENOUS WITH DOPPLER UPPER EXTREMITY, LEFT CLINICAL INFORMATION: Cold and clammy left arm with edema, swelling and discoloration COMPARISON: None TECHNIQUE: Ultrasound of the upper extremity is performed using compression sonography and color and pulse Doppler flow with assessment of augmentation of flow. There is also imaging and Doppler assessment of the jugular and subclavian veins. Spectral analysis with color-flow imaging is performed. FINDINGS: Respiratory variation, normal compression, and augmented flow are noted throughout the upper extremity including the axillary, brachial, cubital, and radial and ulnar veins. There is normal flow in the internal jugular and subclavian veins. There is no visible deep or superficial thrombophlebitis. If the patient's symptoms progress, a followup ultrasound in 5 -7 days might be of value to exclude proximal propagation from a nonvisualized distal arm vein. US/US venous duplex UE LT IMPRESSION: No DVT demonstrated in the left upper extremity
--- NOTE | 2022-07-10 16:42 | ED_ITS ---
HPI - General Adult General Chief complaint: General Medical Stated complaint: WEAK,UNABLE TO CARE FOR SELF,DIF AMB PER EMS Time Seen by Provider: 07/10/22 16:42 Source: EMS Mode of arrival: EMS History of Present Illness HPI narrative: Patient 82 years old came on 06/07 from SNF for aggressive behavior admitted for CHF and KENJI discharged on 07/04 comes here as family unable to take care of him at home patient denies any active complaints at this time patient has indwelling Stahl catheter Related Data Home Medications Medication Instructions Recorded Confirmed atenolol 25 mg tablet 1 tab PO BID 07/25/21 06/07/22 atorvastatin 20 mg tablet 1 tab PO BEDTIME 07/25/21 06/07/22 omeprazole 20 mg capsule,delayed 1 cap PO DAILY@0630 07/25/21 06/07/22 release valsartan 320 1 tab PO DAILY 07/25/21 06/07/22 mg-hydrochlorothiazide 12.5 mg tablet hydralazine 25 mg tablet 1 tab PO BID 05/23/22 06/07/22 magnesium 250 mg tablet 250 mg PO DAILY 05/23/22 06/07/22 triamcinolone acetonide 0.1 % 1 appl topical DAILY 05/23/22 06/07/22 topical cream acetaminophen 325 mg tablet 650 mg PO Q6H PRN Fever 06/07/22 06/07/22 (Tylenol) bisacodyl 10 mg rectal suppository 10 mg UT DAILY PRN Constipation 06/07/22 06/07/22 melatonin 3 mg capsule 9 mg PO BEDTIME 06/07/22 06/07/22 triamcinolone acetonide 0.1 % 1 appl topical DAILY 06/07/22 06/07/22 topical cream Previous Rx's Medication Instructions Recorded phenytoin sodium extended 100 mg 300 mg PO BID 30 days #180 caps 07/25/21 capsule (Dilantin Extended) quetiapine 25 mg tablet (Seroquel) 25 mg PO BID #60 tabs 05/25/22 quetiapine 100 mg tablet 100 mg PO BEDTIME #30 tabs 07/04/22 quetiapine 25 mg tablet (Seroquel) 25 mg PO BID PRN Agitation #60 tabs 07/04/22 tamsulosin 0.4 mg capsule 0.4 mg PO DAILY #30 caps 07/04/22 gabapentin 100 mg capsule 100 mg PO TID #90 caps 07/07/22 quetiapine 50 mg tablet (Seroquel) 50 mg PO TID #90 tabs 07/07/22 Allergies Allergy/AdvReac Type Severity Reaction Status Date / Time No Known Allergies Allergy Verified 08/02/20 15:53 Review of Systems Review of Systems: Yes all other systems are reviewed and are negative [facility] Past Medical History Medical History CAD (coronary artery disease) CKD (chronic kidney disease) Cognitive changes High cholesterol Hypertension Seizures Surgical History History of hip surgery 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 Hx of CABG S/P total right hip arthroplasty Social History Social History Household Members: Other Housing: [facility] Do you presently have visiting nurse or other home services: No Unable to assess alcohol history related to: Unable to respond Patient Tobacco Use Status: Tobacco use Unknown Advance Directives: Yes Advance Directives on File: Yes Advance Directives Date on File: 08/02/20 service: No Current occupational status: retired Physical Exam ED Vital Signs: Vital Signs - 24 hr 07/10/22 17:04 07/10/22 20:54 07/10/22 22:24 Temperature 99 F 97.8 F 97.7 F Pulse Rate 55 58 61 Respiratory Rate 14 16 13 Blood Pressure 140/65 H 124/57 L 141/72 H Pulse Oximetry 95 93 92 Oxygen Delivery Method Room Air Room Air Room Air 07/11/22 00:04 Temperature 97.9 F Pulse Rate 63 Respiratory Rate 16 Blood Pressure 138/53 L Pulse Oximetry 90 L Oxygen Delivery Method Room Air BMI result Body Mass Index 33.7 Appearance: Alert. Oriented X2-3. No acute distress. calm cooperative Eyes: PERRLA, No Nystagmus ENT: Pharynx normal. Oral Mucosa moist Neck: Normal inspection. Neck supple. CVS: Normal heart rate and rhythm. Pulses normal. Respiratory: No respiratory distress. Equal air entry bilateral, no wheezing/rales/rhonchi Abdomen: Soft and nontender. Bowel sounds are present, no mass palpable, no CVA tenderness Skin: Skin warm and dry. Normal skin color. Normal skin turgor. Extremities: No lower extremity edema. No calf tenderness Neuro: Oriented X 2-3. No motor deficit. No sensory deficit.No cerebellar signs , cranial nerves II-XII intact Medical Decision Making MDM Narrative Medical decision making narrative: Patient with slightly elevated potassium of 5.2 and elevated creatinine 2.58 from baseline of 2. Urine from the Stahl catheter shows leuko esterase 2+ positive with bacteria Will give IV fluids IV Rocephin patient clinically not septic and is still able to go to residential on p.o. antibiotic ,will get case management for placement Lab Data Lab results reviewed: Yes I reviewed the patient's lab results. Result diagrams: 07/10/22 18:07 07/10/22 18:07 Labs: Lab Results 07/10/22 07/10/22 07/10/22 Range/Units 18:07 18:07 18:07 WBC 8.9 (4.8-10.8) X10*3/uL RBC 3.29 L (4.60-5.80) X10*6/uL Hgb 10.5 L (14.0-18.0) g/dl Hct 34.1 L (42.0-52.0) % MCV 103.6 H (80.0-98.0) fL MCH 31.9 (27.0-33.0) pg MCHC 30.8 L (31.0-36.0) g/dl RDW 17.4 H (11.0-16.0) % Plt Count 244 D (160-400) X10*3/uL MPV 10.4 (9.4-12.4) fL Immature Gran % (Auto) 0.3 (0.0-0.4) % Neut % (Auto) 70.5 (45-73) % Lymph % (Auto) 16.9 L (20-40) % Sutton % (Auto) 9.7 (2-11) % Eos % (Auto) 2.2 (0-4) % Baso % (Auto) 0.4 (0-2) % Lymph # (Auto) 1.5 (1.2-4.9) X10*3/uL Sutton # (Auto) 0.9 (0.1-1.2) X10*3/uL Eos # (Auto) 0.2 (0.0-0.4) X10*3/uL Baso # (Auto) 0.0 (0.0-0.2) X10*3/uL Abs Immat Gran (auto) 0.03 (0.00-0.03) X10*3/uL Absolute Neuts (auto) 6.3 (2.0-8.3) x10*3/uL Absolute Nucleated RBC 0.000 (0.0-0.012) X10*3/uL Nucleated RBC % (auto) 0.0 (0.0-0.2) /100WBC PT (10.0-13.1) SEC INR (0.9-1.1) Sodium 145 (135-145) mmol/L Potassium 5.2 H (3.3-5.1) mmol/L Chloride 112 H (96-108) mmol/L Carbon Dioxide 23 (22-29) mmol/L Anion Gap 15 (12-20) BUN 65 H (9-16) mg/dL Creatinine 2.58 H (0.5-1.4) mg/dL Estim Creat Clear Calc 22.9 Estimated GFR 24 Random Glucose 91 (60-115) mg/dL Lactic Acid (0.5-2.0) mmol/L Calcium 7.4 L (8.4-10.2) mg/dL Magnesium 1.9 (1.6-2.6) mg/dL Total Bilirubin 0.4 (0.0-1.0) mg/dL AST 16 (5-37) U/L ALT 13 (0-40) U/L Alkaline Phosphatase 232 H (39-117) U/L Troponin I High Sens (<3.5-35.0) ng/L Total Protein 5.8 L (6.5-8.0) g/dL Albumin 3.4 L (3.5-5.0) g/dL Urine Color Urine Appearance Urine pH (5.0-9.0) Ur Specific [place] (1.005-1.025) Urine Protein (Neg-Trace) mg/dL Urine Glucose (UA) (Negative) mg/dL Urine Ketones (Negative) mg/dL Urine Blood (Negative) Urine Nitrite (Negative) Ur Leukocyte Esterase (Negative) Urine RBC (0-2) /HPF Urine WBC (0-5) /HPF Ur Squamous Epith Cells (0-2) /HPF Urine Bacteria (None Seen) Hyaline Casts (0-2) /LPF COVID-19 (HARLEEN) Negative (Negative) COVID-19 Clin Com See Note 07/10/22 07/10/22 07/10/22 Range/Units 18:07 18:07 20:18 WBC (4.8-10.8) X10*3/uL RBC (4.60-5.80) X10*6/uL Hgb (14.0-18.0) g/dl Hct (42.0-52.0) % MCV (80.0-98.0) fL MCH (27.0-33.0) pg MCHC (31.0-36.0) g/dl RDW (11.0-16.0) % Plt Count (160-400) X10*3/uL MPV (9.4-12.4) fL Immature Gran % (Auto) (0.0-0.4) % Neut % (Auto) (45-73) % Lymph % (Auto) (20-40) % Sutton % (Auto) (2-11) % Eos % (Auto) (0-4) % Baso % (Auto) (0-2) % Lymph # (Auto) (1.2-4.9) X10*3/uL Sutton # (Auto) (0.1-1.2) X10*3/uL Eos # (Auto) (0.0-0.4) X10*3/uL Baso # (Auto) (0.0-0.2) X10*3/uL Abs Immat Gran (auto) (0.00-0.03) X10*3/uL Absolute Neuts (auto) (2.0-8.3) x10*3/uL Absolute Nucleated RBC (0.0-0.012) X10*3/uL Nucleated RBC % (auto) (0.0-0.2) /100WBC PT 11.4 (10.0-13.1) SEC INR 1.0 (0.9-1.1) Sodium (135-145) mmol/L Potassium (3.3-5.1) mmol/L Chloride (96-108) mmol/L Carbon Dioxide (22-29) mmol/L Anion Gap (12-20) BUN (9-16) mg/dL Creatinine (0.5-1.4) mg/dL Estim Creat Clear Calc Estimated GFR Random Glucose (60-115) mg/dL Lactic Acid (0.5-2.0) mmol/L Calcium (8.4-10.2) mg/dL Magnesium (1.6-2.6) mg/dL Total Bilirubin (0.0-1.0) mg/dL AST (5-37) U/L ALT (0-40) U/L Alkaline Phosphatase (39-117) U/L Troponin I High Sens 9.9 (<3.5-35.0) ng/L Total Protein (6.5-8.0) g/dL Albumin (3.5-5.0) g/dL Urine Color Yellow Urine Appearance Turbid Urine pH 6.0 (5.0-9.0) Ur Specific [place] 1.015 (1.005-1.025) Urine Protein 30 (1+) H (Neg-Trace) mg/dL Urine Glucose (UA) Negative (Negative) mg/dL Urine Ketones Negative (Negative) mg/dL Urine Blood Small (1+) H (Negative) Urine Nitrite Negative (Negative) Ur Leukocyte Esterase Large (3+) H (Negative) Urine RBC 11-20 H (0-2) /HPF Urine WBC >50 H (0-5) /HPF Ur Squamous Epith Cells 3-5 (0-2) /HPF Urine Bacteria 4+ (None Seen) Hyaline Casts 6-10 (0-2) /LPF COVID-19 (HARLEEN) (Negative) COVID-19 Clin Com 07/10/22 Range/Units 22:58 WBC (4.8-10.8) X10*3/uL RBC (4.60-5.80) X10*6/uL Hgb (14.0-18.0) g/dl Hct (42.0-52.0) % MCV (80.0-98.0) fL MCH (27.0-33.0) pg MCHC (31.0-36.0) g/dl RDW (11.0-16.0) % Plt Count (160-400) X10*3/uL MPV (9.4-12.4) fL Immature Gran % (Auto) (0.0-0.4) % Neut % (Auto) (45-73) % Lymph % (Auto) (20-40) % Sutton % (Auto) (2-11) % Eos % (Auto) (0-4) % Baso % (Auto) (0-2) % Lymph # (Auto) (1.2-4.9) X10*3/uL Sutton # (Auto) (0.1-1.2) X10*3/uL Eos # (Auto) (0.0-0.4) X10*3/uL Baso # (Auto) (0.0-0.2) X10*3/uL Abs Immat Gran (auto) (0.00-0.03) X10*3/uL Absolute Neuts (auto) (2.0-8.3) x10*3/uL Absolute Nucleated RBC (0.0-0.012) X10*3/uL Nucleated RBC % (auto) (0.0-0.2) /100WBC PT (10.0-13.1) SEC INR (0.9-1.1) Sodium (135-145) mmol/L Potassium (3.3-5.1) mmol/L Chloride (96-108) mmol/L Carbon Dioxide (22-29) mmol/L Anion Gap (12-20) BUN (9-16) mg/dL Creatinine (0.5-1.4) mg/dL Estim Creat Clear Calc Estimated GFR Random Glucose (60-115) mg/dL Lactic Acid 1.0 (0.5-2.0) mmol/L Calcium (8.4-10.2) mg/dL Magnesium (1.6-2.6) mg/dL Total Bilirubin (0.0-1.0) mg/dL AST (5-37) U/L ALT (0-40) U/L Alkaline Phosphatase (39-117) U/L Troponin I High Sens (<3.5-35.0) ng/L Total Protein (6.5-8.0) g/dL Albumin (3.5-5.0) g/dL Urine Color Urine Appearance Urine pH (5.0-9.0) Ur Specific [place] (1.005-1.025) Urine Protein (Neg-Trace) mg/dL Urine Glucose (UA) (Negative) mg/dL Urine Ketones (Negative) mg/dL Urine Blood (Negative) Urine Nitrite (Negative) Ur Leukocyte Esterase (Negative) Urine RBC (0-2) /HPF Urine WBC (0-5) /HPF Ur Squamous Epith Cells (0-2) /HPF Urine Bacteria (None Seen) Hyaline Casts (0-2) /LPF COVID-19 (HARLEEN) (Negative) COVID-19 Clin Com ECG Data Attestation: I personally reviewed and interpreted this ECG as follows: Interpretation: Sinus bradycardia with heart rate 55 beats per minute poor progression of R-wave no acute ST wave changes Discharge Plan Discharge Clinical Impression: Acute kidney injury, Weakness, UTI (urinary tract infection) Patient Disposition: Still a Patient Prescriptions: No Action hydralazine 25 mg tablet 1 tab PO BID triamcinolone acetonide 0.1 % cream 1 appl topical DAILY Rx Instructions: apply to all extremities every day shift for rash until healed magnesium 250 mg Tablet 250 mg PO DAILY quetiapine [Seroquel] 25 mg tablet 25 mg PO BID Qty: 60 0RF atorvastatin 20 mg tablet 1 tab PO BEDTIME omeprazole 20 mg capsule,delayed release(DR/EC) 1 cap PO DAILY@0630 valsartan-hydrochlorothiazide 320-12.5 mg tablet 1 tab PO DAILY atenolol 25 mg tablet 1 tab PO BID phenytoin sodium extended [Dilantin Extended] 100 mg capsule 300 mg PO BID 30 Days Qty: 180 1RF acetaminophen [Tylenol] 325 mg Tablet 650 mg PO Q6H PRN (Reason: Fever) triamcinolone acetonide 0.1 % Cream 1 appl TOPICAL DAILY Rx Instructions: apply to groin topically daily for redness bisacodyl 10 mg Suppository 10 mg UT DAILY PRN (Reason: Constipation) melatonin 3 mg Capsule 9 mg PO BEDTIME tamsulosin 0.4 mg Capsule 0.4 mg PO DAILY Qty: 30 0RF quetiapine 100 mg Tablet 100 mg PO BEDTIME Qty: 30 0RF quetiapine [Seroquel] 25 mg Tablet 25 mg PO BID PRN (Reason: Agitation) Qty: 60 0RF quetiapine [Seroquel] 50 mg tablet 50 mg PO TID Qty: 90 2RF gabapentin 100 mg capsule 100 mg PO TID Qty: 90 2RF
--- NOTE | 2022-07-10 16:42 | ECG_ITS ---
Test Reason : GENERAL Blood Pressure : / mmHG Vent. Rate : 055 BPM Atrial Rate : 055 BPM P-R Int : 190 ms QRS Dur : 096 ms QT Int : 442 ms P-R-T Axes : 037 -11 008 degrees QTc Int : 422 ms Sinus bradycardia Inferior infarct (cited on or before 07-AUG-2006) Cannot rule out Anterior infarct , age undetermined Abnormal ECG When compared with ECG of 21-JUN-2022 11:16, No significant change was found Referred By: Quang Mariee Electronically Signed By:WESLEY GAINES
[2022-07-10 16:48] VITALS: BP 124/76; PULSE 83; O2SAT 97
[2022-07-10 17:04] VITALS: BP 140/65; PULSE 55; RESP 14; TEMP 37.2; O2SAT 95; BMI 33.7
[2022-07-10 18:12] LABS: MANUAL DIFF FLAG NO
[2022-07-10 18:22] LABS: Basophils Percent Auto 0.4 % (0-2); Eosinophils Absolute Auto 0.2 X10*3/uL (0.0-0.4); Eosinophils Percent Auto 2.2 % (0-4); Hematocrit 34.1 % (42.0-52.0); Hemoglobin 10.5 g/dl (14.0-18.0); Imm Gran Abs Auto 0.03 X10*3/uL (0.00-0.03); Imm Gran Pct Auto 0.3 % (0.0-0.4); Lymphocytes Absolute Auto 1.5 X10*3/uL (1.2-4.9); Lymphocytes Percent Auto 16.9 % (20-40); Mean Corpuscular HGB Conc 30.8 g/dl (31.0-36.0); Mean Corpuscular Hemoglobin 31.9 pg (27.0-33.0); Mean Corpuscular Volume 103.6 fL (80.0-98.0); Mean Platelet Volume 10.4 fL (9.4-12.4); Monocytes Absolute Auto 0.9 X10*3/uL (0.1-1.2); Monocytes Percent Auto 9.7 % (2-11); Neutrophils Absolute Auto 6.3 x10*3/uL (2.0-8.3); Neutrophils Percent Auto 70.5 % (45-73); Platelet Count 244 X10*3/uL (160-400); Red Blood Count 3.29 X10*6/uL (4.60-5.80); Red Cell Distribution Width 17.4 % (11.0-16.0); White Blood Count 8.9 X10*3/uL (4.8-10.8)
[2022-07-10 18:23] LABS: Prothrombin Time 11.4 SEC (10.0-13.1)
[2022-07-10 18:37] LABS: Alanine Aminotransferase 13 U/L (0-40); Albumin Level 3.4 g/dL (3.5-5.0); Alkaline Phosphatase 232 U/L (39-117); Anion Gap 15 (12-20); Aspartate Amino Transferase 16 U/L (5-37); Bilirubin Total 0.4 mg/dL (0.0-1.0); Blood Urea Nitrogen 65 mg/dL (9-16); Calcium 7.4 mg/dL (8.4-10.2); Carbon Dioxide 23 mmol/L (22-29); Chloride 112 mmol/L (96-108); Creatinine Clr Calc Pharmacy 22.9; Estimated Glomerular Filt Rate 24; Glucose Random 91 mg/dL (60-115); Magnesium 1.9 mg/dL (1.6-2.6); Potassium 5.2 mmol/L (3.3-5.1); Sodium 145 mmol/L (135-145); Total Protein 5.8 g/dL (6.5-8.0)
[2022-07-10 18:40] LABS: COVID-19 Test Negative (Negative); IDNOW Serial# 55D5AD1C
[2022-07-10 18:44] LABS: Troponin-I High Sensitivity 9.9 ng/L (<3.5-35.0)
--- NOTE | 2022-07-10 19:08 | MHC.CM.ED ---
Addendum entered by Cher Manrique 07/10/22 21:11: 203 referrals made in state via [facility] Original Note: CM met with patient and family. Work up still pending. Pt has dementia. Pt was hospitalized at [facility] from 06/10-07/04. D/C with [facility], [facility] and encouraged to have 24/7 care at family meeting, while waiting for MH application approval and eventual LTC. Daughter/HCP Nancy Madden (RN at [facility]) ([phone]) tells CM that she and her brother can no longer care for her father at home. Her mother cannot care for him at all. 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 Nacny tells CM that it is too expensive, but that her brother/HCP#2/PRAMOD Quiñones (Rob) ([phone]) is in charge of the finances and she deals with the healthcare. According to Medical Record, the HCP was invoked on 06/08/[address] Oliver. Pt was living with his , Sejal ([phone]). Uses a walker and wheelchair. [employer] x3. [facility] by Cyndee Manzo on 06/22. Per registration, has no record of pt. MH was submitted 16 days ago. Was flagged as expedited. [place] Text to Cyndee Farias regarding assistance with status of MH application. Daughter is agreeable to referrals for LTC in [facility] and states they will accept offers that are farther away this admission. Referrals made with 100 miles in state. CM will follow for d/c planning.
[2022-07-10 20:25] LABS: Appearance Urine Turbid; Color Urine Yellow; Glucose Urine UA Negative (Negative); Leukocyte Esterase Urine Large (3+) (Negative); Nitrite Urine Negative (Negative); Specific Gravity - Urine 1.015 (1.005-1.025); Urine Blood Small (1+) (Negative); Urine Ketones Negative (Negative); Urine Protein 30 (1+) mg/dL (Neg-Trace)
[2022-07-10 20:54] VITALS: BP 124/57; PULSE 58; RESP 16; TEMP 36.6; O2SAT 93
[2022-07-10 21:00] LABS: Bacteria Urine 4+ (None Seen); UACC Culture Trigger YES; WBC Urine >50 /HPF (0-5)
[2022-07-10 22:24] VITALS: BP 141/72; PULSE 61; RESP 13; TEMP 36.5; O2SAT 92
[2022-07-10] MEDS: Sodium Zirconium Cyclosilicate 10 GM POWD.PACK PO (23:10)
[2022-07-10] MEDS: cefTRIAXone sodium 1 GM in 0.9 % Sodium Chloride 50 ML IV (23:10)
--- NOTE | 2022-07-10 23:17 | PC.NURSE ---
Assumed care of pt. at 1900. Pt. resting in bed. Pt. had a difficult time drinking the medication, but got most of it down. Requested radha jerry following the medication. Abx are running per the dec.
[2022-07-11] VITALS (8 sets, daily range): BP systolic 133–156; BP diastolic 53–76; PULSE 57–64; RESP 13–20; TEMP 36.1–36.8; O2SAT 90–98
--- NOTE | 2022-07-11 04:29 | PC.NURSE ---
patient requested recliner for room, nurse made aware of request. Recliner brought to patient , this teletypewriter operator noticed patient had pulled out IV. Nurse notified.
--- NOTE | 2022-07-11 06:03 | PC.NURSE ---
Addendum entered by Cole Lucas RN 07/11/22 06:19: ADDENDUM TO PREVIOUS NOTE: Stella has been sitting upright in recliner since approximately 0400 and has been sleeping in the recliner. We will continbue to monitor Gentry. Original Note: I assumed nursing care of Gentry at 1900. Gentry remains in the ED as a PT/CM eval for this morning. Pt is aware of this and his family, present at the bedside on my arrival, are also aware. Gentry has been sleeping for much of the night in a hospital bed comfortably. He presented to ED with an indwelling Stahl catheter that continues to drain yellow urine. Gentry is alert, oriented to person and place but not always to time. He is moderately forgetful and needs occasional reminding about why he is here in the ED (because his family is unable to care for him sufficiently due to decreased ability to ambulate). Gentry garcia n complaints, however. He denies chest pain. He denies SOB. He denies nausea/vomiting. he has been taking PO food and fluids without difficulty. At approximately 0400 the pt rang the call agudelo and began yelling at staff that he wanted to get OOB - in fact, he demanded that he be let OOB into a recliner. We assisted Gentry OOB into a recliner that we placed directly next to his bed. DUring this transfer he was almost completely unable to bear weight . Gentry seemed very surprised at his lack of ability to assist with transfer.
[2022-07-11 09:04] LABS: Anion Gap 17 (12-20); Blood Urea Nitrogen 63 mg/dL (9-16); Calcium 7.8 mg/dL (8.4-10.2); Carbon Dioxide 23 mmol/L (22-29); Chloride 114 mmol/L (96-108); Creatinine Clr Calc Pharmacy 25.1; Estimated Glomerular Filt Rate 26; Glucose Random 128 mg/dL (60-115); Potassium 4.9 mmol/L (3.3-5.1); Sodium 149 mmol/L (135-145)
--- NOTE | 2022-07-11 09:10 | PHA.MEDREC ---
Pharmacy Consult ? Medication Reconciliation Pharmacy has completed the medication reconciliation. Spoke to pt's daughter Nancy and went over med list
--- NOTE | 2022-07-11 11:58 | MHC.CM.ED ---
Margi remains in ER. 203 referrals have been made. No bed offers have been made yet. Clinical updates sent to all facilities still following patient. Continue to monitor for d/c needs.
[2022-07-11] MEDS: hydroCHLOROthiazide 12.5 MG TABLET PO (12:04)
[2022-07-11] MEDS: Valsartan 320 MG TABLET PO (12:05)
[2022-07-11] MEDS: atenoloL 25 MG TABLET PO ×2 (12:05→21:42)
[2022-07-11] MEDS: hydrALAZINE HCl 25 MG TABLET PO ×2 (12:06→21:42)
[2022-07-11] MEDS: Phenytoin Sodium Extended 100 MG CAPSULE 300 MG PO ×2 (12:06→21:41)
[2022-07-11] MEDS: Finasteride 5 MG TABLET PO (12:07)
--- NOTE | 2022-07-11 12:11 | PC.NURSE ---
magnesium remains unverfied by pharmacy.
[2022-07-11] MEDS: Gabapentin 100 MG CAPSULE PO ×2 (15:48→21:41)
--- NOTE | 2022-07-11 16:38 | MHC.CM.ED ---
Received a call from Melvi at [facility], [facility], requesting clinicals for this patient. Clinicals faxed ([phone]) as requested. No bed offers yet. Sp aware of patient return to ED last night and that at to follow for d/c planning.
--- NOTE | 2022-07-11 17:08 | MHC.CM.ED ---
Sp aware. No bed offers yet, some facilities pending.Cyndee Manzo from [employer] text Fransisca Braun at [facility] for an update. Cyndee sent additional requested documents to on 07/06. to follow for D/C planning
[2022-07-11] MEDS: Tamsulosin HCL 0.4 MG CAPSULE PO (21:42)
[2022-07-11] MEDS: Atorvastatin Calcium 20 MG TABLET PO (21:42)
[2022-07-11] MEDS: QUEtiapine Fumarate 50 MG TABLET PO (21:42)
[2022-07-11] MEDS: QUEtiapine Fumarate 100 MG TABLET PO (21:42)
[2022-07-11] MEDS: Melatonin 3 MG TABLET 6 MG PO (21:43)
--- NOTE | 2022-07-11 21:49 | PC.NURSE ---
bedtime meds given. pt sitting up eating dinner. no current complaints. within eye sight of nurses station. will continue to monitor closely.
[2022-07-12] MEDS: Acetaminophen 325 MG TABLET 650 MG PO (00:47)
[2022-07-12 06:18] VITALS: BP 136/60; PULSE 52; RESP 20; TEMP 36.1
[2022-07-12 08:09] VITALS: BP 140/61; PULSE 54; RESP 16; TEMP 36.1; O2SAT 94
[2022-07-12] MEDS: Phenytoin Sodium Extended 100 MG CAPSULE 300 MG PO ×2 (10:00→21:50)
[2022-07-12] MEDS: hydroCHLOROthiazide 12.5 MG TABLET PO (10:00)
[2022-07-12] MEDS: Gabapentin 100 MG CAPSULE PO ×3 (10:00→21:53)
[2022-07-12] MEDS: Valsartan 320 MG TABLET PO (10:00)
[2022-07-12] MEDS: Finasteride 5 MG TABLET PO (10:00)
[2022-07-12] MEDS: Magnesium Oxide 400 MG TABLET PO (10:01)
[2022-07-12] MEDS: atenoloL 25 MG TABLET PO ×2 (10:01→22:13)
[2022-07-12] MEDS: hydrALAZINE HCl 25 MG TABLET PO ×2 (10:01→21:51)
--- NOTE | 2022-07-12 10:44 | MHC.CM.ED ---
Patient remains in ER overflow. Received telephone call from [facility] [place]. They are unable to offer a bed because patient is a wander risk. Continue to monitor or d/c needs.
[2022-07-12 11:53] VITALS: BP 134/62; PULSE 57; RESP 16; TEMP 36.2; O2SAT 96
--- NOTE | 2022-07-12 15:19 | PC.NURSE ---
pt placed on bedpan. pt thrashing back and forth. will not stay still- screaming and yelling. family came to bedside and is assisting in calming patient.
--- NOTE | 2022-07-12 16:49 | PC.NURSE ---
pt on edge of bed- screaming out- redirectable with some arguments from patient. pt now back in bed resting.
--- NOTE | 2022-07-12 17:22 | MHC.CM.ED ---
Additional 22 referrals placed within 200 miles with secure unit. Text to finance inquiring about status of MH application. Received telephone call from daughter, Nancy. Concerned about placement and lack of bed offers. Concerned that locked unit was requested. Explained that patient did try to elope from the last facility he was in. Daughter unsure if father could do that now. Very deconditioned. PT evaluation ordered per daughter's request. CM to follow for d/c planning.
--- NOTE | 2022-07-12 18:56 | PC.NURSE ---
1856-pt back to ER
--- NOTE | 2022-07-12 19:25 | MHC.CM.ED ---
CM spoke with son, Eriberto,who was visiting with his father. Eriberto tells CM that he called 2 agencies for home help with his father last week. They were unable to see him until this week. Eriberto tells CM that they needed help right away, as caring for his father became to difficult. They returned him to the ED on 07/10. The agency appointment was on 07/12. Eriberto tells JORGE ALBERTO that he was willing to pay for help, but could not get it when they needed it. Eriberto is aware that a PT consult has been made. Eriberto is concerned that his father will be labelled as difficult. CM assured Eriberto that his father has not been labelled as difficult to facilities, but that he might still be an elopement risk. Concerns regarding fall risk remain. Eriberto tells CM his father thinks he can walk, even thought he cannot. Eriberto tells CM that all requested documents have been given to . He attempted to call [facility] for an update today. JORGE ALBERTO left message with Cyndee from [employer] regarding status of MH application. Eriberto aware that 22 additional referrals were made today. JORGE ALBERTO continues to follow for d/c planning.
[2022-07-12 21:46] VITALS: BP 117/57; PULSE 62; RESP 20; O2SAT 94
[2022-07-12] MEDS: Tamsulosin HCL 0.4 MG CAPSULE PO (21:51)
[2022-07-12] MEDS: QUEtiapine Fumarate 50 MG TABLET PO (21:53)
[2022-07-12] MEDS: Melatonin 3 MG TABLET 6 MG PO (21:53)
[2022-07-12] MEDS: Atorvastatin Calcium 20 MG TABLET PO (22:14)
--- NOTE | 2022-07-13 01:35 | PC.NURSE ---
Report called to Lesli Lamb RN in Overflow
[2022-07-13 03:05] VITALS: BP 134/60; PULSE 54; RESP 18; TEMP 37.1; O2SAT 98
[2022-07-13 08:20] VITALS: BP 128/51; PULSE 58; RESP 18; O2SAT 96
[2022-07-13 08:51] VITALS: BP 128/51; PULSE 58; O2SAT 96
[2022-07-13] MEDS: Magnesium Oxide 400 MG TABLET PO (09:14)
[2022-07-13] MEDS: Finasteride 5 MG TABLET PO (09:15)
[2022-07-13] MEDS: Phenytoin Sodium Extended 100 MG CAPSULE 300 MG PO ×2 (09:17→22:45)
[2022-07-13] MEDS: Gabapentin 100 MG CAPSULE PO ×3 (09:19→22:47)
[2022-07-13] MEDS: Valsartan 320 MG TABLET PO (09:21)
[2022-07-13] MEDS: hydrALAZINE HCl 25 MG TABLET PO ×2 (09:22→22:49)
--- NOTE | 2022-07-13 09:30 | PC.NURSE ---
Patient awake A&Ox3, reports no pain. Atenolol held due to HR outside parameters.
[2022-07-13] MEDS: hydroCHLOROthiazide 12.5 MG TABLET PO (09:36)
--- NOTE | 2022-07-13 12:30 | PC.NURSE ---
Patient resting comfortably in bed. at bedside.
[2022-07-13 20:04] VITALS: BP 168/81; PULSE 72; RESP 18; TEMP 37.1; O2SAT 98
[2022-07-13 22:00] VITALS: PULSE 80; RESP 16
--- NOTE | 2022-07-13 22:39 | PC.NURSE ---
Stahl bag empty out put 800 ml .
[2022-07-13] MEDS: Tamsulosin HCL 0.4 MG CAPSULE PO (22:47)
[2022-07-13] MEDS: Atorvastatin Calcium 20 MG TABLET PO (22:48)
[2022-07-13] MEDS: Melatonin 3 MG TABLET 6 MG PO (22:48)
[2022-07-13] MEDS: QUEtiapine Fumarate 50 MG TABLET PO (22:49)
[2022-07-13] MEDS: atenoloL 25 MG TABLET PO (22:54)
[2022-07-13] MEDS: QUEtiapine Fumarate 100 MG TABLET PO (22:56)
--- NOTE | 2022-07-13 22:59 | PC.NURSE ---
pt disoriented, occ anxiety but easily redirected, medicated per provider order - meds taken whole w sips of water using a straw.
[2022-07-14 09:58] VITALS: BP 116/51; PULSE 53; RESP 16; TEMP 36.3; O2SAT 93
[2022-07-14] MEDS: hydrALAZINE HCl 25 MG TABLET PO ×2 (10:09→23:48)
[2022-07-14] MEDS: Magnesium Oxide 400 MG TABLET PO (10:10)
[2022-07-14] MEDS: hydroCHLOROthiazide 12.5 MG TABLET PO (10:10)
[2022-07-14] MEDS: Gabapentin 100 MG CAPSULE PO ×3 (10:10→23:48)
[2022-07-14] MEDS: Phenytoin Sodium Extended 100 MG CAPSULE 300 MG PO ×2 (10:11→23:49)
[2022-07-14] MEDS: Valsartan 320 MG TABLET PO (10:11)
[2022-07-14] MEDS: Finasteride 5 MG TABLET PO (10:52)
[2022-07-14 11:50] VITALS: BP 110/50; PULSE 51; RESP 16; O2SAT 94
--- NOTE | 2022-07-14 13:28 | MHC.CM.ED ---
Review of notes and LTC referrals: Met with family to review D/C plans. Per pts son Levon and dtr Nancy, they have been unable to secure 24/7 private home care and were unable to care for pt at home. Levon states he was given a list of agencies to try but admits he did not follow up on all of them. Family then cited 24/7 care cost as a barrier to keeping pt at home while [facility] is pending for LTC placement. Discussed prioritizing paid care need times with family supplementation of care to reduce expenses to which family stated they are unable to provide family care. Family asked about [facility] placement - informed them that pt is not exhibiting acute psychotic behaviors, only an expected, normal presentation of his baseline dementia. Of note, pts behaviors (yelling out continuously) greatly improves with 1:1 contact and with visits from family. Family then asked about changing the documentation to make pt more desirable to LTC referrals. Informed family that we do not commit documentation fraud. Instructed family to follow up on all private pay agencies. Reminded them that pt needs a payor source AND an accepting facility in order to d/c to LTC and if pt did not have a medical need for care, he will continue to board in the ED until placement or home care arrangements could be made. Family verbalized understanding. ED CM to await [facility] approval and update extensive LTC bed search once payor in place.
[2022-07-14 20:25] VITALS: BP 132/48; PULSE 59; RESP 25; O2SAT 93
[2022-07-14 22:00] VITALS: BP 136/54; PULSE 57; RESP 15; O2SAT 97
[2022-07-14] MEDS: atenoloL 25 MG TABLET PO (23:48)
[2022-07-14] MEDS: Atorvastatin Calcium 20 MG TABLET PO (23:48)
[2022-07-14] MEDS: Melatonin 3 MG TABLET 6 MG PO (23:49)
[2022-07-14] MEDS: QUEtiapine Fumarate 50 MG TABLET PO (23:49)
[2022-07-14] MEDS: Tamsulosin HCL 0.4 MG CAPSULE PO (23:49)
[2022-07-14] MEDS: QUEtiapine Fumarate 100 MG TABLET PO (23:49)
--- NOTE | 2022-07-14 23:50 | PC.NURSE ---
pt alert when awake, oriented to self, confused at baseline, vss - hypotensive, pt sleeping intermittently throughout day, calm and cooperative, pt medicated per provider order, cleaned, linens changed. no new orders at this time
--- NOTE | 2022-07-15 01:58 | PC.NURSE ---
pt sleeping, RR even and unlaboured, no distress noted, vss. no new orders at this time.
[2022-07-15 06:00] VITALS: BP 99/43; PULSE 59; RESP 20; O2SAT 95
[2022-07-15] MEDS: Valsartan 320 MG TABLET PO (09:58)
[2022-07-15] MEDS: atenoloL 25 MG TABLET PO ×2 (09:59→21:23)
[2022-07-15] MEDS: hydrALAZINE HCl 25 MG TABLET PO ×2 (09:59→21:23)
[2022-07-15] MEDS: hydroCHLOROthiazide 12.5 MG TABLET PO (09:59)
[2022-07-15] MEDS: Gabapentin 100 MG CAPSULE PO ×2 (09:59→21:23)
[2022-07-15] MEDS: Phenytoin Sodium Extended 100 MG CAPSULE 300 MG PO ×2 (09:59→21:23)
[2022-07-15] MEDS: Magnesium Oxide 400 MG TABLET PO (09:59)
[2022-07-15] MEDS: Finasteride 5 MG TABLET PO (10:12)
[2022-07-15 10:27] VITALS: BP 107/50; PULSE 56; RESP 20; O2SAT 90
--- NOTE | 2022-07-15 18:17 | PC.NURSE ---
henry cath since 7 am only put out 208
[2022-07-15 20:50] VITALS: BP 114/86; PULSE 58; RESP 20; O2SAT 94
[2022-07-15] MEDS: Tamsulosin HCL 0.4 MG CAPSULE PO (21:22)
[2022-07-15] MEDS: Melatonin 3 MG TABLET 6 MG PO (21:23)
[2022-07-15] MEDS: QUEtiapine Fumarate 100 MG TABLET PO (21:23)
[2022-07-15] MEDS: Atorvastatin Calcium 20 MG TABLET PO (21:23)
[2022-07-15] MEDS: QUEtiapine Fumarate 50 MG TABLET PO (21:23)
--- NOTE | 2022-07-15 21:27 | PC.NURSE ---
pt woke up with increasing agitation and confusion, redirected by staff. pt laying on stretcher safely. bedtime medications given with applesauce. will continue to monitor closely . pt within eyesight view of nurse station.
[2022-07-16 03:24] VITALS: BP 132/84; PULSE 61; RESP 14; O2SAT 94
--- NOTE | 2022-07-16 11:22 | PC.NURSE ---
Patient sleeping not easy to arouse several attempts to awake for morning medications . family at bedside and aware .
[2022-07-16 14:18] VITALS: BP 128/63; PULSE 54; RESP 16; O2SAT 93
[2022-07-16] MEDS: Gabapentin 100 MG CAPSULE PO ×2 (14:39→14:50)
[2022-07-16] MEDS: hydroCHLOROthiazide 12.5 MG TABLET PO (14:39)
[2022-07-16] MEDS: Valsartan 320 MG TABLET PO (14:39)
[2022-07-16] MEDS: Magnesium Oxide 400 MG TABLET PO (14:39)
[2022-07-16] MEDS: Finasteride 5 MG TABLET PO (14:48)
--- NOTE | 2022-07-16 15:00 | PC.NURSE ---
9 am meds were given late today due to emergency with another patient and this patient was asleep for most of the morning.
[2022-07-16] MEDS: Phenytoin Sodium Extended 100 MG CAPSULE 300 MG PO (15:05)
[2022-07-16] MEDS: atenoloL 25 MG TABLET PO (15:05)
[2022-07-16] MEDS: hydrALAZINE HCl 25 MG TABLET PO (15:05)
--- NOTE | 2022-07-16 22:03 | PC.NURSE ---
PCT reported earlier in shift that pt was having difficulty swallowing liquids and coughing while trying to swallow. This RN attempted to have the pt swallow a small amount of applesauce prior to attempting to give night time meds. Pt was not swallowing the applesauce, but rather keeping it on his tongue and would not swallow when prompted. Pt did not receive night time meds.
[2022-07-17] VITALS (11 sets, daily range): BP systolic 91–121; BP diastolic 39–54; PULSE 48–59; RESP 15–28; O2SAT 84–97
--- NOTE | 2022-07-17 00:03 | PC.NURSE ---
Pt found sleeping in bed with SpO2 at 84% on RA. Pt placed on O2 at 2 L/min via NC to improve SpO2 to 95%.
[2022-07-17] MEDS: OLANZapine 10 MG VIAL 5 MG IM (07:37)
[2022-07-17] MEDS: 0.9 % Sodium Chloride 1,000 ML 999 ML IV (08:05)
[2022-07-17 08:06] LABS: MANUAL DIFF FLAG NO
[2022-07-17 08:14] LABS: Basophils Percent Auto 0.4 % (0-2); Eosinophils Absolute Auto 0.3 X10*3/uL (0.0-0.4); Eosinophils Percent Auto 2.3 % (0-4); Hematocrit 35.5 % (42.0-52.0); Hemoglobin 10.8 g/dl (14.0-18.0); Imm Gran Abs Auto 0.06 X10*3/uL (0.00-0.03); Imm Gran Pct Auto 0.5 % (0.0-0.4); Lymphocytes Absolute Auto 1.6 X10*3/uL (1.2-4.9); Lymphocytes Percent Auto 14.1 % (20-40); Mean Corpuscular HGB Conc 30.4 g/dl (31.0-36.0); Mean Corpuscular Hemoglobin 32.4 pg (27.0-33.0); Mean Corpuscular Volume 106.6 fL (80.0-98.0); Monocytes Absolute Auto 0.9 X10*3/uL (0.1-1.2); Monocytes Percent Auto 8.5 % (2-11); Neutrophils Absolute Auto 8.1 x10*3/uL (2.0-8.3); Neutrophils Percent Auto 74.2 % (45-73); Platelet Count 253 X10*3/uL (160-400); Red Blood Count 3.33 X10*6/uL (4.60-5.80); Red Cell Distribution Width 17.5 % (11.0-16.0)
[2022-07-17 08:30] LABS: Alanine Aminotransferase 10 U/L (0-40); Albumin Level 3.3 g/dL (3.5-5.0); Alkaline Phosphatase 259 U/L (39-117); Anion Gap 18 (12-20); Aspartate Amino Transferase 15 U/L (5-37); Bilirubin Total 0.5 mg/dL (0.0-1.0); Blood Urea Nitrogen 78 mg/dL (9-16); Calcium 7.7 mg/dL (8.4-10.2); Carbon Dioxide 21 mmol/L (22-29); Chloride 111 mmol/L (96-108); Creatinine Clr Calc Pharmacy 20.4; Estimated Glomerular Filt Rate 21; Glucose Random 96 mg/dL (60-115); Potassium 6.6 mmol/L (3.3-5.1); Sodium 143 mmol/L (135-145); Total Protein 5.7 g/dL (6.5-8.0)
--- NOTE | 2022-07-17 08:39 | ECG_ITS ---
Test Reason : repeat Blood Pressure : / mmHG Vent. 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
[2022-07-17 09:10] LABS: Appearance Urine Turbid; Color Urine Yellow; Glucose Urine UA Negative (Negative); Leukocyte Esterase Urine Large (3+) (Negative); Nitrite Urine Negative (Negative); UMIC TRIGGER UACC YES; Urine Blood Negative (Negative); Urine Ketones Trace mg/dL (Negative); Urine Protein 100 (2+) mg/dL (Neg-Trace)
[2022-07-17 09:19] LABS: Bacteria Urine 4+ (None Seen); Hyaline Casts Urine >20 /LPF (0-2); RBC Urine 0-2 /HPF (0-2); UACC Culture Trigger YES; WBC Clumps Urine Present; WBC Urine >50 /HPF (0-5)
[2022-07-17 09:30] LABS: Anion Gap 16 (12-20); Blood Urea Nitrogen 73 mg/dL (9-16); Calcium 7.3 mg/dL (8.4-10.2); Carbon Dioxide 21 mmol/L (22-29); Chloride 114 mmol/L (96-108); Creatinine Clr Calc Pharmacy 20.7; Estimated Glomerular Filt Rate 21; Glucose Random 92 mg/dL (60-115); Potassium 6.2 mmol/L (3.3-5.1); Sodium 145 mmol/L (135-145)
--- NOTE | 2022-07-17 10:37 | PC.NURSE ---
Morning medications not given. PT unable to tolerate PO.
--- NOTE | 2022-07-17 11:36 | P.HPHOSP_ITS ---
History of Present Illness Date of Service: 07/17/22 Attending physician on admission: Jose Dodson Chief Complaint: hyperkalemia, ckd 82 year old male with history of CAD, hld, htn, seizure disorder. CKD stage 4, and dementia with behavioral disturbance with recent admission here on 06/07 for CHF and KENJI with discharge on 07/04 returned to the ED on 07/10 as family is unable to care for him at home. In ED patient was initiated on PO ceftin for UTI and was awaiting placement to long-term care through case management. last night with increased confusion and aggitation that improved home home meds. However this morning requiring 5mg zyprexa IM for aggitation. Potassium this morning 6.6, improved to 6.2 with 1L NS. EKG with sinus bradycardia with old inferior infarct, no significant change compared to prior. KENJI with creat 2.90 and BUN 73 (baseline 2.10, BUN 49). Pt has henry catheter in place. Pt somnolent during examination, unable to provide much history. Care discussed with nursing staff and brother. Review of Systems Review of Systems: Details of ROS obtained from nursing staff and brother. Pt somnolent following zyprexa IM General: No fevers, malaise, unintentional weight loss Cardiovascular: No chest pain, palpitations, or leg edema Respiratory: No shortness of breath, wheezing, cough GI: No abdominal pain, nausea, vomiting, diarrhea, constipation, melena, hematochezia : No dysuria, hematuria Neuro: No headaches, weakness, paresthesias Skin: No rashes or lesions [facility] Medical History CAD (coronary artery disease) CKD (chronic kidney disease) Cognitive changes High cholesterol Hypertension Seizures Family History (Updated 07/17/22 @ 12:03 by EVELIN Fairchild) Father CAD (coronary artery disease) Diabetes Surgical History History of hip surgery 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 Hx of CABG S/P total right hip arthroplasty Social History (Updated 07/17/22 @ 12:04 by EVELIN Fairchild) Household Members: Other Housing: Residential Do you presently have visiting nurse or other home services: No Unable to assess alcohol history related to: Unable to respond Patient Tobacco Use Status: Former Tobacco user Tobacco use type: Cigarette and Cigar Advance Directives: Yes Advance Directives on File: Yes Advance Directives Date on File: 08/02/20 service: No Current occupational status: retired Meds Allergies Allergy/AdvReac Type Severity Reaction Status Date / Time No Known Allergies Allergy Verified 08/02/20 15:53 Active Medications: Current Medications Acetaminophen (Acetaminophen 325 Mg Tablet) 650 mg PO Q6H PRN PRN Reason: Fever Last Admin: 07/12/22 00:47 Dose: 650 mg Atenolol (Atenolol 25 Mg Tablet) 25 mg PO BID MOHIT; Protocol Last Admin: 07/17/22 10:33 Dose: Not Given Atorvastatin Calcium (Atorvastatin Calcium 20 Mg Tablet) 20 mg PO BEDTIME MOHIT Last Admin: 07/16/22 22:07 Dose: Not Given Cefuroxime Axetil (Cefuroxime Axetil 250 Mg Tablet) 250 mg PO Q12H MOHIT Stop: 07/18/22 08:59 Last Admin: 07/17/22 10:33 Dose: Not Given Finasteride (Finasteride 5 Mg Tablet) 5 mg PO DAILY MOHIT Last Admin: 07/17/22 10:34 Dose: Not Given Gabapentin (Gabapentin 100 Mg Capsule) 100 mg PO TID MOHIT Last Admin: 07/17/22 10:35 Dose: Not Given Hydralazine HCl (Hydralazine Hcl 25 Mg Tablet) 25 mg PO BID MOHIT; Protocol Last Admin: 07/17/22 10:34 Dose: Not Given Hydrochlorothiazide (Hydrochlorothiazide 12.5 Mg Tablet) 12.5 mg PO DAILY MOHIT; Protocol Last Admin: 07/17/22 10:34 Dose: Not Given Magnesium Oxide (Magnesium Oxide 400 Mg Tablet) 400 mg PO DAILY MOHIT Last Admin: 07/17/22 10:36 Dose: Not Given Melatonin (Melatonin 3 Mg Tablet) 6 mg PO BEDTIME MOHIT Last Admin: 07/16/22 22:08 Dose: Not Given Pharmacy Consult (Consult Rx Perform Med Rec) 1 each MISCELLANE ONCE PRN PRN Reason: Consult order Phenytoin Sodium (Phenytoin Sodium Extended 100 Mg Capsule) 300 mg PO BID [facility] Last Admin: 07/17/22 10:34 Dose: Not Given Quetiapine Fumarate (Quetiapine Fumarate 100 Mg Tablet) 100 mg PO BEDTIME MOHIT Last Admin: 07/16/22 22:08 Dose: Not Given Quetiapine Fumarate (Quetiapine Fumarate 50 Mg Tablet) 50 mg PO BEDTIME [facility] Last Admin: 07/16/22 22:08 Dose: Not Given Tamsulosin HCl (Tamsulosin Hcl 0.4 Mg Capsule) 0.4 mg PO BEDTIME [facility] Last Admin: 07/16/22 22:08 Dose: Not Given Valsartan (Valsartan 320 Mg Tablet) 320 mg PO DAILY [facility]; Protocol Last Admin: 07/17/22 10:34 Dose: Not Given Home Medications Medication Instructions Recorded Confirmed Last Taken Type atenolol 25 mg tablet 1 tab PO BID 07/25/21 07/11/22 Unknown History atorvastatin 20 mg tablet 1 tab PO BEDTIME 07/25/21 07/11/22 Unknown History valsartan 320 1 tab PO DAILY 07/25/21 07/11/22 Unknown History mg-hydrochlorothiazide 12.5 mg tablet hydralazine 25 mg tablet 1 tab PO BID 05/23/22 07/11/22 Unknown History magnesium 250 mg tablet 250 mg PO DAILY 05/23/22 07/11/22 Unknown History acetaminophen 325 mg tablet 650 mg PO Q6H PRN Fever 06/07/22 07/11/22 Unknown History (Tylenol) melatonin 3 mg capsule 6 mg PO BEDTIME 06/07/22 07/11/22 Unknown History finasteride 5 mg tablet 1 tab PO DAILY 07/11/22 07/11/22 Unknown History quetiapine 50 mg tablet (Seroquel) 50 mg PO BEDTIME 07/11/22 07/11/22 Unknown History tamsulosin 0.4 mg capsule 0.4 mg PO BEDTIME 07/11/22 07/11/22 Unknown History Physical Exam Vital Signs and Narrative: Vital Signs: Last Vital Signs Temp 97.4 F 07/14/22 09:58 Pulse 50 07/17/22 07:40 Resp 16 07/17/22 07:40 BP 111/49 L 07/17/22 07:40 Pulse Ox 92 07/17/22 07:40 O2 Del Method 07/17/22 07:40 O2 Flow Rate 2 07/17/22 00:02 BMI result Body Mass Index 33.7 Constitutional - Awake and Alert, No apparent distress Eyes - PERRLA, EOMI Cardiovascular - S1S2, RRR, No edema Respiratory - Normal lung expansion, Normal respiratory effort, No respiratory distress, CTA bilaterally Gastrointestinal - NT / ND; +BS; No rebound or guarding : Henry catheter in place draining yellow/orange urine Extremities - no calf tenderness bilaterally, no swelling Skin - Warm/Dry Neurological - Somnolent Psychological - Appropriate affect Results Labs CBC and Chem 7: 07/17/22 08:00 07/17/22 09:01 Labs: Laboratory Results - last 24 hr 07/17/22 07/17/22 07/17/22 07:59 08:00 09:01 MCV 106.6 H MCH 32.4 MCHC 30.4 L RDW 17.5 H Plt Count 253 MPV 10.0 Immature Gran % (Auto) 0.5 H Neut % (Auto) 74.2 H Lymph % (Auto) 14.1 L Meade % (Auto) 8.5 Eos % (Auto) 2.3 Baso % (Auto) 0.4 Lymph # (Auto) 1.6 Meade # (Auto) 0.9 Eos # (Auto) 0.3 Baso # (Auto) 0.0 Abs Immat Gran (auto) 0.06 H Absolute Neuts (auto) 8.1 Absolute Nucleated RBC 0.000 Nucleated RBC % (auto) 0.0 Anion Gap 18 16 Estim Creat Clear Calc 20.4 20.7 Estimated GFR 21 21 Random Glucose 96 92 Calcium 7.7 L 7.3 L Total Bilirubin 0.5 AST 15 ALT 10 Alkaline Phosphatase 259 H Total Protein 5.7 L Albumin 3.3 L Urine Color Urine Appearance Urine pH Ur Specific [place] Urine Protein Urine Glucose (UA) Urine Ketones Urine Blood Urine Nitrite Ur Leukocyte Esterase Urine RBC Urine WBC Urine WBC Clumps Ur Squamous Epith Cells Urine Bacteria Hyaline Casts 07/17/22 09:01 MCV MCH MCHC RDW Plt Count MPV Immature Gran % (Auto) Neut % (Auto) Lymph % (Auto) Meade % (Auto) Eos % (Auto) Baso % (Auto) Lymph # (Auto) Meade # (Auto) Eos # (Auto) Baso # (Auto) Abs Immat Gran (auto) Absolute Neuts (auto) Absolute Nucleated RBC Nucleated RBC % (auto) Anion Gap Estim Creat Clear Calc Estimated GFR Random Glucose Calcium Total Bilirubin AST ALT Alkaline Phosphatase Total Protein Albumin Urine Color Yellow Urine Appearance Turbid Urine pH 7.0 Ur Specific [place] 1.020 Urine Protein 100 (2+) H Urine Glucose (UA) Negative Urine Ketones Trace Urine Blood Negative Urine Nitrite Negative Ur Leukocyte Esterase Large (3+) H Urine RBC 0-2 Urine WBC >50 H Urine WBC Clumps Present Ur Squamous Epith Cells 3-5 Urine Bacteria 4+ Hyaline Casts >20 Assessment and Plan (1) Hyperkalemia: Status: Acute (2) KENJI (acute kidney injury): Status: Acute Plan 82 year old male with history of CAD, hld, htn, seizure disorder. CKD stage 4, and dementia with behavioral disturbance with recent admission here on 06/07 for CHF and KENJI with discharge on 07/04 returned to the ED on 07/10 as family is unable to care for him at home to be admitted for hyperkalemia with KENJI. 1-Hyperkalemia in setting of KENJI -K this morning in ED 6.6, improved to 6.2 following IVF -10 units insulin, 1 amp D50, and 10mg albuterol orderd. Cara ordered by ED -EKG without peaked T waves -Repeat BMP in 2 hours and trend daily -Admit to telemetry 2- KENJI secondary to UTI -History CKD stage 4. Emergent dialysis not indicated at this time -Continue IVF -Continue following BMP -Henry in place. Strict I&O. Low sodium diet 3-Acute UTI -Has henry cather. Updated urine culture ordered -Change PO ceftin to IV ceftrixone 4-HTN -Hold valsartan/HCTZ d/t hyperkalemia and KENJI -Continue hydralazine -Monitor BPs 5-Seizure disorder-stable -Continue phenytoin -Check phenytoin level 6-Dementia with behavioral disturbance- baseline -Continue seroquel 7-Generalized weakness -CM to continue bed search for long-term care facility -PT ordered DVT prophylaxis- heparin DNR/DNI Pt requires inpt stay of at least 2 midnights for management of hyperkalemia and KENJI requiring IVF and close monitoring of renal function and electrolyte levels as patient is at risk for serious cardiac arrhythmia. Quality Stroke Does the patient have a stroke diagnosis?: No VTE Prior VTE?: No VTE Risk Level:: Medical - moderate - high VTE Device Contraindication: Treatment Not Indicated VTE Drug Contraindication: N/A - Med Ordered
[2022-07-17] MEDS: cefTRIAXone sodium 1 GM in 0.9 % Sodium Chloride 50 ML IV (12:38)
[2022-07-17] MEDS: Insulin Regular, Human 100 UNIT/ML 3 ML VIAL 10 UNIT IVPUSH (12:38)
[2022-07-17] MEDS: 0.9 % Sodium Chloride 1,000 ML 100 ML IV (12:40)
[2022-07-17] MEDS: Heparin Sodium,Porcine 5,000 UNIT/ML VIAL 5000 UNIT SUBCUT (12:40)
[2022-07-17] MEDS: Dextrose 50 % 25 GM/50 ML SYRINGE IVPUSH (12:47)
[2022-07-17 13:41] LABS: Anion Gap 18 (12-20); Blood Urea Nitrogen 75 mg/dL (9-16); Calcium 7.3 mg/dL (8.4-10.2); Carbon Dioxide 18 mmol/L (22-29); Chloride 114 mmol/L (96-108); Creatinine Clr Calc Pharmacy 20.3; Estimated Glomerular Filt Rate 21; Glucose Random 216 mg/dL (60-115); Potassium 5.7 mmol/L (3.3-5.1); Sodium 144 mmol/L (135-145)
--- NOTE | 2022-07-17 13:46 | PC.NURSE ---
pt's fingernails and tongue discolored,. BLE as well. O2 sat 86-88 r/a. 96-97% 2L n/c. pt's is at his bedside crying on and off, pt resting comfortably at this time. Provider notified and is currently at pt's bedside.
[2022-07-17] MEDS: Albuterol Sulfate 7.5 MG, Albuterol Sulfate (0.083%) 2.5 MG 10 MG INHALE (13:48)
[2022-07-17 14:12] LABS: Phenytoin Dilantin 17.3 ug/mL (10.0-20.0)
[2022-07-17 14:45] LABS: VBG Base Excess -6.4 mmol/L; VBG HCO3 22 mmol/L (22-26); VBG pCO2 58 mmHg; VBG pH 7.18 (7.32-7.43); VBG pO2 73 mmHg
[2022-07-17 14:48] LABS: Venous Blood Gas Refer to POC result
[2022-07-17 15:01] LABS: COVID-19 Test Negative (Negative)
[2022-07-17] MEDS: Sodium Bicarbonate 8.4% 150 MEQ in Dextrose 5 % 850 ML 100 MEQ IV (15:55)
--- NOTE | 2022-07-17 17:02 | MHC.CM.ED ---
IMM 07/17. Reviewed with HCP/daughter, Nancy Madden, as the HCP is invoked. Pt admitted with hyperkalemia, KENJI, UTI. Pt on BiPap. Pt is a DNR/DNI. Daughter, Nancy tells CM that her father is no longer a flight risk, to which CM agreed. Referrals will be updated to change need for locked unit when payor source is identified. No updates from finances regarding MH application status. Casey text to Cyndee Manzo for update. CM to follow for d/c needs.
[2022-07-17 19:51] LABS: Thyroid Stimulating Hormone 2.99 uIU/mL (0.32-4.0)
[2022-07-17 21:37] LABS: Anion Gap 17 (12-20); Blood Urea Nitrogen 77 mg/dL (9-16); Calcium 7.3 mg/dL (8.4-10.2); Carbon Dioxide 21 mmol/L (22-29); Chloride 111 mmol/L (96-108); Estimated Glomerular Filt Rate 20; Glucose Random 123 mg/dL (60-115); Potassium 5.6 mmol/L (3.3-5.1); Sodium 143 mmol/L (135-145)
[2022-07-18] VITALS (15 sets, daily range): BP systolic 85–114; BP diastolic 33–79; PULSE 48–57; RESP 16–28; TEMP 36–36.7; O2SAT 91–97
[2022-07-18] MEDS: QUEtiapine Fumarate 50 MG TABLET PO (00:50)
[2022-07-18] MEDS: Gabapentin 100 MG CAPSULE PO (00:50)
[2022-07-18] MEDS: Phenytoin Sodium Extended 100 MG CAPSULE 300 MG PO (00:52)
[2022-07-18] MEDS: Melatonin 3 MG TABLET 6 MG PO (00:53)
[2022-07-18] MEDS: Heparin Sodium,Porcine 5,000 UNIT/ML VIAL 5000 UNIT SUBCUT (00:57)
[2022-07-18] MEDS: Tamsulosin HCL 0.4 MG CAPSULE PO (01:05)
[2022-07-18 01:07] LABS: VBG Base Excess -2.3 mmol/L; VBG HCO3 25 mmol/L (22-26); VBG pCO2 53 mmHg; VBG pH 7.27 (7.32-7.43); VBG pO2 38 mmHg
[2022-07-18] MEDS: QUEtiapine Fumarate 100 MG TABLET PO (01:07)
[2022-07-18 01:08] LABS: Venous Blood Gas Refer to POC result
--- NOTE | 2022-07-18 02:36 | PC.NURSE ---
0045 Patient clearly uncomfortable, yelling and moaning under BIPAP mask, trying to move around stretcher, Turned and repositioned without relief. texted, trial off of bipap ordered. Patient was able to sit up and eat icecream and take his pills with applesauce. He was able to take a few sips of water via straw without s/s of aspiration. Patient unable to tell RN why he is uncomfortable. Patient was able to settle down and close his eyes quietly after about an hour. 0225: Placed back onto BIPAP d/t VBG results. Patient appears more comfortable quietly sleeping.
--- NOTE | 2022-07-18 03:24 | PC.NURSE ---
Hospitalist eitan texted rt BP hypotensive. (Dr. Ana Cristina Vergara)
[2022-07-18] MEDS: Lactated Ringers 1,000 ML 999 ML IV (03:29)
--- NOTE | 2022-07-18 06:23 | PC.NURSE ---
Addendum entered by Shruthi Mcgee RN 07/18/22 06:27: Bladder scan was ZERO Original Note: Urine output only 550 from 7p-5am. Hospitalist aware.
[2022-07-18 06:31] LABS: Hematocrit 30.2 % (42.0-52.0); Hemoglobin 9.1 g/dl (14.0-18.0); Mean Corpuscular HGB Conc 30.1 g/dl (31.0-36.0); Mean Corpuscular Hemoglobin 31.8 pg (27.0-33.0); Mean Corpuscular Volume 105.6 fL (80.0-98.0); Mean Platelet Volume 10.4 fL (9.4-12.4); Platelet Count 190 X10*3/uL (160-400); Red Blood Count 2.86 X10*6/uL (4.60-5.80); Red Cell Distribution Width 17.3 % (11.0-16.0); White Blood Count 7.5 X10*3/uL (4.8-10.8)
[2022-07-18 07:10] LABS: Anion Gap 17 (12-20); Blood Urea Nitrogen 76 mg/dL (9-16); Calcium 7.2 mg/dL (8.4-10.2); Carbon Dioxide 23 mmol/L (22-29); Chloride 111 mmol/L (96-108); Creatinine Clr Calc Pharmacy 20.8; Estimated Glomerular Filt Rate 21; Glucose Random 100 mg/dL (60-115); Potassium 5.5 mmol/L (3.3-5.1); Sodium 145 mmol/L (135-145)
[2022-07-18] MEDS: 0.9 % Sodium Chloride Flush 3 ML SYRINGE IVFLUSH ×2 (07:38→19:25)
[2022-07-18 08:34] LABS: Vitamin B12 435 pg/mL (200-900)
--- NOTE | 2022-07-18 09:00 | PC.NURSE ---
Report given to ANH Ji. Pt will be transferred to room 457 by transporter. VSS.
--- NOTE | 2022-07-18 09:10 | PC.NURSE ---
Addendum entered by Isabella Mcclure 07/18/22 09:11: R/T at bedside. Original Note: PT unable to tolerate PO medications. PT currently being transferred to room 457.
--- NOTE | 2022-07-18 10:26 | P.PNIM_ITS ---
Subjective Subjective Date of Service: 07/18/22 Interval History: cc: ams, hyperkalemia interval history:cannot assess due to metnal status Review of Systems Review of Systems: Yes Unobtainable due to mental status Physical Exam Vital Signs: Vital Signs: Last Vital Signs Temp 96.8 F 07/18/22 08:11 Pulse 51 07/18/22 08:11 Resp 20 07/18/22 08:11 BP 105/54 L 07/18/22 08:11 Pulse Ox 95 07/18/22 08:11 O2 Del Method 07/18/22 08:11 O2 Flow Rate 3 07/18/22 08:11 BMI result Body Mass Index 33.7 General: obtunded, groaning, ill appearing Resp: diminished bilateral, no accessory muscles used CVS: S1,S2,RRR GI: soft, non tender, non distended Neuro: moves all 4 limbs ,obtunded Psych: impaired insight Objective Data Active Medications Acetaminophen (Acetaminophen 325 Mg Tablet) 650 mg PO Q6H PRN PRN Reason: Fever Last Admin: 07/12/22 00:47 Dose: 650 mg Documented By: OLINDA Atenolol (Atenolol 25 Mg Tablet) 25 mg PO BID [facility]; Protocol Last Admin: 07/18/22 09:09 Dose: Not Given Documented By: XENIA Non-Admin Reason: See Note Atorvastatin Calcium (Atorvastatin Calcium 20 Mg Tablet) 20 mg PO BEDTIME [facility] Last Admin: 07/17/22 21:45 Dose: Not Given Documented By: JOELLEN Non-Admin Reason: ON BIPAP Docusate Sodium (Docusate Sodium 100 Mg Capsule) 100 mg PO BID [facility] Last Admin: 07/18/22 09:10 Dose: Not Given Documented By: XENIA Non-Admin Reason: See Note Finasteride (Finasteride 5 Mg Tablet) 5 mg PO DAILY [facility] Last Admin: 07/18/22 09:09 Dose: Not Given Documented By: XENIA Non-Admin Reason: See Note Gabapentin (Gabapentin 100 Mg Capsule) 100 mg PO TID [facility] Last Admin: 07/18/22 09:09 Dose: Not Given Documented By: XENIA Non-Admin Reason: See Note Heparin Sodium (Porcine) (Heparin Sodium,Porcine 5,000 Unit/Ml Vial) 5,000 unit SUBCUT Q12H [facility] Last Admin: 07/18/22 00:57 Dose: 5,000 unit Documented By: JOELLEN Hydralazine HCl (Hydralazine Hcl 25 Mg Tablet) 25 mg PO BID [facility]; Protocol Last Admin: 07/18/22 09:09 Dose: Not Given Documented By: XENIA Non-Admin Reason: See Note Ceftriaxone Sodium 1 gm/ (Sodium Chloride) 50 mls @ 100 mls/hr IV Q24H [facility] Last Infusion: 07/17/22 13:21 Dose: 0 mls/hr Documented By: XENIA Phenytoin Sodium 300 mg/ (Sodium Chloride) 106 mls @ 106 mls/hr IV BID [facility] Magnesium Oxide (Magnesium Oxide 400 Mg Tablet) 400 mg PO DAILY [facility] Last Admin: 07/18/22 09:09 Dose: Not Given Documented By: XENIA Non-Admin Reason: See Note Melatonin (Melatonin 3 Mg Tablet) 6 mg PO BEDTIME [facility] Last Admin: 07/18/22 00:53 Dose: 6 mg Documented By: JOELLEN Ondansetron HCl (Ondansetron Hcl 4 Mg/2 Ml Vial) 4 mg IVPUSH Q8H PRN PRN Reason: Nausea and Vomiting Pharmacy Consult (Consult Rx Perform Med Rec) 1 each MISCELLANE ONCE PRN PRN Reason: Consult order Phenytoin Sodium (Phenytoin Sodium Extended 100 Mg Capsule) 300 mg PO BID [facility] Last Admin: 07/18/22 09:09 Dose: Not Given Documented By: XENIA Non-Admin Reason: See Note Quetiapine Fumarate (Quetiapine Fumarate 100 Mg Tablet) 100 mg PO BEDTIME [facility] Last Admin: 07/18/22 01:07 Dose: 100 mg Documented By: JOELLEN Quetiapine Fumarate (Quetiapine Fumarate 50 Mg Tablet) 50 mg PO BEDTIME [facility] Last Admin: 07/18/22 00:50 Dose: 50 mg Documented By: JOELLEN Sodium Chloride (0.9 % Sodium Chloride Flush 3 Ml Syringe) 3 ml IVFLUSH QSHIFT [facility] Last Admin: 07/18/22 07:38 Dose: 3 ml Documented By: XENIA Tamsulosin HCl (Tamsulosin Hcl 0.4 Mg Capsule) 0.4 mg PO BEDTIME [facility] Last Admin: 07/18/22 01:05 Dose: 0.4 mg Documented By: JOELLEN Labs CBC & Chem 7: 07/18/22 06:04 07/18/22 06:04 Labs: Laboratory Results - last 24 hr 07/17/22 07/17/22 07/17/22 12:56 12:56 12:56 MCV MCH MCHC RDW Plt Count MPV Absolute Nucleated RBC Nucleated RBC % (auto) VBG pH VBG pCO2 VBG pO2 VBG HCO3 VBG O2 Saturation VBG Base Excess Anion Gap 18 Estim Creat Clear Calc 20.3 Estimated GFR 21 Random Glucose 216 H D Lactic Acid Calcium 7.3 L Vitamin B12 435 Folate 2.0 L TSH 2.99 Phenytoin 17.3 COVID-19 ([facility]) COVID-19 HW 07/17/22 07/17/22 07/17/22 14:35 14:40 21:06 MCV MCH MCHC RDW Plt Count MPV Absolute Nucleated RBC Nucleated RBC % (auto) VBG pH 7.18 L* VBG pCO2 58 VBG pO2 73 VBG HCO3 22 VBG O2 Saturation 93.0 VBG Base Excess -6.4 Anion Gap 17 Estim Creat Clear Calc 20.0 Estimated GFR 20 Random Glucose 123 H D Lactic Acid Calcium 7.3 L Vitamin B12 Folate TSH Phenytoin COVID-19 ([facility]) Negative [employer] See Note 07/18/22 07/18/22 07/18/22 01:01 04:02 06:04 MCV 105.6 H MCH 31.8 MCHC 30.1 L RDW 17.3 H Plt Count 190 MPV 10.4 Absolute Nucleated RBC 0.000 Nucleated RBC % (auto) 0.0 VBG pH 7.27 L VBG pCO2 53 VBG pO2 38 VBG HCO3 25 VBG O2 Saturation 66.0 VBG Base Excess -2.3 Anion Gap Estim Creat Clear Calc Estimated GFR Random Glucose Lactic Acid 1.0 Calcium Vitamin B12 Folate TSH Phenytoin COVID-19 ([facility]) COVID-19 [employer] 07/18/22 06:04 MCV MCH MCHC RDW Plt Count MPV Absolute Nucleated RBC Nucleated RBC % (auto) VBG pH VBG pCO2 VBG pO2 VBG HCO3 VBG O2 Saturation VBG Base Excess Anion Gap 17 Estim Creat Clear Calc 20.8 Estimated GFR 21 Random Glucose 100 Lactic Acid Calcium 7.2 L Vitamin B12 Folate TSH Phenytoin COVID-19 ([facility]) COVID-19 Clin Com Microbiology Microbiology Results: Microbiology 07/17/22 09:24 Urine Culture - Preliminary Urine Catheterized - Stahl Catheter Gram negative jaron Assessment and Plan (1) Weakness: Status: Acute Plan 82M with pmh CAD, hld, htn, dementia, seizure disorder, CKD IV, chronic diastolic chf was in ED due to inability to manage at home, now admitted for hyperkalemia and KENJI, found to have UTI and acute hypercapnic resp failure KENJI on CKD 4 with hyperkalemia Improved with hydration, insulin and albuterol, potassium 5.5 today, continue hydration and monitor Metabolic encephalopathy, advanced dementia Multifactorial, acute hypercapnic respiratory failure, uremic encephalopathy, UTI Improving with BiPAP Orientation strategies Seizure disorder Continue phenytoin, will use IV as patient is not reliably taking p.o. Urinary tract infection Ceftriaxone, urine culture growing Gram-negative rods, follow-up Hypertension ARB and HCTZ on hold for hyperkalemia and acute kidney injury, continue hydralazine DVT prophylaxis with heparin DNR/DNI reason for continued hospitalization:bipap for hypercapnea, close monitoring of hyperkalemia Quality Stroke Does the patient have a stroke diagnosis?: No VTE Prior VTE?: No VTE Risk Level:: Medical - moderate - high VTE Device Contraindication: Treatment Not Indicated VTE Drug Contraindication: N/A - Med Ordered
[2022-07-18] MEDS: Phenytoin Sodium 300 MG in 0.9 % Sodium Chloride 100 ML 106 MG IV ×2 (12:26→22:17)
[2022-07-18] MEDS: Morphine Sulfate 2 MG/ML CARTRIDGE 1 MG IVPUSH (13:17)
[2022-07-18] MEDS: Folic Acid 1 MG in 0.9 % Sodium Chloride 50 ML 100.4 MG IV (13:49)
--- NOTE | 2022-07-18 14:39 | W.MHC.ACPN ---
Advanced Care Planning Note Advanced Care Planning Note Discussed with: family member(s) Time spent (in minutes): 17 Narrative: discussed at bedside with HCP regarding diagnoses of CKD IV, metabolic encephalopathy, dementia. discussed prognosis and goals of care. decision made to pursues hospice eval and comfort measures only. will discontinue disease directed treatments and diagnostics. will use morphine and versed as needed for comfort and continue dilantin to prevent seizures. Problems Discussed (1) Weakness:
[2022-07-18] MEDS: Morphine Sulfate 2 MG/ML CARTRIDGE IVPUSH ×3 (15:44→19:22)
[2022-07-18] MEDS: Midazolam HCl/PF 2 MG/2 ML VIAL IVPUSH (20:52)
[2022-07-19] MEDS: 0.9 % Sodium Chloride Flush 3 ML SYRINGE IVFLUSH (00:02)
--- NOTE | 2022-07-20 19:20 | PM.EVENT ---
Event Note Date of Service: 07/20/22 Event Note: Pt was pronounced at 12:05 am on 07/19. family also notified. Pupils dilated and not reactive. No cardiac activity, no pulse and no respiratory effort noted
--- NOTE | 2022-07-26 07:14 | PM.DS ---
DS: Providers Provider Date of Service: 07/26/22 Date of admission: 07/17/22 11:41 Primary care physician: Manny Joshua MD DS: Diagnosis Discharge Diagnosis (1) Weakness: Status: Acute DS: Summary Hospital Course Hospital Course: from initial hpi: 82 year old male with history of CAD, hld, htn, seizure disorder. CKD stage 4, and dementia with behavioral disturbance with recent admission here on 06/07 for CHF and KENJI with discharge on 07/04 returned to the ED on 07/10 as family is unable to care for him at home. In ED patient was initiated on PO ceftin for UTI and was awaiting placement to long-term care through case management. last night with increased confusion and aggitation that improved home home meds. However this morning requiring 5mg zyprexa IM for aggitation. Potassium this morning 6.6, improved to 6.2 with 1L NS. EKG with sinus bradycardia with old inferior infarct, no significant change compared to prior. KENJI with creat 2.90 and BUN 73 (baseline 2.10, BUN 49). Pt has henry catheter in place. Pt somnolent during examination, unable to provide much history. Care discussed with nursing staff and brother. hospital course: Patient was admitted for acute kidney injury on CKD 4 with hyperkalemia. He had some improvement with IV hydration, insulin, albuterol. Patient also presented with metabolic encephalopathy which was multifactorial due to advanced dementia, acute hypercapnic respiratory failure, uremic encephalopathy, urinary tract infection. He underwent trial with BiPAP with minimal improvement. For his urinary tract infection was given ceftriaxone. For his seizure disorder he was continued on phenytoin. For his hypertension his ARB and hydrochlorothiazide were held. Due to poor prognosis and limited improvement with medical interventions decision was made to transition to comfort measures only. Patient early a.m. 07/19/2022. Time Spent with Patient Time attestation: Total time spent providing and/or coordinating discharge services: Discharge coordination time: Greater than 30 minutes Quality: Safe Use of Opioids Does Pt have an Active Cancer Diagnosis on the Problem List?: No Quality: Stroke Does the patient have a stroke diagnosis?: No Physical Exam Vital Signs: Vital Signs: Last Vital Signs Temp 98.1 F 07/18/22 12:00 Pulse 56 07/18/22 12:00 Resp 16 07/18/22 23:36 BP 106/53 L 07/18/22 12:00 Pulse Ox 91 L 07/18/22 12:00 O2 Del Method 07/18/22 12:00 O2 Flow Rate 2 07/18/22 12:00 BMI result Body Mass Index 33.7 Discharge Plan Discharge Date/Time: 07/19/22 00:05 Patient Disposition: Discharge Diagnosis: kenji Referrals: Manny Joshua MD [Primary Care Provider] - 1 Week Discharge Medications: No Action hydralazine 25 mg tablet 1 tab PO BID magnesium 250 mg Tablet 250 mg PO DAILY atorvastatin 20 mg tablet 1 tab PO BEDTIME valsartan-hydrochlorothiazide 320-12.5 mg tablet 1 tab PO DAILY atenolol 25 mg tablet 1 tab PO BID phenytoin sodium extended [Dilantin Extended] 100 mg capsule 300 mg PO BID 30 Days Qty: 180 1RF acetaminophen [Tylenol] 325 mg Tablet 650 mg PO Q6H PRN (Reason: Fever) melatonin 3 mg Capsule 6 mg PO BEDTIME quetiapine 100 mg Tablet 100 mg PO BEDTIME Qty: 30 0RF gabapentin 100 mg capsule 100 mg PO TID Qty: 90 2RF finasteride 5 mg tablet 1 tab PO DAILY tamsulosin 0.4 mg capsule 0.4 mg PO BEDTIME quetiapine [Seroquel] 50 mg tablet 50 mg PO BEDTIME Discharge Date/Time: 07/19/22 04:43
--- NOTE | 2022-07-28 12:56 | MHC.CDI.RETR ---
Documented by User: Tila Crowley RN 07/28/22 13:06 Retrospective Query PHYSICIAN'S DOCUMENTATION REQUEST Date of Query: 07/28/22 [id number] Patient Name: Gentry Quiñones Admit Date: 07/17/22 Dear Doctor, A review of the medical record indicates additional documentation may be needed. Please review below and update the documentation accordingly. Clinical Indicators: During this hospital stay, the patient had a diagnosis of hypercapnic respiratory failure. Are there any additional diagnoses that correlate with the findings below: Risk Factors/Clinical Indicators/Treatments POA/RESOLVED/TREAT VITALS: 07/15 O2 SAT - 90% 07/17 O2 SAT - 84% Other indicators: -Patient started on BIPAP 07/17 -Per certificate on 07/19: Cause of : acute hypoxic respiratory failure Recognized standard criteria for respiratory failure includes: (Source: [facility] Hospitalist Aug 2013) ABGs (1 or more) Symptoms: ? PO2 <60 or RA SpO2 <91% ? Tachypnea, SOB, dyspnea ? PcO2 >50 and pH <7.35 ? Pallor or cyanosis ? pO2 decrease or pcO2 increase ? Anxiety or restlessness by 10 mm/Hg from baseline if known ? Use of accessory muscles ? Retractions (grunting in newborns) ? Unable to speak in complete sentences P/F ratio < 300 Supplemental O2 requirement of 40% or more Intubation is not required Clarify which of the following accurately represents the patient's respiratory status: Acute hypoxic respiratory failure Other (please specify) Unable to determine Use of terms such as suspected, likely, concern for, or probable (associated with a specific diagnosis that is being evaluated, monitored, or treated as if it exists) are acceptable and can be coded in the inpatient setting, when documented at the time of discharge. Thank you, Tila Crowley, MS, RN, CCRN Extension: [phone] Please use your independent medical judgment in providing your response. THIS QUERY IS PART OF THE PERMANENT MEDICAL RECORD Documented by User: Rodolfo Nam MD 07/28/22 13:32 Retrospective Query Provider Response: Other (acute hypoxic and hypercapneic respiratory failure with acute respiratory acidosis, UTI - cannot rule out due to chronic henry catheter )
== END 2022-07-19 04:43 | disposition expired | DRG 682 ==
LOC: HO.ED 07-13 19:07 → HO.EDOVER 07-17 12:07 → HO.IMC 07-18 08:43
PROVIDERS: Emergency Medicine; Internal Medicine; Physician Assistant; Student in an Organized Health Care Education/Training Program; Admitting Provider Physician Assistant; Emergency Provider Internal Medicine; PCP Internal Medicine; Visit Provider Internal Medicine
DX: N17.9 Acute kidney failure, unspecified (principal); G93.41 Metabolic encephalopathy; J96.02 Acute respiratory failure with hypercapnia; J96.01 Acute respiratory failure with hypoxia; T83.518A Infection and inflammatory reaction due to other urinary catheter, initial encounter; N39.0 Urinary tract infection, site not specified; I13.0 Hypertensive heart and chronic kidney disease with heart failure and stage 1 through stage 4 chronic kidney disease, or unspecified chronic kidney disease; F03.91 Unspecified dementia, unspecified severity, with behavioral disturbance; I50.32 Chronic diastolic (congestive) heart failure; E87.2 Acidosis; N18.4 Chronic kidney disease, stage 4 (severe); I25.10 Atherosclerotic heart disease of native coronary artery without angina pectoris; B96.1 Klebsiella pneumoniae [K. pneumoniae] as the cause of diseases classified elsewhere; G40.909 Epilepsy, unspecified, not intractable, without status epilepticus; E87.5 Hyperkalemia; E78.5 Hyperlipidemia, unspecified; Z20.822 Contact with and (suspected) exposure to COVID-19; Z95.1 Presence of aortocoronary bypass graft; Z96.641 Presence of right artificial hip joint; Z86.73 Personal history of transient ischemic attack (TIA), and cerebral infarction without residual deficits; Z87.891 Personal history of nicotine dependence; Z79.899 Other long term (current) drug therapy; Y92.9 Unspecified place or not applicable; Y84.6 Urinary catheterization as the cause of abnormal reaction of the patient, or of later complication, without mention of misadventure at the time of the procedure
CPT/HCPCS: 36415; 71045; 80048; 80053; 80185; 81001; 82607; 82746; 82803; 83605; 83735; 84443; 84484; 85025; 85027; 85610; 87040; 87086; 87088; 87147; 87186; 87205; 87635; 93005; 93931; 93971; 94640; 94660; 97162; 99285; J0696; J2250; J2270